=== PATIENT | male | born 1965 | race Caucasian/White ===

== ENCOUNTER 2017-03-17 14:16 | Inpatient (IN) | payer BC ==
[2017-03-17] MEDS ORDERED: diPHENhydraMINE IV* 50 MG/ML 1 ml VIAL (BENADRYL) IV ONE (15:49)
[2017-03-17] MEDS ORDERED: NS 0.9% 1000 ML* 1,000 ML IV ONE (15:49)
[2017-03-17] MEDS ORDERED: Metoclopramide IV* 5 MG/ML 2 ML VIAL IV ONE (15:49)
[2017-03-17] MEDS ORDERED: Morphine INJ* 4 MG/ML 1 ML SYRINGE IV ONE (15:49)
[2017-03-17] MEDS ORDERED: Famotidine IV* 10 MG/ML 2 ML (20 mg) IV ONE (16:00)
[2017-03-17] MEDS: NS 0.9% 1000 ML* 2,000 ML IV ONE ×4 (16:34→19:30)
[2017-03-17 16:50] LABS: Hematocrit 37 % (42-52); Hemoglobin 12.8 g/dl (14.0-18.0); Mean Corpuscular HGB Conc 34 g/dl (31-36); Mean Corpuscular Hemoglobin 31 pg (27-31); Mean Corpuscular Volume 92 fL (80-94); Mean Platelet Volume 9 um3 (7.4-10.4); Red Blood Count 4.08 10^6/ul (4.0-5.4); Red Cell Distribution Width 14 % (10.5-15); White Blood Count 12.7 10^3/ul (3.5-10.8)
[2017-03-17 16:51] LABS: Add Diff/Slide Review? Slide Review Added; Comments Flag Yes
[2017-03-17 17:05] LABS: ALT 11 U/L (7-52); AST 12 U/L (13-39); Albumin 3.7 g/dL (3.2-5.2); Alkaline Phosphatase 79 U/L (34-104); Amylase 20 U/L (29-103); BUN/Creatinine Ratio 6.4 (8-20); Blood Urea Nitrogen 71 mg/dL (6-24); C Reactive Protein 78.97 mg/L (< 5.00); Calcium 8.1 mg/dL (8.6-10.3); Chloride 83 mmol/L (101-111); EGFR African American 6.3 (>60); EGFR Non-African American 4.9 (>60); Globulin 2.9 g/dL (2-4); Glucose 188 mg/dL (70-100); Lipase < 10 U/L (11.0-82.0); Sodium 120 mmol/L (133-145); Total Protein 6.6 g/dL (6.4-8.9)
[2017-03-17 17:15] LABS: Anion Gap 28 mmol/L (2-11); CO2 Carbon Dioxide 9 mmol/L (22-32); Potassium 6.2 mmol/L (3.5-5.0)
--- NOTE | 2017-03-17 17:28 | RAD ---
HISTORY: Abdominal pain COMPARISONS: None VIEWS: Frontal supine and upright views of the abdomen. FINDINGS: BOWEL: There is a nonobstructive bowel gas pattern. There is a large amount of stool within the colon. CALCULI: There are several punctate calculi overlying the upper abdomen just to the right of midline BONES AND SOFT TISSUES: Mild degenerative changes are noted OTHER FINDINGS: The lung bases are clear. There is no subphrenic gas. IMPRESSION: 1. NONOBSTRUCTIVE BOWEL GAS PATTERN. 2. THERE ARE PUNCTATE CALCULI OVERLYING THE UPPER ABDOMEN TO THE RIGHT OF MIDLINE, POSSIBLY RELATED TO THE PANCREAS IN THE SETTING OF CHRONIC PANCREATITIS, THOUGH THE DIFFERENTIAL INCLUDES RIGHT NEPHROLITHIASIS
[2017-03-17] MEDS ORDERED: Dextrose 50% Syringe 50 ML* 25 GM/50 ML SYRINGE IV PUSH ONE (17:30)
[2017-03-17] MEDS ORDERED: Sodium Polystyrene ORAL.SOL* 15 GM/60 ML BTL PO ONE (17:30)
[2017-03-17] MEDS ORDERED: Insulin REGULAR(*) 1 UNITS UNIT IV PUSH ONE (17:30)
--- NOTE | 2017-03-17 18:49 | RAD ---
HISTORY: Acute renal failure, rule out pneumonia COMPARISONS: October 27, 2015 VIEWS:2: Frontal portable views of the chest at 6:32 PM FINDINGS: LINES AND TUBES: None. CARDIOMEDIASTINAL SILHOUETTE: The cardiomediastinal silhouette is normal for portable technique. PLEURA: The costophrenic angles are sharp. No pleural abnormalities are noted. LUNG PARENCHYMA: The lungs are clear. ABDOMEN: The upper abdomen is clear. There is no subphrenic gas. BONES AND SOFT TISSUES: No bone or soft tissue abnormalities are noted. IMPRESSION: NO ACTIVE CARDIOPULMONARY DISEASE.
[2017-03-17 18:52] LABS: PCO2 Arterial 20 mmHg (35-45)
[2017-03-17 18:53] LABS: Urine Bacteria Absent (Absent); Urine Bilirubin Negative (Negative); Urine Glucose 2+(150 mg/dL) (Negative); Urine Nitrite Negative (Negative); Urine Sperm Present (Absent)
--- NOTE | 2017-03-17 19:39 | RAD ---
HISTORY: Acute renal failure COMPARISONS: None TECHNIQUE: Multiple transverse and longitudinal ultrasound images were obtained of the kidneys using grayscale and color Doppler imaging. FINDINGS: RIGHT KIDNEY: The right kidney is mildly echogenic. There is no hydronephrosis or nephrolithiasis. The right kidney measures 11.6 x 6 x 5.9 cm. LEFT KIDNEY: The left kidney is mildly echogenic. There is no hydronephrosis or nephrolithiasis. The left kidney measures 12.9 x 5.9 x 5.8 cm. BLADDER: The bladder is smooth in contour. Bilateral ureteral jets are identified. AORTA AND IVC: No images are submitted of the vasculature. RETROPERITONEUM: Unremarkable. OTHER: None. IMPRESSION: MILDLY ECHOGENIC KIDNEYS SUGGESTIVE OF MEDICAL RENAL DISEASE. NO HYDRONEPHROSIS.
--- NOTE | 2017-03-17 20:17 | ED ---
Ann Marie Thorpe Edward, scribed for Christiano Núñez MD on 03/17/17 at 1551 . Complex/Multi-Sys Presentation - HPI Summary HPI Summary: 51 y/o male presents to ED c/o ABD pain since four days ago. The ABD pain is located in the middle of the epigastric region rated at a 5/10. Patient also c/ o N/V/D since Monday evening. Patient is vomiting a brown colored substance and can't keep anything down, including liquids. ABD pain aggravated by vomiting. Associated sx: severe RUEDA aggravated by vomiting and dizziness. Patient denies blood in diarrhea and states it is yellowish colored. Patient denies travel outside of the country and sick contact. PMHx DM Type II. SHx toe amputations (DM). Occasional EtOH use. Former smoker. - History Of Current Complaint Chief Complaint: EDGeneral Time Seen by Provider: 03/17/17 15:44 Hx Obtained From: Patient Onset/Duration: Sudden Onset, Lasting Days - Four days ago, Still Present Timing: Constant Location: Pain At: - Middle of epigastric region Associated Signs And Symptoms: Positive: Headache, Nausea, Vomiting, Diarrhea - Yellowish, Abdominal Pain, Other - No blood in stool - Allergies/Home Medications Allergies/Adverse Reactions: Allergies Allergy/AdvReac Type Severity Reaction Status Date / Time No Known Allergies Allergy Verified 10/24/15 13:24 Home Medications: Home Medications Aspirin EC Low Dose* [Ecotrin EC Low Dose 81 MG*] 81 mg PO DAILY 03/17/17 [ History Confirmed 03/17/17] Cholecalciferol [Vitamin D3 Super Strength] 2,000 unit PO DAILY 03/17/17 [ History Confirmed 03/17/17] Polyethylene Glycol 3350* [Miralax*] 17 gm PO DAILY 03/17/17 [History Confirmed 03/17/17] Simvastatin TAB(NF) [Zocor(NF)] 20 mg PO DAILY 03/17/17 [History Confirmed 03/17] SitaGLIPtin (NF) [Januvia (NF)] 100 mg PO DAILY 03/17/17 [History Confirmed ] oxyCODONE/Acetamin 5/325 MG* [Percocet 5/325 TAB*] 1 tab PO TID PRN MDD 3 tab [History Confirmed 03/17/17] PMH/Surg Hx/FS Hx/Imm Hx Previously Healthy: No Endocrine/Hematology History: Reports: Hx Diabetes Cardiovascular History: Denies: Hx Hypertension, Hx Pacemaker/ICD History: Denies: Hx Renal Disease Musculoskeletal History: Reports: Hx Arthritis, Other Musculoskeletal History - osteomyelitis Sensory History: Reports: Hx Contacts or Glasses Denies: Hx Hearing Aid Opthamlomology History: Reports: Hx Contacts or Glasses Psychiatric History: Denies: Hx Panic Disorder - Surgical History Surgery Procedure, Year, and Place: 06/04/14 RIGHT GREAT TOE ORIF. LAST 2 TOES ON LEFT FOOT AMPUTATION. TONSILS 9 Y.O Hx Anesthesia Reactions: No Infectious Disease History: Denies: Traveled Outside the [place] in Last 30 Days - Family History Known Family History: Positive: Cardiac Disease - [place] - grandfather, Diabetes - Grandfather, Other - Mother of [place] - Social History Alcohol Use: Weekly Substance Use Type: Reports: None Hx Tobacco Use: Yes - Has not had nicotine replacement since admission Smoking Status (MU): Light Every Day Tobacco Smoker Type: Cigarettes Amount Used/How Often: 1/2 pack per day for 20 years Review of Systems Constitutional: Negative Eyes: Negative ENT: Negative Cardiovascular: Negative Respiratory: Negative Positive: Abdominal Pain, Vomiting, Diarrhea, Nausea Genitourinary: Negative Musculoskeletal: Negative Skin: Negative Neurological: Other - dizziness Positive: Headache Psychological: Normal All Other Systems Reviewed And Are Negative: Yes Physical Exam - Summary Physical Exam Summary: VITAL SIGNS:~Reviewed. GENERAL:~ Patient is a well-developed and nourished male who is lying comfortable in the stretcher.~ Patient is not in any acute respiratory distress. HEAD AND FACE:~No signs of trauma.~ No ecchymosis, hematomas or skull depressions. No sinus tenderness. EYES:~PERRLA, EOMI x 2, No injected conjunctiva, no nystagmus. EARS:~Hearing grossly intact. Ear canals and tympanic membranes are within normal limits. MOUTH:~Dry oral mucosa. NECK:~Supple, trachea is midline, no adenopathy, no JVD, no carotid bruit, no c- spine tenderness, neck with full ROM. CHEST:~Symmetric, no tenderness at palpation LUNGS:~Clear to auscultation bilaterally. No wheezing or crackles. CVS:~Regular rate and rhythm, S1 and S2 present, no murmurs or gallops appreciated. ABDOMEN:~Soft, epigastric tenderness. No signs of distention. No rebound no guarding, and no masses palpated. Bowel sounds are normal. EXTREMITIES:~FROM in all major joints, no edema, no cyanosis or clubbing. NEURO:~Alert and oriented x 3. No acute neurological deficits. Speech is normal and follows commands. SKIN:~Dry and warm Triage Information Reviewed: Yes Vital Signs On Initial Exam: Initial Vitals Temp Pulse Resp BP Pulse Ox 97.3 F 65 22 164/64 99 03/17/17 14:22 03/17/17 14:22 03/17/17 14:22 03/17/17 14:22 03/17/17 14:22 Vital Signs Reviewed: Yes Diagnostics - Vital Signs Vital Signs Temp Pulse Resp BP Pulse Ox 03/17/17 14: 97.3 F 65 22 164/64 99 - Laboratory Lab Results: Lab Results 03/17/17 03/17/17 03/17/17 Range/Units 16:30 16:30 16:30 WBC 12.7 H (3.5-10.8) 10^3/ul RBC 4.08 (4.0-5.4) 10^6/ul Hgb 12.8 L (14.0-18.0) g/dl Hct 37 L (42-52) % MCV 92 (80-94) fL MCH 31 (27-31) pg MCHC 34 (31-36) g/dl RDW 14 (10.5-15) % Plt Count 166 (150-450) 10^3/ul MPV 9 (7.4-10.4) um3 Neut % (Auto) 86.9 H (38-83) % Lymph % (Auto) 5.8 L (25-47) % [place] % (Auto) 6.5 (1-9) % Eos % (Auto) 0.1 (0-6) % Baso % (Auto) 0.7 (0-2) % Absolute Neuts (auto) 11.0 H (1.5-7.7) 10^3/ul Absolute Lymphs (auto) 0.7 L (1.0-4.8) 10^3/ul Absolute Monos (auto) 0.8 (0-0.8) 10^3/ul Absolute Eos (auto) 0 (0-0.6) 10^3/ul Absolute Basos (auto) 0.1 (0-0.2) 10^3/ul Absolute Nucleated RBC 0.01 10^3/ul Nucleated RBC % 0 Sodium 120 L (133-145) mmol/L Potassium 6.2 H* (3.5-5.0) mmol/L Chloride 83 L (101-111) mmol/L Carbon Dioxide 9 L* (22-32) mmol/L Anion Gap 28 H (2-11) mmol/L BUN 71 H (6-24) mg/dL Creatinine 11.03 H (0.67-1.17) mg/dL Est GFR ( Amer) 6.3 (>60) Est GFR (Non-Af Amer) 4.9 (>60) BUN/Creatinine Ratio 6.4 L (8-20) Glucose 188 H (70-100) mg/dL Lactic Acid 3.9 H* (0.5-2.0) mmol/L Calcium 8.1 L (8.6-10.3) mg/dL Total Bilirubin 0.40 (0.2-1.0) mg/dL AST 12 L (13-39) U/L ALT 11 (7-52) U/L Alkaline Phosphatase 79 (34-104) U/L C-Reactive Protein 78.97 H (< 5.00) mg/L Total Protein 6.6 (6.4-8.9) g/dL Albumin 3.7 (3.2-5.2) g/dL Globulin 2.9 (2-4) g/dL Albumin/Globulin Ratio 1.3 (1-3) Amylase 20 L (29-103) U/L Lipase < 10 L (11.0-82.0) U/L Result Diagrams: 03/17/17 16:30 03/17/17 16:30 Lab Statement: Any lab studies that have been ordered have been reviewed, and results considered in the medical decision making process. - Radiology ABD XRAY Xray Interpretation: Positive (See Comments) - 1. NONOBSTRUCTIVE BOWEL GAS PATTERN. 2. THERE ARE PUNCTATE CALCULI OVERLYING THE UPPER ABDOMEN TO THE RIGHT OF MIDLINE, POSSIBLY RELATED TO THE PANCREAS IN THE SETTING OF CHRONIC PANCREATITIS, THOUGH THE DIFFERENTIAL INCLUDES RIGHT NEPHROLITHIASIS Radiology Interpretation Completed By: Radiologist Complex Multi-Symp Course/Dx Assessment/Plan: 51 y/o male presents to ED c/o ABD pain since four days ago. The ABD pain is located in the middle of the epigastric region rated at a 5/10. Patient also c/o N/V/D since Monday evening. Patient is vomiting a brown colored substance and can't keep anything down, including liquids. ABD pain aggravated by vomiting. Associated sx: severe RUEDA aggravated by vomiting and dizziness. Patient denies blood in diarrhea and states it is yellowish colored. Patient denies travel outside of the country and sick contact. PMHx DM Type II. SHx toe amputations (DM). Occasional EtOH use. Former smoker. Test results show WBC 12.7, hemoglobin 12.8, hematocrit 37. Sodium 120, potassium 6.2, chloride 83 , CO2 9, BUN 71, creatinine 11. Glucose 188, CRP 78.97. ABD XR shows 1. NONOBSTRUCTIVE BOWEL GAS PATTERN. 2. THERE ARE PUNCTATE CALCULI OVERLYING THE UPPER ABDOMEN TO THE RIGHT OF MIDLINE, POSSIBLY RELATED TO THE PANCREAS IN THE SETTING OF CHRONIC PANCREATITIS, THOUGH THE DIFFERENTIAL INCLUDES RIGHT NEPHROLITHIASIS. In the ED course we placed the patient on a monitor, obtained IV access and gave the patient IV fluids and 2 L of normal saline boluses. Because of the patients hypokalemia, the patient was given calcium, gluconate, dextrose, insulin, and kayexalate. EKG showed NSR with no ST elevations. Pt was also given morphine for ABD pain and Reglan for n/v. The Pt has continued with 2 L of normal saline at this point. I discussed the test findings and examination with Dr. Wang who will consult for the, and who recommends the patient receive a Renal U and bladder scan. Dr. Wang also recommends administering urinary sodium and urinary creatinine with fraction and excretion. Dr Wang will follow up the results of the [place]. I discussed the case with Dr. Knutson who accepted the patient for admission. I also discussed the case with Dr. Victor from ICU who accepted the patient for admission to the medical team. The patient is hemodynamically stable and A&Ox3. - Diagnoses Provider Diagnoses: Acute renal failure, Severe dehydration, Hyponatremia, Hypokalemia - Physician Notifications Discussed Care Of Patient With: Oralia Knutson Time Discussed With Above Provider: 17:45 Instructed by Provider To: Admit As Inpatient - Critical Care Time Critical Care Time: 30-74 min Discharge - Discharge Plan Condition: Stable Disposition: ADMITTED TO [facility] The documentation as recorded by the Ann Marie goodman Edward accurately reflects the service I personally performed and the decisions made by , Christiano Núñez MD.
[2017-03-17 20:18] LABS: Hematocrit 36 % (42-52); Hemoglobin 11.9 g/dl (14.0-18.0); Mean Corpuscular HGB Conc 33 g/dl (31-36); Mean Corpuscular Hemoglobin 31 pg (27-31); Mean Corpuscular Volume 94 fL (80-94); Mean Platelet Volume 9 um3 (7.4-10.4); Red Blood Count 3.83 10^6/ul (4.0-5.4); Red Cell Distribution Width 14 % (10.5-15); White Blood Count 15.8 10^3/ul (3.5-10.8)
[2017-03-17 20:19] LABS: Add Diff/Slide Review? Slide Review Added; Comments Flag Yes
[2017-03-17 20:54] LABS: Eosinophils % 2 % (0-6); Immature Granulocytes 8 % (0-9); Myelocytes % 1 % (0-1); Neutrophil % 78 % (38-83); RBC Morphology Normal (Normal)
[2017-03-17 21:08] LABS: Calcium 7.1 mg/dL (8.6-10.3); EGFR African American 7.1 (>60); EGFR Non-African American 5.5 (>60); Potassium 5.4 mmol/L (3.5-5.0)
[2017-03-17] MEDS: Sodium Bicarbonate 8.4% IV* 100 MEQ in NS 0.45% 1000 ML BAG* 1,000 ML IV SCH (21:35)
[2017-03-17] MEDS: Nortriptyline CAP* 10 MG PO SCH (22:30)
[2017-03-17] MEDS: cefTRIAXone VIAL(*) 1,000 MG in NS 0.9% 50 ML* 50 ML IVPB SCH (22:30)
[2017-03-17] MEDS: Heparin VIAL(*) 5000 UNITS/ML VIAL (FIVE THOUSAND) SUBCUT SCH (22:31)
[2017-03-17] MEDS ORDERED: Ondansetron INJ* 2 MG/ML VIAL ONE (23:16)
[2017-03-17] MEDS: Ondansetron INJ* 2 MG/ML VIAL IV PRN (23:19)
[2017-03-17] MEDS: Insulin LISPRO* 1 UNITS UNIT SUBCUT SCH (23:58)
[2017-03-18 00:35] LABS: Benzodiazepine Urine Screen None Detected (None Detect)
[2017-03-18 01:06] LABS: Magnesium 1.8 mg/dL (1.9-2.7)
[2017-03-18 02:21] LABS: BUN/Creatinine Ratio 6.8 (8-20); Calcium 6.7 mg/dL (8.6-10.3); EGFR African American 6.9 (>60); EGFR Non-African American 5.4 (>60)
[2017-03-18 02:40] LABS: Potassium 6.1 mmol/L (3.5-5.0)
[2017-03-18] MEDS ORDERED: Sodium Polystyrene ORAL.SOL* 15 GM/60 ML BTL ONE (03:14)
[2017-03-18] MEDS ORDERED: Dextrose 50% Syringe 50 ML* 25 GM/50 ML SYRINGE ONE (03:14)
[2017-03-18] MEDS ORDERED: Insulin REGULAR(*) 1 UNITS UNIT ONE (03:14)
[2017-03-18] MEDS: Insulin LISPRO* 1 UNITS UNIT SUBCUT SCH ×5 (03:20→20:30)
[2017-03-18] MEDS: Sodium Bicarbonate 8.4% IV* 100 MEQ in NS 0.45% 1000 ML BAG* 1,000 ML IV SCH ×2 (03:28→09:30)
[2017-03-18] MEDS ORDERED: Insulin REGULAR(*) 1 UNITS UNIT IV PUSH ONE (03:30)
[2017-03-18] MEDS ORDERED: Dextrose 50% Syringe 50 ML* 25 GM/50 ML SYRINGE IV PUSH ONE (03:30)
[2017-03-18] MEDS ORDERED: Calcium Gluconate INJ* 1 GM in NS 0.9% 50 ML* 50 ML IV ONE (03:30)
[2017-03-18] MEDS ORDERED: Sodium Polystyrene ORAL.SOL* 15 GM/60 ML BTL PO ONE (03:30)
--- NOTE | 2017-03-18 05:53 | HP ---
CC: Dr. Sexton; Dr. Berumen; Dr. Victor * HISTORY AND PHYSICAL: DATE OF ADMISSION: 03/17/17 PRIMARY CARE PROVIDER: Dr. Akin Sexton. CHIEF COMPLAINT: Nausea, vomiting, and diarrhea. HISTORY OF PRESENT ILLNESS: Mikel Olivia is a 51-year-old male with history of diabetes, chronic kidney disease stage 2 to 3, who presented to the hospital after 3 days of being "sick". Patient stated that he has been having constant nausea and vomiting and diarrhea. He stated that he would go with diarrhea 20 times a day and he would be vomiting constantly. He complaints of mild epigastric tenderness. He stated that it started 3 days ago and he does not remember any particular event that precipitated the nausea and diarrhea. Patient stated that his family has not been ill. 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 Patient was seen in the ED and was noted to have a creatinine of 11 with anion gap, metabolic acidosis, severe hyponatremia, and hyperkalemia. He is going to be admitted to the intensive care unit under the care of Dr. Victor. PAST MEDICAL HISTORY: 1. Diabetes type 2. 2. Hypertension. 3. History of toe amputations bilaterally for osteomyelitis. 4. History of chronic kidney disease stage 2 to 3 with creatinine of 1.4 and proteinuria under the care of Dr. Berumen in the past. MEDICATIONS: Include: 1. MiraLAX 17 g daily p.r.n. 2. Vitamin D3 2000 units daily. 3. Zocor 20 mg daily. 4. Januvia 100 mg daily. 5. Aspirin 81 mg daily. 6. Glucophage 1000 mg b.i.d. 7. Glipizide 10 mg b.i.d. 8. Ramipril 10 mg daily. 9. Oxycodone-acetaminophen on a p.r.n. basis. 10. Pamelor 10 mg daily. ALLERGIES: No known drug allergies. FAMILY HISTORY: Positive for grandfather with diabetes, mother with history of bone marrow cancer. SOCIAL HISTORY: The patient has history of smoking over 20 years and quit smoking 3 months ago. He drinks alcohol occasionally, usually a couple of glasses of wine a week. He denies any drug use. 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 REVIEW OF SYSTEMS: Please see history of present illness. All the remaining 14 systems were reviewed with the patient and were otherwise negative. Please note that the patient was able to produce a few milliliters of urine after 3 L of fluids were infused in the ED. The patient also had 0 postvoid residual. PHYSICAL EXAMINATION GENERAL: The patient is a very pleasant 51-year-old male who is in no acute distress. Alert, awake, and oriented x3. VITAL SIGNS: Blood pressure 164/64, heart rate of 55 and regular, respiratory rate 22, oxygen saturation 97% on room air, temperature 97.3. HEENT: Head atraumatic and normocephalic. Eyes: Pupils are equal and reactive to light and accommodation. Oropharynx clear. Mucosa moist. NECK: Supple. No JVD. No bruits bilaterally RESPIRATORY: Clear to auscultation bilaterally. CARDIOVASCULAR: Regular rate and rhythm, no murmur. ABDOMEN: Soft, minimal tender in the epigastrium with no rebound, no guarding. Bowel sounds present in all 4 quadrants. EXTREMITIES: There is no edema. Pulses +2 bilaterally. There is no clubbing or cyanosis. NEUROLOGIC: Speech is clear. Cranial nerves II through XII grossly intact. Motor strength is 5/5 bilaterally. SKIN: On evaluation of the skin, the patient has sunburn on his upper back with scattered pustular eruptions, probably as a reaction to sunburn. No petechiae or other rashes noted. DIAGNOSTIC STUDIES/LAB DATA: Laboratory data shows urinalysis with urine specific gravity of 1.01. Ketones are +1, protein +2, blood +3. Urine wbc +1, rbc +3. There are present hyaline casts, granular casts, and glucose. There were no bacteria present. Sodium of 120, potassium 6.2, chloride 83, carbon dioxide 9, BUN 71, creatinine 11. Liver function tests showed no abnormalities with bilirubin 0.4, AST of 12, ALT of 11. C-reactive protein of 78. Lactic acid of 3.9. Glucose of 188. Lipase below 10. CBC: White blood cell count of 12.7, hemoglobin of 12.8, hematocrit of 37, platelets of 166. ABG showed pH of below 7, pCO2 of 20, pO2 of 151, bicarb of 4.9. Portable chest x-ray reviewed by myself showed no acute abnormalities. Abdomen X-ray, impression: "Obstructive bowel gas pattern. There are punctate calculi overlying the upper abdomen of the right midline possibly related to pancreas in the setting of chronic pancreatitis. The differential includes right nephrolithiasis." Patient's EKG shows sinus tachycardia with heart rate of 105 beats per minute with one peaked T wave in lead V3 and no other changes. ASSESSMENT AND PLAN: 1. Acute renal failure in patient with hyponatremia, hypochloremia, and metabolic acidosis with anion gap acidosis and elevation of lactic acid. I discussed the case both with Dr. Victor, the punch molder on-call to whose service the patient is going to be admitted, as well as Dr. Berumen, the patient' s directory compiler. At this point, it does not appear that patient's metabolic acidosis is due to DKA. Patient is type 2 diabetic. He appears to be markedly dehydrated and his renal failure appears to be mostly due to the hydration. At this point, the patient is going to be placed on his bicarb drip after intravenous fluid resuscitation with a total of 5 L of fluids, which included 4 L of normal saline and 1 L of lactated Ringer's. We will follow up with his basic metabolic panel every 6 hours. Patient refused to have a Burton catheter placement, but so far he has not had any urine residual. Due to mild elevation of CRP at this point, I will treat the patient with one empiric dose of IV ceftriaxone. 2. In regards to the patient's diabetes, his sugar level is 188. All of his oral agents are going to be held and patient is going to be placed on insulin sliding scale with lispro coverage. 3. In regards to the patient's hyperkalemia, he already received IV regular insulin as well as Kayexalate as well as calcium gluconate. Recheck basic metabolic panel in a few hours to follow up on his potassium levels. 4. In regards to the patient's hypertension, his TRU inhibitor is going to be held due to acute renal failure. 5. For DVT prophylaxis, the patient is ambulatory. He is also going to be placed on heparin subcutaneously. 6. In regards to the code status, the patient's code status is full. TIME SPENT: Approximately 75 minutes was spent on admission of this patient, more than half that time was spent [id number] with the patient and the patient 's during the interview and physical exam. [id number]/[facility] #: [id number] JEANNA
[2017-03-18] MEDS: Heparin VIAL(*) 5000 UNITS/ML VIAL (FIVE THOUSAND) SUBCUT SCH ×2 (06:01→16:13)
[2017-03-18 06:17] LABS: Hematocrit 30 % (42-52); Hemoglobin 10.5 g/dl (14.0-18.0); Mean Corpuscular HGB Conc 35 g/dl (31-36); Mean Corpuscular Hemoglobin 32 pg (27-31); Mean Corpuscular Volume 92 fL (80-94); Mean Platelet Volume 8 um3 (7.4-10.4); Red Blood Count 3.26 10^6/ul (4.0-5.4); Red Cell Distribution Width 14 % (10.5-15); White Blood Count 8.6 10^3/ul (3.5-10.8)
[2017-03-18] MEDS: oxyCODONE/Acetamin 5/325 MG* TAB PO PRN ×3 (06:34→20:32)
[2017-03-18 08:37] LABS: BUN/Creatinine Ratio 7.1 (8-20); Calcium 6.8 mg/dL (8.6-10.3); EGFR African American 6.7 (>60); EGFR Non-African American 5.2 (>60); Potassium 4.3 mmol/L (3.5-5.0)
[2017-03-18] MEDS ORDERED: NS 0.9% 1000 ML* 1,000 ML IV SCH (10:30)
--- NOTE | 2017-03-18 10:38 | PN ---
Critical Care Services: Critical Care Progress note Date of Service: 03/18/17, Time: 10:31 am Pt was seen and examined at bedside. Reports feeling better this morning than he felt over days. Denies nausea, is drinking fluids, no diarrhea. History and physical reviewed, reviewed case with Dr Knutson last night. 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 He also c/o epigastric tenderness. No other family members were affected. He also had poor oral intake over the past 3 days , has been drinking Gatorade. Denied SOB, fevers, chills, chest pain, dizziness , headaches, hematuria, blood in stools, renal colic. Reported sore throat from vomiting, improved today. His blood sugars were in low 200s at home. He presented to ED for evaluation of persistant severe diarrhea symptoms. He was alert and oriented in ED. His EKG showed minimal peaked t waves. He was noted to have severe metabolic acidosis and hyperkalemia. He had received kayexalate , calcium gluconate and insulin in ED and again last night. He is hydrating orally and receiving IV fluids and is able to make urine. PMHx, PSHx, All, FHx were reviewed and as per HPI Medications were reviewed and reconciled in chart ROS: All systems reviewed, as above in HPI Vital Signs: Temp Pulse Resp BP SpO2 FiO2 98.7 F 95 16 154/68 99 99 03/18/17 08:00 03/18/17 06:00 03/18/17 06:34 03/18/17 06:00 03/18/17 06:00 03/18 04:00 Physical Exam: Gen: Pt in NAD, HEENT: PERRLA, mucus membranes dry, no icterus Lungs:Good ae b/l, no wheeze Cardiac: S1 S2+, mildly tacycardic Abdomen:Soft, BS+, no tenderness Extremities:Normal ROM, no cyanosis, clubbing Neuro:Alert, awake, oriented x3, NAD. Access: peripheral Fluid Balance (Past 24 Hours): I= O= Net Intake & Output 03/16/17 03/17/17 03/18/17 03/19/17 06:59 06:59 06:59 06:59 Intake Total 5160 Output Total 110 Balance 5160 -110 Weight 222 lb 7.143 oz Intake: IV Fluids 2000 IVPB 2800 LR 1000 Na Bicarb 1800 Medicated IV 60 Ca Gluconate 60 Oral 300 Output: Urine 110 Labs: Laboratory Results - last 24 hr 03/17/17 03/17/17 03/17/17 18:20 18:43 18:43 WBC RBC Hgb Hct MCV MCH MCHC RDW Plt Count MPV Immature Gran % (Auto) Neut % (Auto) Lymph % (Auto) [place] % (Auto) Eos % (Auto) Baso % (Auto) Absolute Neuts (auto) Absolute Lymphs (auto) Absolute Monos (auto) Absolute Eos (auto) Absolute Basos (auto) Absolute Nucleated RBC Neutrophils % Band Neutrophils % Lymphocytes % Monocytes % Eosinophils % Myelocytes % Nucleated RBC % Normal RBC Morphology INR (Anticoag Therapy) APTT ABG pH < 7.00 L* ABG pCO2 20 L ABG pO2 151 H ABG HCO3 4.9 L* ABG O2 Saturation 98.3 H ABG Base Excess -25.7 L Carbon Monoxide Screen <3.5 Sodium Potassium Chloride Carbon Dioxide Anion Gap BUN Creatinine Est GFR ( Amer) Est GFR (Non-Af Amer) BUN/Creatinine Ratio Glucose POC Glucose (mg/dL) Lactic Acid Calcium Magnesium Urine Color Yellow Urine Appearance Cloudy Urine pH 5.0 Ur Specific [place] 1.010 Urine Protein 2+(100 mg/dl) H Urine Ketones 1+ H Urine Blood 3+ H Urine Nitrate Negative Urine Bilirubin Negative Urine Urobilinogen Negative Ur Leukocyte Esterase Negative Urine WBC (Auto) 1+(6-10/hpf) H Urine RBC (Auto) 3+(>10/hpf) H Ur Squamous Epith Cells Present H Ur Transition Epith Cell Present H Amorphous Crystals Present H Urine Bacteria Absent Hyaline Casts Present H Granular Casts Present H Urine Sperm Present H Ur Random Creatinine Ur Random Sodium Urine Glucose 2+(150 mg/dl) H Urine Opiates Screen Ur Barbiturates Screen Ur Phencyclidine Scrn Ur Amphetamines Screen U Benzodiazepines Scrn Urine Cocaine Screen U Cannabinoids Screen 03/17/17 03/17/17 03/17/17 20:06 20:06 20:06 WBC 15.8 H RBC 3.83 L Hgb 11.9 L Hct 36 L MCV 94 MCH 31 MCHC 33 RDW 14 Plt Count 169 MPV 9 Immature Gran % (Auto) 8 Neut % (Auto) 85.2 H Lymph % (Auto) 6.7 L [place] % (Auto) 7.3 Eos % (Auto) 0.1 Baso % (Auto) 0.7 Absolute Neuts (auto) 13.4 H Absolute Lymphs (auto) 1.1 Absolute Monos (auto) 1.1 H Absolute Eos (auto) 0 Absolute Basos (auto) 0.1 Absolute Nucleated RBC 0.02 Neutrophils % 78 Band Neutrophils % 7 Lymphocytes % 5 L Monocytes % 7 Eosinophils % 2 Myelocytes % 1 Nucleated RBC % 0.1 Normal RBC Morphology Normal INR (Anticoag Therapy) 0.94 APTT 30.2 ABG pH ABG pCO2 ABG pO2 ABG HCO3 ABG O2 Saturation ABG Base Excess Carbon Monoxide Screen Sodium 121 L Potassium 5.4 H Chloride 91 L Carbon Dioxide 7 L* Anion Gap 23 H BUN 69 H Creatinine 9.91 H Est GFR ( Amer) 7.1 Est GFR (Non-Af Amer) 5.5 BUN/Creatinine Ratio 7.0 L Glucose 192 H POC Glucose (mg/dL) Lactic Acid Calcium 7.1 L Magnesium 1.8 L Urine Color Urine Appearance Urine pH Ur Specific [place] Urine Protein Urine Ketones Urine Blood Urine Nitrate Urine Bilirubin Urine Urobilinogen Ur Leukocyte Esterase Urine WBC (Auto) Urine RBC (Auto) Ur Squamous Epith Cells Ur Transition Epith Cell Amorphous Crystals Urine Bacteria Hyaline Casts Granular Casts Urine Sperm Ur Random Creatinine Ur Random Sodium Urine Glucose Urine Opiates Screen Ur Barbiturates Screen Ur Phencyclidine Scrn Ur Amphetamines Screen U Benzodiazepines Scrn Urine Cocaine Screen U Cannabinoids Screen 03/17/17 03/18/17 03/18/17 22:55 00:09 00:09 WBC RBC Hgb Hct MCV MCH MCHC RDW Plt Count MPV Immature Gran % (Auto) Neut % (Auto) Lymph % (Auto) [place] % (Auto) Eos % (Auto) Baso % (Auto) Absolute Neuts (auto) Absolute Lymphs (auto) Absolute Monos (auto) Absolute Eos (auto) Absolute Basos (auto) Absolute Nucleated RBC Neutrophils % Band Neutrophils % Lymphocytes % Monocytes % Eosinophils % Myelocytes % Nucleated RBC % Normal RBC Morphology INR (Anticoag Therapy) APTT ABG pH ABG pCO2 ABG pO2 ABG HCO3 ABG O2 Saturation ABG Base Excess Carbon Monoxide Screen Sodium Potassium Chloride Carbon Dioxide Anion Gap BUN Creatinine Est GFR ( Amer) Est GFR (Non-Af Amer) BUN/Creatinine Ratio Glucose POC Glucose (mg/dL) 191 H Lactic Acid Calcium Magnesium Urine Color Urine Appearance Urine pH Ur Specific [place] Urine Protein Urine Ketones Urine Blood Urine Nitrate Urine Bilirubin Urine Urobilinogen Ur Leukocyte Esterase Urine WBC (Auto) Urine RBC (Auto) Ur Squamous Epith Cells Ur Transition Epith Cell Amorphous Crystals Urine Bacteria Hyaline Casts Granular Casts Urine Sperm Ur Random Creatinine 36.47 Ur Random Sodium 81 Urine Glucose Urine Opiates Screen None detected Ur Barbiturates Screen None detected Ur Phencyclidine Scrn None detected Ur Amphetamines Screen None detected U Benzodiazepines Scrn None detected Urine Cocaine Screen None detected U Cannabinoids Screen None detected 03/18/17 03/18/17 03/18/17 02:00 03:00 06:00 WBC 8.6 RBC 3.26 L Hgb 10.5 L Hct 30 L MCV 92 MCH 32 H MCHC 35 RDW 14 Plt Count 126 L MPV 8 Immature Gran % (Auto) Neut % (Auto) Lymph % (Auto) [place] % (Auto) Eos % (Auto) Baso % (Auto) Absolute Neuts (auto) Absolute Lymphs (auto) Absolute Monos (auto) Absolute Eos (auto) Absolute Basos (auto) Absolute Nucleated RBC Neutrophils % Band Neutrophils % Lymphocytes % Monocytes % Eosinophils % Myelocytes % Nucleated RBC % Normal RBC Morphology INR (Anticoag Therapy) APTT ABG pH ABG pCO2 ABG pO2 ABG HCO3 ABG O2 Saturation ABG Base Excess Carbon Monoxide Screen Sodium 121 L Potassium 6.1 H* Chloride 91 L Carbon Dioxide 8 L* Anion Gap 22 H BUN 69 H Creatinine 10.17 H Est GFR ( Amer) 6.9 Est GFR (Non-Af Amer) 5.4 BUN/Creatinine Ratio 6.8 L Glucose 184 H POC Glucose (mg/dL) Lactic Acid 2.0 Calcium 6.7 L Magnesium Urine Color Urine Appearance Urine pH Ur Specific [place] Urine Protein Urine Ketones Urine Blood Urine Nitrate Urine Bilirubin Urine Urobilinogen Ur Leukocyte Esterase Urine WBC (Auto) Urine RBC (Auto) Ur Squamous Epith Cells Ur Transition Epith Cell Amorphous Crystals Urine Bacteria Hyaline Casts Granular Casts Urine Sperm Ur Random Creatinine Ur Random Sodium Urine Glucose Urine Opiates Screen Ur Barbiturates Screen Ur Phencyclidine Scrn Ur Amphetamines Screen U Benzodiazepines Scrn Urine Cocaine Screen U Cannabinoids Screen 03/18/17 03/18/17 03/18/17 06:00 06:32 08:10 WBC RBC Hgb Hct MCV MCH MCHC RDW Plt Count MPV Immature Gran % (Auto) Neut % (Auto) Lymph % (Auto) [place] % (Auto) Eos % (Auto) Baso % (Auto) Absolute Neuts (auto) Absolute Lymphs (auto) Absolute Monos (auto) Absolute Eos (auto) Absolute Basos (auto) Absolute Nucleated RBC Neutrophils % Band Neutrophils % Lymphocytes % Monocytes % Eosinophils % Myelocytes % Nucleated RBC % Normal RBC Morphology INR (Anticoag Therapy) APTT ABG pH ABG pCO2 ABG pO2 ABG HCO3 ABG O2 Saturation ABG Base Excess Carbon Monoxide Screen Sodium 124 L Potassium 4.3 D Chloride 90 L Carbon Dioxide 10 L* Anion Gap 24 H BUN 74 H Creatinine 10.43 H Est GFR ( Amer) 6.7 Est GFR (Non-Af Amer) 5.2 BUN/Creatinine Ratio 7.1 L Glucose 117 H POC Glucose (mg/dL) 147 H Lactic Acid Calcium 6.8 L Magnesium 1.7 L Urine Color Urine Appearance Urine pH Ur Specific [place] Urine Protein Urine Ketones Urine Blood Urine Nitrate Urine Bilirubin Urine Urobilinogen Ur Leukocyte Esterase Urine WBC (Auto) Urine RBC (Auto) Ur Squamous Epith Cells Ur Transition Epith Cell Amorphous Crystals Urine Bacteria Hyaline Casts Granular Casts Urine Sperm Ur Random Creatinine Ur Random Sodium Urine Glucose Urine Opiates Screen Ur Barbiturates Screen Ur Phencyclidine Scrn Ur Amphetamines Screen U Benzodiazepines Scrn Urine Cocaine Screen U Cannabinoids Screen Studies: U/S kidneys: No hydronephrosis, chronic renal disease noted ABG showed metabolic acidosis with pH less than 7, bicarbonate of 4.9 EKG; Sinus tachycardia with one peaked T wave in lead V3, no acute changes CXR: Reviewed personally, no acute air space opacities noted Nutrition: Started oral feeds today Impression: 51 y o male with h/o diabetic nephropathy with chronic 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 No signs of uremia like AMS or pericarditis. Hyperkalemia resolved after treatment with kayexalate, insulin and calcium and glucose last night. Will stop bicarbonate drip and start oral bicarbonate, will stop bicarbonate when serum levels are 15. Will c/w IV fluids, no signs of fluid overload at this point. Pt was anuric upon arrival however UO is picking up since he started receiving fluids. Patient declined lemus however monitoring output, voided 110 ml this am. Will monitor BMP closely including calcium levels while on bicarbonate drip. Dr Berumen has seen pt today. 2.CVS: Hemodynamically stable other than mild tachycardia. EKG showed no significant abnormalitity. Will c/w close cardiac monitoring. RTU-inh is being held given renal failure. Will treat with labetalol if hypertensive. 3.Haem: Anemia of chronic disease, no active bleeding. Platelets slightly decreased however no petechial or mucosal bleeding. Will monitor closely 4.GI: Diarrhea and nausea/vomiting resolved. Will start with liquid diet and progress towards full renal diet as tolerated. 5.Endocrine: History DM, donot suspect DKA. Pt was on Metformin and Glipizide which are being held given ARF. He is on sliding scale insulin coverage 6.Neuro: Alert and oriented, No AMS. 7.Resp: No resp issues, not requiring o2 supplementation 8.Musculoskeletal: No evidence of cellulitis 9.ID: WBC count was slightly elevated at presentation likely from hemoconcentration. Given GI sx and mild epigastrial tenderness received renal dose of Ceftriaxone. Donot see any indication to continue abx Supportive care Patient and family updated at bedside of plan Critical Care Time: 50 min
[2017-03-18] MEDS: Ondansetron INJ* 2 MG/ML VIAL IV PRN (11:26)
[2017-03-18 12:53] LABS: BUN/Creatinine Ratio 6.8 (8-20); Calcium 6.8 mg/dL (8.6-10.3); EGFR African American 6.7 (>60); EGFR Non-African American 5.2 (>60); Potassium 4.5 mmol/L (3.5-5.0)
[2017-03-18] MEDS: Sodium Bicarbonate (ANTACID)* 650 MG TAB PO SCH ×2 (16:13→20:12)
[2017-03-18 17:07] LABS: BUN/Creatinine Ratio 6.7 (8-20); Calcium 6.6 mg/dL (8.6-10.3); EGFR African American 6.5 (>60); EGFR Non-African American 5.1 (>60); Potassium 4.3 mmol/L (3.5-5.0)
[2017-03-18 18:41] LABS: Magnesium 1.5 mg/dL (1.9-2.7); Phosphorus 8.7 mg/dL (2.5-5.0)
[2017-03-18] MEDS: Calcium Citrate TAB* 200 MG PO SCH ×2 (20:12→23:45)
[2017-03-18] MEDS: Calcitriol CAP* 0.25 MCG PO SCH ×2 (20:12→23:45)
[2017-03-18] MEDS: cefTRIAXone VIAL(*) 1,000 MG in NS 0.9% 50 ML* 50 ML IVPB SCH (20:16)
[2017-03-18] MEDS: Insulin GLARGINE(*) 1 UNITS UNIT SUBCUT SCH (20:38)
[2017-03-18 20:44] LABS: BUN/Creatinine Ratio 6.6 (8-20); Calcium 6.7 mg/dL (8.6-10.3); EGFR African American 6.5 (>60); Potassium 4.4 mmol/L (3.5-5.0)
[2017-03-18] MEDS: Nortriptyline CAP* 10 MG PO SCH (21:20)
[2017-03-19] MEDS: Heparin VIAL(*) 5000 UNITS/ML VIAL (FIVE THOUSAND) SUBCUT SCH ×4 (00:12→21:16)
[2017-03-19] MEDS: Sodium Bicarbonate (ANTACID)* 650 MG TAB PO SCH ×2 (00:13→05:45)
[2017-03-19] MEDS: Insulin LISPRO* 1 UNITS UNIT SUBCUT SCH ×7 (00:35→23:29)
[2017-03-19] MEDS: Calcium Acetate CAP* 667 MG PO SCH ×4 (00:40→17:05)
--- NOTE | 2017-03-19 04:23 | PN ---
AMENDED REPORT NOW INCLUDES DATE OF SERVICE - ESIGNED BEFORE ADJUSTMENT PROGRESS NOTE: DATE OF SERVICE/DICTATION: 03/18/17 HISTORY: Mr. Olivia is a 51-year-old gentleman that I had consulted on in November of this year because of proteinuria secondary to diabetes mellitus type 2. He began to have some nausea and malaise and vomiting and diarrhea a few days prior to admission. He was able to hold down a little bit of food prior to Monday but then he was no longer able to eat or hold down food or fluids. Eventually, he presented because of intractable vomiting and diarrhea. In the emergency room, he was found to have acute renal failure with severe metabolic acidosis and probable contraction metabolic alkalosis in the face of hyperkalemia. He is feeling considerably better after rehydration and some buffering last night. His previous medical history is significant for diabetes mellitus type 2. He has a history of hypertension, he has had an amputation of the toes on his right foot because of osteomyelitis. Overnight, his urine output has been very , very scant. In the initial evaluation in the emergency room, the bladder scan showed no urine. He produced 110 cc of urine this morning after receiving 7 L of fluid. He is now able to eat and drink without having to vomit. His blood pressure is 154/68, he is afebrile, his pulse is 95, respiratory rate is 16. His tongue is a little coated, his ocular turgor is good. I could not see his neck veins. His chest is clear. The heart revealed a regular rhythm without murmurs. His abdomen is soft and nontender. He had some acrocyanosis to his fingers with some delayed capillary refill. Review of his laboratory studies reveals a white count of 8.6, hemoglobin of 10.5, this is down from 12.8 on presentation and his baseline is approximately 13. In the emergency room, his arterial blood gas pH was less than 7, O2 was 151, his bicarb was 4.9 with a pCO2 of 20. His electrolytes at this time revealed a sodium of 124, potassium 4.3 down from 6.2 on admission. His total CO2 is 10, and even though he has received a considerable amount of bicarb, there has not been a major move in his total CO2. BUN is 74, creatinine 10.43 down from 11.3 on admission. His baseline serum creatinine in November was 1.49, calcium 6.8, magnesium 1.7, urinalysis revealed 2+ protein, 1+ ketones, 3+ blood, there were 3+ rbc's. IMPRESSION: 1. Acute renal failure secondary to volume depletion. 2. Metabolic acidosis secondary to acute renal failure. 3. Hyperkalemia secondary to acute renal failure. 4. Contraction alkalosis. 5. Hypocalcemia. At the present time, his metabolic acidosis is protecting the ionized fraction of his calcium, but at some point we may need to replace his serum calcium and he will probably need some calcitriol orally when that occurs. I would continue to buffer his metabolic acidosis at the present time, but if he is able to take things orally, that can be done with oral sodium bicarbonate. We should see his serum phosphorus level and and that may require supplementation if it is low. I would monitor his electrolyte status multiple times during the day. I have discussed the case at length with Dr. Victor. [id number]/[facility] #: [id number] JEANNA
[2017-03-19 05:37] LABS: Hematocrit 30 % (42-52); Hemoglobin 10.3 g/dl (14.0-18.0); Mean Corpuscular HGB Conc 35 g/dl (31-36); Mean Corpuscular Hemoglobin 31 pg (27-31); Mean Corpuscular Volume 89 fL (80-94); Mean Platelet Volume 8 um3 (7.4-10.4); Red Cell Distribution Width 14 % (10.5-15); White Blood Count 6.7 10^3/ul (3.5-10.8)
[2017-03-19 05:54] LABS: Albumin 2.8 g/dL (3.2-5.2); BUN/Creatinine Ratio 6.5 (8-20); Calcium 7.2 mg/dL (8.6-10.3); EGFR African American 6.2 (>60); EGFR Non-African American 4.8 (>60); Globulin 2.2 g/dL (2-4); Magnesium 1.5 mg/dL (1.9-2.7); Phosphorus 9.3 mg/dL (2.5-5.0); Potassium 4.2 mmol/L (3.5-5.0); Total Bilirubin 0.3 mg/dL (0.2-1.0)
[2017-03-19] MEDS ORDERED: hydrALAZINE IV* 20 MG/ML VIAL IV PRN (06:41)
[2017-03-19] MEDS ORDERED: hydrALAZINE IV* 20 MG/ML VIAL ONE (06:46)
[2017-03-19] MEDS: Metoprolol Succinate XL TAB* 25 MG PO SCH (09:10)
[2017-03-19] MEDS: Calcitriol CAP* 0.25 MCG PO SCH ×2 (09:10→21:16)
[2017-03-19] MEDS: Acetaminophen TAB* 325 MG PO PRN ×2 (09:10→23:28)
[2017-03-19] MEDS: Calcium Citrate TAB* 200 MG PO SCH ×2 (09:11→21:16)
--- NOTE | 2017-03-19 09:11 | PN ---
Progress Note - Progress Note Date of Service: 03/19/17 - CCM progress note Note: Critical Care Progress note Date of Service: 03/19/17, Time: 09:00 am Pt was seen and examined at bedside. Reports feeling better other than mild headache which he attributes to not being able to sleep. Denies nausea, is eating, no diarrhea. Feels bloated PMHx, PSHx, All, FHx were reviewed , unchaned from HPI Medications were reviewed and reconciled in chart Active Medications Generic Name Dose Route Start Last Admin Trade Name Freq PRN Reason Stop Dose Admin Acetaminophen 650 mg 03/19/17 08:37 Tylenol Tab* PO Q6H PRN PAIN SCALE 1-5 Calcitriol 0.25 mcg 03/18/17 19:00 03/18/17 23:45 Rocaltrol Cap* PO 0.25 mcg BID RHONDA Administration Calcium Acetate 1,334 mg 03/19/17 08:00 03/19/17 00:40 Phoslo Cap* PO 1,334 mg TID WITH MEALS RHONDA Administration Calcium Citrate 500 mg 03/18/17 19:00 03/18/17 23:45 Citracal Tab* PO 500 mg BID RHONDA Administration Heparin Sodium (Porcine) 5,000 units 03/17/17 22:00 03/19/17 05:44 Heparin Vial(*) SUBCUT 5,000 units Q8HR RHONDA Administration Hydralazine HCl 5 mg 03/19/17 06:41 03/19/17 06:48 Apresoline Iv* IV 5 mg Q4H PRN Administration Systolic >170 Ceftriaxone Sodium 1,000 mg/ 50 mls @ 200 mls/hr 03/17/17 20:00 03/18/17 20: 16 Sodium Chloride IVPB 200 mls/hr Q24H RHONDA Administration Sodium Chloride 1,000 mls @ 60 mls/hr 03/18/17 10:30 03/18/17 12:39 Ns 0.9% 1000 Ml* IV 60 mls/hr .PER RATE RHONDA Administration Sodium Chloride 1,000 mls @ 100 mls/hr 03/19/17 08:00 Ns 0.9% 1000 Ml* IV PER RATE [facility] Insulin Glargine 16 units 03/18/17 21:00 03/18/17 20:38 Lantus(*) SUBCUT Not Given 2100 [facility] Insulin Human Lispro 0 units 03/17/17 23:00 03/19/17 07:01 Humalog* SUBCUT Not Given Q4H [facility] Protocol Metoprolol Succinate 25 mg 03/19/17 09:00 Toprol Xl Tab* PO DAILY RHONDA Nortriptyline HCl 10 mg 03/17/17 21:00 03/18/17 21:20 Pamelor Cap* PO 10 mg BEDTIME RHONDA Administration Ondansetron HCl 4 mg 03/17/17 23:13 03/18/17 11:26 Zofran Inj* IV 4 mg Q6H PRN Administration NAUSEA Oxycodone/Acetaminophen 1 tab 03/17/17 18:50 03/18/17 20:32 Percocet 5/325 Tab* PO 1 tab TID PRN Administration PAIN ROS: All systems reviewed, pertinent positives in HPI Physical Exam: Gen: Pt in NAD, alert, awake HEENT: PERRLA, mucus membranes dry, no icterus Lungs:Good ae b/l, no wheeze Cardiac: S1 S2+, mildly tacycardic Abdomen:Soft, BS+, no tenderness, mildly distended Extremities:Normal ROM, no cyanosis, clubbing Neuro:Alert, awake, oriented x3, no focal defecits. Access: peripheral Laboratory Results - last 24 hr 03/18/17 03/18/17 03/18/17 08:10 11:32 12:30 WBC RBC Hgb Hct MCV MCH MCHC RDW Plt Count MPV Neut % (Auto) Lymph % (Auto) [place] % (Auto) Eos % (Auto) Baso % (Auto) Absolute Neuts (auto) Absolute Lymphs (auto) Absolute Monos (auto) Absolute Eos (auto) Absolute Basos (auto) Absolute Nucleated RBC Nucleated RBC % Sodium 124 L Potassium 4.5 Chloride 89 L Carbon Dioxide 12 L* Anion Gap 23 H BUN 71 H Creatinine 10.40 H 1/Creatinine Est GFR ( Amer) 6.7 Est GFR (Non-Af Amer) 5.2 BUN/Creatinine Ratio 6.8 L Glucose 127 H POC Glucose (mg/dL) 121 H Calcium 6.8 L Phosphorus 8.0 H Magnesium Total Bilirubin AST ALT Alkaline Phosphatase Total Protein Albumin Globulin Albumin/Globulin Ratio 03/18/17 03/18/17 03/19/17 16:45 20:22 00:30 WBC RBC Hgb Hct MCV MCH MCHC RDW Plt Count MPV Neut % (Auto) Lymph % (Auto) [place] % (Auto) Eos % (Auto) Baso % (Auto) Absolute Neuts (auto) Absolute Lymphs (auto) Absolute Monos (auto) Absolute Eos (auto) Absolute Basos (auto) Absolute Nucleated RBC Nucleated RBC % Sodium 123 L 123 L Potassium 4.3 4.4 Chloride 89 L 89 L Carbon Dioxide 13 L* 12 L* Anion Gap 21 H 22 H BUN 72 H 71 H Creatinine 10.69 H 10.78 H 1/Creatinine Est GFR ( Amer) 6.5 6.5 Est GFR (Non-Af Amer) 5.1 5.0 BUN/Creatinine Ratio 6.7 L 6.6 L Glucose 138 H 149 H POC Glucose (mg/dL) 150 H Calcium 6.6 L 6.7 L Phosphorus 8.7 H Magnesium 1.5 L Total Bilirubin AST ALT Alkaline Phosphatase Total Protein Albumin Globulin Albumin/Globulin Ratio 03/19/17 03/19/17 03/19/17 04:04 05:21 05:21 WBC 6.7 RBC 3.30 L Hgb 10.3 L Hct 30 L MCV 89 MCH 31 MCHC 35 RDW 14 Plt Count 118 L MPV 8 Neut % (Auto) 77.6 Lymph % (Auto) 6.1 L [place] % (Auto) 14.7 H Eos % (Auto) 1.3 Baso % (Auto) 0.3 Absolute Neuts (auto) 5.2 Absolute Lymphs (auto) 0.4 L Absolute Monos (auto) 1.0 H Absolute Eos (auto) 0.1 Absolute Basos (auto) 0 Absolute Nucleated RBC 0 Nucleated RBC % 0.1 Sodium 122 L Potassium 4.2 Chloride 87 L Carbon Dioxide 15 L Anion Gap 20 H BUN 73 H Creatinine 11.22 H 1/Creatinine 0.00 L Est GFR ( Amer) 6.2 Est GFR (Non-Af Amer) 4.8 BUN/Creatinine Ratio 6.5 L Glucose 170 H POC Glucose (mg/dL) 147 H Calcium 7.2 L Phosphorus 9.3 H Magnesium 1.5 L Total Bilirubin 0.30 AST 7 L ALT 7 Alkaline Phosphatase 57 Total Protein 5.0 L Albumin 2.8 L Globulin 2.2 Albumin/Globulin Ratio 1.3 Studies: U/S kidneys: No hydronephrosis, chronic renal disease noted ABG showed metabolic acidosis with pH less than 7, bicarbonate of 4.9 EKG; Sinus tachycardia with one peaked T wave in lead V3, no acute changes CXR: Reviewed personally, no acute air space opacities noted Nutrition: Advance diet today Impression: 51 y o male with h/o diabetic nephropathy with chronic 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 No signs of uremia like AMS or pericarditis. Hyperkalemia resolved after treatment with kayexalate, insulin and calcium and glucose. Will stop oral bicarbonate, as serum level is 15 today. Will c/w IV fluids, no signs of fluid overload at this point. Pt was anuric upon arrival however UO is picking up since he started receiving fluids. Will monitor BMP closely including calcium levels. Will discuss with Dr Berumen regarding plan for HD in future. 2.CVS: Hemodynamically stable other than mild tachycardia and hypertension. EKG showed no significant abnormalitity. TRU-inh is being held given renal failure. Received hydrallizine this am. Started metoprolol today. 3.Haem: Anemia of chronic disease, no active bleeding. Platelets slightly decreased however no petechial or mucosal bleeding. Will monitor closely 4.GI: Diarrhea and nausea/vomiting resolved. Progress towards full renal diet/ carbohydrate diet as tolerated. C/o bloating today that improved with intervention 5.Endocrine: History DM, donot suspect DKA. Pt was on Metformin and Glipizide which are being held given ARF. He is on sliding scale insulin coverage. Might be d/manan on Insulin 6.Neuro: Alert and oriented, No AMS. Headache likely due to poor sleep, illness and ?medication- hydrallazine. Declined percocet, ordered Tylenol 7.Resp: No resp issues, not requiring o2 supplementation 8.Musculoskeletal: No evidence of cellulitis, received 1 dose of Rocephin on admission, no need to continue further 9.ID: WBC count was slightly elevated at presentation likely from hemoconcentration. No indication to continue abx Supportive care Patient and family updated at bedside of plan Pt is stable to be transferred to medical floor Will discuss with Dr Elliott
[2017-03-19] MEDS: glipiZIDE TAB* 5 MG PO SCH ×2 (13:10→17:03)
[2017-03-19] MEDS: NS 0.9% 1000 ML* 1,000 ML IV SCH (15:35)
[2017-03-19] MEDS: Ondansetron INJ* 2 MG/ML VIAL IV PRN (18:01)
[2017-03-19] MEDS: cefTRIAXone VIAL(*) 1,000 MG in NS 0.9% 50 ML* 50 ML IVPB SCH (19:51)
[2017-03-19] MEDS: Nortriptyline CAP* 10 MG PO SCH (21:16)
[2017-03-19] MEDS: Insulin GLARGINE(*) 1 UNITS UNIT SUBCUT SCH (21:24)
[2017-03-20] MEDS: Insulin LISPRO* 1 UNITS UNIT SUBCUT SCH ×4 (03:39→16:04)
[2017-03-20] MEDS: NS 0.9% 1000 ML* 1,000 ML IV SCH (03:42)
[2017-03-20 05:26] LABS: Hematocrit 29 % (42-52); Hemoglobin 10.3 g/dl (14.0-18.0); Mean Corpuscular HGB Conc 35 g/dl (31-36); Mean Corpuscular Hemoglobin 31 pg (27-31); Mean Corpuscular Volume 88 fL (80-94); Mean Platelet Volume 8 um3 (7.4-10.4); Red Blood Count 3.32 10^6/ul (4.0-5.4); Red Cell Distribution Width 14 % (10.5-15); White Blood Count 5.4 10^3/ul (3.5-10.8)
[2017-03-20 05:45] LABS: BUN/Creatinine Ratio 6.2 (8-20); EGFR African American 5.9 (>60); EGFR Non-African American 4.6 (>60); Magnesium 1.5 mg/dL (1.9-2.7); Potassium 3.9 mmol/L (3.5-5.0)
[2017-03-20] MEDS: Heparin VIAL(*) 5000 UNITS/ML VIAL (FIVE THOUSAND) SUBCUT SCH ×3 (06:36→21:45)
--- NOTE | 2017-03-20 07:27 | PN ---
AMENDED REPORT NOW INCLUDES DATE OF SERVICE - ESIGNED BEFORE ADJUSTMENT PROGRESS NOTE: DATE OF SERVICE/DICTATION: 03/19/17 HISTORY: Mr. Olivia is feeling reasonably well today. He did not sleep well last night. He tolerated a liquid diet yesterday. He is making more urine. He complains of no pain, no shortness of breath, no nausea or vomiting. He is passing gas. His blood pressure is a little high at 177/76, with a pulse of 101. His urine output is now up to 817 cc today. He is anicteric. His mucous membranes are moist. His chest is clear. The heart with regular rhythm without murmurs. The abdomen is soft and nontender. His white count is 6.7, hemoglobin is stable at 10.3. His electrolytes revealed a sodium of 122, potassium 4.2, total CO2 of 15, chloride 87, BUN 73, creatinine of 11.22. His phosphorus was elevated at 9.3 and I have started him on a phosphate binder. IMPRESSION: Acute renal failure. He may have developed acute tubular necrosis from prolonged prerenal state in which case it will take a few more days to begin to get better. Of course, there is a chance that he will not get better at all, but I think that is less likely than some recovery. At present, we have no indication to proceed with dialysis. I have discussed the case with Dr. Victor. [id number]/[facility] #: [id number] JEANNA
[2017-03-20] MEDS: Acetaminophen TAB* 325 MG PO PRN (07:33)
[2017-03-20] MEDS: Calcium Acetate CAP* 667 MG PO SCH ×3 (08:55→17:30)
[2017-03-20] MEDS: glipiZIDE TAB* 5 MG PO SCH ×2 (08:55→17:31)
[2017-03-20] MEDS: Metoprolol Succinate XL TAB* 25 MG PO SCH (08:55)
[2017-03-20] MEDS: Calcium Citrate TAB* 200 MG PO SCH ×2 (09:05→21:43)
[2017-03-20] MEDS: Calcitriol CAP* 0.25 MCG PO SCH ×2 (10:36→21:42)
[2017-03-20] MEDS ORDERED: CMCS:SitaGLIPtin (NF) 25 MG TAB PO ONE (15:00)
--- NOTE | 2017-03-20 15:06 | PN ---
Subjective Date of Service: 03/20/17 Interval History: C/O poor appetite +/- nausea, can't force himself to eat Objective Active Medications: Acetaminophen (Tylenol Tab*) 650 mg PO Q6H PRN PRN Reason: PAIN SCALE 1-5 Last Admin: 03/20/17 07:33 Dose: 650 mg Atorvastatin Calcium (Lipitor*) 20 mg PO 1700 [facility] Calcitriol (Rocaltrol Cap*) 0.25 mcg PO BID [facility] Last Admin: 03/20/17 10:36 Dose: 0.25 mcg Calcium Acetate (Phoslo Cap*) 1,334 mg PO TID WITH MEALS [facility] Last Admin: 03/20/17 14:11 Dose: 1,334 mg Calcium Citrate (Citracal Tab*) 500 mg PO BID [facility] Last Admin: 03/20/17 09:05 Dose: 500 mg Glipizide (Glucotrol Tab*) 10 mg PO 0800,1700 [facility] Last Admin: 03/20/17 08:55 Dose: 10 mg Heparin Sodium (Porcine) (Heparin Vial(*)) 5,000 units SUBCUT Q8HR [facility] Last Admin: 03/20/17 14:13 Dose: 5,000 units Insulin Glargine (Lantus(*)) 16 units SUBCUT 2100 [facility] Last Admin: 03/19/17 21:24 Dose: Not Given Insulin Human Lispro (Humalog*) 0 units SUBCUT Q4H [facility] PRN Reason: Protocol Last Admin: 03/20/17 11:52 Dose: Not Given Metoprolol Succinate (Toprol Xl Tab*) 25 mg PO DAILY [facility] Last Admin: 03/20/17 08:55 Dose: 25 mg Nortriptyline HCl (Pamelor Cap*) 10 mg PO BEDTIME [facility] Last Admin: 03/19/17 21:16 Dose: 10 mg Ondansetron HCl (Zofran Inj*) 4 mg IV Q6H PRN PRN Reason: NAUSEA Last Admin: 03/19/17 18:01 Dose: 4 mg Oxycodone/Acetaminophen (Percocet 5/325 Tab*) 1 tab PO TID PRN PRN Reason: PAIN Last Admin: 03/18/17 20:32 Dose: 1 tab Sitagliptin Phosphate (Januvia (Nf)) 25 mg PO DAILY [facility] Sitagliptin Phosphate (Januvia (Nf)) 25 mg PO ONCE ONE Stop: 03/21/17 15:01 Vital Signs 03/19/17 03/19/17 03/19/17 15:31 15:40 15:50 Temperature 98.5 F Pulse Rate 95 Respiratory 1 0 0 Rate Blood Pressure 186/88 (mmHg) O2 Sat by Pulse 96 Oximetry 03/19/17 03/19/17 03/19/17 16:00 16:10 16:20 Temperature Pulse Rate Respiratory 1 0 12 Rate Blood Pressure (mmHg) O2 Sat by Pulse Oximetry 03/19/17 03/19/17 03/19/17 16:30 16:40 16:50 Temperature Pulse Rate Respiratory 0 14 4 Rate Blood Pressure (mmHg) O2 Sat by Pulse Oximetry 03/19/17 03/19/17 03/19/17 17:00 17:10 17:20 Temperature Pulse Rate Respiratory 14 0 0 Rate Blood Pressure (mmHg) O2 Sat by Pulse Oximetry 03/19/17 03/19/17 03/19/17 17:30 17:40 17:50 Temperature Pulse Rate Respiratory 0 2 0 Rate Blood Pressure (mmHg) O2 Sat by Pulse Oximetry 03/19/17 03/19/17 03/19/17 18:00 18:20 18:30 Temperature Pulse Rate Respiratory 0 0 17 Rate Blood Pressure (mmHg) O2 Sat by Pulse Oximetry 03/19/17 03/19/17 03/19/17 18:40 18:50 19:00 Temperature Pulse Rate Respiratory 0 0 19 Rate Blood Pressure (mmHg) O2 Sat by Pulse Oximetry 03/19/17 03/19/17 03/19/17 19:10 19:20 19:30 Temperature Pulse Rate Respiratory 10 1 0 Rate Blood Pressure (mmHg) O2 Sat by Pulse Oximetry 03/19/17 03/19/17 03/19/17 19:36 19:40 19:50 Temperature 97.7 F Pulse Rate 92 Respiratory 20 1 0 Rate Blood Pressure 181/91 (mmHg) O2 Sat by Pulse 98 Oximetry 03/19/17 03/19/17 03/19/17 20:00 20:10 20:20 Temperature Pulse Rate Respiratory 0 1 0 Rate Blood Pressure (mmHg) O2 Sat by Pulse Oximetry 03/19/17 03/19/17 03/19/17 20:30 20:40 20:50 Temperature Pulse Rate Respiratory 1 0 19 Rate Blood Pressure (mmHg) O2 Sat by Pulse Oximetry 03/19/17 03/19/17 03/19/17 21:00 21:10 21:20 Temperature Pulse Rate Respiratory 0 0 2 Rate Blood Pressure (mmHg) O2 Sat by Pulse Oximetry 03/19/17 03/19/17 03/19/17 21:30 21:40 21:50 Temperature Pulse Rate Respiratory 9 9 9 Rate Blood Pressure (mmHg) O2 Sat by Pulse Oximetry 03/19/17 03/19/17 03/19/17 22:00 22:10 22:18 Temperature Pulse Rate Respiratory 0 0 0 Rate Blood Pressure (mmHg) O2 Sat by Pulse Oximetry 03/19/17 03/19/17 03/19/17 22:20 22:30 22:40 Temperature Pulse Rate Respiratory 4 3 7 Rate Blood Pressure (mmHg) O2 Sat by Pulse Oximetry 03/19/17 03/19/17 03/19/17 22:50 23:00 23:10 Temperature Pulse Rate Respiratory 4 13 0 Rate Blood Pressure (mmHg) O2 Sat by Pulse Oximetry 03/19/17 03/19/17 03/19/17 23:15 23:20 23:30 Temperature 98.5 F Pulse Rate 89 Respiratory 16 0 0 Rate Blood Pressure 168/84 (mmHg) O2 Sat by Pulse 97 Oximetry 03/19/17 03/19/17 03/20/17 23:40 23:50 00:00 Temperature Pulse Rate Respiratory 0 0 0 Rate Blood Pressure (mmHg) O2 Sat by Pulse Oximetry 03/20/17 03/20/17 03/20/17 00:10 00:20 00:30 Temperature Pulse Rate Respiratory 0 10 0 Rate Blood Pressure (mmHg) O2 Sat by Pulse Oximetry 03/20/17 03/20/17 03/20/17 00:40 00:50 01:00 Temperature Pulse Rate Respiratory 0 0 0 Rate Blood Pressure (mmHg) O2 Sat by Pulse Oximetry 03/20/17 03/20/17 03/20/17 01:10 01:20 01:30 Temperature Pulse Rate Respiratory 0 0 0 Rate Blood Pressure (mmHg) O2 Sat by Pulse Oximetry 03/20/17 03/20/17 03/20/17 01:50 02:00 02:10 Temperature Pulse Rate Respiratory 0 0 0 Rate Blood Pressure (mmHg) O2 Sat by Pulse Oximetry 03/20/17 03/20/1703/20/17 02:15 02:20 02:30 Temperature 97.6 F Pulse Rate 84 Respiratory 16 0 2 Rate Blood Pressure 165/83 (mmHg) O2 Sat by Pulse 98 Oximetry 03/20/17 03/20/17 03/20/17 02:40 02:50 03:00 Temperature Pulse Rate Respiratory 6 0 8 Rate Blood Pressure (mmHg) O2 Sat by Pulse Oximetry 03/20/17 03/20/17 03/20/17 03:10 03:20 03:30 Temperature Pulse Rate Respiratory 0 0 0 Rate Blood Pressure (mmHg) O2 Sat by Pulse Oximetry 03/20/17 03/20/17 03/20/17 03:40 03:50 04:00 Temperature Pulse Rate Respiratory 5 0 0 Rate Blood Pressure (mmHg) O2 Sat by Pulse Oximetry 03/20/17 03/20/17 03/20/17 04:10 04:20 04:30 Temperature Pulse Rate Respiratory 0 0 11 Rate Blood Pressure (mmHg) O2 Sat by Pulse Oximetry 03/20/17 03/20/17 03/20/17 04:50 05:00 05:10 Temperature Pulse Rate Respiratory 0 0 0 Rate Blood Pressure (mmHg) O2 Sat by Pulse Oximetry 03/20/17 03/20/17 03/20/17 05:20 05:30 05:40 Temperature Pulse Rate Respiratory 0 0 0 Rate Blood Pressure (mmHg) O2 Sat by Pulse Oximetry 03/20/17 03/20/17 03/20/17 05:50 06:00 06:10 Temperature Pulse Rate Respiratory 0 0 0 Rate Blood Pressure (mmHg) O2 Sat by Pulse Oximetry 03/20/17 03/20/17 03/20/17 06:20 06:30 06:40 Temperature Pulse Rate Respiratory 0 2 0 Rate Blood Pressure (mmHg) O2 Sat by Pulse Oximetry 03/20/17 03/20/17 03/20/17 06:50 07:00 07:10 Temperature Pulse Rate Respiratory 7 0 0 Rate Blood Pressure (mmHg) O2 Sat by Pulse Oximetry 03/20/17 03/20/17 03/20/17 07:18 07:20 07:30 Temperature 98.6 F Pulse Rate 79 Respiratory 14 0 0 Rate Blood Pressure 151/74 (mmHg) O2 Sat by Pulse 97 Oximetry 03/20/17 03/20/17 03/20/17 07:40 07:50 07:55 Temperature Pulse Rate Respiratory 6 0 14 Rate Blood Pressure (mmHg) O2 Sat by Pulse Oximetry 03/20/17 03/20/17 03/20/17 08:00 08:10 08:20 Temperature Pulse Rate Respiratory 0 0 0 Rate Blood Pressure (mmHg) O2 Sat by Pulse Oximetry 03/20/17 03/20/17 03/20/17 08:30 08:40 08:50 Temperature Pulse Rate Respiratory 11 14 10 Rate Blood Pressure (mmHg) O2 Sat by Pulse Oximetry 03/20/17 03/20/17 03/20/17 09:00 09:10 09:20 Temperature Pulse Rate Respiratory 16 0 0 Rate Blood Pressure (mmHg) O2 Sat by Pulse Oximetry 03/20/17 03/20/17 03/20/17 09:30 09:40 09:50 Temperature Pulse Rate Respiratory 0 4 0 Rate Blood Pressure (mmHg) O2 Sat by Pulse Oximetry 03/20/17 03/20/17 03/20/17 10:00 10:10 10:20 Temperature Pulse Rate Respiratory 2 0 0 Rate Blood Pressure (mmHg) O2 Sat by Pulse Oximetry 03/20/17 03/20/17 03/20/17 10:30 10:40 10:50 Temperature Pulse Rate Respiratory 17 14 0 Rate Blood Pressure (mmHg) O2 Sat by Pulse Oximetry 03/20/17 03/20/17 03/20/17 11:00 11:10 11:20 Temperature Pulse Rate Respiratory 0 0 6 Rate Blood Pressure (mmHg) O2 Sat by Pulse Oximetry 03/20/17 03/20/17 11:30 11:38 Temperature 98.5 F Pulse Rate 80 Respiratory 0 16 Rate Blood Pressure 164/76 (mmHg) O2 Sat by Pulse 97 Oximetry Oxygen Devices in Use Now: None Appearance: Alert, sitting on the edge of his bed. In fair spirits. Looks comfortable. Eyes: No Scleral Icterus Neck: NL Appearance and Movements; NL JVP, No Thyroid Enlargement, Masses Respiratory: Symmetrical Chest Expansion and Respiratory Effort, Clear to Auscultation, Clear to Percussion Cardiovascular: NL Sounds; No Murmurs; No JVD, RRR, No Edema, - Extremities: No Edema, No Clubbing, Cyanosis, - Skin: No Rash or Ulcers, No Nodules or Sclerosis, - Neurological: Alert and Oriented x 3, NL Sensation Result Diagrams: 03/20/17 05:02 03/20/17 05:02 Additional Lab and Data: Lab Results 03/17/17 03/17/17 03/17/17 Range/Units 16:30 16:30 16:30 WBC 12.7 H (3.5-10.8) 10^3/ul RBC 4.08 (4.0-5.4) 10^6/ul Hgb 12.8 L (14.0-18.0) g/dl Hct 37 L (42-52) % MCV 92 (80-94) fL MCH 31 (27-31) pg MCHC 34 (31-36) g/dl RDW 14 (10.5-15) % Plt Count 166 (150-450) 10^3/ul MPV 9 (7.4-10.4) um3 Neut % (Auto) 86.9 H (38-83) % Lymph % (Auto) 5.8 L (25-47) % [place] % (Auto) 6.5 (1-9) % Eos % (Auto) 0.1 (0-6) % Baso % (Auto) 0.7 (0-2) % Absolute Neuts (auto) 11.0 H (1.5-7.7) 10^3/ul Absolute Lymphs (auto) 0.7 L (1.0-4.8) 10^3/ul Absolute Monos (auto) 0.8 (0-0.8) 10^3/ul Absolute Eos (auto) 0 (0-0.6) 10^3/ul Absolute Basos (auto) 0.1 (0-0.2) 10^3/ul Absolute Nucleated RBC 0.01 10^3/ul Nucleated RBC % 0 Sodium 120 L (133-145) mmol/L Potassium 6.2 H* (3.5-5.0) mmol/L Chloride 83 L (101-111) mmol/L Carbon Dioxide 9 L* (22-32) mmol/L Anion Gap 28 H (2-11) mmol/L BUN 71 H (6-24) mg/dL Creatinine 11.03 H (0.67-1.17) mg/dL Est GFR ( Amer) 6.3 (>60) Est GFR (Non-Af Amer) 4.9 (>60) BUN/Creatinine Ratio 6.4 L (8-20) Glucose 188 H (70-100) mg/dL Lactic Acid 3.9 H* (0.5-2.0) mmol/L Calcium 8.1 L (8.6-10.3) mg/dL Total Bilirubin 0.40 (0.2-1.0) mg/dL AST 12 L (13-39) U/L ALT 11 (7-52) U/L Alkaline Phosphatase 79 (34-104) U/L C-Reactive Protein 78.97 H (< 5.00) mg/L Total Protein 6.6 (6.4-8.9) g/dL Albumin 3.7 (3.2-5.2) g/dL Globulin 2.9 (2-4) g/dL Albumin/Globulin Ratio 1.3 (1-3) Amylase 20 L (29-103) U/L Lipase < 10 L (11.0-82.0) U/L Microbiology and Other Data: Microbiology 03/18/17 09:30 Stool Culture - Final Stool Stool Gross Appearance - Final Shiga Toxin I & II - Final Negative Shiga Toxin 1 & 2 03/18/17 09:30 Stool Gross Appearance - Final Stool C. difficile DNA Amplification - Final 027 Presumptive NEGATIVE Toxigenic C.diff NEGATIVE Stool Lactoferrin - Final 03/17/17 20:06 Nasal Screen MRSA (PCR)(SELENE) - Final Nasal Mrsa Negative Assess/Plan/Problems-Billing Assessment: - Patient Problems (1) KIRSTEN (acute kidney injury) Current Visit: No Status: Acute Code(s): N17.9 - ACUTE KIDNEY FAILURE, UNSPECIFIED SNOMED Code(s): 06939938 Comment: Acute on chronic renal failure. Creat clearance 11.6, could be less if creatinine still rising. BMP 03/21. (2) T2DM (type 2 diabetes mellitus) Current Visit: No Status: Chronic Comment: Sitagliptin dose adjusted for ESRD. Continue glipizide, SSI. (3) HTN (hypertension) Current Visit: No Status: Acute Code(s): I10 - ESSENTIAL (PRIMARY) HYPERTENSION SNOMED Code(s): 14566718 Comment: Continue metoprolol.
[2017-03-20] MEDS ORDERED: Magnesium Sulfate 1 GM IV* 1 GM/100 ML BAG IV ONE (16:07)
[2017-03-20] MEDS: Atorvastatin* 10 MG TAB PO SCH (17:29)
[2017-03-20] MEDS: Nortriptyline CAP* 10 MG PO SCH (21:43)
[2017-03-21 05:45] LABS: BUN/Creatinine Ratio 5.9 (8-20); Calcium 9.1 mg/dL (8.6-10.3); EGFR African American 5.3 (>60); EGFR Non-African American 4.1 (>60); Potassium 3.8 mmol/L (3.5-5.0)
[2017-03-21] MEDS: Heparin VIAL(*) 5000 UNITS/ML VIAL (FIVE THOUSAND) SUBCUT SCH ×3 (06:19→23:11)
--- NOTE | 2017-03-21 08:01 | PN ---
PROGRESS NOTE: DATE OF SERVICE: 03/20/17 HISTORY: Mr. Olivia is about the same today. He has been having some nausea. He has had some anorexia. He has been having a difficult time having bowel movements, although he just went. He has been taking some fluids. PHYSICAL EXAMINATION: His blood pressure is 154/76 with a pulse that is typically in the 80s. His urine out was 885 cc yesterday. His chest is clear. The heart revealed a regular rhythm without murmurs. The abdomen is soft and nontender. There was minimal edema. LABORATORY DATA: White count of 5.4 with hemoglobin of 10.3. Sodium 121, potassium 3.9, total CO2 17, chloride 88, creatinine 11.74, BUN 73. IMPRESSION: Acute renal failure - this is probably now acute tubular necrosis from a prolonged prerenal state. He also has hyponatremia and I think that will improve as he begins to have a better oral intake. I am a little reluctant to suggest we can send him home as his creatinine is still rising. Once his creatinine begins to show any significant progressive improvement, we probably can send him home and I can monitor him as an outpatient. [id number]/[facility] #: [id number] MTDCas
--- NOTE | 2017-03-21 08:52 | PN ---
Subjective Date of Service: 03/21/17 Interval History: Feeling better than yesterday. Good BM yesterday after lactulose. Appetitie better. No new c/o. Objective Active Medications: Acetaminophen (Tylenol Tab*) 650 mg PO Q6H PRN PRN Reason: PAIN SCALE 1-5 Last Admin: 03/20/17 07:33 Dose: 650 mg Atorvastatin Calcium (Lipitor*) 20 mg PO 1700 [facility] Last Admin: 03/20/17 17:29 Dose: 20 mg Calcitriol (Rocaltrol Cap*) 0.25 mcg PO BID [facility] Last Admin: 03/20/17 21:42 Dose: 0.25 mcg Calcium Acetate (Phoslo Cap*) 1,334 mg PO TID WITH MEALS [facility] Last Admin: 03/20/17 17:30 Dose: 1,334 mg Calcium Citrate (Citracal Tab*) 500 mg PO BID [facility] Last Admin: 03/20/17 21:43 Dose: 500 mg Glipizide (Glucotrol Tab*) 10 mg PO 0800,1700 [facility] Last Admin: 03/20/17 17:31 Dose: 10 mg Heparin Sodium (Porcine) (Heparin Vial(*)) 5,000 units SUBCUT Q8HR [facility] Last Admin: 03/21/17 06:19 Dose: 5,000 units Magnesium Oxide (Magox 400 Tab*) 400 mg PO DAILY [facility] Metoprolol Succinate (Toprol Xl Tab*) 25 mg PO DAILY [facility] Last Admin: 03/20/17 08:55 Dose: 25 mg Nortriptyline HCl (Pamelor Cap*) 10 mg PO BEDTIME [facility] Last Admin: 03/20/17 21:43 Dose: 10 mg Ondansetron HCl (Zofran Inj*) 4 mg IV Q6H PRN PRN Reason: NAUSEA Last Admin: 03/19/17 18:01 Dose: 4 mg Oxycodone/Acetaminophen (Percocet 5/325 Tab*) 1 tab PO TID PRN PRN Reason: PAIN Last Admin: 03/18/17 20:32 Dose: 1 tab Sitagliptin Phosphate (Januvia (Nf)) 25 mg PO DAILY [facility] Vital Signs 03/20/17 03/20/17 03/20/17 08:50 09:00 09:10 Temperature Pulse Rate Respiratory 10 16 0 Rate Blood Pressure (mmHg) O2 Sat by Pulse Oximetry 03/20/17 03/20/17 03/20/17 09:20 09:30 09:40 Temperature Pulse Rate Respiratory 0 0 4 Rate Blood Pressure (mmHg) O2 Sat by Pulse Oximetry 03/20/17 03/20/17 03/20/17 09:50 10:00 10:10 Temperature Pulse Rate Respiratory 0 2 0 Rate Blood Pressure (mmHg) O2 Sat by Pulse Oximetry 03/20/17 03/20/17 03/20/17 10:20 10:30 10:40 Temperature Pulse Rate Respiratory 0 17 14 Rate Blood Pressure (mmHg) O2 Sat by Pulse Oximetry 03/20/17 03/20/17 03/20/17 10:50 11:00 11:10 Temperature Pulse Rate Respiratory 0 0 0 Rate Blood Pressure (mmHg) O2 Sat by Pulse Oximetry 03/20/17 03/20/17 03/20/17 11:20 11:30 11:38 Temperature 98.5 F Pulse Rate 80 Respiratory 6 0 16 Rate Blood Pressure 164/76 (mmHg) O2 Sat by Pulse 97 Oximetry 03/20/17 03/20/17 03/20/17 11:40 11:50 12:00 Temperature Pulse Rate Respiratory 0 0 0 Rate Blood Pressure (mmHg) O2 Sat by Pulse Oximetry 03/20/17 03/20/17 03/20/17 12:10 12:20 12:30 Temperature Pulse Rate Respiratory 0 41 8 Rate Blood Pressure (mmHg) O2 Sat by Pulse Oximetry 03/20/17 03/20/17 03/20/17 12:40 12:50 13:00 Temperature Pulse Rate Respiratory 4 0 0 Rate Blood Pressure (mmHg) O2 Sat by Pulse Oximetry 03/20/17 03/20/17 03/20/17 13:10 13:20 13:30 Temperature Pulse Rate Respiratory 0 0 13 Rate Blood Pressure (mmHg) O2 Sat by Pulse Oximetry 03/20/17 03/20/17 03/20/17 13:40 13:50 14:00 Temperature Pulse Rate Respiratory 4 2 1 Rate Blood Pressure (mmHg) O2 Sat by Pulse Oximetry 03/20/17 03/20/17 03/20/17 14:10 14:20 14:30 Temperature Pulse Rate Respiratory 0 0 4 Rate Blood Pressure (mmHg) O2 Sat by Pulse Oximetry 03/20/17 03/20/17 03/20/17 14:40 14:50 15:00 Temperature Pulse Rate Respiratory 0 1 16 Rate Blood Pressure (mmHg) O2 Sat by Pulse Oximetry 03/20/17 03/20/17 03/20/17 15:10 17:03 18:00 Temperature 98.4 F 98.2 F Pulse Rate 95 94 Respiratory 0 16 16 Rate Blood Pressure 173/78 176/97 (mmHg) O2 Sat by Pulse 100 98 Oximetry 03/20/17 03/20/17 03/20/17 18:26 19:45 20:00 Temperature 98.2 F 98.2 F Pulse Rate 94 96 Respiratory 16 20 19 Rate Blood Pressure 176/97 170/83 (mmHg) O2 Sat by Pulse 98 98 Oximetry 03/20/17 03/21/17 23:20 03:42 Temperature 98.4 F 98.1 F Pulse Rate 91 87 Respiratory 16 16 Rate Blood Pressure 184/94 177/97 (mmHg) O2 Sat by Pulse 98 99 Oximetry Oxygen Devices in Use Now: None Appearance: Alert, sitting up in bed. In good spirits. Looks comfortable. Extremities: No Edema, No Clubbing, Cyanosis, - Skin: No Rash or Ulcers, No Nodules or Sclerosis, - Neurological: Alert and Oriented x 3, NL Sensation Result Diagrams: 03/20/17 05:02 03/21/17 04:49 Additional Lab and Data: Lab Results 03/17/17 03/17/17 03/17/17 Range/Units 16:30 16:30 16:30 WBC 12.7 H (3.5-10.8) 10^3/ul RBC 4.08 (4.0-5.4) 10^6/ul Hgb 12.8 L (14.0-18.0) g/dl Hct 37 L (42-52) % MCV 92 (80-94) fL MCH 31 (27-31) pg MCHC 34 (31-36) g/dl RDW 14 (10.5-15) % Plt Count 166 (150-450) 10^3/ul MPV 9 (7.4-10.4) um3 Neut % (Auto) 86.9 H (38-83) % Lymph % (Auto) 5.8 L (25-47) % [place] % (Auto) 6.5 (1-9) % Eos % (Auto) 0.1 (0-6) % Baso % (Auto) 0.7 (0-2) % Absolute Neuts (auto) 11.0 H (1.5-7.7) 10^3/ul Absolute Lymphs (auto) 0.7 L (1.0-4.8) 10^3/ul Absolute Monos (auto) 0.8 (0-0.8) 10^3/ul Absolute Eos (auto) 0 (0-0.6) 10^3/ul Absolute Basos (auto) 0.1 (0-0.2) 10^3/ul Absolute Nucleated RBC 0.01 10^3/ul Nucleated RBC % 0 Sodium 120 L (133-145) mmol/L Potassium 6.2 H* (3.5-5.0) mmol/L Chloride 83 L (101-111) mmol/L Carbon Dioxide 9 L* (22-32) mmol/L Anion Gap 28 H (2-11) mmol/L BUN 71 H (6-24) mg/dL Creatinine 11.03 H (0.67-1.17) mg/dL Est GFR ( Amer) 6.3 (>60) Est GFR (Non-Af Amer) 4.9 (>60) BUN/Creatinine Ratio 6.4 L (8-20) Glucose 188 H (70-100) mg/dL Lactic Acid 3.9 H* (0.5-2.0) mmol/L Calcium 8.1 L (8.6-10.3) mg/dL Total Bilirubin 0.40 (0.2-1.0) mg/dL AST 12 L (13-39) U/L ALT 11 (7-52) U/L Alkaline Phosphatase 79 (34-104) U/L C-Reactive Protein 78.97 H (< 5.00) mg/L Total Protein 6.6 (6.4-8.9) g/dL Albumin 3.7 (3.2-5.2) g/dL Globulin 2.9 (2-4) g/dL Albumin/Globulin Ratio 1.3 (1-3) Amylase 20 L (29-103) U/L Lipase < 10 L (11.0-82.0) U/L Microbiology and Other Data: Microbiology 03/18/17 09:30 Stool Culture - Final Stool Stool Gross Appearance - Final Shiga Toxin I & II - Final Negative Shiga Toxin 1 & 2 03/18/17 09:30 Stool Gross Appearance - Final Stool C. difficile DNA Amplification - Final 027 Presumptive NEGATIVE Toxigenic C.diff NEGATIVE Stool Lactoferrin - Final 03/17/17 20:06 Nasal Screen MRSA (PCR)(SELENE) - Final Nasal Mrsa Negative Assess/Plan/Problems-Billing Assessment: - Patient Problems (1) KIRSTEN (acute kidney injury) Current Visit: No Status: Acute Code(s): N17.9 - ACUTE KIDNEY FAILURE, UNSPECIFIED SNOMED Code(s): 04548572 Comment: Acute on chronic renal failure. Calculated creat clearance 11.6 , should be less 03/21 as creatinine still rising rapidly. Add on magnesium ordered. BMP 03/22. (2) T2DM (type 2 diabetes mellitus) Current Visit: No Status: Chronic Comment: Sitagliptin dose adjusted for ESRD. Continue glipizide, SSI. (3) HTN (hypertension) Current Visit: No Status: Acute Code(s): I10 - ESSENTIAL (PRIMARY) HYPERTENSION SNOMED Code(s): 09829040 Comment: Continue metoprolol, add amlodipine 03/21.
[2017-03-21] MEDS ORDERED: amLODIPine TAB* 5 MG PO SCH (09:00)
[2017-03-21 09:08] LABS: Magnesium 1.7 mg/dL (1.9-2.7)
[2017-03-21] MEDS: Calcium Acetate CAP* 667 MG PO SCH ×3 (09:14→17:31)
[2017-03-21] MEDS: Metoprolol Succinate XL TAB* 25 MG PO SCH (09:14)
[2017-03-21] MEDS: glipiZIDE TAB* 5 MG PO SCH ×2 (09:14→17:31)
[2017-03-21] MEDS: Magnesium Oxide TAB* 400 MG PO SCH (09:14)
[2017-03-21] MEDS: Calcitriol CAP* 0.25 MCG PO SCH ×2 (09:15→23:08)
[2017-03-21] MEDS: Calcium Citrate TAB* 200 MG PO SCH ×2 (09:15→23:09)
[2017-03-21] MEDS: CMCS:SitaGLIPtin (NF) 25 MG TAB PO SCH (09:17)
[2017-03-21] MEDS ORDERED: amLODIPine TAB* 5 MG PO ONE (11:23)
[2017-03-21] MEDS: Atorvastatin* 10 MG TAB PO SCH (17:31)
[2017-03-21] MEDS: Nortriptyline CAP* 10 MG PO SCH (23:08)
[2017-03-21] MEDS: amLODIPine TAB* 5 MG PO SCH (23:32)
[2017-03-22 06:08] LABS: BUN/Creatinine Ratio 6.3 (8-20); Calcium 9.6 mg/dL (8.6-10.3); EGFR African American 5.3 (>60); EGFR Non-African American 4.1 (>60); Potassium 3.9 mmol/L (3.5-5.0)
[2017-03-22] MEDS: Heparin VIAL(*) 5000 UNITS/ML VIAL (FIVE THOUSAND) SUBCUT SCH ×3 (06:25→22:51)
[2017-03-22] MEDS: Metoprolol Succinate XL TAB* 25 MG PO SCH (08:45)
[2017-03-22] MEDS: glipiZIDE TAB* 5 MG PO SCH ×2 (08:45→17:53)
[2017-03-22] MEDS: Calcitriol CAP* 0.25 MCG PO SCH ×2 (08:45→22:53)
[2017-03-22] MEDS: CMCS:SitaGLIPtin (NF) 25 MG TAB PO SCH (08:45)
[2017-03-22] MEDS: Calcium Acetate CAP* 667 MG PO SCH ×3 (08:45→17:53)
[2017-03-22] MEDS: Calcium Citrate TAB* 200 MG PO SCH ×2 (08:46→22:51)
[2017-03-22] MEDS: amLODIPine TAB* 5 MG PO SCH (08:46)
[2017-03-22] MEDS: Magnesium Oxide TAB* 400 MG PO SCH (08:46)
[2017-03-22] MEDS ORDERED: amLODIPine TAB* 5 MG PO SCH (09:00)
--- NOTE | 2017-03-22 14:44 | PN ---
Subjective Date of Service: 03/22/17 Interval History: C/O mental fogginess. C/O constipation. Objective Active Medications: Acetaminophen (Tylenol Tab*) 650 mg PO Q6H PRN PRN Reason: PAIN SCALE 1-5 Last Admin: 03/20/17 07:33 Dose: 650 mg Amlodipine Besylate (Norvasc Tab*) 10 mg PO 0900 [facility] Last Admin: 03/22/17 08:46 Dose: 10 mg Atorvastatin Calcium (Lipitor*) 20 mg PO 1700 [facility] Last Admin: 03/21/17 17:31 Dose: 20 mg Calcitriol (Rocaltrol Cap*) 0.25 mcg PO BID [facility] Last Admin: 03/22/17 08:45 Dose: 0.25 mcg Calcium Acetate (Phoslo Cap*) 1,334 mg PO TID WITH MEALS [facility] Last Admin: 03/22/17 13:26 Dose: 1,334 mg Calcium Citrate (Citracal Tab*) 500 mg PO BID [facility] Last Admin: 03/22/17 08:46 Dose: 500 mg Glipizide (Glucotrol Tab*) 10 mg PO 0800,1700 [facility] Last Admin: 03/22/17 08:45 Dose: 10 mg Heparin Sodium (Porcine) (Heparin Vial(*)) 5,000 units SUBCUT Q8HR [facility] Last Admin: 03/22/17 13:26 Dose: 5,000 units Magnesium Oxide (Magox 400 Tab*) 400 mg PO DAILY [facility] Last Admin: 03/22/17 08:46 Dose: 400 mg Metoprolol Succinate (Toprol Xl Tab*) 25 mg PO DAILY [facility] Last Admin: 03/22/17 08:45 Dose: 25 mg Nortriptyline HCl (Pamelor Cap*) 10 mg PO BEDTIME [facility] Last Admin: 03/21/17 23:08 Dose: 10 mg Ondansetron HCl (Zofran Inj*) 4 mg IV Q6H PRN PRN Reason: NAUSEA Last Admin: 03/19/17 18:01 Dose: 4 mg Oxycodone/Acetaminophen (Percocet 5/325 Tab*) 1 tab PO TID PRN PRN Reason: PAIN Last Admin: 03/18/17 20:32 Dose: 1 tab Sitagliptin Phosphate (Januvia (Nf)) 25 mg PO DAILY [facility] Last Admin: 03/22/17 08:45 Dose: 25 mg Vital Signs 03/21/17 03/21/17 03/21/17 15:29 19:28 20:00 Temperature 97.6 F 97.9 F Pulse Rate 81 83 Respiratory 22 23 20 Rate Blood Pressure 170/86 155/86 (mmHg) O2 Sat by Pulse 100 98 Oximetry 03/21/17 03/22/17 03/22/17 23:12 03:36 07:26 Temperature 97.9 F 97.7 F 98.3 F Pulse Rate 84 87 83 Respiratory 16 20 16 Rate Blood Pressure 175/85 174/90 152/80 (mmHg) O2 Sat by Pulse 98 98 99 Oximetry 03/22/17 08:00 Temperature Pulse Rate Respiratory 20 Rate Blood Pressure (mmHg) O2 Sat by Pulse Oximetry Oxygen Devices in Use Now: None Appearance: Alert, supine in bed. In good spirits. Looks comfortable. Respiratory: Symmetrical Chest Expansion and Respiratory Effort Extremities: No Edema, No Clubbing, Cyanosis, - Skin: No Rash or Ulcers, No Nodules or Sclerosis, - Neurological: Alert and Oriented x 3, NL Sensation Result Diagrams: 03/20/17 05:02 03/22/17 05:04 Additional Lab and Data: Lab Results 03/17/17 03/17/17 03/17/17 Range/Units 16:30 16:30 16:30 WBC 12.7 H (3.5-10.8) 10^3/ul RBC 4.08 (4.0-5.4) 10^6/ul Hgb 12.8 L (14.0-18.0) g/dl Hct 37 L (42-52) % MCV 92 (80-94) fL MCH 31 (27-31) pg MCHC 34 (31-36) g/dl RDW 14 (10.5-15) % Plt Count 166 (150-450) 10^3/ul MPV 9 (7.4-10.4) um3 Neut % (Auto) 86.9 H (38-83) % Lymph % (Auto) 5.8 L (25-47) % [place] % (Auto) 6.5 (1-9) % Eos % (Auto) 0.1 (0-6) % Baso % (Auto) 0.7 (0-2) % Absolute Neuts (auto) 11.0 H (1.5-7.7) 10^3/ul Absolute Lymphs (auto) 0.7 L (1.0-4.8) 10^3/ul Absolute Monos (auto) 0.8 (0-0.8) 10^3/ul Absolute Eos (auto) 0 (0-0.6) 10^3/ul Absolute Basos (auto) 0.1 (0-0.2) 10^3/ul Absolute Nucleated RBC 0.01 10^3/ul Nucleated RBC % 0 Sodium 120 L (133-145) mmol/L Potassium 6.2 H* (3.5-5.0) mmol/L Chloride 83 L (101-111) mmol/L Carbon Dioxide 9 L* (22-32) mmol/L Anion Gap 28 H (2-11) mmol/L BUN 71 H (6-24) mg/dL Creatinine 11.03 H (0.67-1.17) mg/dL Est GFR ( Amer) 6.3 (>60) Est GFR (Non-Af Amer) 4.9 (>60) BUN/Creatinine Ratio 6.4 L (8-20) Glucose 188 H (70-100) mg/dL Lactic Acid 3.9 H* (0.5-2.0) mmol/L Calcium 8.1 L (8.6-10.3) mg/dL Total Bilirubin 0.40 (0.2-1.0) mg/dL AST 12 L (13-39) U/L ALT 11 (7-52) U/L Alkaline Phosphatase 79 (34-104) U/L C-Reactive Protein 78.97 H (< 5.00) mg/L Total Protein 6.6 (6.4-8.9) g/dL Albumin 3.7 (3.2-5.2) g/dL Globulin 2.9 (2-4) g/dL Albumin/Globulin Ratio 1.3 (1-3) Amylase 20 L (29-103) U/L Lipase < 10 L (11.0-82.0) U/L Microbiology and Other Data: Microbiology 03/18/17 09:30 Stool Culture - Final Stool Stool Gross Appearance - Final Shiga Toxin I & II - Final Negative Shiga Toxin 1 & 2 03/18/17 09:30 Stool Gross Appearance - Final Stool C. difficile DNA Amplification - Final 027 Presumptive NEGATIVE Toxigenic C.diff NEGATIVE Stool Lactoferrin - Final 03/17/17 20:06 Nasal Screen MRSA (PCR)(SELENE) - Final Nasal Mrsa Negative Assess/Plan/Problems-Billing Assessment: - Patient Problems (1) KIRSTEN (acute kidney injury) Current Visit: No Status: Acute Code(s): N17.9 - ACUTE KIDNEY FAILURE, UNSPECIFIED SNOMED Code(s): 23637381 Comment: Acute on chronic renal failure. Creatinine may have peaked 03/22. BMP and magnesium 03/23. (2) T2DM (type 2 diabetes mellitus) Current Visit: No Status: Chronic Comment: Sitagliptin dose adjusted for ESRD. Continue glipizide. Pt refuses insulin. (3) HTN (hypertension) Current Visit: No Status: Acute Code(s): I10 - ESSENTIAL (PRIMARY) HYPERTENSION SNOMED Code(s): 94985063 Comment: Continue metoprolol, amlodipine.
[2017-03-22] MEDS: Atorvastatin* 10 MG TAB PO SCH (17:53)
[2017-03-22] MEDS: Nortriptyline CAP* 10 MG PO SCH (22:53)
[2017-03-23 05:51] LABS: BUN/Creatinine Ratio 6.3 (8-20); Calcium 9.8 mg/dL (8.6-10.3); EGFR African American 5.6 (>60); EGFR Non-African American 4.4 (>60); Magnesium 2.2 mg/dL (1.9-2.7); Potassium 3.4 mmol/L (3.5-5.0)
[2017-03-23] MEDS: Heparin VIAL(*) 5000 UNITS/ML VIAL (FIVE THOUSAND) SUBCUT SCH (06:02)
[2017-03-23] MEDS: amLODIPine TAB* 5 MG PO SCH (08:13)
[2017-03-23] MEDS: Calcium Citrate TAB* 200 MG PO SCH (08:13)
[2017-03-23] MEDS: Calcitriol CAP* 0.25 MCG PO SCH (08:14)
[2017-03-23] MEDS: glipiZIDE TAB* 5 MG PO SCH (08:14)
[2017-03-23] MEDS: Calcium Acetate CAP* 667 MG PO SCH ×2 (08:14→12:40)
[2017-03-23] MEDS: Magnesium Oxide TAB* 400 MG PO SCH (08:14)
[2017-03-23] MEDS: Metoprolol Succinate XL TAB* 25 MG PO SCH (08:14)
[2017-03-23] MEDS: CMCS:SitaGLIPtin (NF) 25 MG TAB PO SCH (08:14)
--- NOTE | 2017-03-23 09:46 | PN ---
Progress Note - Progress Note Date of Service: 03/23/17 Note: Time spent on discharge 50 minutes.
[2017-03-23 10:10] VITALS: BP 147/82
--- NOTE | 2017-03-23 11:20 | DS ---
CC: Dr. Sexton; Dr. Berumen * DATE OF ADMISSION: 03/17/2017. DATE OF DISCHARGE: 03/23/2017. HISTORY OF PRESENT ILLNESS: This 51-year-old man presented with nausea, vomiting and diarrhea. History is detailed in the admission note. He has a history of diabetes, hypertension, and tobacco use. He was found to have a creatinine of 11 in the emergency room with hyperkalemia and hyponatremia. He was admitted to the Intensive Care Unit. He was given intravenous fluids and Kayexalate. His potassium rapidly fell to normal within 24 hours. His creatinine initially dropped with intravenous hydration, but ernesto steadily. It hit a peak on March 22 of 12.88. On the day of discharge it was 12.20. The patient felt a little mentally foggy, undoubtably from his uremia. His BUN on the day of discharge had fallen from 81 to 77. His potassium was 3.4 on the day of discharge. I gave him a dose of 20 mEq of potassium chloride p.o. on the day of discharge. His sodium was 127. It was 120 on admission. His anion gap on the day of discharge was 11. He was getting Bicitra here. His anion gap was 28 on admission. The patient was followed by Dr. Berumen, who will follow-up with him in the office early next week. He will have a BMP tomorrow morning. His medications for hypertension were adjusted. His diabetes medications were also adjusted. He will no longer take Metformin. His Sitagliptin dose was decreased to 25 mg due to his renal failure. Ramipril was stopped and Metoprolol and Amlodipine were started. FINAL DIAGNOSES: 1. Acute on chronic renal failure. 2. Diabetes mellitus. 3. Hypertension. DISCHARGE MEDICATIONS: 1. Acetaminophen 650 mg every 6 hours prn. 2. Calcitriol 0.25 mg b.i.d. 3. Calcium Acetate 1334 mg t.i.d. with meals. 4. Calcium Citrate 500 mg b.i.d. 5. Metoprolol Succinate 25 mg daily. 6. Sitagliptin 25 mg daily. 7. Amlodipine 10 mg daily. 8. Glipizide XL 10 mg b.i.d. 9. Nortriptyline 10 mg at bedtime. 10. Polyethylene Glycol 17 gm daily prn. 11. Simvastatin 20 mg daily. 12. Aspirin 81 mg daily. [id number]/[facility] #: [id number] [facility]
[2017-03-24] MEDS ORDERED: Potassium Chlor TAB* 10 MEQ TAB.ER PO SCH (09:00)
== END 2017-03-23 16:30 | disposition home or self-care (01) | DRG 468 ==
LOC: ED 14:16 → OBSVTOIN 18:14 → INTOOBSV 18:14 → ICU 18:14 → MEDTELE 03-19 15:32 → MED 03-20 17:12 → UNDODISIN 03-23 16:45
PROVIDERS: ADMIT Internal Medicine; ATTEND Internal Medicine
DX: E11.22 Type 2 diabetes mellitus with diabetic chronic kidney disease (principal); E87.1 Hypo-osmolality and hyponatremia; N17.0 Acute kidney failure with tubular necrosis; E87.2 Acidosis; E87.3 Alkalosis; E11.51 Type 2 diabetes mellitus with diabetic peripheral angiopathy without gangrene; M19.90 Unspecified osteoarthritis, unspecified site; F17.210 Nicotine dependence, cigarettes, uncomplicated; E86.0 Dehydration; I12.9 Hypertensive chronic kidney disease with stage 1 through stage 4 chronic kidney disease, or unspecified chronic kidney disease; D63.1 Anemia in chronic kidney disease; E87.8 Other disorders of electrolyte and fluid balance, not elsewhere classified; E87.5 Hyperkalemia; K59.00 Constipation, unspecified; E11.21 Type 2 diabetes mellitus with diabetic nephropathy; R00.0 Tachycardia, unspecified; R51 Headache; E83.51 Hypocalcemia; N18.2 Chronic kidney disease, stage 2 (mild); Z79.82 Long term (current) use of aspirin; Z89.432 Acquired absence of left foot; Z72.89 Other problems related to lifestyle; Z89.422 Acquired absence of other left toe(s); Z89.421 Acquired absence of other right toe(s); Z83.3 Family history of diabetes mellitus; Z80.8 Family history of malignant neoplasm of other organs or systems; Z79.84 Long term (current) use of oral hypoglycemic drugs
CPT/HCPCS: 36415; 36600; 71010; 74020; 76775; 80048; 80053; 80307; 81003; 81015; 82150; 82375; 82570; 82803; 83605; 83630; 83690; 83735; 84100; 84300; 85025; 85027; 85610; 85730; 86140; 87045; 87046; 87493; 87641; 87899; 93005; A9270-GY; J0360; J0610; J0696; J1644; J2270; J2405

== ENCOUNTER 2017-03-28 12:06 | Emergency (ER) | payer BC ==
[2017-03-28] MEDS ORDERED: NS 0.9% 1000 ML* 2,000 ML IV ONE (12:22)
[2017-03-28] MEDS ORDERED: Insulin REGULAR(*) 1 UNITS UNIT IV ONE (12:22)
[2017-03-28 13:28] LABS: Hematocrit 32 % (42-52); Hemoglobin 11.2 g/dl (14.0-18.0); Mean Corpuscular HGB Conc 35 g/dl (31-36); Mean Corpuscular Hemoglobin 31 pg (27-31); Mean Corpuscular Volume 88 fL (80-94); Mean Platelet Volume 8 um3 (7.4-10.4); Red Cell Distribution Width 13 % (10.5-15); White Blood Count 10.5 10^3/ul (3.5-10.8)
[2017-03-28 13:32] LABS: Albumin 4.2 g/dL (3.2-5.2); BUN/Creatinine Ratio 8.7 (8-20); C Reactive Protein 9.28 mg/L (< 5.00); EGFR African American 12.4 (>60); EGFR Non-African American 9.7 (>60); Globulin 3.2 g/dL (2-4); Potassium 3.7 mmol/L (3.5-5.0); Total Bilirubin 0.4 mg/dL (0.2-1.0); Total Protein 7.4 g/dL (6.4-8.9)
[2017-03-28 13:37] LABS: Venous Bicarbonate HCO3 29.6 mmol/L (24-28)
[2017-03-28] MEDS ORDERED: Insulin REGULAR(*) 1 UNITS UNIT IV PUSH ONE (14:06)
[2017-03-28 16:41] VITALS: BP 140/81
--- NOTE | 2017-03-28 16:43 | ED ---
Clive Thorpe Thomas, scribed for Inder Santillan MD on 03/28/17 at 1239 . HPI Diabetic - HPI Summary HPI Summary: The pt is a 51 y/o M accompanied by referred to the ED from Dr. Lagos office after his blood glucose was measured 748 today at 10:30. Last week, he was admitted [place] [facility] [place] 8 days due to [id number] renal failure caused by dehydration. He was discharged 5 days ago. The pt c/o polydipsia, polyuria, and polyphagia. The pt denies any pain, SOB, and CP. PMHx: DM, HLD, and HTN. PSHx: R toe amputation. SHx: former smoker, weekly drinking. FHx: DM, DC. 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 Berumen's office , Still Present Timing: Constant Aggravating: Nothing Alleviating: Nothing Associated Signs & Symptoms: Polydipsia, Polyphagia, Polyuria Related History: DM II - Allergies/Home Medications Allergies/Adverse Reactions: Allergies Allergy/AdvReac Type Severity Reaction Status Date / Time No Known Allergies Allergy Verified 03/28/17 12:12 PMH/Surg Hx/FS Hx/Imm Hx Previously Healthy: No Endocrine/Hematology History: Reports: Hx Diabetes - takes oral meds Cardiovascular History: Denies: Hx Hypertension, Hx Pacemaker/ICD History: Denies: Hx Renal Disease Musculoskeletal History: Reports: Hx Arthritis, Other Musculoskeletal History - osteomyelitis Sensory History: Reports: Hx Contacts or Glasses - reading Denies: Hx Hearing Aid Opthamlomology History: Reports: Hx Contacts or Glasses - reading Psychiatric History: Reports: Hx Depression Denies: Hx Panic Disorder - Surgical History Surgery Procedure, Year, and Place: 06/04/14 RIGHT TOES. LAST 2 TOES ON LEFT FOOT AMPUTATION. TONSILS 9 Y.O Hx Anesthesia Reactions: No Infectious Disease History: No Infectious Disease History: Denies: Traveled Outside the [place] in Last 30 Days - Family History Known Family History: Positive: Cardiac Disease - [place] - grandfather, Diabetes - Grandfather, Other - Mother of [place] - Social History Alcohol Use: Weekly Alcohol Amount: "2/3 drinks a night one week and none another week" Substance Use Type: Reports: None Hx Tobacco Use: Yes - Has not had nicotine replacement since admission Smoking Status (MU): Former Smoker Type: Cigarettes Amount Used/How Often: 1/2 pack per day for 20 years Review of Systems Constitutional: Negative Negative: Fever Eyes: Negative ENT: Negative Cardiovascular: Negative Negative: Chest Pain Negative: Shortness Of Breath Gastrointestinal: Other - POS: polyuria, polyphagia Genitourinary: Other - POS: polyuria Musculoskeletal: Negative Negative: Other - NEG: any pain Skin: Negative Neurological: Negative Psychological: Normal All Other Systems Reviewed And Are Negative: Yes Physical Exam - Summary Physical Exam Summary: The patient is well-nourished in no acute distress and in no acute pain. The skin is warm and dry and skin color reflects adequate perfusion. HEENT: The head is normocephalic and atraumatic. The pupils are equal and reactive. The conjunctivae are clear and without drainage. Nares are patent and without drainage. Mouth reveals dry mucous membranes and the throat is without erythema and exudate. The external ears are intact. The ear canals are patent and without drainage. The tympanic membranes are intact. Neck is supple with full range of motion and non-tender. There is no neck vein distension. Respiratory: Chest is non-tender. Lungs are clear to auscultation and breath sounds are symmetrical and equal. Cardiovascular: Hear is regular rate and rhythm. There is no murmur or rub auscultated. There is no peripheral edema and pulses are symmetrical and equal. Abdomen: The abdomen is soft and non-tender. Musculoskeletal: There is no back pain noted. Extremities are non-tender with full range of motion. There is good capillary refill. There is no peripheral edema or calf tenderness elicited. Neurological: Patient is alert and oriented to person, place and time. Psychiatric: The patient has an appropriate affect and does not exhibit any anxiety or depression. Triage Information Reviewed: Yes Vital Signs On Initial Exam: Initial Vitals Temp Pulse Resp BP Pulse Ox 97.9 F 78 16 117/73 98 03/28/17 12:12 03/28/17 12:12 03/28/17 12:12 03/28/17 12:12 03/28/17 12:12 Vital Signs Reviewed: Yes Diagnostics - Vital Signs Vital Signs Temp Pulse Resp BP Pulse Ox 03/28/17 12:24 98.8 F 85 16 133/79 100 03/28/17 12:12 97.9 F 78 16 117/73 98 - Laboratory Lab Results: Lab Results 03/28/17 03/28/17 03/28/17 Range/Units 12:55 12:55 12:55 WBC 10.5 (3.5-10.8) 10^3/ul RBC 3.60 L (4.0-5.4) 10^6/ul Hgb 11.2 L (14.0-18.0) g/dl Hct 32 L (42-52) % MCV 88 (80-94) fL MCH 31 (27-31) pg MCHC 35 (31-36) g/dl RDW 13 (10.5-15) % Plt Count 199 (150-450) 10^3/ul MPV 8 (7.4-10.4) um3 Neut % (Auto) 76.2 (38-83) % Lymph % (Auto) 13.3 L (25-47) % [place]an % (Auto) 7.7 (1-9) % Eos % (Auto) 2.5 (0-6) % Baso % (Auto) 0.3 (0-2) % Absolute Neuts (auto) 8.0 H (1.5-7.7) 10^3/ul Absolute Lymphs (auto) 1.4 (1.0-4.8) 10^3/ul Absolute Monos (auto) 0.8 (0-0.8) 10^3/ul Absolute Eos (auto) 0.3 (0-0.6) 10^3/ul Absolute Basos (auto) 0 (0-0.2) 10^3/ul Absolute Nucleated RBC 0.01 10^3/ul Nucleated RBC % 0 VBG pH (7.33-7.43) VBG pCO2 (41-51) mmHg VBG pO2 (35-45) mmHg VBG HCO3 (24-28) mmol/L VBG O2 Saturation (70-80) % VBG Base Excess (0-4) Sodium 126 L (133-145) mmol/L Potassium 3.7 (3.5-5.0) mmol/L Chloride 85 L (101-111) mmol/L Carbon Dioxide 29 (22-32) mmol/L Anion Gap 12 H (2-11) mmol/L BUN 53 H (6-24) mg/dL Creatinine 6.12 H (0.67-1.17) mg/dL Est GFR ( Amer) 12.4 (>60) Est GFR (Non-Af Amer) 9.7 (>60) BUN/Creatinine Ratio 8.7 (8-20) Glucose 675 H* (70-100) mg/dL POC Glucose (mg/dL) (70-100) mg/dL Lactic Acid 1.6 (0.5-2.0) mmol/L Calcium 10.0 (8.6-10.3) mg/dL Total Bilirubin 0.40 (0.2-1.0) mg/dL AST 88 H (13-39) U/L ALT 105 H (7-52) U/L Alkaline Phosphatase 156 H (34-104) U/L C-Reactive Protein 9.28 H (< 5.00) mg/L Total Protein 7.4 (6.4-8.9) g/dL Albumin 4.2 (3.2-5.2) g/dL Globulin 3.2 (2-4) g/dL Albumin/Globulin Ratio 1.3 (1-3) 03/28/17 03/28/17 Range/Units 13:30 15:59 WBC (3.5-10.8) 10^3/ul RBC (4.0-5.4) 10^6/ul Hgb (14.0-18.0) g/dl Hct (42-52) % MCV (80-94) fL MCH (27-31) pg MCHC (31-36) g/dl RDW (10.5-15) % Plt Count (150-450) 10^3/ul MPV (7.4-10.4) um3 Neut % (Auto) (38-83) % Lymph % (Auto) (25-47) % Rowan % (Auto) (1-9) % Eos % (Auto) (0-6) % Baso % (Auto) (0-2) % Absolute Neuts (auto) (1.5-7.7) 10^3/ul Absolute Lymphs (auto) (1.0-4.8) 10^3/ul Absolute Monos (auto) (0-0.8) 10^3/ul Absolute Eos (auto) (0-0.6) 10^3/ul Absolute Basos (auto) (0-0.2) 10^3/ul Absolute Nucleated RBC 10^3/ul Nucleated RBC % VBG pH 7.36 (7.33-7.43) VBG pCO2 60 H (41-51) mmHg VBG pO2 27 L (35-45) mmHg VBG HCO3 29.6 H (24-28) mmol/L VBG O2 Saturation 54.7 L (70-80) % VBG Base Excess 7.1 H (0-4) Sodium (133-145) mmol/L Potassium (3.5-5.0) mmol/L Chloride (101-111) mmol/L Carbon Dioxide (22-32) mmol/L Anion Gap (2-11) mmol/L BUN (6-24) mg/dL Creatinine (0.67-1.17) mg/dL Est GFR ( Amer) (>60) Est GFR (Non-Af Amer) (>60) BUN/Creatinine Ratio (8-20) Glucose (70-100) mg/dL POC Glucose (mg/dL) 320 H (70-100) mg/dL Lactic Acid (0.5-2.0) mmol/L Calcium (8.6-10.3) mg/dL Total Bilirubin (0.2-1.0) mg/dL AST (13-39) U/L ALT (7-52) U/L Alkaline Phosphatase (34-104) U/L C-Reactive Protein (< 5.00) mg/L Total Protein (6.4-8.9) g/dL Albumin (3.2-5.2) g/dL Globulin (2-4) g/dL Albumin/Globulin Ratio (1-3) Result Diagrams: 03/28/17 12:55 03/28/17 12:55 Lab Statement: Any lab studies that have been ordered have been reviewed, and results considered in the medical decision making process. Re-Evaluation - Re-Evaluation First Eval Re-Evaluation Time: 16:15 Change: Improved Comment: He is feeling better Diabetic Course/Dx - Course Assessment/Plan: The pt is a 51 y/o M accompanied by referred to the ED from Dr. Lagos office after his blood glucose was measured 748 today at 10: 30. Last week, he was admitted to [facility] [place] 8 days due to [id number] renal failure caused by dehydration. He was discharged 5 days ago. The pt c/o polydipsia, polyuria, and polyphagia. The pt denies any pain, SOB, and CP. PMHx : DM, HLD, and HTN. PSHx: R toe amputation. SHx: former smoker, weekly drinking. FHx: DM, DC. Bloodwork shows glucose 675, Sodium 126, Chloride 85, anion gap 12, BUN 53, Creatinine 6.12, AST 88, ALT 105, AlkPhos 156, CR 9.28, Hematology 3.6, Hgb 11.2, Hct 32, Lymph% 13.3, Absolute neuts 8.0, VBG pCO2 60, VBG pO2 27, VBG HCO3 29.6, VBG O2Sat 54.7, VBG base excess 7.1. In the ED course the patient was given IV fluids and insulin. He was feeling better at re -eval at 16:15. Patient is diagnosed with hyperglycemia and chronic renal failure. Patient will be discharged with follow up from his PCP. Pt is agreeable with this plan. - Diagnoses Differential Dx: Diabetic Ketoacidosis, Hyperglycemia, Other - renal failure Provider Diagnoses: Hyperglycemia, Renal failure - Critical Care Time Critical Care Time: 30-74 min - 30 minutes Discharge - Discharge Plan Condition: Stable Disposition: HOME Patient Education Materials: Diabetic Hyperglycemia (ED), Chronic Kidney Disease (ED) Referrals: Akin Sexton MD [Primary Care Provider] - 3 Days Additional Instructions: Drink plenty of fluids. The documentation as recorded by the Clive goodman Thomas accurately reflects the service I personally performed and the decisions made by , Inder Santillan MD.
[2017-03-28 18:22] LABS: Magnesium 2.1 mg/dL (1.9-2.7)
== END 2017-03-28 16:40 | disposition home or self-care (01) ==
LOC: ED 12:06
DX: E11.65 Type 2 diabetes mellitus with hyperglycemia (principal); F32.9 Major depressive disorder, single episode, unspecified; Z87.891 Personal history of nicotine dependence; Z79.4 Long term (current) use of insulin; E78.5 Hyperlipidemia, unspecified; I12.9 Hypertensive chronic kidney disease with stage 1 through stage 4 chronic kidney disease, or unspecified chronic kidney disease; E11.22 Type 2 diabetes mellitus with diabetic chronic kidney disease; N18.9 Chronic kidney disease, unspecified
CPT/HCPCS: 36415; 80053; 82803; 83605; 83735; 85025; 86140; 96360; 99282

== ENCOUNTER 2017-09-15 17:08 | Emergency (ER) | payer BC ==
[2017-09-15] MEDS ORDERED: NS 0.9% 1000 ML*IV.FLUID IV ONE (17:41)
[2017-09-15] MEDS ORDERED: Albuterol/Ipratropium NEB.SOL* Albuterol 2.5 MG/Ipratropium 0.5 MG 3 ML INH ONE (18:10)
--- NOTE | 2017-09-15 18:45 | RAD ---
INDICATION: Fever COMPARISON: Chest x-ray dated March 17, 2017 TECHNIQUE: PA and lateral views of the chest were obtained. FINDINGS: The heart and mediastinum are normal in size and contour. The lungs are grossly clear. There is no evidence of large pleural effusion. Visualized bones are normal for the patient's age. There is no radiographic evidence of free air beneath the diaphragm IMPRESSION: No radiographic evidence of acute cardiopulmonary disease.
[2017-09-15 19:24] LABS: Hematocrit 29 % (42-52); Hemoglobin 9.8 g/dl (14.0-18.0); Mean Corpuscular HGB Conc 34 g/dl (31-36); Mean Corpuscular Hemoglobin 28 pg (27-31); Mean Corpuscular Volume 83 fL (80-94); Mean Platelet Volume 8 um3 (7.4-10.4); Platelet Count 137 10^3/ul (150-450); Red Blood Count 3.52 10^6/ul (4.0-5.4); Red Cell Distribution Width 14 % (10.5-15); White Blood Count 12.8 10^3/ul (3.5-10.8)
--- NOTE | 2017-09-15 19:26 | ED ---
Influenza-Like Illness - HPI Summary HPI Summary: 52M presents with fever, dizziness, nausea since Monday. 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 He admits to a cough. He states that the dizziness and nausea comes in waves. He was neg for flu at primary. He admits to decrease in appetite. He has history of renal failure and DM. He denies any abdominal pain. He denies any vomiting but admits to a couple episodes of diarrhea. He denies any blood in his stool. He states he has been breaking out in hot and cold sweats. He has been taking ibuprofen and Tylenol for his fever. He denies any dysuria, flank pain, hematuria, urgency, or frequency. He denies any headache. He denies any chest pain or SOB. He states his renal failure resolved and was discharged by [facility]. He was seen by his primary who advised that he come here. - History of Current Complaint Chief Complaint: EDFluSymptoms Time Seen by Provider: 09/15/17 17:22 - Allergy/Home Medications Allergies/Adverse Reactions: Allergies Allergy/AdvReac Type Severity Reaction Status Date / Time No Known Allergies Allergy Verified 03/28/17 12:12 PMH/Surg Hx/FS Hx/Imm Hx Endocrine/Hematology History: Reports: Hx Diabetes - takes oral meds Cardiovascular History: Denies: Hx Hypertension, Hx Pacemaker/ICD History: Denies: Hx Renal Disease Musculoskeletal History: Reports: Hx Arthritis, Other Musculoskeletal History - osteomyelitis Sensory History: Reports: Hx Contacts or Glasses - reading Denies: Hx Hearing Aid Opthamlomology History: Reports: Hx Contacts or Glasses - reading Psychiatric History: Reports: Hx Depression Denies: Hx Panic Disorder - Surgical History Surgery Procedure, Year, and Place: 06/04/14 RIGHT TOES. LAST 2 TOES ON LEFT FOOT AMPUTATION. TONSILS 9 Y.O Hx Anesthesia Reactions: No Infectious Disease History: No Infectious Disease History: Denies: Traveled Outside the [place] in Last 30 Days - Family History Known Family History: Positive: None, Cardiac Disease - [place] - grandfather, Diabetes - Grandfather, Other - Mother of [place] - Social History Alcohol Use: Weekly Alcohol Amount: "2/3 drinks a night one week and none another week" Substance Use Type: Reports: None Hx Tobacco Use: Yes - Has not had nicotine replacement since admission Smoking Status (MU): Former Smoker Type: Cigarettes Amount Used/How Often: 1/2 pack per day for 20 years Review of Systems Positive: Fever Positive: Nasal Discharge Negative: Chest Pain Positive: Cough. Negative: Shortness Of Breath Positive: Vomiting, Diarrhea, Nausea. Negative: Abdominal Pain All Other Systems Reviewed And Are Negative: Yes Physical Exam Triage Information Reviewed: Yes Vital Signs On Initial Exam: Initial Vitals Temp Pulse Resp BP Pulse Ox 96.8 F 83 16 133/63 96 09/15/17 17:10 09/15/17 17:10 09/15/17 17:10 09/15/17 17:10 09/15/17 17:10 Vital Signs Reviewed: Yes Appearance: Positive: Well-Appearing Skin: Positive: Warm, Dry Head/Face: Positive: Normal Head/Face Inspection Eyes: Positive: Normal, EOMI, LELA, Conjunctiva Clear ENT: Positive: Normal ENT inspection, Pharynx normal, TMs normal Neck: Positive: Supple, Nontender, No Lymphadenopathy Respiratory/Lung Sounds: Positive: Breath Sounds Present, Wheezes Cardiovascular: Positive: Normal, RRR Abdomen Description: Positive: Nontender, Soft Bowel Sounds: Positive: Present Musculoskeletal: Positive: Normal Neurological: Positive: Normal Psychiatric: Positive: Normal - Thornton Coma Scale Coma Scale Total: 15 Diagnostics - Vital Signs Vital Signs Temp Pulse Resp BP Pulse Ox 09/15/17 19:12 93 09/15/17 19:00 94 95 09/15/17 18:30 108/52 09/15/17 18:27 84 16 95 09/15/17 18:22 85 90 09/15/17 18:21 105/60 09/15/17 17:10 96.8 F 83 16 133/63 96 - Laboratory Lab Results: Lab Results 09/15/17 Range/Units 18:50 WBC 12.8 H (3.5-10.8) 10^3/ul RBC 3.52 L (4.0-5.4) 10^6/ul Hgb 9.8 L (14.0-18.0) g/dl Hct 29 L (42-52) % MCV 83 (80-94) fL MCH 28 (27-31) pg MCHC 34 (31-36) g/dl RDW 14 (10.5-15) % Plt Count 137 L (150-450) 10^3/ul MPV 8 (7.4-10.4) um3 Neut % (Auto) Pending Lymph % (Auto) Pending [place] % (Auto) Pending Eos % (Auto) Pending Baso % (Auto) Pending Absolute Neuts (auto) Pending Absolute Lymphs (auto) Pending Absolute Monos (auto) Pending Absolute Eos (auto) Pending Absolute Basos (auto) Pending Absolute Nucleated RBC Pending Nucleated RBC % Pending Result Diagrams: 09/15/17 18:50 09/15/17 18:50 Lab Statement: Any lab studies that have been ordered have been reviewed, and results considered in the medical decision making process. - Radiology chest Xray Interpretation: No Acute Changes Radiology Interpretation Completed By: Radiologist - EKG No standard instances Cardiac Rate: NL EKG Rhythm: Sinus Rhythm EKG Interpretation: sinus rhythm with PVC Flu Symptom Course/Dx - Course Course Of Treatment: 52M presents with fever, dizziness, nausea since Monday. 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 He admits to a cough. He states that the dizziness and nausea comes in waves. He was neg for flu at primary. He admits to decrease in appetite. He has history of renal failure and DM. He denies any abdominal pain. He denies any vomiting but admits to a couple episodes of diarrhea. He denies any blood in his stool. He states he has been breaking out in hot and cold sweats. He has been taking ibuprofen and Tylenol for his fever. He denies any dysuria, flank pain, hematuria, urgency, or frequency. He denies any headache. He denies any chest pain or SOB. He states his renal failure resolved and was discharged by [facility]. He was seen by his primary who advised that he come here. on exam lungs wheezing gave neb and wheezing resolved. abdomen nontender. wbc 12.8, CO normal, Na and Cl low so gave fluids, bun 33, cr 2.4 which is elevated compared to previous but no as bad as last time was admitted. troponin came back pos .04. patient intially refused ekg but then later convinced him to allow one. ekg normal. did a second troponin and .01. discussed case with hospitalist. patient did not want to be admitted for renal injury. will have follow up with dr yoder. told to stop ibuprofen and only use tyenlol for fever and zofran for nausea. will have follow up with primary. do not have a cause for fever but likely viral. told if anything changes to return. patient understand and agrees with plan. - Diagnoses Differential Diagnosis/HQI/PQRI: Positive: Influenza, Pneumonia, Upper Respiratory Infection Provider Diagnoses: Fever, KIRSTEN (acute kidney injury), Dizziness Discharge - Discharge Plan Condition: Good Disposition: HOME Prescriptions: Ondansetron ODT TAB* [Zofran 4 MG Odt TAB*] 4 mg PO Q6H PRN #16 tab.odt PRN Reason: Nausea Patient Education Materials: Acute Kidney Injury (DC), Fever in Adults (ED) Referrals: Akin Sexton MD [Primary Care Provider] - Edward Nelson MD [Medical Doctor] - Additional Instructions: Take tyenlol every 4-6 hours for fever Take zofran every 6 hours for nausea Follow up with dr nelson next week Follow up with primary within 5 days Return to ED if develop any new or worsening symptoms
[2017-09-15 19:36] LABS: EGFR Non-African American 28.4 (>60)
[2017-09-15 19:41] LABS: INR 1.04 (0.77-1.02)
[2017-09-15 19:50] LABS: Monocytes % 7 % (0-13)
[2017-09-15 20:43] LABS: Urine Appearance Clear; Urine Blood 2+ (Negative); Urine Color Yellow; Urine Ketones Negative (Negative); Urine Protein 1+(30 mg/dL) (Negative); Urine Specific Gravity 1.006 (1.010-1.030); Urine Urobilinogen Negative (Negative)
[2017-09-15] MEDS ORDERED: Acetaminophen TAB* 325 MG PO ONE ×2 (20:53→22:01)
[2017-09-15] MEDS ORDERED: O ndansetron ODT 4MG 2TAB PRPK 4 MG PAK PO ONE (21:59)
[2017-09-15 22:15] VITALS: BP 145/67
== END 2017-09-15 22:32 | disposition home or self-care (01) ==
LOC: ED 17:08
DX: R50.9 Fever, unspecified (principal); N17.9 Acute kidney failure, unspecified; R42 Dizziness and giddiness; R11.2 Nausea with vomiting, unspecified; R19.7 Diarrhea, unspecified; Z87.891 Personal history of nicotine dependence; Z86.39 Personal history of other endocrine, nutritional and metabolic disease
CPT/HCPCS: 36415; 71046; 80053; 81003; 81015; 82375; 83605; 83880; 84484; 85025; 85060; 85610; 85730; 87040; 93005; 94640; 96360; 99283; A9270-GY

== ENCOUNTER 2017-09-18 10:09 | Inpatient (IN) | payer BC ==
[2017-09-18 12:49] LABS: Hematocrit 31 % (42-52); Hemoglobin 10.2 g/dl (14.0-18.0); Mean Corpuscular HGB Conc 33 g/dl (31-36); Mean Corpuscular Hemoglobin 28 pg (27-31); Mean Corpuscular Volume 84 fL (80-94); Mean Platelet Volume 8 um3 (7.4-10.4); Platelet Count 292 10^3/ul (150-450); Red Blood Count 3.66 10^6/ul (4.0-5.4); Red Cell Distribution Width 14 % (10.5-15); White Blood Count 15.8 10^3/ul (3.5-10.8)
[2017-09-18 13:16] LABS: ABS Basophils 0 10^3/ul (0-0.2); ABS Eosinophils 0 10^3/ul (0-0.6); ABS Lymphocytes 1.1 10^3/ul (1.0-4.8); ABS Monocytes 1.7 10^3/ul (0-0.8); ABS Nucleated RBC 0 10^3/ul; Eosinophil % 0.2 % (0-6); Lymphocyte % 6.7 % (25-47); Nucleated Red Blood Cells % 0
[2017-09-18 13:23] LABS: INR 1.08 (0.77-1.02)
[2017-09-18] MEDS ORDERED: Acetaminophen TAB* 325 MG PO ONE (13:29)
[2017-09-18] MEDS ORDERED: Acetaminophen TAB* 325 MG ONE (13:32)
--- NOTE | 2017-09-18 13:43 | RAD ---
HISTORY: Fever, wound COMPARISONS: September 15, 2017 VIEWS: 1: frontal portable view of the chest at 1:07 PM FINDINGS: LINES AND TUBES: None. CARDIOMEDIASTINAL SILHOUETTE: The cardiomediastinal silhouette is normal for portable technique. PLEURA: The costophrenic angles are sharp. No pleural abnormalities are noted. LUNG PARENCHYMA: The lungs are clear. ABDOMEN: The upper abdomen is clear. There is no subphrenic gas. BONES AND SOFT TISSUES: No bone or soft tissue abnormalities are noted. IMPRESSION: NO ACTIVE CARDIOPULMONARY DISEASE.
[2017-09-18] MEDS ORDERED: Dextrose 50% Syringe 50 ML* 25 GM/50 ML SYRINGE IV PUSH PRN (14:32)
[2017-09-18] MEDS ORDERED: NS 0.9% 1000 ML* 1,000 ML IV SCH (15:15)
[2017-09-18] MEDS ORDERED: Vancomycin(*) 1,750 MG in NS 0.9% 500 ML* 500 ML IVPB ONE (15:45)
--- NOTE | 2017-09-18 15:58 | RAD ---
INDICATION: Diabetic foot infection evaluate for osteomyelitis. COMPARISON: Comparison is made with a prior MRI of the right foot from February 19, 2009. TECHNIQUE: Axial, sagittal and coronal T1 and T2-weighted images of the right foot were obtained. FINDINGS: There is diffuse soft tissue swelling throughout the foot. No focal fluid collection or abscess is seen. The patient is status post amputation at the level of the proximal interphalangeal joints. There is increased signal intensity and T2-weighted images throughout the second metatarsal which is decreased on T1-weighted images in the distal half of the second metatarsal. The remaining metatarsals are grossly within normal limits. IMPRESSION: FINDINGS MOST CONSISTENT WITH DIFFUSE CELLULITIS AND OSTEOMYELITIS INVOLVING AT LEAST THE DISTAL HALF OF THE SECOND METATARSAL. NO EVIDENCE FOR ABSCESS.
[2017-09-18] MEDS ORDERED: Cefepime 2 GM in Dextrose(*) 2 GM/50 ML BAG IV SCH ×2 (16:00→18:15)
[2017-09-18] MEDS ORDERED: Insulin LISPRO* 1 UNITS UNIT SUBCUT SCH (16:30)
--- NOTE | 2017-09-18 18:13 | ED ---
Saskia Thorpe Nilda, scribed for Flor Donato MD on 09/18/17 at 1334 . Complex/Multi-Sys Presentation - HPI Summary HPI Summary: This patient is a 52 year old M presenting to [facility], sent by his [employer] supervisor, accompanied by with a chief complaint of pain and drainage from surgical site of right foot metatarsal amputation for the past couple of days. The patient rates the pain 8/10 in severity. Symptoms aggravated and alleviated by nothing including Tylenol taken [employer] at 0600. Patient reports fever (102 F), and severe pain in groin and behind knees, but denies SOB and CP. PSHx right foot diabetic metatarsal amputation a few years ago. PMHx includes Type 2 DM ( insulin daily 20 units), chronic kidney disease stage III. Pt was sent by his [employer] supervisor for further evaluation by Dr. Buck, and for admission. Pt was seen in the ED on 09/15/17 for fevers, declined admission at that time. Influenza neg at PCP's office. Dx of osteomyelitis was not established on . - History Of Current Complaint Chief Complaint: EDExtremityLower Hx Obtained From: Patient, Medical Records Onset/Duration: Sudden Onset, Lasting Days, Still Present Timing: Constant Severity Currently: Severe Location: Negative, Pain At: - right foot at site of metatarsal amputation Aggravating Factor(s): nothing Alleviating Factor(s): nothing Associated Signs And Symptoms: Positive: Fever, Other - drainage from right foot with redness and swelling and severe pain in groin and behind knees, but denies SOB and CP.. Negative: Chest Pain Related History: Other - in ED 09/15/17 with fevers, DC'd home - Allergies/Home Medications Allergies/Adverse Reactions: Allergies Allergy/AdvReac Type Severity Reaction Status Date / Time No Known Allergies Allergy Verified 03/28/17 12:12 Home Medications: Home Medications Empagliflozin [Jardiance] 10 mg PO QAM 09/18/17 [History Confirmed 09/18/17] Insulin Glargine [Basaglar Kwikpen] 20 unit SUBCUT QAM 09/18/17 [History Confirmed 09/19/17] Metoprolol Succinate XL TAB* [Toprol XL TAB*] 50 mg PO DAILY 09/18/17 [History Confirmed 09/18/17] [place]-3 Fatty Acids (Nf) [Fish Oil (NF)] 1,000 mg PO DAILY 09/18/17 [History Confirmed 09/18/17] SitaGLIPtin (NF) [Januvia (NF)] 25 mg PO QAM 09/18/17 [History Confirmed ] amLODIPine TAB* [Norvasc 5 mg TAB*] 10 mg PO QPM 09/18/17 [History Confirmed ] oxyCODONE/Acetamin 10/325(NF) [Percocet 10/325 (NF)] 1 tab PO TID PRN MDD 3 tab 09/18/17 [History Confirmed 09/18/17] PMH/Surg Hx/FS Hx/Imm Hx Endocrine/Hematology History: Reports: Hx Diabetes - type II on insulin Cardiovascular History: Denies: Hx Hypertension, Hx Pacemaker/ICD History: Reports: Hx Chronic Renal Failure - CKD stage III Musculoskeletal History: Reports: Hx Arthritis Sensory History: Reports: Hx Contacts or Glasses - reading Denies: Hx Hearing Aid Opthamlomology History: Reports: Hx Contacts or Glasses - reading Psychiatric History: Reports: Hx Depression Denies: Hx Panic Disorder - Surgical History Surgery Procedure, Year, and Place: 06/04/14 RIGHT TOES. LAST 2 TOES ON LEFT FOOT AMPUTATION. TONSILS 9 Y.O Hx Anesthesia Reactions: No - Immunization History Immunizations Up to Date: Yes Infectious Disease History: No Infectious Disease History: Denies: Traveled Outside the US in Last 30 Days - Family History Known Family History: Positive: Cardiac Disease - [place] - grandfather, Diabetes - Grandfather, Other - Mother of [place] - Social History Lives: With Family Alcohol Use: Weekly Alcohol Amount: "2/3 drinks a night one week and none another week" Substance Use Type: Reports: None Hx Tobacco Use: Yes - Has not had nicotine replacement since admission Smoking Status (MU): Former Smoker Type: Cigarettes Amount Used/How Often: 1/2 pack per day for 20 years Review of Systems Positive: Fever Negative: Chest Pain Negative: Shortness Of Breath Positive: other - severe pain in groin Positive: Other - severe pain behind knees; draining diabetic wound in right foot at site of metatarsal amputation. Positive: Other - draining wound right foot Neurological: Negative Psychological: Normal All Other Systems Reviewed And Are Negative: Yes Physical Exam - Summary Physical Exam Summary: Appearance: Ill-appearing, moderate pain distress, Well-nourished Skin: Color reflects adequate perfusion, redness, swelling right forefoot with 2 draining wounds at site metatarsal amputation Head: Normal Head/Face inspection Eyes: Conjunctiva clear ENT: Normal inspection Neck: Supple, no nodes, no JVD. Respiratory: Lungs clear, Normal breath sounds, no respiratory distress Cardio: RRR, No murmur, pulses normal, brisk capillary refill Abdomen: soft, nontender Bowel sounds: present Musculoskeletal: Strength Intact/ ROM intact. No calf tenderness. No edema. Right foot has toe amputations at metatarsals, draining wounds at dorsal and ventral edge of surgical scar. 2 cm. 3cm. No lymphangitic streaks Neuro: Alert, muscle tone normal, facial symmetry, speech normal, sensory/motor intact Psychological: Normal Triage Information Reviewed: Yes Vital Signs On Initial Exam: Initial Vitals Temp Pulse Resp BP Pulse Ox 100 F 97 20 124/61 95 09/18/17 10:30 09/18/17 10:30 09/18/17 10:30 09/18/17 10:30 09/18/17 10:30 Vital Signs Reviewed: Yes Diagnostics - Vital Signs Vital Signs Temp Pulse Resp BP Pulse Ox 09/18/17 10:30 100 F 97 20 124/61 95 - Laboratory Lab Results: Lab Results 09/18/17 09/18/17 09/18/17 Range/Units 12:13 12:13 12:13 WBC (3.5-10.8) 10^3/ul RBC (4.0-5.4) 10^6/ul Hgb (14.0-18.0) g/dl Hct (42-52) % MCV (80-94) fL MCH (27-31) pg MCHC (31-36) g/dl RDW (10.5-15) % Plt Count (150-450) 10^3/ul MPV (7.4-10.4) um3 Neut % (Auto) (38-83) % Lymph % (Auto) (25-47) % [place] % (Auto) (1-9) % Eos % (Auto) (0-6) % Baso % (Auto) (0-2) % Absolute Neuts (auto) (1.5-7.7) 10^3/ul Absolute Lymphs (auto) (1.0-4.8) 10^3/ul Absolute Monos (auto) (0-0.8) 10^3/ul Absolute Eos (auto) (0-0.6) 10^3/ul Absolute Basos (auto) (0-0.2) 10^3/ul Absolute Nucleated RBC 10^3/ul Nucleated RBC % ESR INR (Anticoag Therapy) 1.08 H (0.77-1.02) APTT 31.2 (26.0-36.3) seconds Sodium 130 L (133-145) mmol/L Potassium 3.5 (3.5-5.0) mmol/L Chloride 95 L (101-111) mmol/L Carbon Dioxide 25 (22-32) mmol/L Anion Gap 10 (2-11) mmol/L BUN 26 H (6-24) mg/dL Creatinine 1.95 H (0.67-1.17) mg/dL Est GFR ( Amer) 46.3 (>60) Est GFR (Non-Af Amer) 36.0 (>60) BUN/Creatinine Ratio 13.3 (8-20) Glucose 244 H (70-100) mg/dL Lactic Acid (0.5-2.0) mmol/L Calcium 9.0 (8.6-10.3) mg/dL Total Bilirubin 0.50 (0.2-1.0) mg/dL AST 18 (13-39) U/L ALT 12 (7-52) U/L Alkaline Phosphatase 93 (34-104) U/L Total Creatine Kinase 17 (10-223) U/L Troponin I 0.08 H* (<0.04) ng/mL C-Reactive Protein 335.95 H (< 5.00) mg/L B-Natriuretic Peptide 317 H ( - 100) pg/mL Total Protein 7.3 (6.4-8.9) g/dL Albumin 3.3 (3.2-5.2) g/dL Globulin 4.0 (2-4) g/dL Albumin/Globulin Ratio 0.8 L (1-3) 09/18/17 09/18/17 Range/Units 12:13 12:13 WBC 15.8 H (3.5-10.8) 10^3/ul RBC 3.66 L (4.0-5.4) 10^6/ul Hgb 10.2 L (14.0-18.0) g/dl Hct 31 L (42-52) % MCV 84 (80-94) fL MCH 28 (27-31) pg MCHC 33 (31-36) g/dl RDW 14 (10.5-15) % Plt Count 292 (150-450) 10^3/ul MPV 8 (7.4-10.4) um3 Neut % (Auto) 82.3 (38-83) % Lymph % (Auto) 6.7 L (25-47) % [place] % (Auto) 10.7 H (1-9) % Eos % (Auto) 0.2 (0-6) % Baso % (Auto) 0.1 (0-2) % Absolute Neuts (auto) 13.0 H (1.5-7.7) 10^3/ul Absolute Lymphs (auto) 1.1 (1.0-4.8) 10^3/ul Absolute Monos (auto) 1.7 H (0-0.8) 10^3/ul Absolute Eos (auto) 0 (0-0.6) 10^3/ul Absolute Basos (auto) 0 (0-0.2) 10^3/ul Absolute Nucleated RBC 0 10^3/ul Nucleated RBC % 0 ESR Pending INR (Anticoag Therapy) (0.77-1.02) APTT (26.0-36.3) seconds Sodium (133-145) mmol/L Potassium (3.5-5.0) mmol/L Chloride (101-111) mmol/L Carbon Dioxide (22-32) mmol/L Anion Gap (2-11) mmol/L BUN (6-24) mg/dL Creatinine (0.67-1.17) mg/dL Est GFR ( Amer) (>60) Est GFR (Non-Af Amer) (>60) BUN/Creatinine Ratio (8-20) Glucose (70-100) mg/dL Lactic Acid 0.9 (0.5-2.0) mmol/L Calcium (8.6-10.3) mg/dL Total Bilirubin (0.2-1.0) mg/dL AST (13-39) U/L ALT (7-52) U/L Alkaline Phosphatase (34-104) U/L Total Creatine Kinase (10-223) U/L Troponin I (<0.04) ng/mL C-Reactive Protein (< 5.00) mg/L B-Natriuretic Peptide ( - 100) pg/mL Total Protein (6.4-8.9) g/dL Albumin (3.2-5.2) g/dL Globulin (2-4) g/dL Albumin/Globulin Ratio (1-3) Result Diagrams: 09/20/17 04:58 09/20/17 04:58 Lab Statement: Any lab studies that have been ordered have been reviewed, and results considered in the medical decision making process. - EKG 1322 Cardiac Rate: Tachycardia EKG Rhythm: Sinus Tachycardia - [address] Segment: Non-Specific Ectopy: PVCs EKG Interpretation: Nl AVIVCT, nl QTc, Nl Newton. Complex Multi-Symp Course/Dx Assessment/Plan: This patient is a 52 year old M presenting to [facility] with a chief complaint of fever, drainage and severe pain from surgical site of right metatarsal amputation for the past couple days. An EKG reveals sinus tachycardia, 106 bpm, nonspecific ST, PVCs, Nl AVIVCT, nl QTc, nl Newton. [1345] Dr. Easley (hospitalist) agrees to admit pt. [1345] Pt discussed with Dr. Buck (ortho). Pt medications reviewed this visit. Allergies Noted. Right foot wounds cultured and re-bandaged by wound clinic provider. Pt is stable and will be admitted with Dx of diabetic foot ulcer and fever. MRI is ordered to eval for osteomyelitis. Pt understands and is agreeable with plan. - Diagnoses Provider Diagnoses: Diabetic foot ulcer, Fever, Osteomyelitis of ankle or foot, right, acute, Elevated troponin, Chronic kidney disease, stage 3 - Physician Notifications Discussed Care Of Patient With: Tee Easley - Hospitalist Time Discussed With Above Provider: 13:45 Instructed by Provider To: Admit As Inpatient Discharge - Discharge Plan Condition: Stable Disposition: ADMITTED TO [facility] documentation as recorded by the Saskia goodman Nilda accurately reflects the service I personally performed and the decisions made by Tanmay gonzalez Barbara J, MD.
[2017-09-18] MEDS: Atorvastatin* 10 MG TAB PO SCH (20:58)
[2017-09-18] MEDS: Nortriptyline CAP* 10 MG PO SCH (20:58)
[2017-09-18] MEDS: glipiZIDE TAB.XL* 5 MG PO SCH (20:59)
[2017-09-18] MEDS: amLODIPine TAB* 5 MG PO SCH (21:00)
[2017-09-18] MEDS: Acetaminophen TAB* 325 MG PO PRN (21:06)
[2017-09-18] MEDS: Heparin VIAL(*) 5000 UNITS/ML VIAL (FIVE THOUSAND) SUBCUT SCH (21:06)
--- NOTE | 2017-09-18 21:19 | CONS ---
ER CONSULTATION REPORT: DATE OF CONSULT: 09/18/17 HISTORY OF PRESENT ILLNESS: Mr. Olivia is a pleasant gentleman who has oral controlled type 2 diabetes with a recent sliding scale and acute on chronic renal insufficiency. He had a transmetatarsal amputation a couple of years ago , right forefoot, and has had intermittent malaise which may be related to underlying osteomyelitis of his right foot. For a couple of days, he has had open wound dorsal and plantar of the right forefoot and now was seen by his dental detail representative this morning and felt to have cellulitis and underlying abscess, was told to come to the emergency room. Mikel currently has feeling of chills, fevers, and weakness. He had a similar episode 3 days ago and was admitted to the emergency room for some observation and was felt to just be acutely dehydrated. Back in February of this last year, he was admitted with some metabolic acidosis and some azotemia, but did not have evidence at that time of any foot infection going on. MEDICATIONS: Mikel has a med list that includes: 1. Glipizide. 2. Nortriptyline. 3. Simvastatin. 4. Metoprolol. 5. Januvia sliding scale. 6. Amlodipine. 7. Zofran on an as needed basis. He is not currently being dialyzed. He says that he was feeling well up until the last few days, so in other words, there was at least a 4-month window of feeling well. He denies any trauma to the forefoot and has been wearing his usual accommodative shoe wear. PHYSICAL EXAM: On examination, Mikel does have a temp of 100. He is lying in bed and feeling feverish with chills and slight sense of nausea and vomiting. He has not had any active vomiting today. His right foot shows a well-healed transverse metatarsal incision, but there is an open ulcer that is dime sized under the distal forefoot 2 to 3 cm proximal to the incision line and then a small 1 cm dorsal wound. He is erythematous and puffy back to the level at the bases of the metatarsal bridge. He is slightly tender along the tarsal tunnel area behind the medial malleolus. He does have a warm foot. My digital exam, I believe shows a thready posterior tibial pulse, but it is difficult to feel with the edema. There is no significant streaking up the calf. DIAGNOSTIC STUDIES/LAB DATA: White blood count of 15.8, it was 12.8 three days ago. Temperature is 100 orally. The patient with infection of his right forefoot where he had a previous transmetatarsal amputation. There is erythema and swelling and some borderline signs possibly of some sepsis or at least bacteremia. The patient is going to be admitted to the medical service with aggressive rehydration and broad-spectrum antibiotic coverage. Also, an MRI needs to be ordered of his right forefoot. We will consider surgical debridement if needed. [id number]/CPS #: [id number] MTDD
[2017-09-18] MEDS: metroNIDAZOLE IV 500 MG/100ML* 500 MG/100 ML BAG IVPB SCH (22:31)
--- NOTE | 2017-09-18 23:32 | CONS ---
CONSULTATION REPORT: DATE OF CONSULT: 09/18/17 PROVIDER: Dr. Roger Buck. CHIEF COMPLAINT: Right foot diabetic foot wound. HISTORY OF PRESENT ILLNESS: Mikel Olivia is a 52-year-old male who presents to the [facility] Emergency Room on 09/18/17. 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 Ovalle after an appointment in his office. He has had a known diabetic ulcer on his foot for 3 weeks, for which he has been seen by his squad sergeant, this ulcer has been clean and healing well until the past 48-72 hours. The patient states that between 2 to 3 days ago, his foot became red, painful, and oozing with purulent material. His fever was as high as 103. The patient does have a history of diabetic foot infections with history of amputation by Dr. Buck. He does have a history of needing IV antibiotics via PICC. He has been followed by Dr. Lundberg in the past. His primary care provider is Dr. Giraldo. Patient was seen at [facility] emergency room 09/15 for a fever of undetermined origin. White blood cell count is currently 15.8, glucose is 244, CRP 335. Sed rate is pending. MRI without contrast is pending. Blood cultures and wound culture have been taken. PAST MEDICAL HISTORY: Includes type 2 diabetes, hypertension, history of cellulitis and diabetic foot infection with amputations, 20-year smoking history. PAST SURGICAL HISTORY: Includes amputation of right toes. MEDICATIONS: List being sent over from primary care physician, please review chart. SOCIAL HISTORY: 20-year smoking history, stopped smoking 1 year ago. Social drinker. No drug use. 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 He is . REVIEW OF SYSTEMS: General: The patient confirms chills, confirms fever. HEENT: No headache. No changes in vision. Cardiac: No chest pain. No irregular beats. Respiratory: No shortness of breath. No cough. GI: Confirms nausea, vomiting once 3 days ago. No diarrhea. No abdominal pain. Musculoskeletal: Right lower extremity pain with swelling and erythema. Known diabetic foot infection. Neuro: No paresthesias or tingling. Redness of right lower extremity. Skin: redness of right foot. PHYSICAL EXAM: Vital Signs: Temperature 100 degrees orally, pulse 97, respiratory rate 20, oxygen saturation 95, blood pressure 124/61. General: The patient has shaking chills laying in bed under several blankets. He appears uncomfortable nut in no acute distress. Musculoskeletal: Right lower extremity: The patient has an amputation of all 5 toes on the right foot. He has 2 diabetic ulcers, both draining purulent material with surrounding erythema on the distal aspect of his right foot, one on the dorsum and one on the plantar surface. The area on the dorsum measures roughly 1 cm and the plantar surface roughly 2 cm. Skin: The patient has erythema spanning up to the mid-calf on the right lower extremity, it is hot to touch. Neuro: Sensation intact to pressure. Vasc: RLE DP is 2+. ASSESSMENT: Cellulitis with diabetic foot wound of the right lower extremity, likely osteomyelitis. PLAN: MRI without contrast. Wound culture was taken in the exam room and handed off to ER physician Dr. Buck to evaluate Dr. Lundberg to evaluate The patient to be admitted by the hospitalist service. PICC line was placed while I was in the room. DHEERAJ AMARAL [id number]/[facility] #: [id number] JEANNA
--- NOTE | 2017-09-18 23:32 | HP ---
CC: Dr. Akin Sexton; Edward Berumen MD * HISTORY AND PHYSICAL: DATE OF ADMISSION: 09/18/17 PRIMARY CARE PROVIDER: Dr. Akin Sexton. FLAME HARDENER: Keyon Giraldo MD SECURITY INSTALLER: Edward Berumen MD ATTENDING PHYSICIAN: Esther Cee DO * (dictated by Shannen Sen NP) CHIEF COMPLAINT: Fevers, generally not feeling good with flu-like symptoms for 1 week and right foot infection. HISTORY OF PRESENT ILLNESS: Mr. Olivia is a 52-year-old male with past medical history significant for diabetes mellitus type 2, hypertension, chronic kidney disease stage 3 who initially presented to the emergency room on Monday, , with complaints of fever, dizziness and nausea since 09/11/17. 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 He had had a cough. He reported that the dizziness and nausea were intermittent. He was seen by his primary care provider and tested negative for influenza. He reported a decrease in appetite. He also had a few episodes of diarrhea. He reported breaking out in hot and cold sweats. He had been taking ibuprofen and Tylenol for his fever. The patient's reports he has had some confusion. He denied any urinary symptoms, dysuria, flank pain, hematuria, urgency or frequency. Denied any headaches, chest pain, shortness of breath. His primary care provider advised him to go to the emergency room for further evaluation. While in the emergency room on 09/15/17, the patient had an EKG showing a sinus rhythm of PVC. He had labs significant for white count of 12.8. He is noted to have elevated BUN and creatinine of 33 and 2.40 respectively. He had an initial troponin that was 0.04. He initially was refusing EKGs, but then did have an EKG. He had a repeat troponin of 0.01. The case was discussed with the hospitalist and the patient did not want to be admitted. He was informed to stop taking ibuprofen and to only use Tylenol. He was prescribed Zofran for his nausea and to follow up with his primary. It was felt that his fever was likely viral. The patient reports continuing to not feel well and developing fevers up to 102. He reported finally being able to get in the shower and take a shower yesterday when he realized he had not changed his right foot dressing since , 09/14/17. When he changed his dressing after his shower, he noticed that his foot appeared to be infected and he was seen by his local company flatbed truck driver , Dr. Angelo, who referred him to the emergency room. The patient states that he has been dealing with an infected foot for approximately 3 weeks, but the ulcer had been healing well. He reports this ulcer was located on his left first toe and that the wound to his right toe foot has been healing well. While in the emergency room today, the patient was noted to have temperature of 100. He was tachycardic with the heart rate of 97. He had labs that were significant for white blood cell count of 15.8, ESR of 119, CRP of 335.95. His renal function was slightly improved. Due to being admitted over the summer in February of last year with acute renal failure, his creatinine is improved. It is hard to tell what his baseline is, but at baseline he has a stage 3 chronic kidney disease. He was also found to have an elevated troponin of 0.08 in the setting of chronic kidney disease. He denies any chest pain or shortness of breath. He reports following with Podiatry for a left first toe blister that is healing. Due to the patient's right foot infection, the hospitalists were asked to evaluate the patient for admission. PAST MEDICAL HISTORY: 1. Diabetes mellitus type 2. 2. Hypertension. 3. Chronic kidney disease stage 3. PAST SURGICAL HISTORY: 1. Status post a left first toe amputation. 2. Status post left fourth and fifth partial toe amputations. 3. Status post transmetatarsal right foot amputation. HOME MEDICATIONS: Include: 1. Amlodipine 10 mg oral every evening. 2. Metoprolol succinate 50 mg oral daily. 3. Glipizide XL 10 mg oral twice daily. 4. Jardiance 10 mg oral every morning. 5. Januvia 25 mg oral every morning. 6. Nortriptyline 10 mg oral daily at bedtime. 7. Percocet 10/325 one tablet oral 3 times daily as needed for pain. 8. Simvastatin 20 mg oral every evening. 9. Fish oil 1000 mg oral daily. 10. Basaglar KwikPen 20 units subcutaneous every morning. ALLERGIES: No known drug allergies. FAMILY HISTORY: The patient reports a grandfather with a history of diabetes and his mother had a history of a bone marrow cancer. SOCIAL HISTORY: The patient is a former smoker. He has a 20-year smoking history and quit approximately 1 year ago. He reports occasional alcohol use. Denies recreational drug use. 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 His , Juan Olivia, will be his surrogate decision maker in the event he is unable to make decisions for himself. REVIEW OF SYSTEMS: I performed a 14-point review of systems, all the pertinent positives and negatives are mentioned in the history of present illness. Remaining review of systems is negative. PHYSICAL EXAMINATION GENERAL APPEARANCE: The patient is alert, pleasant, appears to be in no acute distress. VITAL SIGNS: Temperature 100, heart rate 97, respiratory rate 20, O2 sat 95% on room air, blood pressure 124/61. HEENT: Normocephalic, atraumatic. Pupils are equal and reactive to light. Extraocular movements are intact. RESPIRATORY: There is no accessory muscle use. Lungs are clear to auscultation bilaterally. CARDIOVASCULAR: Regular rate and rhythm. S1, S2 present. There are no murmurs , rubs, or gallops heard. ABDOMEN: Soft, nontender, nondistended. Bowel sounds present x4. EXTREMITIES: There is mild right lower extremity edema. DP and PT pulses are 2 + and symmetric. MUSCULOSKELETAL: There is no clubbing or cyanosis noted. The patient exhibits good strength in all extremities. NEUROLOGIC: The patient is alert and oriented x4. Cranial nerves II through XII are grossly intact. PSYCHOLOGICAL: The patient is calm and cooperative. SKIN: The patient has mild erythema up the still on the right leg. He has a dressing to the right foot that is clean, dry and intact. He also has a dressing to his left first toe that is clean, dry and intact. The right leg is also warm to touch. DIAGNOSTIC STUDIES/LABORATORY DATA: Sodium 138, potassium 3.5, chloride 95, CO2 is 25, BUN 26, creatinine 1.95. Glucose 244. White blood cell count 15.8, hemoglobin 10.2, hematocrit 31, and platelet count 292,000. Troponin 0.08, CRP 335.95, BNP 317, lactic acid 0.9. EKG shows a sinus tachycardia and a rate of 106. There are PVCs. This EKG is similar to previous from 09/05/17. There are no acute signs of ischemia. Chest x-ray from today, radiologist's impression: No active cardiopulmonary disease. IMPRESSION: Mr. Olivia is a 52-year-old male with past medical history significant for diabetes mellitus type 2, hypertension, chronic kidney disease and a recent right metatarsal amputation who presents to the emergency room with complaints of flu-like symptoms and right foot infection. He will be admitted as an inpatient for right foot infection, suspected osteomyelitis. ASSESSMENT/PLAN: 1. Right foot infection. The patient has a foot infection at the site of his right metatarsal amputation. He has been following with Podiatry. For over a week, the patient has been having fevers and flu-like symptoms, I suspect secondary to his foot infection. On admission, he is meeting systemic inflammatory response syndrome criteria with a tachycardia and leukocytosis. The patient is not meeting any of the qSOFA score criteria for sepsis on admission. Additionally, he is currently not showing any signs of end organ failure. We will give him IV fluids. We will place him on vancomycin, cefepime and Flagyl to treat his suspected osteomyelitis. At the time of this dictation , he is being taken for an MRI. He already had a PICC line placed in the emergency room. He has been seen in consultation by Orthopedics and will be seen in consultation by Dr. Lundberg with Infectious Disease. I suspect the patient is going to need amputation. 2. Hypertroponinemia. The patient's troponin is 0.08. I suspect this is secondary to demand ischemia in the setting of infection and chronic kidney disease. We will trend his troponin. Recheck an EKG in the morning. I do not feel that he needs any further cardiac workup at this time. 3. Chronic kidney disease. Question if the patient is near his baseline. He has chronic kidney disease, stage 3. We will give him gentle IV hydration overnight as he does look slightly dehydrated and follow his creatinine. 4. Hyponatremia. I suspect the patient has hypovolemic hyponatremia. We will give him mild IV hydration overnight and recheck his labs in the morning. 5. Diabetes mellitus type 2. Two fingersticks a.c. and h.s. We will place the patient on a consistent carbohydrate diet. The patient does not want to come off his home medications, so we will continue him on his oral home medications in addition to Lantus. I have discussed with him that if his glucoses become uncontrolled, we will stop his home medications and switch him to a lispro, but for now, we will continue his home diabetes regimen. 6. Hypertension. The patient will be continued on his home amlodipine and metoprolol. 7. Fluids, electrolytes and nutrition: He will have a consistent carbohydrate diet. We will make him n.p.o. after midnight in the event Surgery sees him tomorrow and feels that he needs to have surgery tomorrow morning. 8. Code status: Full code. 9. DVT prophylaxis: High risk. The patient will have subcu heparin. 10. Disposition: Inpatient. TIME SPENT: Time for this admission was 60 minutes, greater than half of that was spent with the patient and discussing medications, past medical history and the events leading to his arrival today and performing a physical examination. The case has been reviewed with the attending, Dr. Cee, who agrees with the plan of care. SHANNEN FOFANA, KALEB [id number]/[facility] #: [id number] JEANNA
[2017-09-19] MEDS: Acetaminophen TAB* 325 MG PO PRN ×5 (02:05→22:12)
[2017-09-19] MEDS: metroNIDAZOLE IV 500 MG/100ML* 500 MG/100 ML BAG IVPB SCH ×2 (05:14→17:19)
[2017-09-19] MEDS: Heparin VIAL(*) 5000 UNITS/ML VIAL (FIVE THOUSAND) SUBCUT SCH ×3 (05:57→20:18)
[2017-09-19 06:41] LABS: Hematocrit 26 % (42-52); Hemoglobin 8.7 g/dl (14.0-18.0); Mean Corpuscular HGB Conc 34 g/dl (31-36); Mean Corpuscular Hemoglobin 28 pg (27-31); Mean Corpuscular Volume 83 fL (80-94); Mean Platelet Volume 7 um3 (7.4-10.4); Platelet Count 270 10^3/ul (150-450); Red Blood Count 3.12 10^6/ul (4.0-5.4); Red Cell Distribution Width 14 % (10.5-15); White Blood Count 14.7 10^3/ul (3.5-10.8)
[2017-09-19 06:44] LABS: ABS Basophils 0 10^3/ul (0-0.2); ABS Eosinophils 0.1 10^3/ul (0-0.6); ABS Monocytes 1.9 10^3/ul (0-0.8); ABS Neutrophils 11.7 10^3/ul (1.5-7.7); ABS Nucleated RBC 0 10^3/ul; Eosinophil % 0.6 % (0-6); Lymphocyte % 6.7 % (25-47); Nucleated Red Blood Cells % 0
[2017-09-19 06:52] LABS: EGFR Non-African American 41.4 (>60)
[2017-09-19] MEDS: glipiZIDE TAB.XL* 5 MG PO SCH ×2 (08:20→20:18)
[2017-09-19] MEDS: Metoprolol Succinate XL TAB* 50 MG PO SCH (08:20)
[2017-09-19] MEDS: SITAGLIPTIN 25 MG PO SCH (08:20)
[2017-09-19] MEDS: Insulin GLARGINE(*) 1 UNITS UNIT SUBCUT SCH (08:21)
[2017-09-19] MEDS: EMPAGLIFLOZIN 10 MG PO SCH (08:21)
--- NOTE | 2017-09-19 10:12 | PN ---
Progress Note - Progress Note Date of Service: 09/19/17 SOAP: Subjective: []Patient seen at bedside. He reports resolution of chills, confusion, nausea and much improvement of R foot pain. Objective: []General: Well appearing, NAD. Conversing appropriately. RLE: Dressing intact, moderate drainage leaking through. Dressing changed. Erythema and warmth have significantly improved. No obvious line to demarcate erythema. Purulent discharge from both distal wounds remains. Dorsal wound roughly 1 cm in diameter, wound of plantar aspect roughly 2 cm. Sensation intact to pressure. Cap refill < 2 seconds. BL LE: calves supple and nontender without erythema, edema or palpable cords. Vital Signs Temp 99.0 F 09/19/17 07:28 Pulse 84 09/19/17 07:28 Resp 18 09/19/17 08:00 BP 149/57 09/19/17 07:28 Pulse Ox 95 09/19/17 07:44 Intake & Output 09/18/17 09/19/17 09/19/17 18:59 06:59 18:59 Intake Total 952 Output Total 450 Balance 502 Weight 220 lb 216 lb Intake: IV Fluids 802 NS (0.9%) 802 Oral 150 Output: Urine 450 Other: Estimated Void Medium # Bowel Movements 0 # Voids 1 Laboratory Last Values WBC 14.7 10^3/ul (3.5-10.8) H 09/19/17 06:29 RBC 3.12 10^6/ul (4.0-5.4) L 09/19/17 06:29 Hgb 8.7 g/dl (14.0-18.0) L 09/19/17 06:29 Hct 26 % (42-52) L 09/19/17 06:29 MCV 83 fL (80-94) 09/19/17 06:29 MCH 28 pg (27-31) 09/19/17 06:29 MCHC 34 g/dl (31-36) 09/19/17 06:29 RDW 14 % (10.5-15) 09/19/17 06:29 Plt Count 270 10^3/ul (150-450) 09/19/17 06:29 MPV 7 um3 (7.4-10.4) L 09/19/17 06:29 Neut % (Auto) 79.9 % (38-83) 09/19/17 06:29 Lymph % (Auto) 6.7 % (25-47) L 09/19/17 06:29 Roosevelt % (Auto) 12.6 % (1-9) H 09/19/17 06:29 Eos % (Auto) 0.6 % (0-6) 09/19/17 06:29 Baso % (Auto) 0.2 % (0-2) 09/19/17 06:29 Absolute Neuts (auto) 11.7 10^3/ul (1.5-7.7) H 09/19/17 06:29 Absolute Lymphs (auto) 1.0 10^3/ul (1.0-4.8) 09/19/17 06: Absolute Monos (auto) 1.9 10^3/ul (0-0.8) H 09/19/17 06:29 Absolute Eos (auto) 0.1 10^3/ul (0-0.6) 09/19/17 06: Absolute Basos (auto) 0 10^3/ul (0-0.2) 09/19/17 06:29 Absolute Nucleated RBC 0 10^3/ul 09/19/17 06:29 Nucleated RBC % 0 09/19/17 06:29 ESR 119 mm/Hr (0-20) H 09/18/17 12:13 INR (Anticoag Therapy) 1.08 (0.77-1.02) H 09/18/17 12:13 APTT 31.2 seconds (26.0-36.3) 09/18/17 12:13 Sodium 130 mmol/L (133-145) L 09/19/17 06:29 Potassium 3.2 mmol/L (3.5-5.0) L 09/19/17 06:29 Chloride 98 mmol/L (101-111) L 09/19/17 06:29 Carbon Dioxide 21 mmol/L (22-32) L 09/19/17 06:29 Anion Gap 11 mmol/L (2-11) 09/19/17 06:29 BUN 27 mg/dL (6-24) H 09/19/17 06:29 Creatinine 1.73 mg/dL (0.67-1.17) H 09/19/17 06:29 Est GFR ( Amer) 53.2 (>60) 09/19/17 06:29 Est GFR (Non-Af Amer) 41.4 (>60) 09/19/17 06:29 BUN/Creatinine Ratio 15.6 (8-20) 09/19/17 06:29 Glucose 91 mg/dL (70-100) 09/19/17 06:29 POC Glucose (mg/dL) 104 mg/dL (70-100) H 09/19/17 07:43 Lactic Acid 0.6 mmol/L (0.5-2.0) 09/18/17 15:56 Calcium 8.1 mg/dL (8.6-10.3) L 09/19/17 06:29 Total Bilirubin 0.50 mg/dL (0.2-1.0) 09/18/17 12:13 AST 18 U/L (13-39) 09/18/17 12:13 ALT 12 U/L (7-52) 09/18/17 12:13 Alkaline Phosphatase 93 U/L (34-104) 09/18/17 12:13 Total Creatine Kinase 17 U/L (10-223) 09/18/17 12:13 Troponin I 0.01 ng/mL (<0.04) 09/18/17 22:22 C-Reactive Protein 335.95 mg/L (< 5.00) H 09/18/17 12:13 B-Natriuretic Peptide 317 pg/mL (-100) H 09/18/17 12:13 Total Protein 7.3 g/dL (6.4-8.9) 09/18/17 12:13 Albumin 3.3 g/dL (3.2-5.2) 09/18/17 12:13 Globulin 4.0 g/dL (2-4) 09/18/17 12:13 Albumin/Globulin Ratio 0.8 (1-3) L 09/18/17 12:13 Assessment: []Right foot diabetic foot infection: cellulitis, osteomyelitis. Plan: []Patient may eat a diabetic diet today He will go to the OR with Dr Benavidez 09/21/17
[2017-09-19] MEDS: oxyCODONE/Acetamin 5/325 MG* TAB PO PRN ×2 (12:06→23:24)
[2017-09-19] MEDS ORDERED: Potassium Chlor TAB* 20 MEQ TAB.ER PO ONE (13:24)
--- NOTE | 2017-09-19 16:39 | PN ---
Progress Note - Progress Note Date of Service: 09/19/17 SOAP: Subjective: Right foot pain and swelling for a couple weeks, started with plantar ulcer, now a dorsal ulcer at prior wound site as well. [] Objective: Temp Pulse Resp BP Pulse Ox 100.0 F 84 18 138/56 96 09/19/17 11:21 09/19/17 11:21 09/19/17 15:10 09/19/17 11:21 09/19/17 11:21 Right foot edematous with some erythema distally plantar and dorsal forefoot ulcers with bloody and purulent drainage palpable DP pulse diminished sensation in foot [] MRI with 2nd and 3rd metatarsal osteomyelitis WBC 14.7 ESR 119 CRP 335 Assessment/Plan: Right diabetic foot infection and osteomyelitis. we discussed the diagnosis and prognosis at length today. We discussed treatment options as well. We talked about trying antibiotics to clear the infection. We also discussed a transmetatarsal amputation and Achilles lengthening to address the infection. We discussed the risks and benefits, as well as pros and cons of both. This was an extensive discussion. Afterwards, he expressed his desire to move forward with the transmetatarsal amputation and Achilles lengthening. I will plan on surgery , 09/21/17. Please have him n.p.o. at midnight the night before. All of his questions were answered. Michael Benavidez MD [] []
--- NOTE | 2017-09-19 18:18 | PN ---
Subjective Date of Service: 09/19/17 Interval History: c/o headache, right foot pain rated at 6. Denies N/V/D, Denies chest pain or shortness of breath. Denies ABD pain. Family History: Unchanged from Admission Social History: Unchanged from Admission Past Medical History: Unchanged from Admission Objective Active Medications: Acetaminophen (Tylenol Tab*) 650 mg PO Q4H PRN PRN Reason: FEVER/PAIN Last Admin: 09/19/17 09:22 Dose: 650 mg Amlodipine Besylate (Norvasc Tab*) 10 mg PO QPM [facility] Last Admin: 09/18/17 21:00 Dose: Not Given Atorvastatin Calcium (Lipitor*) 10 mg PO QPM [facility] Last Admin: 09/18/17 20:58 Dose: Not Given Dextrose (D50w Syringe 50 Ml*) 12.5 gm IV PUSH .FOR FS < 60 - SS PRN PRN Reason: FS < 60 Glipizide (Glucotrol Xl*) 10 mg PO BID [facility] Last Admin: 09/19/17 08:20 Dose: 10 mg Heparin Sodium (Porcine) (Heparin Vial(*)) 5,000 units SUBCUT Q8HR [facility] Last Admin: 09/19/17 13:48 Dose: 5,000 units Metronidazole/Sodium Chloride (Flagyl 500 Mg Ivpb*) 500 mg in 100 mls @ 100 mls /hr IVPB Q12H [facility] Last Admin: 09/19/17 17:19 Dose: 100 mls/hr Ceftriaxone Sodium 2 gm/ (Sodium Chloride) 100 mls @ 200 mls/hr IVPB Q24H [facility] Insulin Glargine (Lantus(*)) 20 units SUBCUT QAM [facility] Last Admin: 09/19/17 08:21 Dose: 20 unit Metoprolol Succinate (Toprol Xl Tab*) 50 mg PO DAILY [facility] Last Admin: 09/19/17 08:20 Dose: 50 mg Pto Nf Med* ( Empagliflozin [ Jardiance] 10 Mg) 10 mg PO QAM [facility] Last Admin: 09/19/17 08:21 Dose: 10 mg Nortriptyline HCl (Pamelor Cap*) 10 mg PO BEDTIME [facility] Last Admin: 09/18/17 20:58 Dose: Not Given Oxycodone/Acetaminophen (Percocet 5/325 Tab*) 1 tab PO Q4H PRN PRN Reason: PAIN - MILD TO MODERATE Last Admin: 09/19/17 12:06 Dose: 1 tab Oxycodone/Acetaminophen (Percocet 5/325 Tab*) 2 tab PO Q4H PRN PRN Reason: PAIN - MODERATE TO SEVERE Sitagliptin Phosphate (Januvia (Nf)) 25 mg PO QAM [facility] PRN Reason: Protocol Last Admin: 09/19/17 08:20 Dose: 25 mg Vital Signs - 8 hr 09/19/17 09/19/17 09/19/17 11:21 12:06 15:10 Temperature 100.0 F Pulse Rate 84 Respiratory 16 18 18 Rate Blood Pressure 138/56 (mmHg) O2 Sat by Pulse 96 Oximetry 09/19/17 16:59 Temperature 100.0 F Pulse Rate 92 Respiratory 18 Rate Blood Pressure 155/71 (mmHg) O2 Sat by Pulse 98 Oximetry Oxygen Devices in Use Now: None Appearance: awake, restingin bed, appears comfortable Eyes: No Scleral Icterus Ears/Nose/Mouth/Throat: Clear Oropharnyx, Mucous Membranes Moist Neck: NL Appearance and Movements; NL JVP, Trachea Midline Respiratory: Symmetrical Chest Expansion and Respiratory Effort, Clear to Auscultation Cardiovascular: NL Sounds; No Murmurs; No JVD, No Edema Abdominal: NL Sounds; No Tenderness; No Distention Extremities: No Edema, No Clubbing, Cyanosis Skin: No Rash or Ulcers Neurological: Alert and Oriented x 3 Nutrition: Taking PO's Result Diagrams: 09/19/17 06:29 09/19/17 06:29 Additional Lab and Data: Lab Results 09/18/17 09/18/17 09/18/17 Range/Units 12:13 12:13 12:13 WBC (3.5-10.8) 10^3/ul RBC (4.0-5.4) 10^6/ul Hgb (14.0-18.0) g/dl Hct (42-52) % MCV (80-94) fL MCH (27-31) pg MCHC (31-36) g/dl RDW (10.5-15) % Plt Count (150-450) 10^3/ul MPV (7.4-10.4) um3 Neut % (Auto) (38-83) % Lymph % (Auto) (25-47) % [place] % (Auto) (1-9) % Eos % (Auto) (0-6) % Baso % (Auto) (0-2) % Absolute Neuts (auto) (1.5-7.7) 10^3/ul Absolute Lymphs (auto) (1.0-4.8) 10^3/ul Absolute Monos (auto) (0-0.8) 10^3/ul Absolute Eos (auto) (0-0.6) 10^3/ul Absolute Basos (auto) (0-0.2) 10^3/ul Absolute Nucleated RBC 10^3/ul Nucleated RBC % ESR INR (Anticoag Therapy) 1.08 H (0.77-1.02) APTT 31.2 (26.0-36.3) seconds Sodium 130 L (133-145) mmol/L Potassium 3.5 (3.5-5.0) mmol/L Chloride 95 L (101-111) mmol/L Carbon Dioxide 25 (22-32) mmol/L Anion Gap 10 (2-11) mmol/L BUN 26 H (6-24) mg/dL Creatinine 1.95 H (0.67-1.17) mg/dL Est GFR ( Amer) 46.3 (>60) Est GFR (Non-Af Amer) 36.0 (>60) BUN/Creatinine Ratio 13.3 (8-20) Glucose 244 H (70-100) mg/dL Lactic Acid (0.5-2.0) mmol/L Calcium 9.0 (8.6-10.3) mg/dL Total Bilirubin 0.50 (0.2-1.0) mg/dL AST 18 (13-39) U/L ALT 12 (7-52) U/L Alkaline Phosphatase 93 (34-104) U/L Total Creatine Kinase 17 (10-223) U/L Troponin I 0.08 H* (<0.04) ng/mL C-Reactive Protein 335.95 H (< 5.00) mg/L B-Natriuretic Peptide 317 H ( - 100) pg/mL Total Protein 7.3 (6.4-8.9) g/dL Albumin 3.3 (3.2-5.2) g/dL Globulin 4.0 (2-4) g/dL Albumin/Globulin Ratio 0.8 L (1-3) 09/18/17 09/18/17 Range/Units 12:13 12:13 WBC 15.8 H (3.5-10.8) 10^3/ul RBC 3.66 L (4.0-5.4) 10^6/ul Hgb 10.2 L (14.0-18.0) g/dl Hct 31 L (42-52) % MCV 84 (80-94) fL MCH 28 (27-31) pg MCHC 33 (31-36) g/dl RDW 14 (10.5-15) % Plt Count 292 (150-450) 10^3/ul MPV 8 (7.4-10.4) um3 Neut % (Auto) 82.3 (38-83) % Lymph % (Auto) 6.7 L (25-47) % [place] % (Auto) 10.7 H (1-9) % Eos % (Auto) 0.2 (0-6) % Baso % (Auto) 0.1 (0-2) % Absolute Neuts (auto) 13.0 H (1.5-7.7) 10^3/ul Absolute Lymphs (auto) 1.1 (1.0-4.8) 10^3/ul Absolute Monos (auto) 1.7 H (0-0.8) 10^3/ul Absolute Eos (auto) 0 (0-0.6) 10^3/ul Absolute Basos (auto) 0 (0-0.2) 10^3/ul Absolute Nucleated RBC 0 10^3/ul Nucleated RBC % 0 ESR Pending INR (Anticoag Therapy) (0.77-1.02) APTT (26.0-36.3) seconds Sodium (133-145) mmol/L Potassium (3.5-5.0) mmol/L Chloride (101-111) mmol/L Carbon Dioxide (22-32) mmol/L Anion Gap (2-11) mmol/L BUN (6-24) mg/dL Creatinine (0.67-1.17) mg/dL Est GFR ( Amer) (>60) Est GFR (Non-Af Amer) (>60) BUN/Creatinine Ratio (8-20) Glucose (70-100) mg/dL Lactic Acid 0.9 (0.5-2.0) mmol/L Calcium (8.6-10.3) mg/dL Total Bilirubin (0.2-1.0) mg/dL AST (13-39) U/L ALT (7-52) U/L Alkaline Phosphatase (34-104) U/L Total Creatine Kinase (10-223) U/L Troponin I (<0.04) ng/mL C-Reactive Protein (< 5.00) mg/L B-Natriuretic Peptide ( - 100) pg/mL Total Protein (6.4-8.9) g/dL Albumin (3.2-5.2) g/dL Globulin (2-4) g/dL Albumin/Globulin Ratio (1-3) Assess/Plan/Problems-Billing Assessment: Mr. Olivia is a 52 m that was sent to the emergency room for further evaluation of right diabetic foot ulcer and fever. He was found to have osteomylitis and wound culture was positive for group C strep. - Patient Problems (1) Osteomyelitis of ankle or foot, right, acute Current Visit: Yes Status: Acute Code(s): M86.171 - OTHER ACUTE OSTEOMYELITIS, RIGHT ANKLE AND FOOT SNOMED Code(s): 716222202 Comment: WIll continue cetriaxone [address] Noel recommendation Will continue Flagyl scheduled for the OR on (2) HTN (hypertension) Current Visit: No Status: Acute Code(s): I10 - ESSENTIAL (PRIMARY) HYPERTENSION SNOMED Code(s): 99660264 Comment: Continue metoprolol, amlodipine. (3) T2DM (type 2 diabetes mellitus) Current Visit: No Status: Chronic Comment: Continue home medications as patient refusing SS insulin Continue Glucotrol xl, Lantus, januvia accu checks AC and HS (4) Hyperlipidemia Current Visit: Yes Status: Acute Code(s): E78.5 - HYPERLIPIDEMIA, UNSPECIFIED SNOMED Code(s): 49018420 Comment: continue lipitor (5) Hypokalemia Current Visit: Yes Status: Acute Code(s): E87.6 - HYPOKALEMIA SNOMED Code( s): 72361153 Comment: supplement with 40 meq kcl repeat BMP in the AM (6) Full code status Current Visit: No Status: Acute Code(s): Z78.9 - OTHER SPECIFIED HEALTH STATUS SNOMED Code(s): 857212926 (7) DVT prophylaxis Current Visit: No Status: Acute Code(s): POS4429 - SNOMED Code(s): 229985301 Comment: - Heparin subq Status and Disposition: inpatient: IV antibiotics , pending surgery on
[2017-09-19] MEDS: Atorvastatin* 10 MG TAB PO SCH (18:23)
[2017-09-19] MEDS: amLODIPine TAB* 5 MG PO SCH (18:24)
[2017-09-19] MEDS: cefTRIAXone(*) 2 GM in NS 0.9% 100 ML* 100 ML IVPB SCH (18:24)
[2017-09-19] MEDS: Nortriptyline CAP* 10 MG PO SCH (20:18)
[2017-09-19] MEDS: CMCS Melatonin (NF) 3 MG TAB PO PRN (22:11)
--- NOTE | 2017-09-19 22:13 | CONS ---
CONSULTATION REPORT: DATE OF CONSULT: 09/19/17 REQUESTING PHYSICIAN: Dr. Buck. CONSULTING SERVICE: Infectious Disease. REASON FOR CONSULTATION: Right foot infection. IMPRESSION: 1. Right foot history of transmetatarsal amputation, now with plantar and dorsal forefoot ulcers, which probably are connected, and underlying osteomyelitis seen on MRI, which is a chronic osteomyelitis. 2. Diabetes with neuropathy. 3. Chronic kidney disease stage 3. 4. Leukocytosis and cellulitis as well as myositis. 5. Wound culture grew group C strep, PCR is positive for staph aureus, there are likely also anaerobes. 6. Diabetes with neuropathy. RECOMMENDATIONS: Change the cefepime to ceftriaxone 2 g a day. We will continue the Flagyl 500 mg every 12 hours. He is planning to have incision and debridement later in the week and likely would require a longer course of IV antibiotics as well. HISTORY OF PRESENT ILLNESS: This is a 52-year-old diabetic male with chronic kidney disease, a history of right foot transmetatarsal amputation, admitted with right foot ulcerative cellulitis. He has been following with Dr. Angelo for a left great toe ulcer and then they noticed the wound on his right foot, he had been having some topical therapy but had progression of redness, pain, swelling into the midfoot and then ankle, so he came to the hospital on the with fever, chills, sweats as well. Chest x-ray showed no active cardiopulmonary disease. The MRI on the showed right fourth distal metatarsal osteomyelitis. He was started on vancomycin, cefepime and Flagyl, which he is tolerating well. The pain, swelling and redness is down a little bit. He has been followed by Orthopedics and Dr. Benavidez is going to take him to the OR in 2 days. He had ankle brachial index obtained on 07/11/17 that showed calcified vessels which precluded calculation of the JES. PAST MEDICAL HISTORY: 1. Right foot osteomyelitis, status post transmetatarsal amputation. 2. 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 3. Chronic kidney disease stage 3. 4. Hypertension. MEDICATIONS: 1. Tylenol. 2. Amlodipine. 3. Lipitor. 4. Glipizide. 5. Heparin subcutaneous injection. 6. Insulin glargine. 7. Flagyl 500 mg every 12 hours. 8. Nortriptyline at bedtime. 9. Cefepime 2 g every 12 hours. 10. Sitagliptin. ALLERGIES: No known drug allergies. FAMILY HISTORY: No recurrent infections. Grandfather had diabetes. 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 He has been off his feet somewhat at work. No travel or sick contacts. Past smoker. REVIEW OF SYSTEMS: A 14-point review of systems was negative except as noted above. PHYSICAL EXAMINATION: Vital Signs: Temperature 37.8, T. max 38.6 this morning , heart rate 84, respiratory rate 16, blood pressure 140/50, O2 sat 96% on room air. In general, he is awake, not in distress. Neurologic: He is oriented x3, follows all commands. He had decreased sensation to light touch in both feet. HEENT: There is no conjunctival hemorrhage. Oropharynx without lesions. Neck: Supple. Lymph Nodes: There is no inguinal, axillary or epitrochlear lymphadenopathy. Heart is regular rate and rhythm without murmurs, rubs or gallops. Lungs: Clear to auscultation bilaterally. Abdomen: Soft, nontender , nondistended. There are bowel sounds present. Skin: There is no rash or splinter hemorrhages. Musculoskeletal: There is a medial right great toe 2 mm ulceration with surrounding callus. On the right foot, there is previously healed transmetatarsal amputation site with an end of the foot and then plantar foot ulcer with some serous fluid expressible, surrounding edema and erythema extending up into the ankle without crepitus or fluctuance. DIAGNOSTIC STUDIES/LAB DATA: White blood cell count 14.7, hemoglobin 8.7, platelets 270,000. Creatinine is 1.7. CRP was 335 on admission. Please see impressions and recommendations outlined above. Thank you for asking me to see Mr. Olivia in consultation. [id number]/[facility] #: [id number] JEANNA
[2017-09-20] MEDS: metroNIDAZOLE IV 500 MG/100ML* 500 MG/100 ML BAG IVPB SCH ×2 (04:51→16:53)
[2017-09-20] MEDS: Acetaminophen TAB* 325 MG PO PRN ×2 (04:52→19:54)
[2017-09-20] MEDS: Heparin VIAL(*) 5000 UNITS/ML VIAL (FIVE THOUSAND) SUBCUT SCH ×3 (04:52→20:55)
[2017-09-20 05:07] LABS: Hematocrit 27 % (42-52); Hemoglobin 9.2 g/dl (14.0-18.0); Mean Corpuscular HGB Conc 34 g/dl (31-36); Mean Corpuscular Hemoglobin 28 pg (27-31); Mean Corpuscular Volume 82 fL (80-94); Mean Platelet Volume 7 um3 (7.4-10.4); Platelet Count 331 10^3/ul (150-450); Red Blood Count 3.27 10^6/ul (4.0-5.4); Red Cell Distribution Width 14 % (10.5-15); White Blood Count 15.5 10^3/ul (3.5-10.8)
[2017-09-20 05:14] LABS: ABS Basophils 0 10^3/ul (0-0.2); ABS Eosinophils 0.1 10^3/ul (0-0.6); ABS Monocytes 1.7 10^3/ul (0-0.8); ABS Neutrophils 12.6 10^3/ul (1.5-7.7); ABS Nucleated RBC 0 10^3/ul; Eosinophil % 0.8 % (0-6); Lymphocyte % 6.7 % (25-47); Nucleated Red Blood Cells % 0
[2017-09-20 05:22] LABS: EGFR Non-African American 39.8 (>60)
[2017-09-20] MEDS: Metoprolol Succinate XL TAB* 50 MG PO SCH (08:17)
[2017-09-20] MEDS: glipiZIDE TAB.XL* 5 MG PO SCH ×2 (08:17→19:54)
[2017-09-20] MEDS: Insulin GLARGINE(*) 1 UNITS UNIT SUBCUT SCH (08:17)
[2017-09-20] MEDS: EMPAGLIFLOZIN 10 MG PO SCH (08:18)
[2017-09-20] MEDS: SITAGLIPTIN 25 MG PO SCH (08:18)
--- NOTE | 2017-09-20 10:23 | PN ---
Progress Note - Progress Note Date of Service: 09/20/17 SOAP: Subjective: [] Patient seen at bedside. He is comfortable and RLE pain is described as burning, otherwise feeling stiff. No fever, chills, nausea, dizziness or confusion. Objective: [] Vital Signs Temp 98.9 F 09/20/17 07:20 Pulse 83 09/20/17 07:20 Resp 18 09/20/17 08:00 BP 132/61 09/20/17 07:20 Pulse Ox 96 09/20/17 07:58 Intake & Output 09/19/17 09/20/17 09/20/17 18:59 06:59 18:59 Intake Total 1862 730 Output Total 350 Balance 1512 730 Intake: IV Fluids 542 50 NS (0.9%) 542 50 IVPB 200 NS (0.9%) 200 Oral 1320 480 Output: Urine 350 Other: Estimated Void Medium # Voids 1 Laboratory Last Values WBC 15.5 10^3/ul (3.5-10.8) H 09/20/17 04:58 RBC 3.27 10^6/ul (4.0-5.4) L 09/20/17 04:58 Hgb 9.2 g/dl (14.0-18.0) L 09/20/17 04:58 Hct 27 % (42-52) L 09/20/17 04:58 MCV 82 fL (80-94) 09/20/17 04:58 MCH 28 pg (27-31) 09/20/17 04:58 MCHC 34 g/dl (31-36) 09/20/17 04:58 RDW 14 % (10.5-15) 09/20/17 04:58 Plt Count 331 10^3/ul (150-450) 09/20/17 04:58 MPV 7 um3 (7.4-10.4) L 09/20/17 04:58 Neut % (Auto) 81.1 % (38-83) 09/20/17 04:58 Lymph % (Auto) 6.7 % (25-47) L 09/20/17 04:58 [place] % (Auto) 11.2 % (1-9) H 09/20/17 04:58 Eos % (Auto) 0.8 % (0-6) 09/20/17 04:58 Baso % (Auto) 0.2 % (0-2) 09/20/17 04:58 Absolute Neuts (auto) 12.6 10^3/ul (1.5-7.7) H 09/20/17 04:58 Absolute Lymphs (auto) 1.0 10^3/ul (1.0-4.8) 09/20/17 04:58 Absolute Monos (auto) 1.7 10^3/ul (0-0.8) H 09/20/17 04:58 Absolute Eos (auto) 0.1 10^3/ul (0-0.6) 09/20/17 04:58 Absolute Basos (auto) 0 10^3/ul (0-0.2) 09/20/17 04:58 Absolute Nucleated RBC 0 10^3/ul 09/20/17 04:58 Nucleated RBC % 0 09/20/17 04:58 ESR 119 mm/Hr (0-20) H 09/18/17 12:13 INR (Anticoag Therapy) 1.08 (0.77-1.02) H 09/18/17 12:13 APTT 31.2 seconds (26.0-36.3) 09/18/17 12:13 Sodium 129 mmol/L (133-145) L 09/20/17 04:58 Potassium 3.5 mmol/L (3.5-5.0) 09/20/17 04:58 Chloride 98 mmol/L (101-111) L 09/20/17 04:58 Carbon Dioxide 21 mmol/L (22-32) L 09/20/17 04:58 Anion Gap 10 mmol/L (2-11) 09/20/17 04:58 BUN 26 mg/dL (6-24) H 09/20/17 04:58 Creatinine 1.79 mg/dL (0.67-1.17) H 09/20/17 04:58 Est GFR ( Amer) 51.1 (>60) 09/20/17 04:58 Est GFR (Non-Af Amer) 39.8 (>60) 09/20/17 04:58 BUN/Creatinine Ratio 14.5 (8-20) 09/20/17 04:58 Glucose 126 mg/dL (70-100) H 09/20/17 04:58 POC Glucose (mg/dL) 175 mg/dL (70-100) H 09/19/17 20:26 Lactic Acid 0.6 mmol/L (0.5-2.0) 09/18/17 15:56 Calcium 8.4 mg/dL (8.6-10.3) L 09/20/17 04:58 Total Bilirubin 0.50 mg/dL (0.2-1.0) 09/18/17 12:13 AST 18 U/L (13-39) 09/18/17 12:13 ALT 12 U/L (7-52) 09/18/17 12:13 Alkaline Phosphatase 93 U/L (34-104) 09/18/17 12:13 Total Creatine Kinase 17 U/L (10-223) 09/18/17 12:13 Troponin I 0.01 ng/mL (<0.04) 09/18/17 22:22 C-Reactive Protein 335.95 mg/L (< 5.00) H 09/18/17 12:13 B-Natriuretic Peptide 317 pg/mL (-100) H 09/18/17 12:13 Total Protein 7.3 g/dL (6.4-8.9) 09/18/17 12:13 Albumin 3.3 g/dL (3.2-5.2) 09/18/17 12:13 Globulin 4.0 g/dL (2-4) 09/18/17 12:13 Albumin/Globulin Ratio 0.8 (1-3) L 09/18/17 12:13 General: Well appearing, NAD RLE: Dressing CDI. DF/PF intact. BL LE: Calves supple and nontender without erythema, edema or palpable cords Assessment: []R foot diabetic foot infection: cellulitis/ osteomyelitis Plan: []OR for transmetatarsal amputation and achilles lengthening tomorrow 09/[address] Benavidez NPO 09/21. Hold heparin all day 09/21 for surgery
[2017-09-20] MEDS: oxyCODONE/Acetamin 5/325 MG* TAB PO PRN (12:04)
--- NOTE | 2017-09-20 16:28 | PN ---
Subjective Date of Service: 09/20/17 Interval History: Patient states that he is feeling better. Headache has improved, was able to sleep last PM. Denies N/V/D. denies chest pain or shortness of breath. c/o right foot pain rated at 6, burning. denies fever or chills Family History: Unchanged from Admission Social History: Unchanged from Admission Past Medical History: Unchanged from Admission Objective Active Medications: Acetaminophen (Tylenol Tab*) 650 mg PO Q4H PRN PRN Reason: FEVER/PAIN Last Admin: 09/20/17 04:52 Dose: 650 mg Amlodipine Besylate (Norvasc Tab*) 10 mg PO QPM [facility] Last Admin: 09/19/17 18:24 Dose: 10 mg Atorvastatin Calcium (Lipitor*) 10 mg PO QPM [facility] Last Admin: 09/19/17 18:23 Dose: 10 mg Dextrose (D50w Syringe 50 Ml*) 12.5 gm IV PUSH .FOR FS < 60 - SS PRN PRN Reason: FS < 60 Glipizide (Glucotrol Xl*) 10 mg PO BID [facility] Last Admin: 09/20/17 08:17 Dose: 10 mg Heparin Sodium (Porcine) (Heparin Vial(*)) 5,000 units SUBCUT Q8HR [facility] Last Admin: 09/20/17 13:46 Dose: 5,000 units Metronidazole/Sodium Chloride (Flagyl 500 Mg Ivpb*) 500 mg in 100 mls @ 100 mls /hr IVPB Q12H [facility] Last Admin: 09/20/17 04:51 Dose: 100 mls/hr Ceftriaxone Sodium 2 gm/ (Sodium Chloride) 100 mls @ 200 mls/hr IVPB Q24H [facility] Last Admin: 09/19/17 18:24 Dose: 200 mls/hr Insulin Glargine (Lantus(*)) 20 units SUBCUT QAM [facility] Last Admin: 09/20/17 08:17 Dose: 20 unit Melatonin (Melatonin (Nf)) 1 mg PO BEDTIME PRN PRN Reason: SLEEP Last Admin: 09/19/17 22:11 Dose: 1 mg Metoprolol Succinate (Toprol Xl Tab*) 50 mg PO DAILY [facility] Last Admin: 09/20/17 08:17 Dose: 50 mg Pto Nf Med* ( Empagliflozin [ Jardiance] 10 Mg) 10 mg PO QAM [facility] Last Admin: 09/20/17 08:18 Dose: 10 mg Nortriptyline HCl (Pamelor Cap*) 10 mg PO BEDTIME [facility] Last Admin: 09/19/17 20:18 Dose: 10 mg Oxycodone/Acetaminophen (Percocet 5/325 Tab*) 1 tab PO Q4H PRN PRN Reason: PAIN - MILD TO MODERATE Last Admin: 09/20/17 12:04 Dose: 1 tab Oxycodone/Acetaminophen (Percocet 5/325 Tab*) 2 tab PO Q4H PRN PRN Reason: PAIN - MODERATE TO SEVERE Sitagliptin Phosphate (Januvia (Nf)) 25 mg PO QAM [facility] PRN Reason: Protocol Last Admin: 09/20/17 08:18 Dose: 25 mg Vital Signs - 8 hr 09/20/17 09/20/17 09/20/17 11:08 12:04 14:03 Temperature 98.6 F Pulse Rate 85 Respiratory 16 18 18 Rate Blood Pressure 138/57 (mmHg) O2 Sat by Pulse 99 Oximetry 09/20/17 15:31 Temperature 98.3 F Pulse Rate 77 Respiratory 16 Rate Blood Pressure 130/60 (mmHg) O2 Sat by Pulse 95 Oximetry Oxygen Devices in Use Now: None Appearance: appears comfortable resting in bed. awake alert Eyes: No Scleral Icterus Ears/Nose/Mouth/Throat: Clear Oropharnyx, Mucous Membranes Moist Neck: NL Appearance and Movements; NL JVP, Trachea Midline Respiratory: Symmetrical Chest Expansion and Respiratory Effort, Clear to Auscultation Cardiovascular: NL Sounds; No Murmurs; No JVD, RRR, No Edema Abdominal: NL Sounds; No Tenderness; No Distention Extremities: No Edema, No Clubbing, Cyanosis Skin: - - dressing dry and intact to right foot. Neurological: Alert and Oriented x 3, NL Muscle Strength and Tone Nutrition: Taking PO's Result Diagrams: 09/20/17 04:58 09/20/17 04:58 Additional Lab and Data: Lab Results 09/18/17 09/18/17 09/18/17 Range/Units 12:13 12:13 12:13 WBC (3.5-10.8) 10^3/ul RBC (4.0-5.4) 10^6/ul Hgb (14.0-18.0) g/dl Hct (42-52) % MCV (80-94) fL MCH (27-31) pg MCHC (31-36) g/dl RDW (10.5-15) % Plt Count (150-450) 10^3/ul MPV (7.4-10.4) um3 Neut % (Auto) (38-83) % Lymph % (Auto) (25-47) % [place] % (Auto) (1-9) % Eos % (Auto) (0-6) % Baso % (Auto) (0-2) % Absolute Neuts (auto) (1.5-7.7) 10^3/ul Absolute Lymphs (auto) (1.0-4.8) 10^3/ul Absolute Monos (auto) (0-0.8) 10^3/ul Absolute Eos (auto) (0-0.6) 10^3/ul Absolute Basos (auto) (0-0.2) 10^3/ul Absolute Nucleated RBC 10^3/ul Nucleated RBC % ESR INR (Anticoag Therapy) 1.08 H (0.77-1.02) APTT 31.2 (26.0-36.3) seconds Sodium 130 L (133-145) mmol/L Potassium 3.5 (3.5-5.0) mmol/L Chloride 95 L (101-111) mmol/L Carbon Dioxide 25 (22-32) mmol/L Anion Gap 10 (2-11) mmol/L BUN 26 H (6-24) mg/dL Creatinine 1.95 H (0.67-1.17) mg/dL Est GFR ( Amer) 46.3 (>60) Est GFR (Non-Af Amer) 36.0 (>60) BUN/Creatinine Ratio 13.3 (8-20) Glucose 244 H (70-100) mg/dL Lactic Acid (0.5-2.0) mmol/L Calcium 9.0 (8.6-10.3) mg/dL Total Bilirubin 0.50 (0.2-1.0) mg/dL AST 18 (13-39) U/L ALT 12 (7-52) U/L Alkaline Phosphatase 93 (34-104) U/L Total Creatine Kinase 17 (10-223) U/L Troponin I 0.08 H* (<0.04) ng/mL C-Reactive Protein 335.95 H (< 5.00) mg/L B-Natriuretic Peptide 317 H ( - 100) pg/mL Total Protein 7.3 (6.4-8.9) g/dL Albumin 3.3 (3.2-5.2) g/dL Globulin 4.0 (2-4) g/dL Albumin/Globulin Ratio 0.8 L (1-3) 09/18/17 09/18/17 Range/Units 12:13 12:13 WBC 15.8 H (3.5-10.8) 10^3/ul RBC 3.66 L (4.0-5.4) 10^6/ul Hgb 10.2 L (14.0-18.0) g/dl Hct 31 L (42-52) % MCV 84 (80-94) fL MCH 28 (27-31) pg MCHC 33 (31-36) g/dl RDW 14 (10.5-15) % Plt Count 292 (150-450) 10^3/ul MPV 8 (7.4-10.4) um3 Neut % (Auto) 82.3 (38-83) % Lymph % (Auto) 6.7 L (25-47) % [place] % (Auto) 10.7 H (1-9) % Eos % (Auto) 0.2 (0-6) % Baso % (Auto) 0.1 (0-2) % Absolute Neuts (auto) 13.0 H (1.5-7.7) 10^3/ul Absolute Lymphs (auto) 1.1 (1.0-4.8) 10^3/ul Absolute Monos (auto) 1.7 H (0-0.8) 10^3/ul Absolute Eos (auto) 0 (0-0.6) 10^3/ul Absolute Basos (auto) 0 (0-0.2) 10^3/ul Absolute Nucleated RBC 0 10^3/ul Nucleated RBC % 0 ESR Pending INR (Anticoag Therapy) (0.77-1.02) APTT (26.0-36.3) seconds Sodium (133-145) mmol/L Potassium (3.5-5.0) mmol/L Chloride (101-111) mmol/L Carbon Dioxide (22-32) mmol/L Anion Gap (2-11) mmol/L BUN (6-24) mg/dL Creatinine (0.67-1.17) mg/dL Est GFR ( Amer) (>60) Est GFR (Non-Af Amer) (>60) BUN/Creatinine Ratio (8-20) Glucose (70-100) mg/dL Lactic Acid 0.9 (0.5-2.0) mmol/L Calcium (8.6-10.3) mg/dL Total Bilirubin (0.2-1.0) mg/dL AST (13-39) U/L ALT (7-52) U/L Alkaline Phosphatase (34-104) U/L Total Creatine Kinase (10-223) U/L Troponin I (<0.04) ng/mL C-Reactive Protein (< 5.00) mg/L B-Natriuretic Peptide ( - 100) pg/mL Total Protein (6.4-8.9) g/dL Albumin (3.2-5.2) g/dL Globulin (2-4) g/dL Albumin/Globulin Ratio (1-3) Assess/Plan/Problems-Billing Assessment: Mr. Olivai is a 52 m that was sent to the emergency room for further evaluation of right diabetic foot ulcer and fever. He was found to have osteomylitis and wound culture was positive for group C strep. - Patient Problems (1) Osteomyelitis of ankle or foot, right, acute Current Visit: Yes Status: Acute Code(s): M86.171 - OTHER ACUTE OSTEOMYELITIS, RIGHT ANKLE AND FOOT SNOMED Code(s): 423601635 Comment: WIll continue cetriaxone [address] Noel recommendation Will continue Flagyl scheduled for the OR on (2) HTN (hypertension) Current Visit: No Status: Acute Code(s): I10 - ESSENTIAL (PRIMARY) HYPERTENSION SNOMED Code(s): 59293055 Comment: Continue metoprolol, amlodipine. (3) T2DM (type 2 diabetes mellitus) Current Visit: No Status: Chronic Comment: Continue home medications as patient refusing SS insulin Continue Glucotrol xl, Lantus, januvia accu checks AC and HS (4) Hyperlipidemia Current Visit: Yes Status: Acute Code(s): E78.5 - HYPERLIPIDEMIA, UNSPECIFIED SNOMED Code(s): 89465600 Comment: continue lipitor (5) Hypokalemia Current Visit: Yes Status: Acute Code(s): E87.6 - HYPOKALEMIA SNOMED Code( s): 55168209 Comment: supplement with 40 meq kcl- given yesterday repeat BMP - K+ 3.5 (6) Full code status Current Visit: No Status: Acute Code(s): Z78.9 - OTHER SPECIFIED HEALTH STATUS SNOMED Code(s): 609034595 (7) DVT prophylaxis Current Visit: No Status: Acute Code(s): VHY1019 - SNOMED Code(s): 998554003 Comment: - Heparin subq Status and Disposition: inpatient: IV antibiotics , pending surgery on
[2017-09-20] MEDS: Atorvastatin* 10 MG TAB PO SCH (18:07)
[2017-09-20] MEDS: cefTRIAXone(*) 2 GM in NS 0.9% 100 ML* 100 ML IVPB SCH (18:07)
[2017-09-20] MEDS: amLODIPine TAB* 5 MG PO SCH (18:07)
[2017-09-20] MEDS: Nortriptyline CAP* 10 MG PO SCH (19:54)
[2017-09-20] MEDS: CMCS Melatonin (NF) 3 MG TAB PO PRN (20:55)
[2017-09-21] MEDS: Acetaminophen TAB* 325 MG PO PRN (04:13)
[2017-09-21] MEDS: metroNIDAZOLE IV 500 MG/100ML* 500 MG/100 ML BAG IVPB SCH ×2 (04:14→17:13)
[2017-09-21] MEDS: Heparin VIAL(*) 5000 UNITS/ML VIAL (FIVE THOUSAND) SUBCUT SCH ×3 (04:44→20:35)
[2017-09-21] MEDS ORDERED: Midazolam* 1 MG/ML 2 ML VIAL (2 MG) ONE (07:57)
[2017-09-21] MEDS ORDERED: fentaNYL* 50 MCG/ML 2 ML VIAL (100 MCG VIAL) ONE ×2 (07:57→09:37)
[2017-09-21] MEDS ORDERED: Propofol* 10 MG/ML 20 ML BTL IV PUSH ONE (07:58)
[2017-09-21] MEDS ORDERED: Lidocaine 2% PF * 5 ML VIAL ONE (07:58)
[2017-09-21] MEDS: Metoprolol Succinate XL TAB* 50 MG PO SCH (08:04)
[2017-09-21] MEDS ORDERED: ceFAZolin 1 GM in Dextrose (*) 1 GM/50 ML BAG IVPB ONE (08:37)
[2017-09-21] MEDS ORDERED: Bupivacaine 0.25% SDV* 30 ML ONE (08:46)
[2017-09-21] MEDS ORDERED: Bupivacaine 0.5% SDV PF* 10-30ML VIAL ONE (08:46)
[2017-09-21] MEDS ORDERED: HYDROmorphone INJ* 1 MG/ML CARPUJECT SYRINGE IV PRN (09:00)
[2017-09-21] MEDS ORDERED: Scopolamine 1.5 mg* PATCH TRANSDERM PRN (09:00)
[2017-09-21] MEDS ORDERED: fentaNYL* 50 MCG/ML 2 ML VIAL (100 MCG VIAL) IV PRN (09:00)
[2017-09-21] MEDS ORDERED: Ondansetron INJ* 2 MG/ML VIAL IV PRN (09:00)
[2017-09-21] MEDS ORDERED: Naloxone* 0.4 MG/ML 1 ML VIAL IV PRN (09:00)
[2017-09-21] MEDS ORDERED: oxyCODONE/Acetamin 5/325 MG* TAB PO PRN (09:00)
[2017-09-21] MEDS ORDERED: EPHEDrine (Pressors)* 50 MG/ML VIAL ONE (10:14)
[2017-09-21] MEDS ORDERED: Ondansetron INJ* 2 MG/ML VIAL ONE (10:14)
[2017-09-21] MEDS ORDERED: cefTRIAXone(*) 2 GM in D5W 50 ML BAG* 50 ML IVPB SCH (12:13)
[2017-09-21] MEDS: oxyCODONE/Acetamin 5/325 MG* TAB PO PRN ×2 (12:33→17:12)
[2017-09-21] MEDS: glipiZIDE TAB.XL* 5 MG PO SCH ×2 (12:38→20:01)
[2017-09-21] MEDS: EMPAGLIFLOZIN 10 MG PO SCH (12:38)
[2017-09-21] MEDS: SITAGLIPTIN 25 MG PO SCH (12:39)
[2017-09-21] MEDS: Insulin GLARGINE(*) 1 UNITS UNIT SUBCUT SCH (13:22)
--- NOTE | 2017-09-21 15:16 | PN ---
Subjective Date of Service: 09/21/17 Interval History: Mr. Olivia reports having significant pain after surgery, but is feeling better after dilaudid. He denies other complaint including chest pain, SOB, nausea, or abdominal pain. Family History: Unchanged from Admission Social History: Unchanged from Admission Past Medical History: Unchanged from Admission Objective Active Medications: Acetaminophen (Tylenol Tab*) 650 mg PO Q4H PRN Amlodipine Besylate (Norvasc Tab*) 10 mg PO QPM [facility] Atorvastatin Calcium (Lipitor*) 10 mg PO QPM [facility] Dextrose (D50w Syringe 50 Ml*) 12.5 gm IV PUSH .FOR FS < 60 - SS PRN Glipizide (Glucotrol Xl*) 10 mg PO BID [facility] Heparin Sodium (Porcine) (Heparin Vial(*)) 5,000 units SUBCUT Q8HR [facility] Metronidazole/Sodium Chloride (Flagyl 500 Mg Ivpb*) 500 mg in 100 mls @ 100 mls /hr IVPB Q12H [facility] Ceftriaxone Sodium 2 gm/ (Dextrose) 50 mls @ 100 mls/hr IVPB 1800 [facility] Insulin Glargine (Lantus(*)) 20 units SUBCUT QAM [facility] Melatonin (Melatonin (Nf)) 1 mg PO BEDTIME PRN Metoprolol Succinate (Toprol Xl Tab*) 50 mg PO DAILY [facility] Naloxone HCl (Narcan*) 0.08 mg IV Q2M PRN Pto Nf Med* ( Empagliflozin [ Jardiance] 10 Mg) 10 mg PO QAM [facility] Nortriptyline HCl (Pamelor Cap*) 10 mg PO BEDTIME [facility] Oxycodone/Acetaminophen (Percocet 5/325 Tab*) 1 tab PO Q4H PRN Oxycodone/Acetaminophen (Percocet 5/325 Tab*) 2 tab PO Q4H PRN Pharmacy Profile Note (Scopolamine Patch Remove*) 1 note PATCH OFF Q72H ONE Scopolamine (Transderm-Scop 1.5 Mg Patch*) 1 patch TRANSDERM Q72H PRN Sitagliptin Phosphate (Januvia (Nf)) [address] [facility] Vital Signs: Temp Pulse Resp BP Pulse Ox 98.3 F 81 20 133/56 100 09/21/17 12:21 09/21/17 12:21 09/21/17 16:15 09/21/17 12:21 09/21/17 12:21 Oxygen Devices in Use Now: None Appearance: Male lying in bed in NAD Eyes: No Scleral Icterus Ears/Nose/Mouth/Throat: Mucous Membranes Moist Neck: Trachea Midline Respiratory: Symmetrical Chest Expansion and Respiratory Effort, Clear to Auscultation Cardiovascular: NL Sounds; No Murmurs; No JVD, No Edema Abdominal: NL Sounds; No Tenderness; No Distention Lymphatic: No Cervical Adenopathy Extremities: No Edema Skin: - - Right lower extremity dressing CDI Neurological: Alert and Oriented x 3, NL Muscle Strength and Tone Nutrition: Taking PO's Result Diagrams: 09/20/17 04:58 09/20/17 04:58 Additional Lab and Data: . Microbiology and Other Data: . Assess/Plan/Problems-Billing Assessment: Mr. Olivia is a 52 yo male that was sent to the emergency room for further evaluation of right diabetic foot ulcer and fever. He was found to have osteomyelitis and wound culture was positive for group C strep and MSSA. - Patient Problems (1) Osteomyelitis of ankle or foot, right, acute Comment: - S/P R TMA 09/21/17. - Continue cetriaxone and flagyl per Dr. Lundberg's recommendation for polymicrobial infection including MSSA. (2) T2DM (type 2 diabetes mellitus) Comment: - BG well controlled. - Continue home medications as patient refusing SS insulin. - Continue glipizide, Jardiance, and Januvia. (3) HTN (hypertension) Comment: - BP well controlled. - Continue metoprolol, amlodipine. (4) Hyperlipidemia Comment: - Continue atorvastatin. (5) DVT prophylaxis Comment: - Heparin subq (6) Full code status Comment: Status and Disposition: Inpatient. Anticipate discharge to home when medically stable.
[2017-09-21] MEDS ORDERED: HYDROmorphone INJ* 1 MG/ML CARPUJECT SYRINGE ONE (16:10)
[2017-09-21] MEDS: amLODIPine TAB* 5 MG PO SCH (17:13)
[2017-09-21] MEDS: Atorvastatin* 10 MG TAB PO SCH (17:13)
[2017-09-21] MEDS: cefTRIAXone(*) 2 GM in D5W 50 ML BAG* 50 ML IVPB SCH (18:41)
[2017-09-21] MEDS: Nortriptyline CAP* 10 MG PO SCH (20:01)
[2017-09-21] MEDS: HYDROmorphone INJ* 2 MG/ML CARPUJECT SYRINGE IV SLOW PU PRN (20:36)
[2017-09-22] MEDS: oxyCODONE/Acetamin 5/325 MG* TAB PO PRN ×3 (00:32→16:35)
--- NOTE | 2017-09-22 01:05 | OP ---
DATE OF OPERATION: 09/21/17 - ROOM #447 DATE OF : 61 SURGEON: Michael Benavidez MD KNOWLEDGE ANALYST: DHEERAJ Valadez was assistance was necessary for positioning, assistance with instrumentation, retraction, and closure. ANESTHESIOLOGIST: Acacia Crook MD ANESTHESIA: General endotracheal anesthesia. PRE-OP DIAGNOSES: 1. Right foot infection and osteomyelitis. 2. Right gastrocnemius contracture. POST-OP DIAGNOSES: 1. Right foot infection and osteomyelitis. 2. Right gastrocnemius contracture. OPERATIVE PROCEDURE: 1. Right transmetatarsal amputation. 2. Right gastrocnemius recession (Kati procedure). 3. Placement of wound vac less than 50 sq cm. IMPLANTS: None. ESTIMATED BLOOD LOSS: Minimal. SPECIMEN: Right foot to pathology and culture swabs to microbiology. TOURNIQUET TIME: Less than 1 hour, 250 mmHg. STATUS: Stable from the operating room to the recovery room and back to the hospital floor. INDICATIONS: Mr. Olivia is a diabetic who had previous toe amputations in the past. He was admitted earlier this week with a right foot infection and osteomyelitis was seen in the second and third metatarsals on MRI. We did discuss both nonoperative and operative treatment options at length in the hospital room with him and his . Further the nature and risks of surgery were reviewed in careful detail on the floor as well as in the preoperative holding unit. Our discussions regarding the risks of surgery included, but were not limited to persistent infection, recurrent infection, wound problems, phantom limb pain, nerve injury, neuroma, RSD, persistent symptoms, and even a remote chance of catastrophic complications including further loss of limb or loss of life. DESCRIPTION OF PROCEDURE: The patient was seen in the preoperative holding unit and an informed written consent was obtained. The appropriate extremity was marked. The patient was then brought to the operating room and carefully positioned on the operating room table. Anesthesia was induced. All bony prominences were padded with great care. A chlorhexidine based pre-scrub was performed followed by a standard prep and drape with ChloraPrep. Surgical safety pause was then conducted in which we confirmed the appropriate patient, extremity, planned procedure, availability of equipment, indication, and administration of antibiotics and DVT prophylaxis in the form of a compression boot on the nonsurgical extremity. A well-padded thigh tourniquet was placed prior to prepping and draping. We began with gravity exsanguination of the limb and inflated the tourniquet. I made approximately 3 cm incision over the medial leg in the area of the gastrocnemius musculotendinous junction. Careful dissection was bluntly made down to the crural fascia. The crural fascia was incised longitudinally and the gastrocnemius tendon was isolated both anteriorly and posteriorly. Great care was taken to make sure the sural nerve was not attached to the gastrocnemius tendon and was retracted with the posterior skin flap. At this time, I incised the gastrocnemius tendon approximately 1 cm distal to the musculotendinous junction. Afterwards this provided great improvement in the dorsiflexion of the ankle. The wound was copiously irrigated, closed in layered fashion, utilizing 3-0 Monocryl and skin brad. I then turned my attention to the foot. Standard transmetatarsal amputation incisions were made both dorsally and plantarly. I was able to include both the dorsal and plantar ulcer in the distal part of the foot that would be sent to pathology. Upon incising into the skin dorsally, there was a large abscess encountered in the dorsal foot. Culture swabs were sent from this abscess. I dissected down to the metatarsals both dorsally and plantarly and then, using an oscillating saw, performed osteotomies of the 1 through 5 metatarsals. At this time, the distal part of the foot was removed and sent to pathology. There was a good amount of infected and necrotic tissue dorsally, which was sharply excised with a scalpel. At this time, we used cysto tubing and copious irrigation to irrigate out the foot. When this was done, further nonviable tissue was removed sharply with a scalpel. At this time, the remaining tissue appeared viable. I turned my attention back to the metatarsals and utilized a rasp to smooth out the corners of the metatarsals, so they would not be prominent under the skin. Fluoroscopy was used to confirm that the level of the metatarsal resection was appropriate. At this time, the tourniquet was let down and meticulous hemostasis was obtained. The wound was then again copiously irrigated. I utilized the 0 PDS sutures to tack the plantar flap up to the dorsal flap medially where the tissue was in better condition. Laterally where the abscess had been, I had had to do an extensive debridement. I did place a wound vac that was 6 cm wide by 4 cm in length in the lateral aspect of the wound. This had excellent suction. The wounds were then dressed sterilely and a splint was applied with the ankle in neutral position. The patient was awakened from anesthesia and transferred to the recovery room in stable condition. There were no complications. All needle and sponge counts were correct at the end of the case. ATTESTATION: I attest that I was present, scrubbed, and performed the entire procedure myself. POSTOPERATIVE PLAN: The plan will be to take him back to the operating room in a few days for repeat irrigation, debridement, and possible wound closure. [id number]/CPS #: [id number] JEANNA
[2017-09-22] MEDS: Heparin VIAL(*) 5000 UNITS/ML VIAL (FIVE THOUSAND) SUBCUT SCH ×3 (06:09→21:41)
[2017-09-22] MEDS: metroNIDAZOLE IV 500 MG/100ML* 500 MG/100 ML BAG IVPB SCH (06:09)
[2017-09-22] MEDS: HYDROmorphone INJ* 2 MG/ML CARPUJECT SYRINGE IV SLOW PU PRN (06:17)
[2017-09-22] MEDS: Metoprolol Succinate XL TAB* 50 MG PO SCH (09:11)
[2017-09-22] MEDS: EMPAGLIFLOZIN 10 MG PO SCH (09:12)
[2017-09-22] MEDS: glipiZIDE TAB.XL* 5 MG PO SCH ×2 (09:12→21:40)
[2017-09-22] MEDS: SITAGLIPTIN 25 MG PO SCH (09:12)
[2017-09-22] MEDS: Insulin GLARGINE(*) 1 UNITS UNIT SUBCUT SCH (09:13)
[2017-09-22] MEDS: Acetaminophen TAB* 325 MG PO PRN (09:29)
--- NOTE | 2017-09-22 10:26 | PN ---
Subjective Date of Service: 09/22/17 Interval History: Mr. Olivia reports some persistent pain in his foot but feels that his current pain medication regimen is adequate. He denies other complaint including chest pain, SOB, nausea, or abdominal pain. Family History: Unchanged from Admission Social History: Unchanged from Admission Past Medical History: Unchanged from Admission Objective Active Medications: Acetaminophen (Tylenol Tab*) 650 mg PO Q4H PRN Amlodipine Besylate (Norvasc Tab*) 10 mg PO QPM [facility] Atorvastatin Calcium (Lipitor*) 10 mg PO QPM [facility] Dextrose (D50w Syringe 50 Ml*) 12.5 gm IV PUSH .FOR FS < 60 - SS PRN Glipizide (Glucotrol Xl*) 10 mg PO BID [facility] Heparin Sodium (Porcine) (Heparin Vial(*)) 5,000 units SUBCUT Q8HR [facility] Heparin Sodium (Porcine) (Heparin Flush Picc/Ml/Cvc(*)) 1 ml FLUSH 0600,1800 [facility] Hydromorphone HCl (Dilaudid Inj*) 0.5 mg IV SLOW PU Q4H PRN Metronidazole/Sodium Chloride (Flagyl 500 Mg Ivpb*) 500 mg in 100 mls @ 100 mls /hr IVPB Q12H [facility] Ceftriaxone Sodium 2 gm/ (Dextrose) 50 mls @ 100 mls/hr IVPB 1800 [facility] Insulin Glargine (Lantus(*)) 20 units SUBCUT QAM [facility] Melatonin (Melatonin (Nf)) 1 mg PO BEDTIME PRN Metoprolol Succinate (Toprol Xl Tab*) 50 mg PO DAILY [facility] Pto Nf Med* ( Empagliflozin [ Jardiance] 10 Mg) 10 mg PO QAM [facility] Nortriptyline HCl (Pamelor Cap*) 10 mg PO BEDTIME [facility] Oxycodone/Acetaminophen (Percocet 5/325 Tab*) 1 tab PO Q4H PRN Oxycodone/Acetaminophen (Percocet 5/325 Tab*) 2 tab PO Q4H PRN Pharmacy Profile Note (Scopolamine Patch Remove*) 1 note PATCH OFF Q72H ONE Scopolamine (Transderm-Scop 1.5 Mg Patch*) 1 patch TRANSDERM Q72H PRN Sitagliptin Phosphate (Januvia (Nf)) 25 mg PO QAM [facility] Vital Signs: Temp Pulse Resp BP Pulse Ox 101.4 F 93 16 158/62 100 09/22/17 09:28 09/22/17 07:22 09/22/17 07:41 09/22/17 07:22 09/22/17 07:22 Oxygen Devices in Use Now: Nasal Cannula Appearance: Male lying in bed in NAD Eyes: No Scleral Icterus Ears/Nose/Mouth/Throat: Mucous Membranes Moist Neck: Trachea Midline Respiratory: Symmetrical Chest Expansion and Respiratory Effort, Clear to Auscultation Cardiovascular: NL Sounds; No Murmurs; No JVD, No Edema Abdominal: NL Sounds; No Tenderness; No Distention Extremities: No Edema Skin: - - Right LE dressing CDI Neurological: Alert and Oriented x 3, NL Muscle Strength and Tone Nutrition: Taking PO's Result Diagrams: 09/20/17 04:58 09/20/17 04:58 Additional Lab and Data: . Microbiology and Other Data: . Assess/Plan/Problems-Billing Assessment: Mr. Olivia is a 52 yo male that was sent to the emergency room for further evaluation of right diabetic foot ulcer and fever. He was found to have osteomyelitis and wound culture was positive for group C strep and MSSA. - Patient Problems (1) Osteomyelitis of ankle or foot, right, acute Comment: - S/P R TMA 09/21/17. Plan for OR again with Dr. Buck on Monday. - Continue cetriaxone and flagyl per Dr. Lundberg's recommendation for polymicrobial infection including MSSA. (2) Hypoxia Comment: - Now on room air. - Patient on O2 overnight, suspect secondary to narcotics. (3) T2DM (type 2 diabetes mellitus) Comment: - BG 120-220. - Continue home medications as patient refusing SS insulin. - Continue glipizide, Jardiance, and Januvia. (4) HTN (hypertension) Comment: - SBP 120-150. - Continue metoprolol, amlodipine. (5) Hyperlipidemia Comment: - Continue atorvastatin. (6) DVT prophylaxis Comment: - Heparin subq (7) Full code status Comment: Status and Disposition: Inpatient. Anticipate discharge to home when medically stable.
--- NOTE | 2017-09-22 13:32 | PN ---
Progress Note - Progress Note Date of Service: 09/22/17 SOAP: Subjective: 52 y/o male s/p R transmet. amp with washout, VAC placement 09/[address] Benavidez. Patient overall feeling well, continues with night sweats, pain under control. Objective: GEnearl - well appearing, NAD, AO resting in bed comfortably MSK- dressing intact, wound vac with serousang drainage, no drainage on dressing. Vital Signs Temp 98.7 F 09/22/17 11:25 Pulse 76 09/22/17 11:25 Resp 16 09/22/17 12:10 BP 136/59 09/22/17 11:25 Pulse Ox 97 09/22/17 11:25 Intake & Output 09/21/17 09/22/17 09/22/17 18:59 06:59 18:59 Intake Total 545 606 245 Output Total 800 845 Balance -255 -239 245 Intake: IV Fluids 300 20 ABX - CEFTRIAXONE 20 LR 300 IVPB 45 106 105 ABX - CEFTRIAXONE 106 Flagyl 45 105 Oral 200 480 140 Output: Urine 750 845 Estimated Blood Loss 50 Other: Estimated Void Medium # Bowel Movements 0 # Voids 1 Assessment: Stable 52 y/o male s/p R transmet. amp with washout, VAC placement 09/[address] Benavidez. Plan: - Plan for OR on Monday with Dr. Buck - Continue ABX per ID - APpreciate hospitalists management Acetaminophen (Tylenol Tab*) 650 mg PO Q4H PRN PRN Reason: FEVER/PAIN Last Admin: 09/22/17 09:29 Dose: 650 mg Amlodipine Besylate (Norvasc Tab*) 10 mg PO QPM [facility] Last Admin: 09/21/17 17:13 Dose: 10 mg Atorvastatin Calcium (Lipitor*) 10 mg PO QPM [facility] Last Admin: 09/21/17 17:13 Dose: 10 mg Dextrose (D50w Syringe 50 Ml*) 12.5 gm IV PUSH .FOR FS < 60 - SS PRN PRN Reason: FS < 60 Glipizide (Glucotrol Xl*) 10 mg PO BID [facility] Last Admin: 09/22/17 09:12 Dose: 10 mg Heparin Sodium (Porcine) (Heparin Vial(*)) 5,000 units SUBCUT Q8HR [facility] Last Admin: 09/22/17 06:09 Dose: 5,000 units Heparin Sodium (Porcine) (Heparin Flush Picc/Ml/Cvc(*)) 1 ml FLUSH 0600,1800 [facility] PRN Reason: Protocol Last Admin: 09/22/17 07:59 Dose: 1 ml Hydromorphone HCl (Dilaudid Inj*) 0.5 mg IV SLOW PU Q4H PRN PRN Reason: PAIN Last Admin: 09/22/17 06:17 Dose: 0.5 mg Ceftriaxone Sodium 2 gm/ (Dextrose) 50 mls @ 100 mls/hr IVPB 1800 [facility] Last Admin: 09/21/17 18:41 Dose: 100 mls/hr Insulin Glargine (Lantus(*)) 20 units SUBCUT QAM [facility] Last Admin: 09/22/17 09:13 Dose: 20 unit Melatonin (Melatonin (Nf)) 1 mg PO BEDTIME PRN PRN Reason: SLEEP Last Admin: 09/20/17 20:55 Dose: 1 mg Metoprolol Succinate (Toprol Xl Tab*) 50 mg PO DAILY [facility] Last Admin: 09/22/17 09:11 Dose: 50 mg Metronidazole (Flagyl Tab*) 500 mg PO BID [facility] Pto Nf Med* ( Empagliflozin [ Jardiance] 10 Mg) 10 mg PO QAM [facility] Last Admin: 09/22/17 09:12 Dose: 10 mg Nortriptyline HCl (Pamelor Cap*) 10 mg PO BEDTIME [facility] Last Admin: 09/21/17 20:01 Dose: 10 mg Oxycodone/Acetaminophen (Percocet 5/325 Tab*) 1 tab PO Q4H PRN PRN Reason: PAIN - MILD TO MODERATE Last Admin: 09/20/17 12:04 Dose: 1 tab Oxycodone/Acetaminophen (Percocet 5/325 Tab*) 2 tab PO Q4H PRN PRN Reason: PAIN - MODERATE TO SEVERE Last Admin: 09/22/17 12:10 Dose: 2 tab Pharmacy Profile Note (Scopolamine Patch Remove*) 1 note PATCH OFF Q72H ONE Stop: 09/24/17 09:01 Scopolamine (Transderm-Scop 1.5 Mg Patch*) 1 patch TRANSDERM Q72H PRN PRN Reason: Nausea/Vomiting Sitagliptin Phosphate (Januvia (Nf)) 25 mg PO QAM [facility] PRN Reason: Protocol Last Admin: 09/22/17 09:12 Dose: 25 mg
[2017-09-22] MEDS: amLODIPine TAB* 5 MG PO SCH (17:29)
[2017-09-22] MEDS: Atorvastatin* 10 MG TAB PO SCH (17:29)
[2017-09-22] MEDS: cefTRIAXone(*) 2 GM in D5W 50 ML BAG* 50 ML IVPB SCH (17:30)
[2017-09-22] MEDS: metroNIDAZOLE TAB* 250 MG PO SCH (21:40)
[2017-09-22] MEDS: Nortriptyline CAP* 10 MG PO SCH (21:41)
[2017-09-23] MEDS: Acetaminophen TAB* 325 MG PO PRN ×3 (03:37→16:38)
[2017-09-23] MEDS: oxyCODONE/Acetamin 5/325 MG* TAB PO PRN ×4 (05:47→18:50)
[2017-09-23] MEDS: Heparin VIAL(*) 5000 UNITS/ML VIAL (FIVE THOUSAND) SUBCUT SCH ×3 (05:48→21:24)
[2017-09-23 06:46] LABS: EGFR Non-African American 41.6 (>60)
[2017-09-23 07:01] LABS: ABS Basophils 0 10^3/ul (0-0.2); ABS Eosinophils 0.2 10^3/ul (0-0.6); ABS Lymphocytes 1.2 10^3/ul (1.0-4.8); ABS Monocytes 1.4 10^3/ul (0-0.8); ABS Neutrophils 7.9 10^3/ul (1.5-7.7); ABS Nucleated RBC 0 10^3/ul; Eosinophil % 2.1 % (0-6); Hematocrit 23 % (42-52); Hemoglobin 7.8 g/dl (14.0-18.0); Lymphocyte % 11.2 % (25-47); Mean Corpuscular HGB Conc 33 g/dl (31-36); Mean Corpuscular Hemoglobin 28 pg (27-31); Mean Corpuscular Volume 83 fL (80-94); Mean Platelet Volume 7 um3 (7.4-10.4); Nucleated Red Blood Cells % 0; Platelet Count 404 10^3/ul (150-450); Red Blood Count 2.82 10^6/ul (4.0-5.4); Red Cell Distribution Width 14 % (10.5-15); White Blood Count 10.8 10^3/ul (3.5-10.8)
--- NOTE | 2017-09-23 08:15 | PN ---
Progress Note - Progress Note Date of Service: 09/23/17 SOAP: Subjective: resting comfortably with no complaints Objective: Vital Signs Temp Pulse Resp BP Pulse Ox 97.4 F 72 20 134/65 98 09/23/17 07:32 09/23/17 07:32 09/23/17 07:56 09/23/17 07:32 09/23/17 07:32 Laboratory Last Values WBC 10.8 10^3/ul (3.5-10.8) 09/23/17 06:03 RBC 2.82 10^6/ul (4.0-5.4) L 09/23/17 06:03 Hgb 7.8 g/dl (14.0-18.0) L 09/23/17 06:03 Hct 23 % (42-52) L 09/23/17 06:03 MCV 83 fL (80-94) 09/23/17 06:03 MCH 28 pg (27-31) 09/23/17 06:03 MCHC 33 g/dl (31-36) 09/23/17 06:03 RDW 14 % (10.5-15) 09/23/17 06:03 Plt Count 404 10^3/ul (150-450) 09/23/17 06:03 MPV 7 um3 (7.4-10.4) L 09/23/17 06:03 Neut % (Auto) 73.1 % (38-83) 09/23/17 06:03 Lymph % (Auto) 11.2 % (25-47) L 09/23/17 06:03 [place] % (Auto) 13.3 % (1-9) H 09/23/17 06:03 Eos % (Auto) 2.1 % (0-6) 09/23/17 06:03 Baso % (Auto) 0.3 % (0-2) 09/23/17 06:03 Absolute Neuts (auto) 7.9 10^3/ul (1.5-7.7) H 09/23/17 06:03 Absolute Lymphs (auto) 1.2 10^3/ul (1.0-4.8) 09/23/17 06:03 Absolute Monos (auto) 1.4 10^3/ul (0-0.8) H 09/23/17 06:03 Absolute Eos (auto) 0.2 10^3/ul (0-0.6) 09/23/17 06:03 Absolute Basos (auto) 0 10^3/ul (0-0.2) 09/23/17 06:03 Absolute Nucleated RBC 0 10^3/ul 09/23/17 06:03 Nucleated RBC % 0 09/23/17 06:03 ESR 119 mm/Hr (0-20) H 09/18/17 12:13 INR (Anticoag Therapy) 1.08 (0.77-1.02) H 09/18/17 12:13 APTT 31.2 seconds (26.0-36.3) 09/18/17 12:13 Sodium 127 mmol/L (133-145) L 09/23/17 06:03 Potassium 3.9 mmol/L (3.5-5.0) 09/23/17 06:03 Chloride 98 mmol/L (101-111) L 09/23/17 06:03 Carbon Dioxide 22 mmol/L (22-32) 09/23/17 06:03 Anion Gap 7 mmol/L (2-11) 09/23/17 06:03 BUN 21 mg/dL (6-24) 09/23/17 06:03 Creatinine 1.72 mg/dL (0.67-1.17) H 09/23/17 06:03 Est GFR ( Amer) 53.6 (>60) 09/23/17 06:03 Est GFR (Non-Af Amer) 41.6 (>60) 09/23/17 06:03 BUN/Creatinine Ratio 12.2 (8-20) 09/23/17 06:03 Glucose 161 mg/dL (70-100) H 09/23/17 06:03 POC Glucose (mg/dL) 163 mg/dL (70-100) H 09/23/17 07:56 Lactic Acid 0.6 mmol/L (0.5-2.0) 09/18/17 15:56 Calcium 8.5 mg/dL (8.6-10.3) L 09/23/17 06:03 Total Bilirubin 0.50 mg/dL (0.2-1.0) 09/18/17 12:13 AST 18 U/L (13-39) 09/18/17 12:13 ALT 12 U/L (7-52) 09/18/17 12:13 Alkaline Phosphatase 93 U/L (34-104) 09/18/17 12:13 Total Creatine Kinase 17 U/L (10-223) 09/18/17 12:13 Troponin I 0.01 ng/mL (<0.04) 09/18/17 22:22 C-Reactive Protein 183.55 mg/L (< 5.00) H 09/23/17 06:03 B-Natriuretic Peptide 317 pg/mL (-100) H 09/18/17 12:13 Total Protein 7.3 g/dL (6.4-8.9) 09/18/17 12:13 Albumin 3.3 g/dL (3.2-5.2) 09/18/17 12:13 Globulin 4.0 g/dL (2-4) 09/18/17 12:13 Albumin/Globulin Ratio 0.8 (1-3) L 09/18/17 12:13 incision: c/d; wound vac intact Assessment: s/p I&D right foot with wound vac placement Plan: 1) Abx per ID 2) Continue DVT prophylaxis 3) plan to go to OR with [facility] Monday
[2017-09-23] MEDS: Metoprolol Succinate XL TAB* 50 MG PO SCH (09:01)
[2017-09-23] MEDS: metroNIDAZOLE TAB* 250 MG PO SCH ×2 (09:01→21:23)
[2017-09-23] MEDS: glipiZIDE TAB.XL* 5 MG PO SCH ×2 (09:02→21:22)
[2017-09-23] MEDS: EMPAGLIFLOZIN 10 MG PO SCH (09:03)
[2017-09-23] MEDS: SITAGLIPTIN 25 MG PO SCH (09:03)
[2017-09-23] MEDS: Insulin GLARGINE(*) 1 UNITS UNIT SUBCUT SCH (09:04)
[2017-09-23] MEDS ORDERED: diPHENhydraMINE PO* 25 MG PO PRN (16:39)
--- NOTE | 2017-09-23 16:45 | PN ---
Subjective Date of Service: 09/23/17 Interval History: Patient has no new complaints. Can walk w/ walker, no WB left foot. Has some pruritis after taking oxycodone. Family History: Unchanged from Admission Social History: Unchanged from Admission Past Medical History: Unchanged from Admission Objective Active Medications: Acetaminophen (Tylenol Tab*) 650 mg PO Q4H PRN PRN Reason: FEVER/PAIN Last Admin: 09/23/17 16:38 Dose: 650 mg Amlodipine Besylate (Norvasc Tab*) 10 mg PO QPM [facility] Last Admin: 09/22/17 17:29 Dose: 10 mg Atorvastatin Calcium (Lipitor*) 10 mg PO QPM [facility] Last Admin: 09/22/17 17:29 Dose: 10 mg Dextrose (D50w Syringe 50 Ml*) 12.5 gm IV PUSH .FOR FS < 60 - SS PRN PRN Reason: FS < 60 Glipizide (Glucotrol Xl*) 10 mg PO BID [facility] Last Admin: 09/23/17 09:02 Dose: 10 mg Heparin Sodium (Porcine) (Heparin Vial(*)) 5,000 units SUBCUT Q8HR [facility] Last Admin: 09/23/17 13:56 Dose: 5,000 units Heparin Sodium (Porcine) (Heparin Flush Picc/Ml/Cvc(*)) 1 ml FLUSH 0600,1800 [facility] PRN Reason: Protocol Last Admin: 09/23/17 06:00 Dose: 1 ml Hydromorphone HCl (Dilaudid Inj*) 0.5 mg IV SLOW PU Q4H PRN PRN Reason: PAIN Last Admin: 09/22/17 06:17 Dose: 0.5 mg Ceftriaxone Sodium 2 gm/ (Dextrose) 50 mls @ 100 mls/hr IVPB 1800 [facility] Last Admin: 09/22/17 17:30 Dose: 100 mls/hr Insulin Glargine (Lantus(*)) 20 units SUBCUT QAM [facility] Last Admin: 09/23/17 09:04 Dose: 20 unit Melatonin (Melatonin (Nf)) 1 mg PO BEDTIME PRN PRN Reason: SLEEP Last Admin: 09/20/17 20:55 Dose: 1 mg Metoprolol Succinate (Toprol Xl Tab*) 50 mg PO DAILY [facility] Last Admin: 09/23/17 09:01 Dose: 50 mg Metronidazole (Flagyl Tab*) 500 mg PO BID [facility] Last Admin: 09/23/17 09:01 Dose: 500 mg Pto Nf Med* ( Empagliflozin [ Jardiance] 10 Mg) 10 mg PO QAM [facility] Last Admin: 09/23/17 09:03 Dose: 10 mg Nortriptyline HCl (Pamelor Cap*) 10 mg PO BEDTIME [facility] Last Admin: 09/22/17 21:41 Dose: 10 mg Oxycodone/Acetaminophen (Percocet 5/325 Tab*) 1 tab PO Q4H PRN PRN Reason: PAIN - MILD TO MODERATE Last Admin: 09/20/17 12:04 Dose: 1 tab Oxycodone/Acetaminophen (Percocet 5/325 Tab*) 2 tab PO Q4H PRN PRN Reason: PAIN - MODERATE TO SEVERE Last Admin: 09/23/17 14:41 Dose: 2 tab Pharmacy Profile Note (Scopolamine Patch Remove*) 1 note PATCH OFF Q72H ONE Stop: 09/24/17 09:01 Scopolamine (Transderm-Scop 1.5 Mg Patch*) 1 patch TRANSDERM Q72H PRN PRN Reason: Nausea/Vomiting Sitagliptin Phosphate (Januvia (Nf)) 25 mg PO [facility] PRN Reason: Protocol Last Admin: 09/23/17 09:03 Dose: 25 mg Vital Signs - 8 hr 09/23/17 09/23/17 09/23/17 10:23 11:48 12:45 Temperature 36.2 C Pulse Rate 65 Respiratory 20 16 16 Rate Blood Pressure 116/54 (mmHg) O2 Sat by Pulse 98 Oximetry 09/23/17 09/23/17 09/23/17 14:41 15:22 16:39 Temperature 36.9 C Pulse Rate 72 Respiratory 16 18 18 Rate Blood Pressure 140/55 (mmHg) O2 Sat by Pulse 99 Oximetry Oxygen Devices in Use Now: None Appearance: no distress Ears/Nose/Mouth/Throat: NL Teeth, Lips, Gums Neck: NL Appearance and Movements; NL JVP Respiratory: Symmetrical Chest Expansion and Respiratory Effort, Clear to Auscultation Cardiovascular: NL Sounds; No Murmurs; No JVD Extremities: No Edema, - - RT ankle/foot in large bandage Skin: No Rash or Ulcers Neurological: Alert and Oriented x 3 Lines/Tubes/Other Access: Clean, Dry and Intact Peripheral IV Result Diagrams: 09/23/17 06:03 09/23/17 06:03 Additional Lab and Data: . Microbiology and Other Data: Microbiology 09/21/17 10:01 Foot Right Skin and Soft Tissue MRSA/MSSA (PCR - Final 09/21/17 10:01 Foot Right Gram Stain - Final Mrsa Negative S.aureus Positive 09/18/17 13:50 Foot Right Skin and Soft Tissue MRSA/MSSA (PCR - Final 09/18/17 13:50 Foot Right Wound Culture - Final Mrsa Negative S.aureus Positive Strep Dysgalactiae (Grp C) Peptostreptococcus Anaerobius Normal Anamaria 09/18/17 12:17 Blood Venous Aerobic Blood Culture - Final 09/18/17 12:17 Blood Venous Anaerobic Blood Culture - Final No Growth Day 5 No Growth Day 5 09/18/17 12:13 Blood Venous Aerobic Blood Culture - Final 09/18/17 12:13 Blood Venous Anaerobic Blood Culture - Final No Growth Day 5 No Growth Day 5 09/21/17 10:01 Wound - Right Anaerobic Culture - Preliminary Peptostreptococcus Anaerobius Prevotella Melaninogenica 09/21/17 10:01 Foot Right Wound Culture - Preliminary Staphylococcus Aureus Strep Dysgalactiae (Grp C) Assess/Plan/Problems-Billing Assessment: Mr. Olivia is a 52 yo male that was sent to the emergency room for further evaluation of right diabetic foot ulcer and fever. He was found to have osteomyelitis and polymicrobial wound infection. - Patient Problems (1) Osteomyelitis of ankle or foot, right, acute Current Visit: Yes Status: Acute Priority: High Code(s): M86.171 - OTHER ACUTE OSTEOMYELITIS, RIGHT ANKLE AND FOOT SNOMED Code(s): 948822586 Comment: - S/P R TMA 09/21/17. Plan for OR again with Dr. Buck on Monday. - Continue cetriaxone and flagyl per Dr. Lundbreg's recommendation for polymicrobial infection including MSSA. (2) T2DM (type 2 diabetes mellitus) Current Visit: No Status: Chronic Priority: Medium Comment: - BG 90-161. - Continue home medications as patient refusing SS insulin. - Continue glipizide, Jardiance, and Januvia. (3) DVT prophylaxis Current Visit: No Status: Acute Priority: Low Code(s): QSH4721 - SNOMED Code(s): 477724766 Comment: - Heparin subq Status and Disposition: Inpatient. Anticipate discharge to home when medically stable.
[2017-09-23] MEDS: amLODIPine TAB* 5 MG PO SCH (17:42)
[2017-09-23] MEDS: Atorvastatin* 10 MG TAB PO SCH (17:42)
[2017-09-23] MEDS: cefTRIAXone(*) 2 GM in D5W 50 ML BAG* 50 ML IVPB SCH (17:42)
[2017-09-23] MEDS: Nortriptyline CAP* 10 MG PO SCH (21:34)
[2017-09-23] MEDS: CMCS Melatonin (NF) 3 MG TAB PO PRN (21:37)
[2017-09-24] MEDS: Heparin VIAL(*) 5000 UNITS/ML VIAL (FIVE THOUSAND) SUBCUT SCH ×3 (05:47→21:05)
[2017-09-24] MEDS: oxyCODONE/Acetamin 5/325 MG* TAB PO PRN (05:55)
[2017-09-24 05:56] LABS: ABS Basophils 0 10^3/ul (0-0.2); ABS Eosinophils 0.2 10^3/ul (0-0.6); ABS Monocytes 0.9 10^3/ul (0-0.8); ABS Neutrophils 6.2 10^3/ul (1.5-7.7); ABS Nucleated RBC 0 10^3/ul; Corrected Retic Count 0.4 % (0.5-1.5); Eosinophil % 1.9 % (0-6); Hematocrit 23 % (42-52); Hematocrit for Retic CNT 23 % (42-52); Hemoglobin 7.8 g/dl (14.0-18.0); Immature Retic Fraction 0.31; Lymphocyte % 12.4 % (25-47); Mean Corpuscular HGB Conc 33 g/dl (31-36); Mean Corpuscular Hemoglobin 28 pg (27-31); Mean Corpuscular Volume 83 fL (80-94); Mean Platelet Volume 7 um3 (7.4-10.4); Nucleated Red Blood Cells % 0; Platelet Count 448 10^3/ul (150-450); RBC Retic Count 2.83 10^6/ul (4.6-6.2); Red Blood Count 2.83 10^6/ul (4.0-5.4); Red Cell Distribution Width 14 % (10.5-15); White Blood Count 8.3 10^3/ul (3.5-10.8)
[2017-09-24] MEDS ORDERED: Scopolamine PATCH Remove* 1 NOTE MISC PATCH OFF ONE (09:00)
[2017-09-24] MEDS: EMPAGLIFLOZIN 10 MG PO SCH (09:01)
[2017-09-24] MEDS: Metoprolol Succinate XL TAB* 50 MG PO SCH (09:01)
[2017-09-24] MEDS: metroNIDAZOLE TAB* 250 MG PO SCH ×2 (09:01→21:04)
[2017-09-24] MEDS: glipiZIDE TAB.XL* 5 MG PO SCH ×2 (09:01→21:04)
[2017-09-24] MEDS: Insulin GLARGINE(*) 1 UNITS UNIT SUBCUT SCH (09:01)
[2017-09-24] MEDS: SITAGLIPTIN 25 MG PO SCH (09:02)
--- NOTE | 2017-09-24 15:00 | PN ---
Subjective Date of Service: 09/24/17 Interval History: Patient has no new complaints. No pain in LT foot. Has been up to chair. Not refusing insulin anymore. Family History: Unchanged from Admission Social History: Unchanged from Admission Past Medical History: Unchanged from Admission Objective Active Medications: Acetaminophen (Tylenol Tab*) 650 mg PO Q4H PRN PRN Reason: FEVER/PAIN Last Admin: 09/23/17 16:38 Dose: 650 mg Amlodipine Besylate (Norvasc Tab*) 10 mg PO QPM [facility] Last Admin: 09/23/17 17:42 Dose: 10 mg Atorvastatin Calcium (Lipitor*) 10 mg PO QPM [facility] Last Admin: 09/23/17 17:42 Dose: 10 mg Dextrose (D50w Syringe 50 Ml*) 12.5 gm IV PUSH .FOR FS < 60 - SS PRN PRN Reason: FS < 60 Diphenhydramine HCl (Benadryl Po*) 25 mg PO Q6H PRN PRN Reason: PRURITIS Last Admin: 09/23/17 17:41 Dose: 25 mg Glipizide (Glucotrol Xl*) 10 mg PO BID [facility] Last Admin: 09/24/17 09:01 Dose: 10 mg Heparin Sodium (Porcine) (Heparin Vial(*)) 5,000 units SUBCUT Q8HR [facility] Last Admin: 09/24/17 13:43 Dose: 5,000 units Heparin Sodium (Porcine) (Heparin Flush Picc/Ml/Cvc(*)) 1 ml FLUSH 0600,1800 [facility] PRN Reason: Protocol Last Admin: 09/24/17 05:47 Dose: 1 ml Hydromorphone HCl (Dilaudid Inj*) 0.5 mg IV SLOW PU Q4H PRN PRN Reason: PAIN Last Admin: 09/22/17 06:17 Dose: 0.5 mg Ceftriaxone Sodium 2 gm/ (Dextrose) 50 mls @ 100 mls/hr IVPB 1800 [facility] Last Admin: 09/23/17 17:42 Dose: 100 mls/hr Insulin Glargine (Lantus(*)) 20 units SUBCUT QAM [facility] Last Admin: 09/24/17 09:01 Dose: 20 unit Melatonin (Melatonin (Nf)) 3 mg PO BEDTIME PRN PRN Reason: SLEEP Last Admin: 09/23/17 21:37 Dose: 3 mg Metoprolol Succinate (Toprol Xl Tab*) 50 mg PO DAILY [facility] Last Admin: 09/24/17 09:01 Dose: 50 mg Metronidazole (Flagyl Tab*) 500 mg PO BID [facility] Last Admin: 09/24/17 09:01 Dose: 500 mg Pto Nf Med* ( Empagliflozin [ Jardiance] 10 Mg) 10 mg PO QAM [facility] Last Admin: 09/24/17 09:01 Dose: 10 mg Nortriptyline HCl (Pamelor Cap*) 10 mg PO BEDTIME [facility] Last Admin: 09/23/17 21:34 Dose: 10 mg Oxycodone/Acetaminophen (Percocet 5/325 Tab*) 1 tab PO Q4H PRN PRN Reason: PAIN - MILD TO MODERATE Last Admin: 09/20/17 12:04 Dose: 1 tab Oxycodone/Acetaminophen (Percocet 5/325 Tab*) 2 tab PO Q4H PRN PRN Reason: PAIN - MODERATE TO SEVERE Last Admin: 09/24/17 05:55 Dose: 2 tab Scopolamine (Transderm-Scop 1.5 Mg Patch*) 1 patch TRANSDERM Q72H PRN PRN Reason: Nausea/Vomiting Sitagliptin Phosphate (Januvia (Nf)) 25 mg PO [facility] PRN Reason: Protocol Last Admin: 09/24/17 09:02 Dose: 25 mg Vital Signs - 8 hr 09/24/17 09/24/17 09/24/17 08:00 11:23 13:21 Temperature 36.7 C Pulse Rate 73 Respiratory 16 Rate Blood Pressure 146/64 (mmHg) O2 Sat by Pulse 97 97 97 Oximetry Oxygen Devices in Use Now: None Appearance: alert, no distress Eyes: No Scleral Icterus Neck: NL Appearance and Movements; NL JVP Respiratory: Clear to Auscultation Cardiovascular: NL Sounds; No Murmurs; No JVD, RRR Abdominal: NL Sounds; No Tenderness; No Distention, No Hepatosplenomegaly Extremities: - - RT foot in large bandage, wound vac present Neurological: Alert and Oriented x 3 Lines/Tubes/Other Access: Clean, Dry and Intact PICC Line Nutrition: Taking PO's Result Diagrams: 09/24/17 05:30 09/23/17 06:03 Additional Lab and Data: Laboratory Tests 09/23/17 09/23/17 09/24/17 16:41 21:20 05:30 ESR 120 H Retic Count, Calc 0.7 Corrected Retic Count 0.4 L POC Glucose (mg/dL) 122 H 167 H Lactate Dehydrogenase 09/24/17 09/24/17 09/24/17 05:30 07:49 11:50 ESR Retic Count, Calc Corrected Retic Count POC Glucose (mg/dL) 107 H 130 H Lactate Dehydrogenase 145 Assess/Plan/Problems-Billing Assessment: Mr. Olivia is a 52 yo male that was sent to the emergency room for further evaluation of right diabetic foot ulcer and fever. He was found to have osteomyelitis and polymicrobial wound infection. - Patient Problems (1) Osteomyelitis of ankle or foot, right, acute Current Visit: Yes Status: Acute Priority: High Code(s): M86.171 - OTHER ACUTE OSTEOMYELITIS, RIGHT ANKLE AND FOOT SNOMED Code(s): 020172416 Comment: - S/P R TMA 09/21/17. Plan for OR again with Dr. Buck on Monday. - Continue cetriaxone and flagyl per Dr. Lundberg's recommendation for polymicrobial infection including MSSA. (2) T2DM (type 2 diabetes mellitus) Current Visit: No Status: Chronic Priority: Medium Comment: - BG 107-167. - Continue glipizide, Jardiance, and Januvia. (3) DVT prophylaxis Current Visit: No Status: Acute Priority: Low Code(s): [id number] - SNOMED Code(s): 066715923 Comment: - Heparin subq (4) Normocytic anemia, not due to blood loss Current Visit: Yes Status: Acute Priority: Medium Code(s): D64.9 - ANEMIA , UNSPECIFIED SNOMED Code(s): 579037375 Comment: -may have bone marrow suppression due to ceftriaxone -no sign of hemolysis -will check iron and B12. Status and Disposition: Inpatient. Anticipate discharge to home when medically stable.
[2017-09-24] MEDS: Insulin LISPRO* 1 UNITS UNIT SUBCUT SCH ×2 (16:07→21:05)
--- NOTE | 2017-09-24 16:52 | PN ---
Progress Note - Progress Note Date of Service: 09/24/17 SOAP: Subjective: Pt sitting up in bed eating breakfast. No c/o pain. Denies F/C Vital Signs: Temp Pulse Resp BP Pulse Ox 98.8 F 74 14 131/60 96 09/24/17 15:13 09/24/17 15:13 09/24/17 15:13 09/24/17 15:13 09/24/17 15:13 Laboratory Last Values WBC 8.3 10^3/ul (3.5-10.8) 09/24/17 05:30 RBC 2.83 10^6/ul (4.0-5.4) L 09/24/17 05:30 RBC (Retic) 2.83 10^6/ul (4.6-6.2) L 09/24/17 05:30 Hgb 7.8 g/dl (14.0-18.0) L 09/24/17 05:30 Hct 23 % (42-52) L 09/24/17 05:30 HCT (Retic) 23 % (42-52) L 09/24/17 05:30 MCV 83 fL (80-94) 09/24/17 05:30 MCH 28 pg (27-31) 09/24/17 05:30 MCHC 33 g/dl (31-36) 09/24/17 05:30 RDW 14 % (10.5-15) 09/24/17 05:30 Plt Count 448 10^3/ul (150-450) 09/24/17 05:30 MPV 7 um3 (7.4-10.4) L 09/24/17 05:30 Neut % (Auto) 74.8 % (38-83) 09/24/17 05:30 Lymph % (Auto) 12.4 % (25-47) L 09/24/17 05:30 [place]iscoe % (Auto) 10.6 % (1-9) H 09/24/17 05:30 Eos % (Auto) 1.9 % (0-6) 09/24/17 05:30 Baso % (Auto) 0.3 % (0-2) 09/24/17 05:30 Absolute Neuts (auto) 6.2 10^3/ul (1.5-7.7) 09/24/17 05:30 Absolute Lymphs (auto) 1.0 10^3/ul (1.0-4.8) 09/24/17 05:30 Absolute Monos (auto) 0.9 10^3/ul (0-0.8) H 09/24/17 05:30 Absolute Eos (auto) 0.2 10^3/ul (0-0.6) 09/24/17 05:30 Absolute Basos (auto) 0 10^3/ul (0-0.2) 09/24/17 05:30 Absolute Nucleated RBC 0 10^3/ul 09/24/17 05:30 Nucleated RBC % 0 09/24/17 05:30 ESR 120 mm/Hr (0-20) H 09/24/17 05:30 Retic Count, Calc 0.7 % (0.5-1.5) 09/24/17 05:30 Corrected Retic Count 0.4 % (0.5-1.5) L 09/24/17 05:30 Retic Shift Factor 2.0 09/24/17 05:30 Retic Production Index 0.20 09/24/17 05:30 Immature Retic Fraction 0.31 09/24/17 05:30 Mean Retic Volume 90.3 09/24/17 05:30 INR (Anticoag Therapy) 1.08 (0.77-1.02) H 09/18/17 12:13 APTT 31.2 seconds (26.0-36.3) 09/18/17 12:13 Sodium 127 mmol/L (133-145) L 09/23/17 06:03 Potassium 3.9 mmol/L (3.5-5.0) 09/23/17 06:03 Chloride 98 mmol/L (101-111) L 09/23/17 06:03 Carbon Dioxide 22 mmol/L (22-32) 09/23/17 06:03 Anion Gap 7 mmol/L (2-11) 09/23/17 06:03 BUN 21 mg/dL (6-24) 09/23/17 06:03 Creatinine 1.72 mg/dL (0.67-1.17) H 09/23/17 06:03 Est GFR ( Amer) 53.6 (>60) 09/23/17 06:03 Est GFR (Non-Af Amer) 41.6 (>60) 09/23/17 06:03 BUN/Creatinine Ratio 12.2 (8-20) 09/23/17 06:03 Glucose 161 mg/dL (70-100) H 09/23/17 06:03 POC Glucose (mg/dL) 125 mg/dL (70-100) H 09/24/17 16:02 Lactic Acid 0.6 mmol/L (0.5-2.0) 09/18/17 15:56 Calcium 8.5 mg/dL (8.6-10.3) L 09/23/17 06:03 Total Bilirubin 0.50 mg/dL (0.2-1.0) 09/18/17 12:13 AST 18 U/L (13-39) 09/18/17 12:13 ALT 12 U/L (7-52) 09/18/17 12:13 Alkaline Phosphatase 93 U/L (34-104) 09/18/17 12:13 Lactate Dehydrogenase 145 U/L (140-271) 09/24/17 05:30 Total Creatine Kinase 17 U/L (10-223) 09/18/17 12:13 Troponin I 0.01 ng/mL (<0.04) 09/18/17 22:22 C-Reactive Protein 183.55 mg/L (< 5.00) H 09/23/17 06:03 B-Natriuretic Peptide 317 pg/mL (-100) H 09/18/17 12:13 Total Protein 7.3 g/dL (6.4-8.9) 09/18/17 12:13 Albumin 3.3 g/dL (3.2-5.2) 09/18/17 12:13 Globulin 4.0 g/dL (2-4) 09/18/17 12:13 Albumin/Globulin Ratio 0.8 (1-3) L 09/18/17 12:13 Objective: Dressing C/D. Wound vac intact Assessment: s/p I&D right foot with wound vac placement Plan: Abx per ID DVT prophylaxis Plan for OR tomorrow with Dr. Bcuk NPO after MN
[2017-09-24] MEDS: amLODIPine TAB* 5 MG PO SCH (17:38)
[2017-09-24] MEDS: cefTRIAXone(*) 2 GM in D5W 50 ML BAG* 50 ML IVPB SCH (17:38)
[2017-09-24] MEDS: Atorvastatin* 10 MG TAB PO SCH (17:38)
[2017-09-24] MEDS: Nortriptyline CAP* 10 MG PO SCH (21:04)
[2017-09-24] MEDS: CMCS Melatonin (NF) 3 MG TAB PO PRN (21:04)
[2017-09-25] MEDS: Heparin VIAL(*) 5000 UNITS/ML VIAL (FIVE THOUSAND) SUBCUT SCH ×3 (04:15→21:20)
[2017-09-25] MEDS ORDERED: fentaNYL* 50 MCG/ML 2 ML VIAL (100 MCG VIAL) ONE (07:11)
[2017-09-25] MEDS ORDERED: Midazolam* 1 MG/ML 2 ML VIAL (2 MG) ONE (07:11)
[2017-09-25] MEDS: Insulin LISPRO* 1 UNITS UNIT SUBCUT SCH ×4 (07:42→21:24)
[2017-09-25] MEDS: Insulin GLARGINE(*) 1 UNITS UNIT SUBCUT SCH (09:10)
[2017-09-25] MEDS: EMPAGLIFLOZIN 10 MG PO SCH (09:10)
[2017-09-25] MEDS: glipiZIDE TAB.XL* 5 MG PO SCH ×2 (09:10→21:18)
[2017-09-25] MEDS: SITAGLIPTIN 25 MG PO SCH (09:11)
[2017-09-25] MEDS: Metoprolol Succinate XL TAB* 50 MG PO SCH (09:29)
[2017-09-25] MEDS: metroNIDAZOLE TAB* 250 MG PO SCH ×2 (09:29→21:19)
[2017-09-25] MEDS ORDERED: cefTRIAXone(*) 2 GM in NS 0.9% 100 ML* 100 ML IVPB SCH (11:04)
[2017-09-25] MEDS ORDERED: Lidocaine 2% PF * 5 ML VIAL ONE (13:31)
[2017-09-25] MEDS ORDERED: Propofol* 10 MG/ML 20 ML BTL IV PUSH ONE (13:31)
[2017-09-25] MEDS ORDERED: Ondansetron INJ* 2 MG/ML VIAL ONE (14:05)
[2017-09-25] MEDS ORDERED: Bupivacaine 0.5% SDV PF* 10-30ML VIAL ONE (14:39)
[2017-09-25] MEDS ORDERED: Lidocaine 2% PF* 10 ML AMP ONE (14:40)
[2017-09-25] MEDS ORDERED: HYDROmorphone INJ* 1 MG/ML CARPUJECT SYRINGE IV PRN (15:27)
[2017-09-25] MEDS ORDERED: Ondansetron INJ* 2 MG/ML VIAL IV PRN (15:27)
[2017-09-25] MEDS ORDERED: fentaNYL* 50 MCG/ML 2 ML VIAL (100 MCG VIAL) IV PRN (15:27)
[2017-09-25] MEDS ORDERED: Naloxone* 0.4 MG/ML 1 ML VIAL IV PRN (15:27)
--- NOTE | 2017-09-25 15:41 | PN ---
Subjective Date of Service: 09/25/17 Interval History: Patient seen and examined at bedside. Denies fever, chills, shortness of breath , chest discomfort, N/V/D. Pt states pain is controlled. Tele: Sinus rhythm, rate 70-80's with PVCs. Family History: Unchanged from Admission Social History: Unchanged from Admission Past Medical History: Unchanged from Admission Objective Active Medications: Acetaminophen (Tylenol Tab*) 650 mg PO Q4H PRN Reason: FEVER/PAIN Amlodipine Besylate (Norvasc Tab*) 10 mg PO QPM [facility] Atorvastatin Calcium (Lipitor*) 10 mg PO QPM [facility] Dextrose (D50w Syringe 50 Ml*) 12.5 gm IV PUSH .FOR FS < 60 - SS PRN Reason: FS < 60 Diphenhydramine HCl (Benadryl Po*) 25 mg PO Q6H PRN Reason: PRURITIS Fentanyl Citrate (Fentanyl*) 50 mcg IV Q2M PRN Reason: PAIN - MODERATE Glipizide (Glucotrol Xl*) 10 mg PO BID [facility] Heparin Sodium (Porcine) (Heparin Vial(*)) 5,000 units SUBCUT Q8HR [facility] Heparin Sodium (Porcine) (Heparin Flush Picc/Ml/Cvc(*)) 1 ml FLUSH 0600,1800 [facility] Reason: Protocol Hydromorphone HCl (Dilaudid Inj*) 0.5 mg IV SLOW PU Q4H PRN Reason: PAIN Hydromorphone HCl (Dilaudid Injic*) 0.2 mg IV Q10M PRN Reason: PAIN - SEVERE Ceftriaxone Sodium 2 gm/ (Sodium Chloride) 100 mls @ 200 mls/hr IVPB 1800 [facility] Insulin Glargine (Lantus(*)) 20 units SUBCUT QAM [facility] Insulin Human Lispro (Humalog*) 0 units SUBCUT ACHS [facility] Melatonin (Melatonin (Nf)) 3 mg PO BEDTIME PRN Reason: SLEEP Metoprolol Succinate (Toprol Xl Tab*) 50 mg PO DAILY [facility] Metronidazole (Flagyl Tab*) 500 mg PO BID [facility] Naloxone HCl (Narcan*) 0.08 mg IV Q2M PRN Reason: severe induced resp depression Stop: 09/26/17 15:26 Pto Nf Med* ( Empagliflozin [ Jardiance] 10 Mg) 10 mg PO QAM [facility] Nortriptyline HCl (Pamelor Cap*) 10 mg PO BEDTIME [facility] Ondansetron HCl (Zofran Inj*) 4 mg IV ONCE PRN Reason: NAUSEA/VOMITING Oxycodone/Acetaminophen (Percocet 5/325 Tab*) 1 tab PO Q4H PRN Reason: PAIN - MILD TO MODERATE Oxycodone/Acetaminophen (Percocet 5/325 Tab*) 2 tab PO Q4H PRN Reason: PAIN - MODERATE TO SEVERE Scopolamine (Transderm-Scop 1.5 Mg Patch*) 1 patch TRANSDERM Q72H PRN Reason: Nausea/Vomiting Sitagliptin Phosphate (Januvia (Nf)) 25 mg PO QAM [facility] Vital Signs - 8 hr 09/25/17 09/25/17 09/25/17 07:37 08:11 11:20 Temperature 99.0 F 99.3 F Pulse Rate 79 84 Respiratory 16 16 16 Rate Blood Pressure 133/59 132/58 (mmHg) O2 Sat by Pulse 97 99 Oximetry Oxygen Devices in Use Now: None Appearance: NAD, laying in bed Ears/Nose/Mouth/Throat: Mucous Membranes Moist Respiratory: Symmetrical Chest Expansion and Respiratory Effort, Clear to Auscultation Cardiovascular: NL Sounds; No Murmurs; No JVD, RRR Abdominal: NL Sounds; No Tenderness; No Distention Extremities: No Edema Skin: - - Dressing to right foot clean, dry and intact Neurological: Alert and Oriented x 3, NL Muscle Strength and Tone Lines/Tubes/Other Access: Clean, Dry and Intact Peripheral IV - site benign Nutrition: Taking PO's Result Diagrams: 09/24/17 05:30 09/23/17 06:03 Additional Lab and Data: Laboratory Tests 09/23/17 09/23/17 09/24/17 16:41 21:20 05:30 ESR 120 H Retic Count, Calc 0.7 Corrected Retic Count 0.4 L POC Glucose (mg/dL) 122 H 167 H Lactate Dehydrogenase 09/24/17 09/24/17 09/24/17 05:30 07:49 11:50 ESR Retic Count, Calc Corrected Retic Count POC Glucose (mg/dL) 107 H 130 H Lactate Dehydrogenase 145 Microbiology and Other Data: Microbiology 09/21/17 10:01 Foot Right Skin and Soft Tissue MRSA/MSSA (PCR - Final 09/21/17 10:01 Foot Right Gram Stain - Final Mrsa Negative S.aureus Positive 09/18/17 13:50 Foot Right Skin and Soft Tissue MRSA/MSSA (PCR - Final 09/18/17 13:50 Foot Right Wound Culture - Final Mrsa Negative S.aureus Positive Strep Dysgalactiae (Grp C) Peptostreptococcus Anaerobius Normal Anamaria 09/18/17 12:17 Blood Venous Aerobic Blood Culture - Final 09/18/17 12:17 Blood Venous Anaerobic Blood Culture - Final No Growth Day 5 No Growth Day 5 09/18/17 12:13 Blood Venous Aerobic Blood Culture - Final 09/18/17 12:13 Blood Venous Anaerobic Blood Culture - Final No Growth Day 5 No Growth Day 5 09/21/17 10:01 Wound - Right Anaerobic Culture - Preliminary Peptostreptococcus Anaerobius Prevotella Melaninogenica 09/21/17 10:01 Foot Right Wound Culture - Preliminary Staphylococcus Aureus Strep Dysgalactiae (Grp C) Assess/Plan/Problems-Billing Assessment: Mr. Olivia is a 52 yo male that was sent to the emergency room for further evaluation of right diabetic foot ulcer and fever. He was found to have osteomyelitis and polymicrobial wound infection. - Patient Problems (1) Osteomyelitis of ankle or foot, right, acute Code(s): M86.171 - OTHER ACUTE OSTEOMYELITIS, RIGHT ANKLE AND FOOT SNOMED Code (s): 557686367 Comment: - S/P R TMA 09/21/17 and S/P wash out and closure today. - Continue cetriaxone and flagyl per Dr. Lundberg's recommendation for polymicrobial infection including MSSA. (2) Hypoxia Code(s): R09.02 - HYPOXEMIA SNOMED Code(s): 306250187 Comment: - Resolved, now on room air. (3) Hyponatremia Code(s): E87.1 - HYPO-OSMOLALITY AND HYPONATREMIA SNOMED Code(s): 45030392 Comment: - Mild, will recheck labs in the AM (4) T2DM (type 2 diabetes mellitus) Comment: - BG 80-120's. - Continue lantus, glipizide, Jardiance, and Januvia. (5) CKD (chronic kidney disease) Code(s): N18.9 - CHRONIC KIDNEY DISEASE, UNSPECIFIED SNOMED Code(s): 548340135 Comment: - Stage 3 at baseline, apepars to be at baseline (6) Hyperlipidemia Code(s): E78.5 - HYPERLIPIDEMIA, UNSPECIFIED SNOMED Code(s): 62681654 Comment: - Continue atorvastatin. (7) HTN (hypertension) Code(s): I10 - ESSENTIAL (PRIMARY) HYPERTENSION SNOMED Code(s): 63765423 Comment: - SBP 130-140's. - Continue metoprolol, and amlodipine. (8) DVT prophylaxis Code(s): GDF6315 - SNOMED Code(s): 472144938 Comment: - Heparin subq (9) Full code status Code(s): Z78.9 - OTHER SPECIFIED HEALTH STATUS SNOMED Code(s): 215040705 Status and Disposition: Inpatient. Anticipate discharge to home when medically stable.
[2017-09-25] MEDS: amLODIPine TAB* 5 MG PO SCH (19:53)
[2017-09-25] MEDS: Atorvastatin* 10 MG TAB PO SCH (19:53)
[2017-09-25] MEDS: Acetaminophen TAB* 325 MG PO PRN (21:18)
[2017-09-25] MEDS: Nortriptyline CAP* 10 MG PO SCH (21:19)
[2017-09-25] MEDS: CMCS Melatonin (NF) 3 MG TAB PO PRN (21:19)
[2017-09-26] MEDS: Acetaminophen TAB* 325 MG PO PRN (02:13)
[2017-09-26] MEDS: Heparin VIAL(*) 5000 UNITS/ML VIAL (FIVE THOUSAND) SUBCUT SCH ×2 (05:40→14:00)
[2017-09-26 06:22] LABS: ABS Basophils 0 10^3/ul (0-0.2); ABS Eosinophils 0.1 10^3/ul (0-0.6); ABS Lymphocytes 1.2 10^3/ul (1.0-4.8); ABS Monocytes 1.1 10^3/ul (0-0.8); ABS Neutrophils 7.6 10^3/ul (1.5-7.7); ABS Nucleated RBC 0 10^3/ul; Eosinophil % 0.7 % (0-6); Hematocrit 24 % (42-52); Hemoglobin 7.9 g/dl (14.0-18.0); Lymphocyte % 12.1 % (25-47); Mean Corpuscular HGB Conc 33 g/dl (31-36); Mean Corpuscular Hemoglobin 28 pg (27-31); Mean Corpuscular Volume 83 fL (80-94); Mean Platelet Volume 7 um3 (7.4-10.4); Nucleated Red Blood Cells % 0.1; Platelet Count 563 10^3/ul (150-450); Red Blood Count 2.84 10^6/ul (4.0-5.4); Red Cell Distribution Width 14 % (10.5-15); White Blood Count 10.1 10^3/ul (3.5-10.8)
[2017-09-26 06:40] LABS: EGFR Non-African American 53.7 (>60)
[2017-09-26] MEDS: Insulin LISPRO* 1 UNITS UNIT SUBCUT SCH ×2 (07:59→12:10)
[2017-09-26] MEDS: glipiZIDE TAB.XL* 5 MG PO SCH (08:32)
[2017-09-26] MEDS: EMPAGLIFLOZIN 10 MG PO SCH (08:33)
[2017-09-26] MEDS: Insulin GLARGINE(*) 1 UNITS UNIT SUBCUT SCH (08:33)
[2017-09-26] MEDS: Metoprolol Succinate XL TAB* 50 MG PO SCH (08:33)
[2017-09-26] MEDS: SITAGLIPTIN 25 MG PO SCH (08:33)
[2017-09-26] MEDS: metroNIDAZOLE TAB* 250 MG PO SCH (08:33)
--- NOTE | 2017-09-26 10:18 | OP ---
DATE OF OPERATION: 09/25/17 - ROOM #447 DATE OF : 61 SURGEON: Roger Buck MD B[employer]OM CONVEYOR OPERATOR: Jaqueline Parker PA-C ANESTHESIOLOGIST: Acacia Crook MD ANESTHESIA: General PRE-OP DIAGNOSIS: Right foot chronic infection, previous transmetatarsal amputation. POST-OP DIAGNOSES: Right foot chronic infection, previous transmetatarsal amputation with basically mid tarsal amputation. OPERATIVE PROCEDURE: DESCRIPTION OF PROCEDURE: The patient was taken to the operating room where we opened up the wound where there was a previous VAC dressing. With a 10 blade, we trimmed all the skin edges back about a centimeter back to good viable soft tissue. We resected the bases of the metatarsal as well as the second cuneiform , but then with lack of skin coverage, we removed more bone back to essentially to a level. We used pulsatile lavage to thoroughly cleanse all tissues , dropped the tourniquet. There was vigorous bleeding from all aspects of the wound, which were controlled with electrocautery. We then closed with 0 Vicryl deep sutures and 2-0 Prolene for the skin and a compression dressing, plaster splint applied. [id number]/[facility] #: [id number] [facility]
[2017-09-26 12:14] VITALS: BP 155/58
--- NOTE | 2017-09-26 12:26 | PN ---
Progress Note - Progress Note Date of Service: 09/26/17 SOAP: Subjective: []Patient seen at bedside. He feels well and would like to go home. Objective: [] Assessment: [] Plan: []
[2017-09-26] MEDS ORDERED: oxyCODONE/Acetamin 5/325 MG* TAB PO PRN (14:01)
--- NOTE | 2017-09-26 14:07 | PN ---
Subjective Date of Service: 09/26/17 Interval History: Patient seen and examined at bedside. Denies fever, chills, shortness of breath , chest discomfort,N/V/D. Tele: SInus rhythm, rate 80's. Pt noted to have trigeminy. Family History: Unchanged from Admission Social History: Unchanged from Admission Past Medical History: Unchanged from Admission Objective Active Medications: Acetaminophen (Tylenol Tab*) 650 mg PO Q4H PRN Reason: FEVER/PAIN Amlodipine Besylate (Norvasc Tab*) 10 mg PO QPM [facility] Atorvastatin Calcium (Lipitor*) 10 mg PO QPM [facility] Dextrose (D50w Syringe 50 Ml*) 12.5 gm IV PUSH .FOR FS < 60 - SS PRN Reason: FS < 60 Diphenhydramine HCl (Benadryl Po*) 25 mg PO Q6H PRN Reason: PRURITIS Glipizide (Glucotrol Xl*) 10 mg PO BID [facility] Heparin Sodium (Porcine) (Heparin Vial(*)) 5,000 units SUBCUT Q8HR [facility]ONDA Heparin Sodium (Porcine) (Heparin Flush Picc/Ml/Cvc(*)) 1 ml FLUSH 0600,1800 [facility] Hydromorphone HCl (Dilaudid Inj*) 0.5 mg IV SLOW PU Q4H PRN Reason: PAIN Ceftriaxone Sodium 2 gm/ (Sodium Chloride) 100 mls @ 200 mls/hr IVPB 1800 [facility] Insulin Glargine (Lantus(*)) 20 units SUBCUT QAM [facility] Insulin Human Lispro (Humalog*) 0 units SUBCUT ACHS [facility] Melatonin (Melatonin (Nf)) 3 mg PO BEDTIME PRN Reason: SLEEP Metoprolol Succinate (Toprol Xl Tab*) 50 mg PO DAILY [facility] Metronidazole (Flagyl Tab*) 500 mg PO BID [facility] Pto Nf Med* ( Empagliflozin [ Jardiance] 10 Mg) 10 mg PO QAM [facility] Nortriptyline HCl (Pamelor Cap*) 10 mg PO BEDTIME [facility] Oxycodone/Acetaminophen (Percocet 5/325 Tab*) 2 tab PO Q4H PRN Reason: PAIN Scopolamine (Transderm-Scop 1.5 Mg Patch*) 1 patch TRANSDERM Q72H PRN Reason: Nausea/Vomiting Sitagliptin Phosphate (Januvia (Nf)) 25 mg PO QAM [facility] Vital Signs - 8 hr 09/26/17 09/26/17 09/26/17 07:28 08:00 11:11 Temperature 98.2 F 98.7 F Pulse Rate 87 80 Respiratory 18 16 20 Rate Blood Pressure 133/59 155/58 (mmHg) O2 Sat by Pulse 99 96 Oximetry Oxygen Devices in Use Now: None Appearance: NAD, laying in bed Ears/Nose/Mouth/Throat: Mucous Membranes Moist Respiratory: Symmetrical Chest Expansion and Respiratory Effort, Clear to Auscultation Cardiovascular: NL Sounds; No Murmurs; No JVD, RRR Abdominal: NL Sounds; No Tenderness; No Distention Extremities: No Edema Skin: - - Dressing to right LE clean, dry and intact Neurological: Alert and Oriented x 3, NL Muscle Strength and Tone Lines/Tubes/Other Access: Clean, Dry and Intact PICC Line - site benign Nutrition: Taking PO's Result Diagrams: 09/26/17 05:45 09/26/17 05:45 Additional Lab and Data: Laboratory Tests 09/23/17 09/23/17 09/24/17 16:41 21:20 05:30 ESR 120 H Retic Count, Calc 0.7 Corrected Retic Count 0.4 L POC Glucose (mg/dL) 122 H 167 H Lactate Dehydrogenase 09/24/17 09/24/17 09/24/17 05:30 07:49 11:50 ESR Retic Count, Calc Corrected Retic Count POC Glucose (mg/dL) 107 H 130 H Lactate Dehydrogenase 145 Microbiology and Other Data: Microbiology 09/21/17 10:01 Foot Right Skin and Soft Tissue MRSA/MSSA (PCR - Final 09/21/17 10:01 Foot Right Gram Stain - Final Mrsa Negative S.aureus Positive 09/18/17 13:50 Foot Right Skin and Soft Tissue MRSA/MSSA (PCR - Final 09/18/17 13:50 Foot Right Wound Culture - Final Mrsa Negative S.aureus Positive Strep Dysgalactiae (Grp C) Peptostreptococcus Anaerobius Normal An[place]aria 09/18/17 12:17 Blood Venous Aerobic Blood Culture - Final 09/18/17 12:17 Blood Venous Anaerobic Blood Culture - Final No Growth Day 5 No Growth Day 5 09/18/17 12:13 Blood Venous Aerobic Blood Culture - Final 09/18/17 12:13 Blood Venous Anaerobic Blood Culture - Final No Growth Day 5 No Growth Day 5 09/21/17 10:01 Wound - Right Anaerobic Culture - Preliminary Peptostreptococcus Anaerobius Prevotella Melaninogenica 09/21/17 10:01 Foot Right Wound Culture - Preliminary Staphylococcus Aureus Strep Dysgalactiae (Grp C) Assess/Plan/Problems-Billing Assessment: Mr. Olivia is a 52 yo male that was sent to the emergency room for further evaluation of right diabetic foot ulcer and fever. He was found to have osteomyelitis and polymicrobial wound infection. - Patient Problems (1) Osteomyelitis of ankle or foot, right, acute Code(s): M86.171 - OTHER ACUTE OSTEOMYELITIS, RIGHT ANKLE AND FOOT SNOMED Code (s): 533853262 Comment: - S/P R TMA 09/21/17 and S/P wash out and closure 09/25. - Continue cetriaxone and flagyl per Dr. Lundberg's recommendation for polymicrobial infection including MSSA. (2) Hypoxia Code(s): R09.02 - HYPOXEMIA SNOMED Code(s): 219116197 Comment: - Resolved, now on room air. (3) Hyponatremia Code(s): E87.1 - HYPO-OSMOLALITY AND HYPONATREMIA SNOMED Code(s): 76353514 Comment: - Mild, stable (4) Anemia Code(s): D64.9 - ANEMIA, UNSPECIFIED SNOMED Code(s): 377519916 Comment: - Iron studies pending (5) T2DM (type 2 diabetes mellitus) Comment: - BG 100-180's. - Continue lantus, glipizide, Jardiance, and Januvia. (6) CKD (chronic kidney disease) Code(s): N18.9 - CHRONIC KIDNEY DISEASE, UNSPECIFIED SNOMED Code(s): 987852862 Comment: - Stage 3 at baseline, apepars to be at baseline (7) Hyperlipidemia Code(s): E78.5 - HYPERLIPIDEMIA, UNSPECIFIED SNOMED Code(s): 52247655 Comment: - Continue atorvastatin. (8) HTN (hypertension) Code(s): I10 - ESSENTIAL (PRIMARY) HYPERTENSION SNOMED Code(s): 58534672 Comment: - SBP 130-150's. - Continue metoprolol and amlodipine. (9) DVT prophylaxis Code(s): YSJ7948 - SNOMED Code(s): 556767710 Comment: - Heparin subq (10) Full code status Code(s): Z78.9 - OTHER SPECIFIED HEALTH STATUS SNOMED Code(s): 705982909 Status and Disposition: Inpatient. Stable for discharge to home today, with 4 weeks of IV ABX.
--- NOTE | 2017-09-26 14:23 | PN ---
Progress Note - Progress Note Date of Service: 09/26/17 SOAP: Subjective: CC: right foot infection HPI: 52 year old man with R foot osteomyelitis and wound; had TMA and is recovering without complaints. No fever, rash, or diarrhea. Objective: Vital Signs Temp 37.1 C 09/26/17 11:11 Pulse 80 09/26/17 11:11 Resp 20 09/26/17 11:11 BP 155/58 09/26/17 11:11 Pulse Ox 96 09/26/17 11:11 Intake & Output 09/25/17 09/26/17 09/26/17 18:59 06:59 18:59 Intake Total 7511 552 3225 Output Total 575 725 Balance 1300 -35 475 Intake: IV Fluids 800 100 ABX - CEFTRIAXONE 100 LR 800 Oral 675 439 5980 Output: Urine 575 725 Gen:awake, no distress HEENT:PERRL, MMM Heart:RRR no murmur Lungs:CTA BL Abd:+BS NTND soft Skin: no rash MSK: R foot wrapped Laboratory Results - last 24 hr 09/24/17 09/25/17 09/25/17 05:30 13:08 16:36 WBC RBC Hgb Hct MCV MCH MCHC RDW Plt Count MPV Neut % (Auto) Lymph % (Auto) [place] % (Auto) Eos % (Auto) Baso % (Auto) Absolute Neuts (auto) Absolute Lymphs (auto) Absolute Monos (auto) Absolute Eos (auto) Absolute Basos (auto) Absolute Nucleated RBC Nucleated RBC % Haptoglobin 326 H Sodium Potassium Chloride Carbon Dioxide Anion Gap BUN Creatinine Est GFR ( Amer) Est GFR (Non-Af Amer) BUN/Creatinine Ratio Glucose POC Glucose (mg/dL) 122 H 104 H Calcium Magnesium 09/25/17 09/26/17 09/26/17 20:35 05:45 05:45 WBC 10.1 RBC 2.84 L Hgb 7.9 L Hct 24 L MCV 83 MCH 28 MCHC 33 RDW 14 Plt Count 563 H D MPV 7 L Neut % (Auto) 75.8 Lymph % (Auto) 12.1 L [place] % (Auto) 10.9 H Eos % (Auto) 0.7 Baso % (Auto) 0.5 Absolute Neuts (auto) 7.6 Absolute Lymphs (auto) 1.2 Absolute Monos (auto) 1.1 H Absolute Eos (auto) 0.1 Absolute Basos (auto) 0 Absolute Nucleated RBC 0 Nucleated RBC % 0.1 Haptoglobin Sodium 131 L Potassium 4.4 Chloride 101 Carbon Dioxide 21 L Anion Gap 9 BUN 16 Creatinine 1.38 H Est GFR ( Amer) 69.1 Est GFR (Non-Af Amer) 53.7 BUN/Creatinine Ratio 11.6 Glucose 122 H POC Glucose (mg/dL) 149 H Calcium 8.8 Magnesium 2.0 09/26/17 09/26/17 07:38 11:35 WBC RBC Hgb Hct MCV MCH MCHC RDW Plt Count MPV Neut % (Auto) Lymph % (Auto) [place] % (Auto) Eos % (Auto) Baso % (Auto) Absolute Neuts (auto) Absolute Lymphs (auto) Absolute Monos (auto) Absolute Eos (auto) Absolute Basos (auto) Absolute Nucleated RBC Nucleated RBC % Haptoglobin Sodium Potassium Chloride Carbon Dioxide Anion Gap BUN Creatinine Est GFR ( Amer) Est GFR (Non-Af Amer) BUN/Creatinine Ratio Glucose POC Glucose (mg/dL) 138 H 185 H Calcium Magnesium Assessment: 1. right 2nd metatarsal osteomyelitis, chronic s/p TMA 2. diabetes with neuropathy Plan: 1. day of ceftriaxone 2 gm daily and flagyl 500 mg po bid w weekly cbc, cmp , crp and fu with me 2 weeks 35 minutes floor time >50% face to face in counseling regarding antibiotic plans and side effects.
[2017-09-26] MEDS ORDERED: cefTRIAXone(*) 2 GM in NS 0.9% 100 ML* 100 ML IVPB SCH (14:30)
--- NOTE | 2017-09-26 15:26 | PN ---
Progress Note - Progress Note Date of Service: 09/26/17 SOAP: Subjective: []Patient seen at bedside. He has mild pain of lateral right foot. He generally feels well and desires to go home. Denies fever, chills, CP, SOB. Objective: []General: Well appearing, NAD RLE: SPlint/ Dressing CDI. No erythema or tenderness proximally Vital Signs Temp 98.7 F 09/26/17 11:11 Pulse 80 09/26/17 11:11 Resp 16 09/26/17 15:24 BP 155/58 09/26/17 11:11 Pulse Ox 96 09/26/17 11:11 Intake & Output 09/25/17 09/26/17 09/26/17 18:59 06:59 18:59 Intake Total 7382 584 6952 Output Total 575 725 Balance 1300 -35 475 Intake: IV Fluids 800 100 ABX - CEFTRIAXONE 100 LR 800 Oral 607 973 0131 Output: Urine 575 725 Laboratory Last Values WBC 10.1 10^3/ul (3.5-10.8) 09/26/17 05:45 RBC 2.84 10^6/ul (4.0-5.4) L 09/26/17 05:45 RBC (Retic) 2.83 10^6/ul (4.6-6.2) L 09/24/17 05:30 Hgb 7.9 g/dl (14.0-18.0) L 09/26/17 05:45 Hct 24 % (42-52) L 09/26/17 05:45 HCT (Retic) 23 % (42-52) L 09/24/17 05:30 MCV 83 fL (80-94) 09/26/17 05:45 MCH 28 pg (27-31) 09/26/17 05:45 MCHC 33 g/dl (31-36) 09/26/17 05:45 RDW 14 % (10.5-15) 09/26/17 05:45 Plt Count 563 10^3/ul (150-450) H D 09/26/17 05:45 MPV 7 um3 (7.4-10.4) L 09/26/17 05:45 Neut % (Auto) 75.8 % (38-83) 09/26/17 05:45 Lymph % (Auto) 12.1 % (25-47) L 09/26/17 05:45 [place] % (Auto) 10.9 % (1-9) H 09/26/17 05:45 Eos % (Auto) 0.7 % (0-6) 09/26/17 05:45 Baso % (Auto) 0.5 % (0-2) 09/26/17 05:45 Absolute Neuts (auto) 7.6 10^3/ul (1.5-7.7) 09/26/17 05:45 Absolute Lymphs (auto) 1.2 10^3/ul (1.0-4.8) 09/26/17 05:45 Absolute Monos (auto) 1.1 10^3/ul (0-0.8) H 09/26/17 05:45 Absolute Eos (auto) 0.1 10^3/ul (0-0.6) 09/26/17 05:45 Absolute Basos (auto) 0 10^3/ul (0-0.2) 09/26/17 05:45 Absolute Nucleated RBC 0 10^3/ul 09/26/17 05:45 Nucleated RBC % 0.1 09/26/17 05:45 ESR 120 mm/Hr (0-20) H 09/24/17 05:30 Retic Count, Calc 0.7 % (0.5-1.5) 09/24/17 05:30 Corrected Retic Count 0.4 % (0.5-1.5) L 09/24/17 05:30 Retic Shift Factor 2.0 09/24/17 05:30 Retic Production Index 0.20 09/24/17 05:30 Immature Retic Fraction 0.31 09/24/17 05:30 Mean Retic Volume 90.3 09/24/17 05:30 Haptoglobin 326 mg/dL (30 - 200) H 09/24/17 05:30 INR (Anticoag Therapy) 1.08 (0.77-1.02) H 09/18/17 12:13 APTT 31.2 seconds (26.0-36.3) 09/18/17 12:13 Sodium 131 mmol/L (133-145) L 09/26/17 05:45 Potassium 4.4 mmol/L (3.5-5.0) 09/26/17 05:45 Chloride 101 mmol/L (101-111) 09/26/17 05:45 Carbon Dioxide 21 mmol/L (22-32) L 09/26/17 05:45 Anion Gap 9 mmol/L (2-11) 09/26/17 05:45 BUN 16 mg/dL (6-24) 09/26/17 05:45 Creatinine 1.38 mg/dL (0.67-1.17) H 09/26/17 05:45 Est GFR ( Amer) 69.1 (>60) 09/26/17 05:45 Est GFR (Non-Af Amer) 53.7 (>60) 09/26/17 05:45 BUN/Creatinine Ratio 11.6 (8-20) 09/26/17 05:45 Glucose 122 mg/dL (70-100) H 09/26/17 05:45 POC Glucose (mg/dL) 185 mg/dL (70-100) H 09/26/17 11:35 Lactic Acid 0.6 mmol/L (0.5-2.0) 09/18/17 15:56 Calcium 8.8 mg/dL (8.6-10.3) 09/26/17 05:45 Magnesium 2.0 mg/dL (1.9-2.7) 09/26/17 05:45 Iron 19 ug/dL (50-212) L 09/25/17 04:13 TIBC 190 mcg/dL (250-450) L 09/25/17 04:13 % Saturation 10 % (15-55) L 09/25/17 04:13 Unsat Iron Binding 171 ug/dL 09/25/17 04:13 Total Bilirubin 0.50 mg/dL (0.2-1.0) 09/18/17 12:13 AST 18 U/L (13-39) 09/18/17 12:13 ALT 12 U/L (7-52) 09/18/17 12:13 Alkaline Phosphatase 93 U/L (34-104) 09/18/17 12:13 Lactate Dehydrogenase 145 U/L (140-271) 09/24/17 05:30 Total Creatine Kinase 17 U/L (10-223) 09/18/17 12:13 Troponin I 0.01 ng/mL (<0.04) 09/18/17 22:22 C-Reactive Protein 183.55 mg/L (< 5.00) H 09/23/17 06:03 B-Natriuretic Peptide 317 pg/mL (-100) H 09/18/17 12:13 Total Protein 7.3 g/dL (6.4-8.9) 09/18/17 12:13 Albumin 3.3 g/dL (3.2-5.2) 09/18/17 12:13 Globulin 4.0 g/dL (2-4) 09/18/17 12:13 Albumin/Globulin Ratio 0.8 (1-3) L 09/18/17 12:13 Vitamin B12 > 1450 pg/mL (180-914) H 09/25/17 04:13 Assessment: right 2nd metatarsal osteomyelitis, chronic s/p TMA Plan: Per ID: day of ceftriaxone 2 gm daily and flagyl 500 mg po bid with weekly cbc, cmp, crp and fu with me 2 weeks May DC when medically ready and home care set up Follow up with Dr Buck next week
--- NOTE | 2017-09-27 14:13 | DS ---
CC: Dr. Young Lundberg; Dr. Roger Buck; Dr. Akin Sexton * DISCHARGE SUMMARY: DATE OF ADMISSION: 09/18/17 DATE OF DISCHARGE: 09/26/17 ATTENDING PHYSICIAN: Dr. Shelby Pearson * (dictated by Shannen Fofana NP) PRIMARY CARE PROVIDER: Dr. Akin Sexton. PRIMARY DIAGNOSES: 1. Osteomyelitis. 2. Sepsis on admission, resolved. 3. Cellulitis of the right foot. 4. Hypertroponinemia, suspect secondary to demand ischemia. 5. Iron-deficiency anemia. SECONDARY DIAGNOSES: 1. Hypertension. 2. Hyperlipidemia. 3. Diabetes mellitus type 2. CONSULTATIONS WHILE IN THE HOSPITAL: Dr. Young Lundberg with Infectious Disease. Dr. Roger Buck with Orthopedics. PROCEDURES WHILE IN THE HOSPITAL: 1. Status post right transmetatarsal amputation, right gastrocnemius recession , placement of a wound VAC on 09/21/[address] Benavidez and Dr. Buck. 2. Status post washout and wound closure on 09/25/[address] Benavidez and Dr. Buck. STUDIES WHILE IN THE HOSPITAL: 1. Chest x-ray from 09/18/17. Radiologist impression: No acute cardiopulmonary disease. 2. Right lower extremity MRI on 09/18/17. Radiologist impression: Findings most consistent with diffuse cellulitis and osteomyelitis involving at least the distal half of the second metatarsal. No evidence for abscess. DISCHARGE MEDICATIONS: New home medications, 1. Ceftriaxone 2 g intravenous daily for 28 days. 2. Flagyl 500 mg oral twice daily for 28 days. 3. Acetaminophen 650 mg oral every 4 hours as needed for pain, do not exceed 4000 mg daily. 4. Heparin flush 1 mL flush per protocol daily. Continued home medications, 1. Glipizide 10 mg oral twice daily. 2. Nortriptyline 10 mg oral daily at bedtime. 3. Simvastatin 20 mg oral daily. 4. Metoprolol succinate 50 mg oral daily. 5. Jardiance 10 mg oral daily. 6. [place]-3 fatty acids 1000 mg oral daily. 7. Lantus insulin 20 units subcutaneous every morning. 8. Januvia 25 mg oral every morning. 9. Amlodipine 10 mg oral every evening. 10. Percocet 10/325 one tablet oral 3 to 4 times daily as needed for pain, patient may increase to 4 times daily for a few days and then has been instructed to decrease back down to his routine 3 times daily. BRIEF HISTORY OF PRESENT ILLNESS/HOSPITAL COURSE: Mr. Olivia is a 52-year-old male with past medical history significant for diabetes mellitus type 2, hypertension, chronic kidney disease stage 3, who presented to the emergency room first on 09/15/17 with complaints of fever, dizziness, nausea that he had since Monday09/11/17. 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 He reported cough and dizziness and intermittent nausea. He was seen by his primary care provider and tested negative for influenza. He reported a decreased appetite and a few episodes of diarrhea. He has reported breaking out in hot and cold sweats. He has been taking ibuprofen and Tylenol for his fever. He would also had some mild confusion per his . He denies any urinary symptoms, shortness of breath. His primary care provider advised him to present to the emergency room. While in the emergency room on Monday09/05/17, the patient had an EKG showing PVC's. He had a white count of 12.8, elevated BUN and creatinine of 33 and 2.40 respectively. He had a troponin of 0.04 and repeat troponin of 0.01. The case was discussed with hospitalist and the patient did not want to be admitted. He was informed to stop taking ibuprofen and use only Tylenol due to his kidney function. He was prescribed Zofran for his nausea and to follow up with his primary. It was felt that the patient's fever and leukocytosis was likely secondary to a viral infection. The patient continued to not feel well over the course of the week, developing fevers up to 102. He reported finally being able to get up and take a shower on Monday09/17/17 at which time he changed his foot dressing that had not been changed since the prior 09/14/17. He noticed that his appeared to be infected. He made an appointment with his physician's assistant Dr. Angelo and was referred to the emergency room. While in the emergency room, the patient was found to have a fever of 100. He was mildly tachycardiac with the heart rate of 97. He had a white blood cell count of 15.8, ESR of 119, CRP of 335.95, his renal function had slightly improved since his previous visit. He was also found to have an elevated troponin 0.08 in the setting of his chronic kidney disease with no complaints of chest pain and was felt this is likely demand ischemia. Due to the patient' s presentation and symptoms, the hospitalists were asked to evaluate the patient. During the patient's hospital stay, he was treated for the right foot cellulitis and osteomyelitis. He was seen in consultation by Dr. Young Lundberg in addition to Dr. Buck. The patient was meeting sepsis criteria on admission, suspected to be secondary to his osteomyelitis and cellulitis. He had hypertroponinemia with a troponin of 0.08. Again suspected to be secondary to demand ischemia. He had his troponin's trended. He had no significant EKG changes. During the patient's hospitalization, his creatinine had improved returning to what appears to be his baseline. He had mild hyponatremia that improved during his stay. Leukocytosis resolved. His glucoses have remained under adequate control. He was noted to be anemic. The patient underwent right transmetatarsal amputation with Dr. Buck on 09/21/17 and on 09/25/17 he underwent a washout and closure. He has continued to improve and was felt he was ready for discharge to home. It was felt that the patient would need 4 weeks of continued IV antibiotics and arrangements have been made for home antibiotics. Mr. Olivia is stable for discharge to home today. Vital signs are as follows. Temperature 98.7, heart rate 80, respiratory rate 20, O2 sat 96% on room air, blood pressure 155/58. DISCHARGE PLAN: Mr. Olivia will be discharged to home today. ACTIVITY: As tolerated. He will ambulate with the walker or crutches, nonweightbearing to the right lower extremity. For the cellulitis and osteomyelitis, the patient will be continued on ceftriaxone 2 g IV daily for 28 more days in addition to Flagyl 500 mg twice daily for 28 more days. The patient will follow up with Dr. Lundberg in 2 weeks. He has an appointment on 10/10/17 at 10:10 a.m. In addition, he has followup appointment with Dr. Buck on 10/03/17 at 10:35. The patient has been asked to keep his dressing intact and clean until his followup appointment with Dr. Buck. The patient's diabetes is well controlled on his current regime. He will be continued on his current medical regime. The patient is to follow up with his primary care provider Dr. Sexton. He has an appointment on 09/29/17 at 11 a.m. If the patient has increased pain, he has been instructed that he can increase his Percocet every 4 to 6 hours as needed for a few days and take no more than 4 tabs daily and then to resume his usual. The patient will also have weekly labs per Dr. Lundberg. Point of discussion at discharge at followup. The patient's anemia workup completed after he was discharged. His iron is 19, TIBC at 190 and percent saturation was 10, I suspect he has iron deficiency anemia and he should be started on iron supplementation if this could please be initiated at his primary care provider followup. The patient has been instructed to return to the emergency room for any chest pain, shortness of breath. This is a summarized report of a complex medical history and hospital stay. For further details, please see the entire medical record. TIME SPENT: Time for this discharge was approximately 50 minutes, greater than half of that was spent with the patient discussing discharge plans and instructions. CONDITION ON DISCHARGE: Stable. SHANNEN FOFANA NP [id number]/[facility] #: [id number] JEANNA
== END 2017-09-26 16:03 | disposition home or self-care (01) | DRG 710 ==
LOC: ED 10:09 → MEDTELE 15:11
PROVIDERS: ADMIT Hospitalist; ATTEND Internal Medicine
PROC: 02HV33Z Insertion of Infusion Device into Superior Vena Cava, Percutaneous Approach (ICD-10-PCS; 2017-09-18)
PROC: 0Y6M0Z9 Detachment at Right Foot, Partial 1st Ray, Open Approach (ICD-10-PCS; 2017-09-21)
PROC: 0Y6M0ZB Detachment at Right Foot, Partial 2nd Ray, Open Approach (ICD-10-PCS; 2017-09-21)
PROC: 0Y6M0ZC Detachment at Right Foot, Partial 3rd Ray, Open Approach (ICD-10-PCS; 2017-09-21)
PROC: 0Y6M0ZD Detachment at Right Foot, Partial 4th Ray, Open Approach (ICD-10-PCS; 2017-09-21)
PROC: 0Y6M0ZF Detachment at Right Foot, Partial 5th Ray, Open Approach (ICD-10-PCS; 2017-09-21)
PROC: 2W1SX6Z Compression of Right Foot using Pressure Dressing (ICD-10-PCS; 2017-09-21)
PROC: 0L8N0ZZ Division of Right Lower Leg Tendon, Open Approach (ICD-10-PCS; principal; 2017-09-21 08:45)
PROC: 0QBN0ZZ Excision of Right Metatarsal, Open Approach (ICD-10-PCS; 2017-09-25)
DX: A41.9 Sepsis, unspecified organism (principal); E87.1 Hypo-osmolality and hyponatremia; E11.22 Type 2 diabetes mellitus with diabetic chronic kidney disease; M86.171 Other acute osteomyelitis, right ankle and foot; L03.115 Cellulitis of right lower limb; E11.40 Type 2 diabetes mellitus with diabetic neuropathy, unspecified; L97.419 Non-pressure chronic ulcer of right heel and midfoot with unspecified severity; M86.671 Other chronic osteomyelitis, right ankle and foot; I24.8 Other forms of acute ischemic heart disease; E11.69 Type 2 diabetes mellitus with other specified complication; I12.9 Hypertensive chronic kidney disease with stage 1 through stage 4 chronic kidney disease, or unspecified chronic kidney disease; N18.3 Chronic kidney disease, stage 3 (moderate); Z89.412 Acquired absence of left great toe; Z89.422 Acquired absence of other left toe(s); Z89.431 Acquired absence of right foot; Z83.3 Family history of diabetes mellitus; Z80.8 Family history of malignant neoplasm of other organs or systems; Z87.891 Personal history of nicotine dependence; Z72.89 Other problems related to lifestyle; R74.8 Abnormal levels of other serum enzymes; M19.90 Unspecified osteoarthritis, unspecified site; F32.9 Major depressive disorder, single episode, unspecified; Z82.49 Family history of ischemic heart disease and other diseases of the circulatory system; E78.5 Hyperlipidemia, unspecified; B95.4 Other streptococcus as the cause of diseases classified elsewhere; E87.6 Hypokalemia; E11.621 Type 2 diabetes mellitus with foot ulcer; R00.8 Other abnormalities of heart beat; B95.61 Methicillin susceptible Staphylococcus aureus infection as the cause of diseases classified elsewhere; R09.02 Hypoxemia; L29.9 Pruritus, unspecified; T40.2X5A Adverse effect of other opioids, initial encounter; Y92.9 Unspecified place or not applicable; M60.9 Myositis, unspecified; M62.461 Contracture of muscle, right lower leg; D50.9 Iron deficiency anemia, unspecified; Z79.4 Long term (current) use of insulin
CPT/HCPCS: 36415; 71045; 71046; 80048; 80053; 81003; 81015; 82375; 82550; 82607; 83010; 83540; 83550; 83605; 83615; 83735; 83880; 84484; 85025; 85045; 85060; 85610; 85652; 85730; 86140; 87040; 87070; 87073; 87076; 87077; 87185; 87186; 87205; 87640; 87641; 88307; 88311; 93005; 94640; 96360; 99283; A9270-GY; C1751; J0690; J0692; J0696; J1170; J1644; J2001; J2250; J2405; J2704; J3010; J3370; J3490

== ENCOUNTER 2017-11-07 15:52 | Inpatient (IN) | payer BC ==
[2017-11-07] MEDS ORDERED: Ondansetron INJ* 2 MG/ML VIAL IV PRN (16:40)
[2017-11-07] MEDS ORDERED: diPHENhydraMINE IV* 50 MG/ML 1 ml VIAL (BENADRYL) IV PRN (16:40)
[2017-11-07] MEDS ORDERED: Acetaminophen TAB* 325 MG PO PRN (16:40)
[2017-11-07] MEDS ORDERED: oxyCODONE TAB* 5 MG TAB PO PRN (16:47)
[2017-11-07] MEDS ORDERED: Piperacillin/Tazobac ADVAN(*) 3.375 GM in NS 0.9% 100 ML* 100 ML IVPB ONE (16:51)
[2017-11-07] MEDS ORDERED: Vancomycin(*) 1,000 MG in NS 0.9% 250 ML* 250 ML IVPB SCH (16:52)
[2017-11-07] MEDS ORDERED: Zosyn per Pharmacy* NOTE FOLLOW UP SCH (17:00)
[2017-11-07 17:36] LABS: ABS Basophils 0 10^3/ul (0-0.2); ABS Eosinophils 0.2 10^3/ul (0-0.6); ABS Lymphocytes 1.3 10^3/ul (1.0-4.8); ABS Monocytes 0.6 10^3/ul (0-0.8); ABS Neutrophils 3.4 10^3/ul (1.5-7.7); ABS Nucleated RBC 0 10^3/ul; Eosinophil % 4.3 % (0-6); Hematocrit 30 % (42-52); Hemoglobin 10.4 g/dl (14.0-18.0); Lymphocyte % 22.5 % (25-47); Mean Corpuscular HGB Conc 34 g/dl (31-36); Mean Corpuscular Hemoglobin 27 pg (27-31); Mean Corpuscular Volume 79 fL (80-94); Mean Platelet Volume 7 um3 (7.4-10.4); Nucleated Red Blood Cells % 0; Platelet Count 265 10^3/ul (150-450); Red Blood Count 3.85 10^6/ul (4.0-5.4); Red Cell Distribution Width 15 % (10.5-15); White Blood Count 5.6 10^3/ul (3.5-10.8)
[2017-11-07] MEDS: Enoxaparin(*) 40 MG/0.4 ML SYR SUBCUT SCH (17:49)
[2017-11-07 17:53] LABS: EGFR Non-African American 55.5 (>60)
--- NOTE | 2017-11-07 19:12 | RAD ---
INDICATION: Right foot wound status post amputation of the forefoot September 21, 2017. Evaluate for osteomyelitis. COMPARISON: Comparison is made with a prior MRI of the right foot from September 18, 2017 and prior x-ray study of the right ankle from November 07 2017. TECHNIQUE: Axial, sagittal and coronal T1 and T2-weighted images of the right ankle were obtained. FINDINGS: There is diffuse soft tissue swelling. The patient is status post amputation of the right forefoot at the tarsal metatarsal joint. There is edema in the cuneiform, cuboid and navicular bones at the surgical site most consistent with postsurgical change and limiting evaluation for osteomyelitis. The possibility of osteomyelitis cannot be excluded. No focal fluid collection or abscess is seen. IMPRESSION: 1. SOFT TISSUE SWELLING MOST CONSISTENT WITH CELLULITIS. 2. EDEMA IN ALL OF THE TARSAL BONES ADJACENT TO THE SURGICAL SITE CONSISTENT WITH POSTSURGICAL CHANGE. THE POSSIBILITY OF OSTEOMYELITIS CANNOT BE EXCLUDED.
[2017-11-07] MEDS: oxyCODONE TAB* 5 MG TAB PO PRN (21:25)
[2017-11-07] MEDS: Nortriptyline CAP* 10 MG PO SCH (21:26)
--- NOTE | 2017-11-07 23:45 | CONS ---
CONSULTATION REPORT: DATE OF CONSULT: 11/07/17 REQUESTING PHYSICIAN: Dr. Benavidez. CONSULTING SERVICE: Infectious Disease. REASON FOR CONSULT: Right foot infection. IMPRESSION: 1. Recent transmetatarsal amputation of the right foot for chronic osteomyelitis, at that time operative cultures grew methicillin-sensitive Staphylococcus aureus, group C streptococcus, prevotella, and peptostreptococcus. He had a 4-week course of IV antibiotics, followed by 2 weeks of Keflex. Subsequently, developed a callus on the right lateral plantar midfoot, then developed swelling and redness with some serous drainage from the wound. He has cellulitis and myositis, question abscess. I think osteomyelitis is less likely given recent treatment that he had and that this maybe a secondary infection of the wound that had developed from the open callus. Alternatively it is something deeper tracking down from within the foot. 2. Diabetes with recent suboptimal control. 3. Chronic kidney disease. RECOMMENDATIONS: Zosyn 3.375 g IV every 8 hours by extended infusion. I took a swab of the superficial ulceration though it did not look itself to be particularly infected, so it may not be revealing. He has an MRI ordered by Orthopedics to look for deeper collection, osteomyelitis. HISTORY OF PRESENT ILLNESS: This is a 52-year-old man with diabetes and right transmetatarsal amputation on 09/21/17, another washout on 09/25/17. He was treated with ceftriaxone through the end of September, then transitioned to Keflex. At that time he was doing well, the metatarsal amputation incision was healed. CRP was normalized. Last week, he had developed a callus on the lateral plantar foot that then came off in the shower while he was traveling to [place]. He had started to develop swelling in the foot a few days later and some redness at the base where the callus had been and then some chills without fever, anorexia. Because of progressive swelling in the foot, he saw Dr. Benavidez today. He had also had a C- reactive protein ordered from his the last followup with me, came back today at 65. He does not have any pain. No fever or sweats today, still feels chills, no shaking chills. PAST MEDICAL HISTORY: 1. Type 2 diabetes. 2. Hypertension. 3. Chronic kidney disease. 4. Status post left great toe amputation. 5. Status post left fourth and fifth partial toe amputation. 6. Status post transmetatarsal amputation, right foot. MEDICATIONS: 1. Tylenol. 2. Enoxaparin. 3. Oxycodone. At home, he was takin. Sitagliptin. 2. Amlodipine. 3. Insulin glargine. 4. Jardiance as well. ALLERGIES: No known drug allergies. FAMILY HISTORY: No recurrent infections or tuberculosis. 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 Lives with at [place]. Recent travel to [place]. No sick contacts. REVIEW OF SYSTEMS: All negative to 14-point review of systems except as noted above. PHYSICAL EXAM: Vital Signs: Temperature is 37, heart rate is 65, respiratory rate 10, oxygen saturation 96% on room air. General: He is awake, not in distress. Neurologic: He is oriented x3. Follows all commands. He has sensation, which is decreased to light touch in both feet. HEENT: There is no conjunctival hemorrhage. Oropharynx: Without lesions. Neck: Supple without mass. Lymph Nodes: There is no cervical, supraclavicular, inguinal, axillary, or epitrochlear lymphadenopathy. Heart has regular rate and rhythm without murmurs, rubs, or gallops. Lungs are clear to auscultation bilaterally. Abdomen: Soft, nontender, nondistended. There are bowel sounds present. Skin : There is no rash or splinter hemorrhages. Musculoskeletal: The right foot transmetatarsal amputation site is healed. There is a plantar 3-cm round ulceration in the lateral foot with the small area of eschar centrally. There is no crepitus or fluctuance. There is diffuse edema throughout the foot with mild warmth. There is no expressible fluid. LABORATORY DATA: From 10/23/17, his creatinine is 1.4. White blood cell count was 5, hemoglobin 11, platelets 178. C-reactive protein today was 60. Please see impressions and recommendation as outlined above. Thank you for asking me to see Mr. Olivia in consultation. [id number]/PAM #: [id number] JEANNA
[2017-11-07] MEDS: Piperacillin/Tazobactam 13.5 GM IV 24 hour continuous infusion IVPB SCH ×2 (23:47)
[2017-11-08] MEDS: oxyCODONE TAB* 5 MG TAB PO PRN ×4 (01:55→21:18)
--- NOTE | 2017-11-08 02:39 | CONS ---
CONSULTATION REPORT: DATE OF CONSULT: 11/07/17 CONSULTING PHYSICIAN: Mane Pedersen MD REFERRING PHYSICIAN: Dr. Benavidez, Orthopedics. PRIMARY CARE PROVIDER: Akin Sexton MD PRIMARY OUTPATIENT ECHOCARDIOGRAPH TECH: Keyon Giraldo MD MATE CHIEF: Edward Berumen MD CHIEF COMPLAINT: Right forefoot ulceration with pain, erythema. HISTORY OF PRESENT ILLNESS: Mikel Olivia II is a 52-year-old male, past medical history of poorly controlled insulin-dependent diabetes mellitus type 2, hypertension, chronic kidney disease stage 3, with recent admission for osteomyelitis of the right foot for which he is status post right transmetatarsal amputation and right gastrocnemius recession on 09/21/[address] Benavidez and Dr. Buck, followed by washout and wound closure, 09/25/17. He had been discharged on Flagyl, which he completed 10 days ago, and ceftriaxone. The wound had been doing relatively well and he started to walk on it with a cane approximately 10 days ago. He had developed a sensation that something was not quite right, as if something was inflamed underneath the right distal foot, and on 10/30/17, he developed a superficial skin ulceration while he was vacationing on the [facility] and [place]. The patient noticed 7-8 pain in the foot morning of admission with erythema, inflammation, and worsening ulceration and followed with Dr. Benavidez, who referred him directly to admit with concern for rule out osteomyelitis or worsening diabetic foot ulcer. The hospitalist service was consulted for help with diabetic management. Notably in this regard, the patient has been quite insistent that he not get short-acting insulin coverage during previous hospitalizations given history, not during the last admission but the two prior hospitalizations, of hypoglycemic events for which he says he dropped down slow into the 30-60s overnight. These were quite distressing to him and he insists that he take his home oral medications or substitutes per formulary as necessary and get his long -acting insulin (Basaglar) for which he takes 20 units in the morning. Notably , his A1c is very poorly controlled at 10.1%, last on 10/25/17. He reports that his fasting morning glucose usually runs 120 to 150 and his postprandial morning checks are usually 220 to 240. He follows up with Dr. Keyon Giraldo, last seen 30 days ago approximately, and Nurse Practitioner working with Dr. Giraldo has assessed him approximately 10 days ago and reports no changes in medication have been made recently. He takes 4 different agents, Januvia, glipizide, Jardiance, and the Basaglar. The patient had MRI on admission that was unable to rule out osteomyelitis of the right foot. He has been started on Zosyn by Infectious Disease services. Notably his blood glucose on admission BMP was 297. PAST MEDICAL HISTORY: 1. Hypertension. 2. Hyperlipidemia. 3. Uncontrolled insulin-dependent diabetes mellitus type 2 (A1c 10.1% on ). 4. Iron deficiency anemia. 5. Chronic kidney disease stage 3. 6. Osteomyelitis, status post right transmetatarsal amputation of the right foot, 09/21/17. PAST SURGICAL HISTORY: 1. Left fifth toe partial amputation. 2. Transmetatarsal right foot amputation. MEDICATIONS: Home medications include: 1. Amlodipine 10 mg q.p.m. 2. Metoprolol succinate 50 mg p.o. daily. 3. Glipizide 10 mg b.i.d. 4. Jardiance 10 mg q.a.m. 5. Januvia 25 mg q.a.m. 6. Nortriptyline 20 mg q.h.s. 7. Percocet as needed for pain q.8 hours. 8. Simvastatin 20 mg q.p.m. 9. Fish oil 1000 mg oral daily. 10. Basaglar KwikPen 20 units q.a.m. ALLERGIES: No known drug allergies. FAMILY HISTORY: Father with diabetes. Mother with hematologic malignancy. SOCIAL HISTORY: Former smoker, 20-pack years, quit 1 year ago. Occasional alcohol use. 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 His medical decision maker is Tremayne Olivia, his . He desires to be full code. REVIEW OF SYSTEMS: A complete 14-point review of systems was negative except as per HPI. PHYSICAL EXAM: General: No acute distress, sitting in hospital bed. Vital Signs: Not yet recorded, other than respiratory rate of 16. HEENT: Normocephalic and atraumatic. Pupils are equal, round, and reactive to light. Extraocular motions intact. Neck: Supple. No cervical lymphadenopathy. Moist mucous membranes. No scleral icterus. Pulmonary: Clear to auscultation bilaterally with no wheezing, rales or rhonchi. Cardiovascular: Regular rate and rhythm. No murmurs, rubs, or gallops. Abdomen: Soft, nontender, nondistended. No peritoneal signs. No rebound, no guarding. Extremities: Left second toe with 8 mm diameter ulceration distally. No erythema or drainage or foul smell. Right foot status post transmetatarsal amputation, distal plantar portion with approximately 4 to 5 cm diameter skin ulceration with central 2.5 cm diameter white appearing ulcer. Surrounding erythema, no compa drainage. Skin: Otherwise, no lesions or rashes other than as per extremities. Neuro: Moving all extremities. Cranial nerves II through XII intact. Following commands. Oriented x3. DIAGNOSTIC STUDIES/LAB DATA: Labs: White count 5.6, hemoglobin 10.4, hematocrit 30, platelets 265, MCV 79, ESR 86. Sodium 132, potassium 4.3, chloride 99, carbon dioxide 26, BUN 12, creatinine 1.34, glucose 297. Imaging: Lower extremity MRI demonstrates soft tissue swelling, most consistent with cellulitis, edema in all of the tarsal bones adjacent to the surgical site consistent with postsurgical changes, possibility of osteomyelitis could not be excluded. ASSESSMENT AND PLAN: Mikel Olivia is a 52-year-old male with poorly controlled insulin-dependent diabetes, presenting with a diabetic foot ulcer. We were consulted to help manage the diabetes, but he is notably resistant to many of the typical interventions. He would like to continue his Januvia, glipizide and Jardiance or get reasonable formulary adjustments versus take his own if he provides them, along with long-acting 20 units of Lantus each morning. He is willing to undergo fingersticks, and MAYBE in the future would be willing to get some small doses of short-term insulin coverage during the day only, but definitely not at night. This may be the best compromise we can provide for him , given his history of severe hypoglycemic events in the past. We will hope to add on this, start low and slowly titrate up lispro coverage tomorrow morning, and add on q.a.c. glucose checks tonight. For his hypertension, we will continue his metoprolol succinate 50 mg daily and amlodipine 10 mg. For his diabetic foot wound, Infectious Disease is onboard and has started Zosyn. The patient is tentatively scheduled for OR time on if needs debridement. He is a full code. His medical surrogate is his , Tremayne Olivia. Thank you for this interesting consult. We will follow along and try to help manage his diabetes mellitus as best we can, given his firm insistence on certain management strategies. [id number]/[facility] #: [id number] JEANNA
[2017-11-08] MEDS ORDERED: Insulin GLARGINE(*) 1 UNITS UNIT SUBCUT SCH (08:00)
[2017-11-08] MEDS: Metoprolol Succinate XL TAB* 50 MG PO SCH (08:33)
[2017-11-08] MEDS ORDERED: SITAGLIPTIN 25 MG PO SCH (09:00)
[2017-11-08] MEDS ORDERED: EMPAGLIFLOZIN 10 MG PO SCH (09:00)
[2017-11-08] MEDS ORDERED: Buffered Lidocaine 0.9% SYRIN* 5 ML/SYR SYRINGE INTRADERM ONE (13:09)
--- NOTE | 2017-11-08 14:35 | HP ---
H&P (Free Text) History and Physical: 11/07/17 Orthopedics H&P Chief Complaint: Right foot pain. History: Mikel is a 52 male who underwent right foot amputation and Kati by me on 09/21/17. He had a subsequent debridement with secondary closure by Dr. Buck on 09/25/17. Mikel comes in today for a new problem. He reports that over the last few days he noticed a large flap of skin to the plantar aspect of his foot that opened up and started bleeding. He has developed a new ulcer. He is also noticed increased swelling and redness throughout the lower leg. He is only on oral antibiotics at this point. He has not had any fevers or chills The pain is located at the plantar right foot and is daily, moderate, burning. Pain worse with weightbearing and lessened when at rest. There is moderate associated swelling and no ecchymosis. No smoking or h/o VTE Review of Systems: Negative for fever, recent visual changes, difficulty swallowing, chest pain, shortness of breath, abdominal pain, hematuria, easy bruising, diffuse weakness or lack of coordination, and diffuse rash. Past medical history: Diabetes, hypertension, hyperlipidemia, prior foot infections Past surgical history: As above Medications: Cephalexin, glipizide, amlodipine, jardiance, simvastatin, nortriptyline, metoprolol, Januvia, Lantus, aspirin No known drug allergies. No latex allergy. Social history: Does not smoke. Roughly 2 alcoholic drink per week at baseline. Currently working. Family history: Noncontributory Physical Examination: Constitutional: Ht: 74" Pulse: 98 BP: 126/76 Resp: 16 T: 98.1 Pain Level: 3 General appearance is healthy and non-septic in no acute distress. Cardiovascular: Pulse examination demonstrates positive pedal pulses with brisk capillary refill. There are no varicosities. Her with a regular rate and rhythm. Lungs sounds clear to auscultation bilaterally. Abdomen: Soft and nontender Skin: Bilateral upper and left lower extremity examination demonstrates no ulcerative lesions. Psychiatric / Neurological: Appropriate affect. Alert and oriented to person, place and time. There is no significant abnormality in coordination appreciated. Musculoskeletal: Gait analysis reveals antalgic gait favoring the right. Exam standing reveals neutral hindfoot alignment. Sitting, there is 5/5 motor strength and intact light touch sensation. There is mild global swelling throughout the foot and ankle, there is no edema, or varicosities. The patient has a large, round, shallow ulceration to the plantar aspect of the right foot. There is associated erythema throughout the foot and ankle as well The skin and nails are normal to inspection/palpation without evidence of RSD or lymphadenopathy. Ankle ROM is limited. Ankle lili on anterior drawer testing. There is tenderness at the plantar right foot. The peroneals have 5/5 motor and are reduced and stable. There is no bony tenderness with careful palpation of the knee, proximal fibula , ankle, Negative Tinel test over superficial peroneal nerve. Studies: X-rays were ordered, obtained, and independently interpreted and show the patient to be status post transtarsal amputation. Impression and Plan: Right foot ulcer with cellulitis. The nature of the diagnosis and prognosis were reviewed. At this point I have recommended that the patient be admitted to [facility] for IV antibiotics, vascular consult and MRI of the right foot. It was discussed with the patient and his that he would likely need a Minimum irrigation and debridement of the right foot ulcer with possible VAC placement. It was also discussed that if the infection is more extensive than his exam shows today he may eventually need a [id number] amputation. We will plan on surgery . All questions were answered. Michael Benavidez MD
--- NOTE | 2017-11-08 16:08 | PN ---
Progress Note - Progress Note Date of Service: 11/08/17 SOAP: Subjective: []Patient seen at bedside. He feels well, denying fever or chills. No right foot pain currently. Objective: [] Vital Signs Temp 98.5 F 11/09/17 07:51 Pulse 78 11/09/17 07:51 Resp 16 11/09/17 09:03 BP 131/73 11/09/17 07:51 Pulse Ox 96 11/09/17 07:51 Intake & Output 11/08/17 11/09/17 11/09/17 18:59 06:59 18:59 Intake Total 1691 1059 Output Total 1700 3175 500 Balance -9 -2115 -500 Weight 204 lb 14.362 oz Intake: IV Fluids 991 339 ABX - ZOSYN 151 339 LR 840 Oral 700 720 Output: Urine 1700 3175 500 Laboratory Last Values WBC 5.6 10^3/ul (3.5-10.8) 11/07/17 17:27 RBC 3.85 10^6/ul (4.0-5.4) L 11/07/17 17:27 Hgb 10.4 g/dl (14.0-18.0) L 11/07/17 17:27 Hct 30 % (42-52) L 11/07/17 17:27 MCV 79 fL (80-94) L 11/07/17 17:27 MCH 27 pg (27-31) 11/07/17 17:27 MCHC 34 g/dl (31-36) 11/07/17 17:27 RDW 15 % (10.5-15) 11/07/17 17:27 Plt Count 265 10^3/ul (150-450) 11/07/17 17:27 MPV 7 um3 (7.4-10.4) L 11/07/17 17:27 Neut % (Auto) 61.4 % (38-83) 11/07/17 17:27 Lymph % (Auto) 22.5 % (25-47) L 11/07/17 17:27 Levy % (Auto) 11.2 % (0-7) H 11/07/17 17:27 Eos % (Auto) 4.3 % (0-6) 11/07/17 17:27 Baso % (Auto) 0.6 % (0-2) 11/07/17: Absolute Neuts (auto) 3.4 10^3/ul (1.5-7.7) 11/07/17: Absolute Lymphs (auto) 1.3 10^3/ul (1.0-4.8) 11/07/17 17: Absolute Monos (auto) 0.6 10^3/ul (0-0.8) 11/07/17: Absolute Eos (auto) 0.2 10^3/ul (0-0.6) 11/07/17: Absolute Basos (auto) 0 10^3/ul (0-0.2) 11/07/17: Absolute Nucleated RBC 0 10^3/ul 11/07/17 Nucleated RBC % 0 11/07/17: ESR 86 mm/Hr (0-20) H 11/07/17: Sodium 132 mmol/L (133-145) L 11/07/17: Potassium 4.3 mmol/L (3.5-5.0) 11/07/17: Chloride 99 mmol/L (101-111) L 11/07/17: Carbon Dioxide 26 mmol/L (22-32) 11/07/17: Anion Gap 7 mmol/L (2-11) 11/07/17: BUN 12 mg/dL (6-24) 11/07/17: Creatinine 1.34 mg/dL (0.67-1.17) H 11/07/17: Est GFR ( Amer) 71.4 (>60) 11/07/17: Est GFR (Non-Af Amer) 55.5 (>60) 11/07/17: BUN/Creatinine Ratio 9.0 (8-20) 11/07/17: Glucose 297 mg/dL (70-100) H 11/07/17: POC Glucose (mg/dL) 71 mg/dL (70-100) 11/08/17 17: Calcium 9.5 mg/dL (8.6-10.3) 11/07/17 17: General: Well appearing, NAD, laying comfortably in bed. Right foot plantar surface with large shallow ulceration with purulence. Roughly 6x6x0.5 cm in size. Very minimal surrounding erythema and no edema of foot or lower leg. Lacks sensation distally. Assessment: []Right foot ulcer and cellulitis Plan: []NPO 11/09 for I&D/ vac placement Continue Zosyn per ID
--- NOTE | 2017-11-08 16:12 | PN ---
Subjective Date of Service: 11/08/17 Interval History: Some burning pain in right foot. denies other complaints. BG well controlled, 120s Objective Active Medications: Acetaminophen (Tylenol Tab*) 650 mg PO Q6H PRN PRN Reason: PAIN OR TEMPERATURE Amlodipine Besylate (Norvasc Tab*) 10 mg PO QPM [facility] Citric Acid/Sodium Citrate (Bicitra*) 15 ml PO ONCE ONE Stop: 11/09/17 06:01 Diphenhydramine HCl (Benadryl Iv*) 25 mg IV Q6H PRN PRN Reason: PRURITIS Enoxaparin Sodium (Lovenox(*)) 40 mg SUBCUT Q24H [facility] Last Admin: 11/07/17 17:49 Dose: 40 mg Glipizide (Glucotrol Xl*) 10 mg PO BID [facility] Heparin Sodium (Porcine) (Heparin Flush Picc/Ml/Cvc(*)) 1 ml FLUSH 0600,1800 [facility] PRN Reason: Protocol Piperacillin Sod/Tazobactam (Sod 13.5 gm/ Sodium Chloride) 500 mls @ 20.833 mls /hr IVPB Q24H [facility] Last Admin: 11/07/17 23:47 Dose: 20.833 mls/hr Lactated Ringer's (Lactated Ringers 1000 Ml Bag*) 1,000 mls @ 125 mls/hr IV PER RATE [facility] Insulin Glargine (Lantus(*)) 20 units SUBCUT Q24H [facility] Last Admin: 11/08/17 08:35 Dose: 20 unit Metoprolol Succinate (Toprol Xl Tab*) 50 mg PO DAILY [facility] Last Admin: 11/08/17 08:33 Dose: 50 mg Pto: (Empagliflozin ([Jardiance] 10 Mg)) 10 mg PO QAM [facility] Last Admin: 11/08/17 08:35 Dose: 10 mg Nortriptyline HCl (Pamelor Cap*) 10 mg PO BEDTIME [facility] Last Admin: 11/07/17 21:26 Dose: 10 mg Ondansetron HCl (Zofran Inj*) 4 mg IV Q6H PRN PRN Reason: NAUSEA Oxycodone HCl (Roxycodone Tab*) 5 mg PO Q4H PRN PRN Reason: PAIN - MODERATE Oxycodone HCl (Roxycodone Tab*) 10 mg PO Q4H PRN PRN Reason: PAIN - SEVERE Last Admin: 11/08/17 12:21 Dose: 10 mg Pharmacy Consult (Zosyn Per Pharmacy*) 1 note FOLLOW UP .ZOSYN PER PHARMACY RHONDA Sitagliptin Phosphate (Januvia (Nf)) 25 mg PO QAM [facility] PRN Reason: Protocol Last Admin: 11/08/17 08:34 Dose: 25 mg Vital Signs - 8 hr 11/08/17 11/08/17 11/08/17 08:34 08:51 11:17 Temperature Pulse Rate Respiratory 16 16 18 Rate Blood Pressure (mmHg) O2 Sat by Pulse Oximetry 11/08/17 11/08/17 11:46 12:21 Temperature 97.6 F Pulse Rate 72 Respiratory 16 16 Rate Blood Pressure 138/71 (mmHg) O2 Sat by Pulse 97 Oximetry Oxygen Devices in Use Now: None Appearance: NAD Eyes: No Scleral Icterus, PERRLA Ears/Nose/Mouth/Throat: NL Teeth, Lips, Gums, Mucous Membranes Moist Respiratory: Symmetrical Chest Expansion and Respiratory Effort, Clear to Auscultation Cardiovascular: NL Sounds; No Murmurs; No JVD, RRR Abdominal: NL Sounds; No Tenderness; No Distention, No Hepatosplenomegaly Extremities: - - trace edema b/l Skin: - - yellow strikethru on gauze wrap right foot. Neurological: Alert and Oriented x 3, NL Sensation, NL Muscle Strength and Tone Result Diagrams: 11/07/17 17:27 11/07/17 17:27 Additional Lab and Data: Laboratory Results - last 24 hr 11/07/17 11/07/17 11/08/17 17:27 17:27 08:00 WBC 5.6 RBC 3.85 L Hgb 10.4 L Hct 30 L MCV 79 L MCH 27 MCHC 34 RDW 15 Plt Count 265 MPV 7 L Neut % (Auto) 61.4 Lymph % (Auto) 22.5 L [place] % (Auto) 11.2 H Eos % (Auto) 4.3 Baso % (Auto) 0.6 Absolute Neuts (auto) 3.4 Absolute Lymphs (auto) 1.3 Absolute Monos (auto) 0.6 Absolute Eos (auto) 0.2 Absolute Basos (auto) 0 Absolute Nucleated RBC 0 Nucleated RBC % 0 ESR 86 H Sodium 132 L Potassium 4.3 Chloride 99 L Carbon Dioxide 26 Anion Gap 7 BUN 12 Creatinine 1.34 H Est GFR ( Amer) 71.4 Est GFR (Non-Af Amer) 55.5 BUN/Creatinine Ratio 9.0 Glucose 297 H POC Glucose (mg/dL) 121 H Calcium 9.5 11/08/17 11/08/17 11:49 15:01 WBC RBC Hgb Hct MCV MCH MCHC RDW Plt Count MPV Neut % (Auto) Lymph % (Auto) [place] % (Auto) Eos % (Auto) Baso % (Auto) Absolute Neuts (auto) Absolute Lymphs (auto) Absolute Monos (auto) Absolute Eos (auto) Absolute Basos (auto) Absolute Nucleated RBC Nucleated RBC % ESR Sodium Potassium Chloride Carbon Dioxide Anion Gap BUN Creatinine Est GFR ( Amer) Est GFR (Non-Af Amer) BUN/Creatinine Ratio Glucose POC Glucose (mg/dL) 128 H 95 Calcium Microbiology and Other Data: Microbiology 11/07/17 17:00 Skin and Soft Tissue MRSA/MSSA (PCR - Final Foot Right Mrsa Negative S.aureus Positive Gram Stain - Final Wound Culture - Preliminary Acinetobacter Baumannii Complx Assess/Plan/Problems-Billing Assessment: 52 yo male H poorly controlled IDDM, diabetic foot ulcers/OM s/p right TMA Aug 2017 presenting with ulceration, pain, erythema. Planned OR for debridement 11/09. Medicine consulted to help manage diabetes. - Patient Problems (1) T2DM (type 2 diabetes mellitus) Current Visit: No Status: Chronic Priority: Medium Comment: - Continue lantus 20U, glipizide, Jardiance, and Januvia. - POC qac - pt deeply resistent to any short acting coverage (2) Diabetic foot ulcer Current Visit: Yes Status: Acute Code(s): E11.621 - TYPE 2 DIABETES MELLITUS WITH FOOT ULCER; L97.509 - NON-PRESSURE CHRONIC ULCER OTH PRT UNSP FOOT W UNSP SEVERITY SNOMED Code(s): 834753345 Comment: Plan for OR 11/09 zosyn per ID MRI could not rule out OM. (3) CKD (chronic kidney disease) Current Visit: No Status: Acute Code(s): N18.9 - CHRONIC KIDNEY DISEASE, UNSPECIFIED SNOMED Code(s): 338797243 Comment: - Stage 3 and at baseline (4) Cellulitis Current Visit: No Status: Acute Code(s): L03.90 - CELLULITIS, UNSPECIFIED SNOMED Code(s): 456163572 Comment: aakash per ID. Had been getting ceftriaxone via PICC since discharge. (5) DVT prophylaxis Current Visit: No Status: Acute Priority: Low Code(s): MRM1529 - SNOMED Code(s): 682632673 Comment: per ortho - lovenox (6) Hyperlipidemia Current Visit: No Status: Chronic Code(s): E78.5 - HYPERLIPIDEMIA, UNSPECIFIED SNOMED Code(s): 71211702 Comment: - Continue simvastatin. Status and Disposition: ortho service. medicine consulting.
[2017-11-08] MEDS: amLODIPine TAB* 5 MG PO SCH (17:57)
[2017-11-08] MEDS: Atorvastatin* 10 MG TAB PO SCH (17:57)
[2017-11-08] MEDS: Enoxaparin(*) 40 MG/0.4 ML SYR SUBCUT SCH (17:58)
[2017-11-08] MEDS ORDERED: glipiZIDE TAB.XL* 5 MG PO SCH (21:00)
[2017-11-08] MEDS: Nortriptyline CAP* 10 MG PO SCH (21:18)
[2017-11-08] MEDS ORDERED: Polyethylene Glycol 3350* 17 GM PACKET PO PRN (22:09)
[2017-11-08] MEDS: Piperacillin/Tazobactam 13.5 GM IV 24 hour continuous infusion IVPB SCH ×2 (23:29)
[2017-11-08] MEDS: Docusate CAP* 100 MG PO SCH (23:29)
[2017-11-09] MEDS ORDERED: Sodium Citrate/Citric Acid* 15 ML UDC PO ONE (06:00)
[2017-11-09] MEDS: Docusate CAP* 100 MG PO SCH ×2 (08:50→21:11)
[2017-11-09] MEDS: Metoprolol Succinate XL TAB* 50 MG PO SCH (08:50)
[2017-11-09] MEDS: oxyCODONE TAB* 5 MG TAB PO PRN ×3 (08:50→21:11)
[2017-11-09] MEDS: Insulin GLARGINE(*) 1 UNITS UNIT SUBCUT SCH (08:54)
[2017-11-09] MEDS ORDERED: Sodium Citrate/Citric Acid* 15 ML UDC ONE (10:44)
[2017-11-09] MEDS ORDERED: ceFAZolin 2 GM (*##) 2 GM/100 ML BAG USE CEFA2SOL IVPB ONE (11:43)
[2017-11-09] MEDS ORDERED: Bupivacaine 0.25% SDV* 30 ML ONE (11:56)
[2017-11-09] MEDS ORDERED: Propofol* 10 MG/ML 20 ML BTL IV PUSH ONE (12:21)
[2017-11-09] MEDS ORDERED: Lidocaine 2% PF * 5 ML VIAL ONE (12:29)
[2017-11-09] MEDS ORDERED: Naloxone* 0.4 MG/ML 1 ML VIAL IV PRN (12:52)
[2017-11-09] MEDS ORDERED: fentaNYL* 50 MCG/ML 2 ML VIAL (100 MCG VIAL) IV PRN (12:52)
[2017-11-09] MEDS ORDERED: Phenylephrine INJ* 10 MG/ML 1 ML VIAL (10 MG) ONE (13:14)
[2017-11-09] MEDS ORDERED: fentaNYL* 50 MCG/ML 2 ML VIAL (100 MCG VIAL) ONE (13:33)
--- NOTE | 2017-11-09 14:35 | OP ---
Operative Report - Blank - Operative Report Date of Operation: 11/09/17 Note: PATIENT: Mikel Olivia II DATE OF : 61 DATE OF SURGERY: 11/09/17 SURGEON: Michael Benavidez MD BONE CHAR PULLER: DHEERAJ Simms, whos assistance was necessary for positioning, retraction, help with instrumentation, and closure. ANESTHESIOLOGIST: Dr. Soler PREOPERATIVE DIAGNOSIS: Right diabetic foot ulcer with infection POSTOPERATIVE DIAGNOSIS: Right diabetic foot ulcer with infection OPERATION: 1. Right foot deep irrigation and debridement 2. Right cuboid bone deep bone biopsy 3. Right foot placement of wound VAC ANESTHESIA: GETA IMPLANTS: none TOURNIQUET TIME: Less than1 hour with an ankle esmarch tourniquet SPECIMENS: Culture swabs to microbiology. Deep bone biopsy to microbiology. ESTIMATED BLOOD LOSS: minimal COMPLICATIONS: none STATUS: Stable from the operating room to the recovery room and then back to the hospital floor. 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 Both operative and non operative treatment alternatives were reviewed. Further, the nature and risks of surgery were reviewed in careful detail. Our discussions regarding the risks of surgery included, but were not limited to, infection, wound problems, nerve injury, neuroma, RSD, persistent symptoms, blood clot, persistent or worsening infection, phantom limb pain, failure of the surgery, need for further amputation, and even the remote chance of catastrophic complication, including loss of limb. DESCRIPTION OF PROCEDURE: The patient was seen in the preoperative holding unit and informed written consent was obtained. The appropriate extremity was marked. The patient was then brought to the operating room and carefully positioned on the operating room table. Anesthesia was induced. All bony prominences were padded with great care. A chlorhexidine based pre-scrub was performed followed by a chloraprep prep and drape in standard sterile fashion. A surgical safety pause was then conducted in which we confirmed the appropriate patient, extremity, planned procedure, availability of equipment, indication and administration of prophylactic antibiotics, and DVT prophylaxis in the form of a compression boot on the non-surgical extremity. We placed an ankle esmarch tourniquet. I excised the plantar ulcer. Underneath the ulcer, there was necrotic tissue. This was sharply debrided with a scalpel and then a rongeur back to viable tissue. This sharp debridement included the subcutaneous tissue, fascia, muscle, down to the level of bone. The size of the wound was 3 cm in length, 2 cm in width, 1.5 cm in depth. Deep culture swabs were taken and sent to microbiology. The was area that tunneled medially to the medial foot. I tracked this up and made a 3 cm incision over the medial foot. No purulence was encountered at the medial foot. The plantar foot wound was then copiously irrigated with normal saline and cystoscopy tubing. Afterwards, he was reevaluated, and the remaining tissue appeared to be healthy and viable. At this time, I dissected down to the cuboid bone. I used a bone marrow biopsy trocar to perform a deep bone biopsy of the cuboid. This was sent to microbiology as well. At this point, the tourniquet was deflated. Hemostasis was obtained. We irrigated copiously. All remain tissue appeared healthy and viable. We closed the medial incision meticulously in layers utilizing 3-0 Monocryl for the subdermal layer, and 3-0 nylon for the skin. There were no bony prominences appreciated beneath the skin after closure. I placed a vacuum-assisted wound dressing into the plantar wound that measured 3 cm in length, 2 cm in width, and 1.5 cm in depth. This had excellent suction. A sterile dressing was then applied. The patient was then awakened from anesthesia and transferred to the recovery room in stable condition. There were no complications. All needle and sponge counts were correct at the end of the case. ATTESTATION: I attest I was present and scrubbed and performed the critical portions of the procedure myself. POSTOPERATIVE PLAN: The patient will remain [id number] with VAC changes every 3 days. I will see him back in 1 week. Antibiotic treatment will be guided by the infectious disease service.
[2017-11-09] MEDS: Enoxaparin(*) 40 MG/0.4 ML SYR SUBCUT SCH (17:09)
[2017-11-09] MEDS: amLODIPine TAB* 5 MG PO SCH (17:10)
[2017-11-09] MEDS: Atorvastatin* 10 MG TAB PO SCH (17:10)
--- NOTE | 2017-11-09 18:21 | PN ---
Subjective Date of Service: 11/09/17 Interval History: s/p OR. wound vac in place. s/p cuboid bone biopsy. Tissue with Actineobacter Baumanii improved sensation in left foot. BG 158, 148. plan for home tomorrow. Objective Active Medications: Acetaminophen (Tylenol Tab*) 650 mg PO Q6H PRN PRN Reason: PAIN OR TEMPERATURE Amlodipine Besylate (Norvasc Tab*) 10 mg PO QPM [facility] Last Admin: 11/09/17 17:10 Dose: 10 mg Atorvastatin Calcium (Lipitor*) 10 mg PO QPM [facility] Last Admin: 11/09/17 17:10 Dose: 10 mg Diphenhydramine HCl (Benadryl Iv*) 25 mg IV Q6H PRN PRN Reason: PRURITIS Docusate Sodium (Colace Cap*) 200 mg PO BID [facility] Last Admin: 11/09/17 08:50 Dose: 200 mg Enoxaparin Sodium (Lovenox(*)) 40 mg SUBCUT Q24H [facility] Last Admin: 11/09/17 17:09 Dose: 40 mg Heparin Sodium (Porcine) (Heparin Flush Picc/Ml/Cvc(*)) 1 ml FLUSH 0600,1800 [facility] PRN Reason: Protocol Last Admin: 11/09/17 16:59 Dose: Not Given Piperacillin Sod/Tazobactam (Sod 13.5 gm/ Sodium Chloride) 500 mls @ 20.833 mls /hr IVPB Q24H [facility] Last Admin: 11/08/17 23:29 Dose: 20.833 mls/hr Insulin Glargine (Lantus(*)) 10 units SUBCUT Q24H [facility] Last Admin: 11/09/17 08:54 Dose: 10 units Metoprolol Succinate (Toprol Xl Tab*) 50 mg PO DAILY [facility] Last Admin: 11/09/17 08:50 Dose: 50 mg Naloxone HCl (Narcan*) 0.08 mg IV Q2M PRN PRN Reason: severe induced resp depression Stop: 11/10/17 12:51 Pto Nf Med* ( Empagliflozin [ Jardiance] 10 Mg) 10 mg PO QAM [facility] Nortriptyline HCl (Pamelor Cap*) 10 mg PO BEDTIME [facility] Last Admin: 11/08/17 21:18 Dose: 10 mg Ondansetron HCl (Zofran Inj*) 4 mg IV Q6H PRN PRN Reason: NAUSEA Oxycodone HCl (Roxycodone Tab*) 5 mg PO Q4H PRN PRN Reason: PAIN - MODERATE Oxycodone HCl (Roxycodone Tab*) 10 mg PO Q4H PRN PRN Reason: PAIN - SEVERE Last Admin: 11/09/17 15:19 Dose: 10 mg Pharmacy Consult (Zosyn Per Pharmacy*) 1 note FOLLOW UP .ZOSYN PER PHARMACY [facility] Polyethylene Glycol/Electrolytes (Miralax*) 17 gm PO DAILY PRN PRN Reason: CONSTIPATION Sitagliptin Phosphate (Januvia (Nf)) 25 mg PO QAM [facility] PRN Reason: Protocol Vital Signs - 8 hr 11/09/17 11/09/17 11/09/17 10:38 13:19 13:20 Temperature 98.8 F Pulse Rate 71 71 Respiratory 16 14 13 Rate Blood Pressure 127/74 129/72 (mmHg) O2 Sat by Pulse 99 99 Oximetry 11/09/17 11/09/17 11/09/17 13:25 13:30 13:34 Temperature Pulse Rate 70 69 Respiratory 11 12 15 Rate Blood Pressure 131/72 132/73 (mmHg) O2 Sat by Pulse 99 99 Oximetry 11/09/17 11/09/17 11/09/17 13:45 14:00 14:15 Temperature Pulse Rate 68 67 68 Respiratory 14 14 9 Rate Blood Pressure 133/72 138/72 137/75 (mmHg) O2 Sat by Pulse 98 98 97 Oximetry 11/09/17 11/09/17 11/09/17 15:01 15:06 15:12 Temperature 98.7 F Pulse Rate 70 70 Respiratory 16 17 17 Rate Blood Pressure 141/76 141/76 (mmHg) O2 Sat by Pulse 99 99 Oximetry 11/09/17 11/09/17 11/09/17 15:19 15:53 17:13 Temperature 97.0 F Pulse Rate 76 Respiratory 16 18 16 Rate Blood Pressure 138/82 (mmHg) O2 Sat by Pulse 100 Oximetry Oxygen Devices in Use Now: None Appearance: NAD Eyes: No Scleral Icterus, PERRLA Ears/Nose/Mouth/Throat: NL Teeth, Lips, Gums, Mucous Membranes Moist Respiratory: Symmetrical Chest Expansion and Respiratory Effort, Clear to Auscultation Cardiovascular: NL Sounds; No Murmurs; No JVD, RRR Abdominal: NL Sounds; No Tenderness; No Distention, No Hepatosplenomegaly Extremities: No Edema, No Clubbing, Cyanosis, - - s/p right TMA and now I&D with wound vac with serosanguinous drainage. otherwise bandaged. Neurological: Alert and Oriented x 3, NL Muscle Strength and Tone Nutrition: Taking PO's Result Diagrams: 11/07/17 17:27 11/07/17 17:27 Additional Lab and Data: Laboratory Results - last 24 hr 11/09/17 11/09/17 10:54 13:31 POC Glucose (mg/dL) 148 H 130 H Microbiology and Other Data: Microbiology 11/07/17 17:00 Foot Right Skin and Soft Tissue MRSA/MSSA (PCR - Final Mrsa Negative S.aureus Positive 11/07/17 17:00 Foot Right Gram Stain - Final 11/07/17 17:00 Foot Right Wound Culture - Preliminary Acinetobacter Baumannii Complx 11/09/17 12:45 Foot Right Gram Stain - Final 11/09/17 12:45 Tissue - Other Wound Gram Stain - Final Assess/Plan/Problems-Billing Assessment: 52 yo male H poorly controlled IDDM, diabetic foot ulcers/OM s/p right TMA Aug 2017 presenting with ulceration, pain, erythema. s/p OR 11/09 debridement and cubital bone biopsy. Medicine consulted to help manage diabetes. - Patient Problems (1) T2DM (type 2 diabetes mellitus) Current Visit: No Status: Chronic Priority: Medium Comment: - got lantus 10U this AM (half dose), hold glipizide, restart Jardiance, and restart Januvia. - POC qac - pt deeply resistent to any short acting coverage (2) Diabetic foot ulcer Current Visit: Yes Status: Acute Code(s): E11.621 - TYPE 2 DIABETES MELLITUS WITH FOOT ULCER; L97.509 - NON-PRESSURE CHRONIC ULCER OTH PRT UNSP FOOT W UNSP SEVERITY SNOMED Code(s): 135395574 Comment: s/p OR 11/09 zosyn per ID. f/u bone biopsy. Acinetobacter Baumanii. (3) CKD (chronic kidney disease) Current Visit: No Status: Acute Code(s): N18.9 - CHRONIC KIDNEY DISEASE, UNSPECIFIED SNOMED Code(s): 284428898 Comment: - Stage 3 and at baseline (4) Cellulitis Current Visit: No Status: Acute Code(s): L03.90 - CELLULITIS, UNSPECIFIED SNOMED Code(s): 663471288 Comment: [email or web address] per ID. Had been getting ceftriaxone via PICC since discharge. (5) DVT prophylaxis Current Visit: No Status: Acute Priority: Low Code(s): NWF8041 - SNOMED Code(s): 584101752 Comment: per ortho - lovenox (6) Hyperlipidemia Current Visit: No Status: Chronic Code(s): E78.5 - HYPERLIPIDEMIA, UNSPECIFIED SNOMED Code(s): 89003968 Comment: - Continue simvastatin. Status and Disposition: ortho service. medicine consulting.
[2017-11-09] MEDS: Nortriptyline CAP* 10 MG PO SCH (21:11)
[2017-11-09] MEDS: Piperacillin/Tazobactam 13.5 GM IV 24 hour continuous infusion IVPB SCH ×2 (23:32)
[2017-11-10] MEDS: oxyCODONE TAB* 5 MG TAB PO PRN ×4 (01:09→14:31)
[2017-11-10] MEDS: Docusate CAP* 100 MG PO SCH (08:32)
--- NOTE | 2017-11-10 08:57 | PN ---
Progress Note - Progress Note Date of Service: 11/10/17 SOAP: Subjective: 52 y/o male s/p R foot amp by Dr. Benavidez on 11/09/2017. VSS, afebrile overnight. Patient with no complaints, questions re: length of wound vac. Objective: General- Well appearing, NAD, AO sitting in bed comfortably MSK- L RE- dressing in tact, Vac working well, serusang drainage noted, minimal amount, non-tender to palpation, no induration , erythema at top of dressing. Vital Signs Temp 98.8 F 11/10/17 07:38 Pulse 77 11/10/17 07:38 Resp 16 11/10/17 10:30 BP 149/66 11/10/17 07:38 Pulse Ox 97 11/10/17 07:38 Intake & Output 11/09/17 11/10/17 11/10/17 18:59 06:59 18:59 Intake Total 1253 1039 Output Total 1625 900 Balance -372 139 Intake: IV Fluids 1013 499 ABX - ZOSYN 499 LR 963 cefazolin 2 grams 50 Oral 240 540 Output: Urine 1625 900 Other: Estimated Void Medium Date of Last Bowel 11/10/16 Movement # Bowel Movements 1 2 Estimated Stool Amount Small Medium # Voids 1 Assessment: Stable 52 y/o male s/p R foot amp by Dr. Benavidez on 11/09/2017. Plan: - DVT prophylaxis- lovenox, ASA 325 BID at home - Continue PT/ OT - Follow up with Dr. Benavidez within 10-14 days - IV ABX per ID--> - [facility] for follow up alternating with Dr. Benavidez for wound vac changes. - Possible D/C today - DM management- Patient to return on home regimen, Dr. Giraldo following, will do BG check BID Acetaminophen (Tylenol Tab*) 650 mg PO Q6H PRN PRN Reason: PAIN OR TEMPERATURE Amlodipine Besylate (Norvasc Tab*) 10 mg PO QPM [facility] Last Admin: 11/09/17 17:10 Dose: 10 mg Atorvastatin Calcium (Lipitor*) 10 mg PO QPM [facility] Last Admin: 11/09/17 17:10 Dose: 10 mg Diphenhydramine HCl (Benadryl Iv*) 25 mg IV Q6H PRN PRN Reason: PRURITIS Docusate Sodium (Colace Cap*) 200 mg PO BID [facility] Last Admin: 11/10/17 08:32 Dose: Not Given Enoxaparin Sodium (Lovenox(*)) 40 mg SUBCUT Q24H [facility] Last Admin: 11/09/17 17:09 Dose: 40 mg Heparin Sodium (Porcine) (Heparin Flush Picc/Ml/Cvc(*)) 1 ml FLUSH 0600,1800 [facility] PRN Reason: Protocol Last Admin: 11/10/17 05:57 Dose: Not Given Piperacillin Sod/Tazobactam (Sod 13.5 gm/ Sodium Chloride) 500 mls @ 20.833 mls /hr IVPB Q24H [facility] Last Admin: 11/09/17 23:32 Dose: 20.833 mls/hr Insulin Glargine (Lantus(*)) 10 units SUBCUT Q24H [facility] Last Admin: 11/10/17 09:06 Dose: 10 units Metoprolol Succinate (Toprol Xl Tab*) 50 mg PO DAILY [facility] Last Admin: 11/10/17 09:04 Dose: 50 mg Naloxone HCl (Narcan*) 0.08 mg IV Q2M PRN PRN Reason: severe induced resp depression Stop: 11/10/17 12:51 Pto Nf Med* ( Empagliflozin [ Jardiance] 10 Mg) 10 mg PO QAM [facility] Last Admin: 11/10/17 09:05 Dose: 10 mg Nortriptyline HCl (Pamelor Cap*) 10 mg PO BEDTIME [facility] Last Admin: 11/09/17 21:11 Dose: 10 mg Ondansetron HCl (Zofran Inj*) 4 mg IV Q6H PRN PRN Reason: NAUSEA Oxycodone HCl (Roxycodone Tab*) 5 mg PO Q4H PRN PRN Reason: PAIN - MODERATE Oxycodone HCl (Roxycodone Tab*) 10 mg PO Q4H PRN PRN Reason: PAIN - SEVERE Last Admin: 11/10/17 10:30 Dose: 10 mg Pharmacy Consult (Zosyn Per Pharmacy*) 1 note FOLLOW UP .ZOSYN PER PHARMACY [facility] Polyethylene Glycol/Electrolytes (Miralax*) 17 gm PO DAILY PRN PRN Reason: CONSTIPATION Sitagliptin Phosphate (Januvia (Nf)) 25 mg PO QAM [facility] PRN Reason: Protocol Last Admin: 11/10/17 09:06 Dose: 25 mg
[2017-11-10] MEDS ORDERED: SITAGLIPTIN 25 MG PO SCH (09:00)
[2017-11-10] MEDS ORDERED: EMPAGLIFLOZIN 10 MG PO SCH (09:00)
[2017-11-10] MEDS: Metoprolol Succinate XL TAB* 50 MG PO SCH (09:04)
[2017-11-10] MEDS: Insulin GLARGINE(*) 1 UNITS UNIT SUBCUT SCH (09:06)
--- NOTE | 2017-11-10 11:47 | PN ---
Progress Note - Progress Note Date of Service: 11/10/17 SOAP: Subjective: CC: foot infection HPI: 52 year old diabetic with recent R TMA then developed callous right lateral foot that came off a few days later developed right foot swelling and redness. On zosyn here, tolerating well. Had I&D, deep cultures, vac placed. Foot less swollen. No fever, rash, or diarrhea. Objective: Vital Signs Temp 37.1 C 11/10/17 07:38 Pulse 77 11/10/17 07:38 Resp 16 11/10/17 10:30 BP 149/66 11/10/17 07:38 Pulse Ox 97 11/10/17 07:38 Intake & Output 11/09/17 11/10/17 11/10/17 18:59 06:59 18:59 Intake Total 1253 1039 Output Total 1625 900 Balance -372 139 Intake: IV Fluids 1013 499 ABX - ZOSYN 499 LR 963 cefazolin 2 grams 50 Oral 240 540 Output: Urine 1625 900 Other: Estimated Void Medium Date of Last Bowel 11/10/16 Movement # Bowel Movements 1 2 Estimated Stool Amount Small Medium # Voids 1 Gen:awake, no distress HEENT: no thrush Heart:RRR no murmur Lungs:CTA BL Abd:+BS NTND soft Skin: no rash MSK: R foot wrapped Laboratory Results - last 24 hr 11/09/17 11/09/17 11/09/17 08:48 13:31 17:09 POC Glucose (mg/dL) 158 H 130 H 79 11/10/17 08:47 POC Glucose (mg/dL) 204 H Microbiology 11/07/17 17:00 Skin and Soft Tissue MRSA/MSSA (PCR - Final Foot Right Mrsa Negative S.aureus Positive Gram Stain - Final Wound Culture - Preliminary Acinetobacter Baumannii Complx 11/09/17 12:45 Gram Stain - Final Foot Right 11/09/17 12:45 Wound Gram Stain - Final Tissue - Other Assessment: 1. right foot cellulitis and myositis; MSSA and Acinetobacter; deep cultures pending 2. diabetes with hyperglycemia 3. peripheral neuropathy Plan: 1. cefepime 2 gm IV Q12hrs , orders written for 28 days as outpt with weekly cbc , cmp, crp and follow up with me 1-2 weeks 35 minutes floor time >50% face to face discussing antibiotic plans
[2017-11-10] MEDS ORDERED: Cefepime 2 GM in Dextrose(*) 2 GM/50 ML BAG IV SCH (12:00)
[2017-11-10 12:30] VITALS: BP 148/83
--- NOTE | 2017-11-11 14:23 | DS ---
DISCHARGE SUMMARY: DATE OF ADMISSION: 11/07/17 DATE OF DISCHARGE: 11/10/17 REFERRING PHYSICIAN: Dr. Benavidez. ATTENDING PROVIDER: Dr. Benavidez * (DICTATED BY DHEERAJ MAYS) CHIEF COMPLAINT: 1. Right foot pain. 2. Diabetes. 3. Hypertension. 4. Hyperlipidemia. 5. History of foot infection. DISCHARGE DIAGNOSES: 1. Status post right foot deep irrigation and debridement, right cubital bone deep biopsy, wound VAC placement, placed 11/09/17. 2. Diabetes. 3. Hypertension. 4. Hyperlipidemia. 5. Prior foot infection. PROCEDURE: On 11/09/[address] Benavidez, right foot deep irrigation and debridement, right cubital bone deep bone biopsy and wound VAC placement. CONSULTATIONS: 1. Physical Therapy. 2. Occupational Therapy. 3. Infectious Disease. BRIEF HISTORY: Mr. Olivia is a very pleasant 52-year-old gentleman who underwent a right transmetatarsal amputation on 09/21/17 with a washout on 09/25 and was treated with IV antibiotics, transitioned to Keflex. He was doing well for the past several months, however, noted a callus on his foot, which had associated swelling and erythema as well as some drainage. He was admitted to [facility] on 11/07/17. HOSPITAL COURSE: The patient was admitted to [facility] on 11/07/17 and was seen by Dr. Lundberg, who recommended starting IV antibiotics. He underwent irrigation and debridement, bone biopsy of the cubital bone, as well as VAC placement on 11/09/[address] Benavidez. The patient tolerated the procedure well. He was seen by Dr. Lundberg on 11/10/17. It was recommended that the patient go home on 2 g of cefepime twice a day to be followed by Dr. Lundberg with regards to the antibiotics. The VAC will be changed every 3 days and he will be seen by Dr. Benavidez on Monday for VAC change and further instructions. The patient was set up with home care for his wound VAC as well as IV antibiotics. He had no other questions or concerns. PHYSICAL EXAMINATION: General: Well appearing, in no acute distress. Alert and oriented. Vital signs: Temperature 98.8, pulse 77, respirations 16, blood pressure 149/66, pulse oxygenation 97% on room air. Right lower extremity dressing is intact. The VAC was working well with serosanguineous drainage noted with minimal output, nontender to palpation, no erythema noted about the dressing site. DISCHARGE MEDICATIONS: 1. Aspirin 325 mg p.o. b.i.d. 2. Amlodipine 10 mg p.o. q.p.m. 3. Colace 100 mg p.o. b.i.d. 4. Jardiance 10 mg p.o. q.a.m. 5. Insulin per home doses. 6. Metoprolol 50 mg p.o. daily. 7. Nortriptyline 10 mg p.o. q.h.s. 8. Oxycodone 5 mg to 10 mg p.o. q.4 to 6 hours as needed for pain. 9. Simvastatin 20 mg p.o. q.h.s. 10. Januvia 25 mg p.o. q.a.m. 11. Cefepime 2 g IV q.12 hours per ID instructions. 12. Glucotrol 10 mg p.o. b.i.d. 13. Heparin 1 mg twice daily for PICC per PICC line infection. 14. Clint-3 fatty acid 100 mg p.o. daily. CONDITION ON DISCHARGE: Stable. DISCHARGE INSTRUCTIONS: Mr. Olivia is a very pleasant 52-year-old male, status post irrigation and debridement, cubital bone biopsy, VAC placement for his right foot ulceration. The patient had no questions or concerns with regards to the procedure. He will follow up with Dr. Benavidez on Monday for VAC change. He will remain nonweightbearing on that lower leg. He will continue to follow up with Dr. Lundberg with regards to his IV antibiotics. He will take oxycodone as needed for pain control and Colace to prevent constipation. He will call us if he develops any fevers, chills, redness, or difficulty with the wound VAC or if he actually develops chest pain or shortness of breath. DHEERAJ MAYS [id number]/[facility] #: [id number] [facility]Cas
== END 2017-11-10 16:07 | disposition home or self-care (01) | DRG 364 ==
LOC: SSU 16:36
PROVIDERS: ADMIT Orthopaedic Surgery; ATTEND Orthopaedic Surgery
PROC: 02HV33Z Insertion of Infusion Device into Superior Vena Cava, Percutaneous Approach (ICD-10-PCS; 2017-11-08)
PROC: 2W1SX6Z Compression of Right Foot using Pressure Dressing (ICD-10-PCS; 2017-11-09)
PROC: 0QBL0ZZ Excision of Right Tarsal, Open Approach (ICD-10-PCS; principal; 2017-11-09 11:45)
DX: E11.621 Type 2 diabetes mellitus with foot ulcer (principal); L03.115 Cellulitis of right lower limb; L97.519 Non-pressure chronic ulcer of other part of right foot with unspecified severity; E11.22 Type 2 diabetes mellitus with diabetic chronic kidney disease; E11.42 Type 2 diabetes mellitus with diabetic polyneuropathy; I96 Gangrene, not elsewhere classified; E11.52 Type 2 diabetes mellitus with diabetic peripheral angiopathy with gangrene; E78.5 Hyperlipidemia, unspecified; M60.871 Other myositis, right ankle and foot; N18.3 Chronic kidney disease, stage 3 (moderate); E11.65 Type 2 diabetes mellitus with hyperglycemia; I12.9 Hypertensive chronic kidney disease with stage 1 through stage 4 chronic kidney disease, or unspecified chronic kidney disease; Z89.431 Acquired absence of right foot; Z72.89 Other problems related to lifestyle; Z89.412 Acquired absence of left great toe; Z89.422 Acquired absence of other left toe(s); Z80.7 Family history of other malignant neoplasms of lymphoid, hematopoietic and related tissues; Z83.3 Family history of diabetes mellitus; Z87.891 Personal history of nicotine dependence; Z79.82 Long term (current) use of aspirin; Z79.4 Long term (current) use of insulin; Z79.01 Long term (current) use of anticoagulants
CPT/HCPCS: 36415; 80048; 85025; 85652; 87070; 87073; 87077; 87186; 87205; 87640; 87641; A9270-GY; C1751; J0692; J1650; J2543; J2704; J3010

== ENCOUNTER → 2018-01-25 06:27 | Day surgery (SDC) | payer BC ==
[~2018-01-25 06:27] MED LIST: Acetaminophen TAB* 325 MG PO PRN; Buffered Lidocaine 0.9% SYRIN* 5 ML/SYR SYRINGE INTRADERM ONE; Bupivacaine 0.5% SDV PF* 30ML VIAL ONE; DiMENhydriNATE IV* 50 MG/ML VIAL ONE; Famotidine IV* 10 MG/ML 2 ML (20 mg) ONE; Labetalol IV* 5 MG/ML 20 ML VIAL ONE; Midazolam* 1 MG/ML 2 ML VIAL (2 MG) ONE; Naloxone* 0.4 MG/ML 1 ML VIAL IV PRN; Ondansetron INJ* 2 MG/ML VIAL IV PRN; PROCHLORPERAZINE INJ 5 MG/ML 2 ML VIAL IV PRN; Propofol* 10 MG/ML 20 ML BTL IV PUSH ONE; ceFAZolin 2 GM PREMIX (*) 2 GM/50 ML BAG IVPB ONE; fentaNYL* 50 MCG/ML 2 ML VIAL (100 MCG VIAL) ONE; oxyCODONE/Acetamin 5/325 MG* TAB ONE
--- NOTE | 2018-01-25 09:58 | OP ---
Operative Report - Blank - Operative Report Date of Operation: 01/25/18 Note: PATIENT: Mikel Olivia II DATE OF : 1965 DATE OF SURGERY: 01/25/2018 SURGEON: Michael Beanvidez MD GRINDING ROOM INSPECTOR: DHEERAJ Valadez, whos assistance was necessary for positioning, retraction, help with instrumentation, and closure. ANESTHESIOLOGIST: Dr. Dasilva PREOPERATIVE DIAGNOSIS: Right foot infection with osteomyelitis POSTOPERATIVE DIAGNOSIS: Right foot infection with osteomyelitis OPERATION: 1. Right foot transtarsal (Chopart) amputation 2. Right tibialis anterior tendon transfer 3. Excision of right foot ulcer 4. Right percutaneous Achilles tenotomy ANESTHESIA: LMA IMPLANTS: none TOURNIQUET TIME: Less than 2 hours with a well-padded thigh tourniquet at 250mmHg. SPECIMENS: Foot sent to pathology. Micro x3 ESTIMATED BLOOD LOSS: 50cc COMPLICATIONS: none STATUS: Stable from the operating room to the recovery room and then home INDICATIONS FOR PROCEDURE: Mikel has had recurrent diabetic foot ulcers and infections with multiple prior surgeries. he had developed a new foot ulcer which was irrigated and treated, but was found to have underlying osteomyelitis. Both operative and non operative treatment alternatives were reviewed. Further, the nature and risks of surgery were reviewed in careful detail. Our discussions regarding the risks of surgery included, but were not limited to, infection, wound problems, nerve injury, neuroma, RSD, persistent symptoms, blood clot, persistent or worsening infection, phantom limb pain, failure of the surgery, need for further amputation, and even the remote chance of catastrophic complication, including loss of limb. DESCRIPTION OF PROCEDURE: The patient was seen in the preoperative holding unit and informed written consent was obtained. The appropriate extremity was marked. The patient was then brought to the operating room and carefully positioned on the operating room table. Anesthesia was induced. All bony prominences were padded with great care. A well-padded thigh tourniquet was placed. A chlorhexidine based pre- scrub was performed followed by a chloraprep prep and drape in standard sterile fashion. A surgical safety pause was then conducted in which we confirmed the appropriate patient, extremity, planned procedure, availability of equipment, indication and administration of prophylactic antibiotics, and DVT prophylaxis in the form of a compression boot on the non-surgical extremity. We began with Esmarch exsanguination of the limb, avoiding the involved foot, and inflated the tourniquet. I excised the plantar foot ulcer in an ellipsoid manner. All unhealthy-appearing tissue was sharply debrided with a 15 blade. We then utilized the previous fish-mouth incision at the midfoot. I dissected down through the dorsal and lateral foot to define the tibialis anterior tendon. This was dissected out and tagged for later transfer. I then identified the neurovascular bundles. The vessels were carefully coagulated and the nerves were transected proximally in the soft tissue. Tendons (except the tibialis anterior) were transected. I then sharply dissected down to the transtarsal joints. The midfoot bones were then amputated at the level of the transtarsal (Chopart) joints. Two sets of deep culture swabs were sent to microbiology. I also sent some of the cuboid bone tomicrobiology. The foot was sent to pathology. The wound was then copiously irrigated. The tibialis anterior tendon was then transferred to the neck of the talus. The tendon was sized and an appropriately sized diameter drill hole was made into the neck of the talus. The ankle was held in a neutral position and the tendon was passed transosseously through the drill hole and secured with #1 vicryl sutures. I then turned my attention to the Achilles tendon to prevent a progressive equinus contracture. I performed a percutaneous tenotomy of the midsubstance of the Achilles tendon utilizing a 15-blade scalpel. The ankle was then dorsiflexed confirming that the Achilles had been fully transected. At this point, the tourniquet was deflated. Hemostasis was obtained. We irrigated copiously. All remain tissue appeared healthy and viable. A Ty drain was placed. We closed both incisions meticulously in layers utilizing #1 Vicryl for the deep layer, 3-0 Monocryl for the subdermal layer, and 3-0 nylon for the skin. A sterile dressing was then applied followed by a splint with the ankle in neutral alignment. The patient was then awakened from anesthesia and transferred to the recovery room in stable condition. There were no complications. All needle and sponge counts were correct at the end of the case. ATTESTATION: I attest I was present and scrubbed and performed the critical portions of the procedure myself. POSTOPERATIVE PLAN: The patient will remain [id number] in the splint and will follow up will be tomorrow to check on the drain output. Antibiotic treatment will be guided by the infectious disease service.
[2018-01-25] MEDS: fentaNYL* 50 MCG/ML 2 ML VIAL (100 MCG VIAL) IV PRN ×4 (10:08→11:08)
[2018-01-25] MEDS: oxyCODONE/Acetamin 5/325 MG* TAB PO PRN ×2 (10:17→10:50)
[2018-01-25 11:39] VITALS: BP 138/85
== END | disposition home or self-care (01) ==
LOC: OR 06:27
PROVIDERS: ATTEND Orthopaedic Surgery
DX: M86.671 Other chronic osteomyelitis, right ankle and foot (principal); L03.115 Cellulitis of right lower limb; L97.419 Non-pressure chronic ulcer of right heel and midfoot with unspecified severity; E11.621 Type 2 diabetes mellitus with foot ulcer; Z79.4 Long term (current) use of insulin; Z79.84 Long term (current) use of oral hypoglycemic drugs; Z87.891 Personal history of nicotine dependence; I10 Essential (primary) hypertension; E78.5 Hyperlipidemia, unspecified
CPT/HCPCS: 87070; 87073; 87076; 87077; 87186; 87205; A9270-GY; J0690; J1240; J2250; J2704; J3010

== ENCOUNTER 2018-02-08 11:09 | Day surgery (SDC) | payer BC ==
[~2018-02-08 11:09] MED LIST changes: -Acetaminophen TAB* 325 MG PO PRN; -Bupivacaine 0.5% SDV PF* 30ML VIAL ONE; -DiMENhydriNATE IV* 50 MG/ML VIAL ONE; +Famotidine IV* 10 MG/ML 2 ML (20 mg) IV ONE; -Famotidine IV* 10 MG/ML 2 ML (20 mg) ONE; -Labetalol IV* 5 MG/ML 20 ML VIAL ONE; -Midazolam* 1 MG/ML 2 ML VIAL (2 MG) ONE; +Morphine INJ* 2 MG/ML 1 ML CARPUJECT IV PRN; -Ondansetron INJ* 2 MG/ML VIAL IV PRN; +Ondansetron INJ* 2 MG/ML VIAL ONE; -PROCHLORPERAZINE INJ 5 MG/ML 2 ML VIAL IV PRN; -Propofol* 10 MG/ML 20 ML BTL IV PUSH ONE; -ceFAZolin 2 GM PREMIX (*) 2 GM/50 ML BAG IVPB ONE; +fentaNYL* 50 MCG/ML 2 ML VIAL (100 MCG VIAL) IV PRN; -fentaNYL* 50 MCG/ML 2 ML VIAL (100 MCG VIAL) ONE; +oxyCODONE TAB* 5 MG TAB PO PRN; -oxyCODONE/Acetamin 5/325 MG* TAB ONE
[2018-02-08] MEDS ORDERED: Famotidine IV* 10 MG/ML 2 ML (20 mg) ONE (11:23)
[2018-02-08] MEDS ORDERED: Ondansetron ODT TAB* 4 MG ONE (11:23)
[2018-02-08] MEDS ORDERED: Buffered Lidocaine 0.9% SYRIN* 5 ML/SYR SYRINGE ONE (11:24)
[2018-02-08] MEDS ORDERED: KETAMINE HCL* 50 MG/ML 10 ML VIAL ONE (12:19)
[2018-02-08] MEDS ORDERED: fentaNYL* 50 MCG/ML 2 ML VIAL (100 MCG VIAL) ONE (12:19)
[2018-02-08] MEDS ORDERED: Midazolam* 1 MG/ML 5 ML VIAL (5 MG) ONE (12:19)
[2018-02-08] MEDS ORDERED: hydrALAZINE IV* 20 MG/ML VIAL ONE (14:45)
[2018-02-08] MEDS ORDERED: Labetalol IV* 5 MG/ML 20 ML VIAL ONE (14:45)
[2018-02-08] MEDS ORDERED: Propofol* 10 MG/ML 20 ML BTL IV PUSH ONE (14:45)
[2018-02-08] MEDS ORDERED: oxyCODONE/Acetamin 5/325 MG* TAB ONE (15:49)
[2018-02-08] MEDS: oxyCODONE/Acetamin 5/325 MG* TAB PO PRN ×2 (15:50→15:51)
--- NOTE | 2018-02-08 16:02 | OP ---
Operative Report - Blank - Operative Report Date of Operation: 02/08/18 Note: PATIENT: Mikel Olivia II DATE OF : 1965 DATE OF SURGERY: 02/08/2018 SURGEON: Michael Benavidez MD ASSOCIATE PROFESSOR OF BIOSTATISTICS: DHEERAJ Rizvi, whos assistance was necessary for positioning, retraction, help with instrumentation, and closure. ANESTHESIOLOGIST: Dr. Garcia PREOPERATIVE DIAGNOSIS: Right diabetic foot ulcer and infection POSTOPERATIVE DIAGNOSIS: Right diabetic foot ulcer and infection OPERATION: Right foot irrigation and debridement and placement of a wound VAC ANESTHESIA: GETA IMPLANTS: none TOURNIQUET TIME: none SPECIMENS: none ESTIMATED BLOOD LOSS: minimal COMPLICATIONS: none STATUS: Stable from the operating room to the recovery room and then home INDICATIONS FOR PROCEDURE: Mikel has had a persistent right foot infection. Both operative and non- operative treatment alternatives were reviewed. Further, the nature and risks of surgery were reviewed in careful detail, in the office as well as the pre- operative holding area. Our discussions regarding the risks of surgery included , but were not limited to, persistent infection, wound problems, persistent symptoms, blood clot, failure of the surgery, need for further surgery or amputation. DESCRIPTION OF PROCEDURE: The patient was seen in the preoperative holding unit and informed written consent was obtained. The appropriate extremity was marked. The patient was then brought to the operating room and carefully positioned on the operating room table. Anesthesia was induced. All bony prominences were padded with great care. A chlorhexidine based pre-scrub was performed followed by a chloraprep prep and drape in standard sterile fashion. A surgical safety pause was then conducted in which we confirmed the appropriate patient, extremity, planned procedure, availability of equipment, and DVT prophylaxis in the form of a compression boot on the non-surgical extremity. He is already on IV antibiotics. I began by opening up the Chopart amputation incision. There was no active bleeding, but there was some consolidated hematoma. There was no compa purulence but there was some unhealthy appearing tissue. I sharply debrided all nonviable-appearing tissue, through the skin, subcutaneous layer, fascial layer, down to bone and periosteum. I used a 15 blade scalpel for this. I then turned my attention to the plantar ulcer. This measured 4 cm in width and 2 cm in length. It measured 1 cm in depth. Used a 15 blade scalpel to excise the skin edges to healthy skin. I then sharply debrided all infected and nonviable tissue with a 15 blade scalpel. I then copiously irrigated the wound with sterile saline and cystoscopy tubing. Hemostasis was obtained. All remaining tissue appeared healthy and well perfused. The amputation incision was closed in layers utilizing 0 PDS, 3-0 Monocryl, and 3-0 Prolene. I placed a subatmospheric pressure wound VAC into the plantar foot ulcer. I then placed an incisional VAC over the incision with a connector and these had excellent suction once attached to the machine. The patient was then awakened from anesthesia and transferred to the recovery room in stable condition. There were no complications. All needle and sponge counts were correct at the end of the case. ATTESTATION: I attest I was present and scrubbed and performed the critical portions of the procedure myself. POSTOPERATIVE PLAN: He will follow up on Monday for a VAC change. He will continue on IV antibiotics per infectious diseases.
[2018-02-08 17:01] VITALS: BP 152/83
== END 2018-02-08 17:10 | disposition home or self-care (01) ==
LOC: OR 11:09
PROVIDERS: ATTEND Orthopaedic Surgery
DX: E11.621 Type 2 diabetes mellitus with foot ulcer (principal); L97.419 Non-pressure chronic ulcer of right heel and midfoot with unspecified severity; L03.115 Cellulitis of right lower limb; M86.671 Other chronic osteomyelitis, right ankle and foot; I10 Essential (primary) hypertension; Z79.84 Long term (current) use of oral hypoglycemic drugs; Z79.4 Long term (current) use of insulin; Z87.891 Personal history of nicotine dependence; E78.5 Hyperlipidemia, unspecified
CPT/HCPCS: A9270-GY; J0360; J2250; J2704; J3010

== ENCOUNTER 2018-04-04 10:20 | Inpatient (IN) | payer BC ==
[2018-04-04] MEDS ORDERED: Docusate CAP* 100 MG PO PRN (10:43)
[2018-04-04] MEDS ORDERED: diPHENhydraMINE IV* 50 MG/ML 1 ml VIAL (BENADRYL) IV PRN (10:43)
[2018-04-04] MEDS ORDERED: diPHENhydraMINE PO* 25 MG PO PRN (10:43)
[2018-04-04] MEDS ORDERED: Morphine INJ* 2 MG/ML 1 ML CARPUJECT IV PRN (10:43)
[2018-04-04] MEDS ORDERED: Ondansetron ODT TAB* 4 MG PO PRN (10:43)
--- OUTSIDE RECORDS SUMMARY | 2018-04-04 10:46 | XMS REPORT ---
:1965 External Reference #:[id number] Author Organization [employer] Address [address] [place] [address] [place] [address] Phone [phone] Care Team Providers Name Role Phone Akin Sexton MD Primary Care Physician Unavailable Payers Type Date Identification Numbers Payment Provider Subscriber Commercial Effective: Policy Number: [id number] [employer] Uma Olivia 2013 PayID: [id number] [address] [address] [place] [address] Problems Description No Information Family History Date Family Member(s) Problem(s) Comments General Diabetes Social History Type Date Description Comments ETOH Use Drinks 2 Alcoholic Beverages Per Week Smoking Patient is a former smoker smoked 10 cigarettes per day x 10 years Exercise Type/Frequency Exercises regularly Allergies, Adverse Reactions, Alerts Date Description Reaction Status Severity Comments 08/14/2014 Zyvox ithching active IV zyvox 07/28/2014 NKDA inactive Medications Medication Date Status Form Strength Qnty SIG Indications Ordering Provider Fiordaliza 01/26 Active Tablets 4mg 30tab take 1 by Cristine s mouth every 8 Ty, hours as M.D. needed for nausea Glipizide Active Tablets 10mg 1 by mouth Unknown /0000 twice a day Amlodipine Active Tablets 10mg 90tab 1 by mouth Unknown Besylate /0000 s every day Jardiance Active Tablets 10mg 30tab 1 by mouth Unknown /0000 s every night Simvastatin 00 Active Tablets 20mg 1 by mouth Unknown /0000 every day Nortriptyline Active Capsules 10mg 1 po qhs Unknown HCL /0000 Metoprolol Active Tablets ER 50mg 1 by mouth Unknown Succinate ER /0000 24HR every day Januvia Active Tablets 25mg 1 by mouth Unknown /0000 every day Lantus Active Solution 100Unit/M 24 units 0000 L subcutaneous every morning Percocet Active Tablets 10-325mg 1 tab by Unknown /0000 mouth 3-4 x daily as needed for pain Fish Oil Active Capsules 1000mg 1 by mouth Unknown /0000 twice a day Vitamin B-12 Active Tablets 1 by mouth Unknown /0000 every day Aspir-[address] 81mg 1 by mouth Unknown /0000 every day Probiotic Active Capsules 1 by mouth Unknown /0000 every day Ciprofloxacin 03/09 Hx Tablets 500mg 28tab 1 tab by Yo s mouth twice a D. - day Samara 03/25.D. Daptomycin 01/30 Hx Solution 600mg iv every 24 Rec hours x 42 [facility] (end date 03/27/18) Zosyn 01/15 Hx Solution 3-0.375GM IV q 8 hrs x /50ML 42 days D. - through [facility] [place], 03/04 [facility] .D. infusion (end date 03/04/18) Augmentin 01/03 Hx Tablets 500-125mg 30tab 1 by mouth L03.115 s twice daily - D. - On Hold While Samara 03/08 On IV .D Antibiotics Cephalexin 12/22 Hx Capsules 500mg 28cap take one M86.671 Michael s capsule by Pramod, - mouth four MD 01/12 times a day Roxicodone 11/10 Hx Tablets 5mg 60tab 1-2 tablets s every 4-6 Ty, - hours as M.D. 01/02 needed for pain post-operativ gemini Aspirin 11/10 Hx Tablets 325mg 60tab 1 tablet s twice daily Ty, - after surgery M.D. 01/02 by mouth post-operativ gemini Cefepime HCL 11/10 Hx Solution 2gm 2 grams twice Rec daily per Id Oscar Crawford.[place] 01/02 Cephalexin 10/10 Hx Capsules 500mg 30cap take one M86.671 s capsule by D. - pierre two Samara, 11/22 times a day . Cubicin 08/06 Hx Solution 500mg iv every 24 Rec hours [place] Pascual, 11/15.D. Cipro 08/05 Hx Tablets 500mg 60tab 1 by mouth s twice a day Marietta Pascual, 11/15.D. Zyvox 08/05 Hx Suspension 100mg/5ML 600 mg IV q Rec 24 hrs [place] Pascual, 08/06.D Oxycodone HCL 07/18 Hx Tablets 5mg 40tab 1-2 tabs po q s 6 hrs prn Oscar Buck M.D. 08/13 Tramadol HCL 07/18 Hx Tablets 50mg 40tab 1-2 tabs by s mouth q 6 hrs Oscar Buck M.D. 11/15 Vancomycin HCL Hx Solution 1000mg QS iv q12hrs x 6 Unknown /0000 Rec wks - 08/05 Cefepime HCL 0000 Hx Solution 2gm iv every 12 Unknown /0000 Rec hours x 6 - weeks 08/05 Flagyl 00/00 Hx Tablets Unsure Of 1 by mouth Unknown /0000 Dose twice a day - 08/13 Metformin HCL 0000 Hx Tablets Unsure Of 1 by mouth Unknown /0000 Dose twice a day - 10/09 Ceftriaxone 00/00 Hx Solution 2gm iv every 24 Unknown Sodium /0000 Rec hours x 28 - days through 10/24 [place] /2018 Infusion Flagyl 0000 Hx Tablets 500mg 1 po bid x 28 Unknown /0000 days - 10/24 Vital Signs Date Vital Result Comment 03/28/2018 Height 74 inches 6'2" Weight 214.00 lb Heart Rate 68 /min Respiratory Rate 16 /min Pain Level 0 BMI (Body Mass Index) 27.5 kg/m2 03/26/2018 Height 74 inches 6'2" Weight 220.38 lb Heart Rate 78 /min BP Systolic Sitting 158 mmHg BP Diastolic Sitting 80 mmHg Respiratory Rate 14 /min Body Temperature 98.4 F BMI (Body Mass Index) 28.3 kg/m2 03/20/2018 Height 74 inches 6'2" Weight 214.00 lb BP Systolic 142 mmHg BP Diastolic 92 mmHg Respiratory Rate 18 /min Body Temperature 96.5 F Pain Level 0 BMI (Body Mass Index) 27.5 kg/m2 03/14/2018 Height 74 inches 6'2" Weight 214.00 lb Heart Rate 84 /min Respiratory Rate 16 /min Body Temperature 96.2 F Pain Level 0 BMI (Body Mass Index) 27.5 kg/m2 03/08/2018 Height 74 inches 6'2" Weight 214.50 lb Heart Rate 80 /min BP Systolic Sitting 136 mmHg BP Diastolic Sitting 82 mmHg Respiratory Rate 14 /min Body Temperature 98.1 F BMI (Body Mass Index) 27.5 kg/m2 03/07/2018 Height 74 inches 6'2" Weight 215.00 lb Heart Rate 88 /min BP Systolic Sitting 130 mmHg BP Diastolic Sitting 82 mmHg Body Temperature 97.6 F Pain Level 0 BMI (Body Mass Index) 27.6 kg/m2 02/27/2018 Height 74 inches 6'2" Weight 215.00 lb Heart Rate 84 /min Respiratory Rate 16 /min Body Temperature 98.0 F Pain Level 0 BMI (Body Mass Index) 27.6 kg/m2 02/21/2018 Height 74 inches 6'2" Weight 215.00 lb Heart Rate 78 /min BP Systolic 122 mmHg BP Diastolic 72 mmHg Respiratory Rate 12 /min Body Temperature 97.5 F Pain Level 2 BMI (Body Mass Index) 27.6 kg/m2 02/15/2018 Height 74 inches 6'2" Weight 215.00 lb Heart Rate 80 /min BP Systolic 110 mmHg BP Diastolic 72 mmHg Respiratory Rate 12 /min Body Temperature 98.1 F Pain Level 0 BMI (Body Mass Index) 27.6 kg/m2 02/06/2018 Height 74 inches 6'2" Weight 215.00 lb Heart Rate 76 /min Respiratory Rate 18 /min BMI (Body Mass Index) 27.6 kg/m2 01/26/2018 Height 74 inches 6'2" Weight 215.00 lb BP Systolic 124 mmHg BP Diastolic 74 mmHg Respiratory Rate 18 /min Body Temperature 99.1 F Pain Level 7 BMI (Body Mass Index) 27.6 kg/m2 01/19/2018 Height 74 inches 6'2" Weight 215.00 lb BP Systolic 139 mmHg BP Diastolic 79 mmHg Respiratory Rate 16 /min Pain Level 0 BMI (Body Mass Index) 27.6 kg/m2 01/12/2018 Height 74 inches 6'2" Weight 213.38 lb Heart Rate 72 /min BP Systolic Sitting 138 mmHg BP Diastolic Sitting 76 mmHg Respiratory Rate 14 /min Body Temperature 96.8 F BMI (Body Mass Index) 27.4 kg/m2 01/03/2018 Height 74 inches 6'2" Weight 214.00 lb Heart Rate 74 /min BP Systolic Sitting 126 mmHg BP Diastolic Sitting 80 mmHg Respiratory Rate 14 /min Body Temperature 96.9 F BMI (Body Mass Index) 27.5 kg/m2 01/02/2018 Height 74 inches 6'2" Weight 200.00 lb BP Systolic 120 mmHg BP Diastolic 68 mmHg Respiratory Rate 17 /min Body Temperature 96.6 F Pain Level 0 BMI (Body Mass Index) 25.7 kg/m2 12/25/2017 Height 74 inches 6'2" Weight 200.00 lb BP Systolic 102 mmHg BP Diastolic 66 mmHg Respiratory Rate 17 /min Body Temperature 97.0 F Pain Level 0 BMI (Body Mass Index) 25.7 kg/m2 12/15/2017 Height 74 inches 6'2" Weight 200.00 lb BP Systolic 148 mmHg BP Diastolic 88 mmHg Respiratory Rate 18 /min Body Temperature 97.3 F Pain Level 0 BMI (Body Mass Index) 25.7 kg/m2 12/08/2017 Height 74 inches 6'2" Weight 200.00 lb BP Systolic 150 mmHg BP Diastolic 90 mmHg Body Temperature 97.8 F BMI (Body Mass Index) 25.7 kg/m2 11/29/2017 Height 74 inches 6'2" Weight 200.00 lb Heart Rate 72 /min Respiratory Rate 17 /min Body Temperature 97.0 F Pain Level 1 BMI (Body Mass Index) 25.7 kg/m2 11/22/2017 Height 74 inches 6'2" Weight 200.00 lb Heart Rate 90 /min BP Systolic Sitting 136 mmHg LA reg cuff BP Diastolic Sitting 82 mmHg LA reg cuff Pain Level 2 BMI (Body Mass Index) 25.7 kg/m2 11/13/2017 Height 74 inches 6'2" Weight 200.00 lb BP Systolic 144 mmHg BP Diastolic 80 mmHg Respiratory Rate 17 /min Body Temperature 96.8 F Pain Level 4 BMI (Body Mass Index) 25.7 kg/m2 11/07/2017 Height 74 inches 6'2" Heart Rate 98 /min BP Systolic 126 mmHg BP Diastolic 76 mmHg Respiratory Rate 16 /min Body Temperature 98.1 F Pain Level 3 10/26/2017 Height 74 inches 6'2" Weight 203.38 lb Heart Rate 72 /min BP Systolic Sitting 126 mmHg BP Diastolic Sitting 82 mmHg Respiratory Rate 14 /min Body Temperature 97.1 F BMI (Body Mass Index) 26.1 kg/m2 10/20/2017 Height 74 inches 6'2" Weight 207.00 lb per pt Heart Rate 100 /min Respiratory Rate 16 /min Pain Level 0 BMI (Body Mass Index) 26.6 kg/m2 10/10/2017 Height 74 inches 6'2" Weight 207.00 lb Heart Rate 88 /min BP Systolic Sitting 110 mmHg BP Diastolic Sitting 70 mmHg Respiratory Rate 14 /min Body Temperature 97.4 F BMI (Body Mass Index) 26.6 kg/m2 10/03/2017 Height 74 inches 6'2" Weight 220.00 lb BP Systolic 116 mmHg BP Diastolic 70 mmHg Respiratory Rate 16 /min Body Temperature 96.4 F Pain Level 6 BMI (Body Mass Index) 28.2 kg/m2 11/18/2015 Height 74 inches 6'2" Weight 190.00 lb Pain Level 0 BMI (Body Mass Index) 24.4 kg/m2 11/17/2015 Height 74 inches 6'2" Weight 190.00 lb Heart Rate 84 /min BP Systolic Sitting 142 mmHg BP Diastolic Sitting 82 mmHg Respiratory Rate 14 /min Body Temperature 97.5 F BMI (Body Mass Index) 24.4 kg/m2 08/14/2014 Height 74 inches 6'2" Weight 195.00 lb Heart Rate 80 /min BP Systolic Sitting 142 mmHg BP Diastolic Sitting 80 mmHg Respiratory Rate 14 /min Body Temperature 97.6 F BMI (Body Mass Index) 25.0 kg/m2 07/29/2014 Height 74 inches 6'2" Weight 195.00 lb Body Temperature 98.0 F BMI (Body Mass Index) 25.0 kg/m2 07/28/2014 Height 74 inches 6'2" Weight 198.00 lb Heart Rate 84 /min BP Systolic Sitting 148 mmHg BP Diastolic Sitting 82 mmHg Respiratory Rate 14 /min Body Temperature 97.2 F BMI (Body Mass Index) 25.4 kg/m2 07/18/2014 Height 74 inches 6'2" Weight 195.00 lb Heart Rate 77 /min BP Systolic 147 mmHg BP Diastolic 85 mmHg BMI (Body Mass Index) 25.0 kg/m2 Results Test Date Test Result H/L Range Note CBC Auto Diff 03/27/2018 White Blood Count 5.2 10^3/uL 3.5-10.8 Red Blood Count 4.50 10^6/uL 4.00-5.40 Hemoglobin 11.4 g/dL Low 14.0-18.0 Hematocrit 34 % Low 42-52 Mean Corpuscular Volume 75 fL Low 80-94 Mean Corpuscular Hemoglobin 25 pg Low 27-31 Mean Corpuscular HGB Conc 34 g/dL 31-36 Red Cell Distribution Width 17 % High 10.5-15 Platelet Count 181 10^3/uL 150-450 Mean Platelet Volume 8.0 um3 7.4-10.4 Abs Neutrophils 3.1 10^3/uL 1.5-7.7 Abs Lymphocytes 1.5 10^3/uL 1.0-4.8 Abs Monocytes 0.5 10^3/uL 0-0.8 Abs Eosinophils 0.1 10^3/uL 0-0.6 Abs Basophils 0 10^3/uL 0-0.2 Abs Nucleated RBC 0 10^3/uL Granulocyte % 58.8 % 38-83 Lymphocyte % 27.9 % 25-47 Monocyte % 10.0 % High 0-7 Eosinophil % 2.8 % 0-6 Basophil % 0.5 % 0-2 Nucleated Red Blood Cells % 0 Comp Metabolic Panel 03/27/2018 Sodium 141 mmol/L 135-145 Potassium 4.1 mmol/L 3.5-5.0 Chloride 107 mmol/L 101-111 Co2 Carbon Dioxide 24 mmol/L 22-32 Anion Gap 10 mmol/L 2-11 Glucose 280 mg/dL High 70-100 Blood Urea Nitrogen 23 mg/dL 6-24 Creatinine 1.56 mg/dL High 0.67-1.17 BUN/Creatinine Ratio 14.7 8-20 Calcium 8.9 mg/dL 8.6-10.3 Total Protein 6.4 g/dL 6.4-8.9 Albumin 4.0 g/dL 3.2-5.2 Globulin 2.4 g/dL 2-4 Albumin/Globulin Ratio 1.7 1-3 Total Bilirubin 0.30 mg/dL 0.2-1.0 Alkaline Phosphatase 82 U/L 34-104 Alt 26 U/L 7-52 Ast 29 U/L 13-39 Egfr Non- 46.6 >60 Egfr 56.4 >60 1 Laboratory test finding 03/27/2018 Creatine Kinase(CK) 51 U/L 10-223 C Reactive Protein 3.71 mg/L <8.01 Comp Metabolic Panel 03/20/2018 Sodium 136 mmol/L 135-145 2 Potassium 4.0 mmol/L 3.5-5.0 2 Chloride 104 mmol/L 101-111 2 Co2 Carbon Dioxide 26 mmol/L 22-32 2 Anion Gap 6 mmol/L 2-11 2 Glucose 121 mg/dL High 70-100 2 Blood Urea Nitrogen 18 mg/dL 6-24 2 Creatinine 1.40 mg/dL High 0.67-1.17 2 BUN/Creatinine Ratio 12.9 8-20 2 Calcium 9.0 mg/dL 8.6-10.3 2 Total Protein 6.5 g/dL 6.4-8.9 2 Albumin 4.0 g/dL 3.2-5.2 2 Globulin 2.5 g/dL 2-4 2 Albumin/Globulin Ratio 1.6 1-3 2 Total Bilirubin 0.40 mg/dL 0.2-1.0 2 Alkaline Phosphatase 88 U/L 34-104 2 Alt 34 U/L 7-52 2 Ast 36 U/L 13-39 2 Egfr Non- 52.8 >60 2 Egfr 63.9 >60 2, 3 Laboratory test finding 03/20/2018 Creatine Kinase 59 U/L 10-223 2, 4 C Reactive Protein 3.16 mg/L <8.01 2, 5 CBC Auto Diff 03/20/2018 White Blood Count 5.3 10^3/uL 3.5-10.8 2 Red Blood Count 4.44 10^6/uL 4.00-5.40 2 Hemoglobin 11.4 g/dL Low 14.0-18.0 2 Hematocrit 34 % Low 42-52 2 Mean Corpuscular Volume 76 fL Low 80-94 2 Mean Corpuscular Hemoglobin 26 pg Low 27-31 2 Mean Corpuscular HGB Conc 34 g/dL 31-36 2 Red Cell Distribution Width 16 % High 10.5-15 2 Platelet Count 201 10^3/uL 150-450 2 Mean Platelet Volume 8.2 um3 7.4-10.4 2 Abs Neutrophils 3.1 10^3/uL 1.5-7.7 2 Abs Lymphocytes 1.5 10^3/uL 1.0-4.8 2 Abs Monocytes 0.6 10^3/uL 0-0.8 2 Abs Eosinophils 0.2 10^3/uL 0-0.6 2 Abs Basophils 0 10^3/uL 0-0.2 2 Abs Nucleated RBC 0 10^3/uL 2 Granulocyte % 57.7 % 38-83 2 Lymphocyte % 27.6 % 25-47 2 Monocyte % 11.1 % High 0-7 2 Eosinophil % 3.2 % 0-6 2 Basophil % 0.4 % 0-2 2 Nucleated Red Blood Cells % 0.2 2 CBC Auto Diff 03/11/2018 White Blood Count 5.9 10^3/uL 3.5-10.8 Red Blood Count 4.51 10^6/uL 4.00-5.40 Hemoglobin 11.2 g/dL Low 14.0-18.0 Hematocrit 34 % Low 42-52 Mean Corpuscular Volume 76 fL Low 80-94 Mean Corpuscular Hemoglobin 25 pg Low 27-31 Mean Corpuscular HGB Conc 33 g/dL 31-36 Red Cell Distribution Width 17 % High 10.5-15 Platelet Count 173 10^3/uL 150-450 Mean Platelet Volume 8.4 um3 7.4-10.4 Abs Neutrophils 3.4 10^3/uL 1.5-7.7 Abs Lymphocytes 1.6 10^3/uL 1.0-4.8 Abs Monocytes 0.6 10^3/uL 0-0.8 Abs Eosinophils 0.2 10^3/uL 0-0.6 Abs Basophils 0 10^3/uL 0-0.2 Abs Nucleated RBC 0 10^3/uL Granulocyte % 58.4 % 38-83 Lymphocyte % 27.3 % 25-47 Monocyte % 10.6 % High 0-7 Eosinophil % 3.1 % 0-6 Basophil % 0.6 % 0-2 Nucleated Red Blood Cells % 0 Comp Metabolic Panel 03/11/2018 Sodium 138 mmol/L 135-145 Potassium 4.0 mmol/L 3.5-5.0 Chloride 105 mmol/L 101-111 Co2 Carbon Dioxide 24 mmol/L 22-32 Anion Gap 9 mmol/L 2-11 Glucose 86 mg/dL 70-100 Blood Urea Nitrogen 26 mg/dL High 6-24 Creatinine 1.33 mg/dL High 0.67-1.17 BUN/Creatinine Ratio 19.5 8-20 Calcium 9.5 mg/dL 8.6-10.3 Total Protein 7.0 g/dL 6.4-8.9 Albumin 4.0 g/dL 3.2-5.2 Globulin 3.0 g/dL 2-4 Albumin/Globulin Ratio 1.3 1-3 Total Bilirubin 0.40 mg/dL 0.2-1.0 Alkaline Phosphatase 88 U/L 34-104 Alt 27 U/L 7-52 Ast 27 U/L 13-39 Egfr Non- 56.0 >60 Egfr 67.8 >60 6 Laboratory test finding 03/11/2018 Creatine Kinase 40 U/L 10-223 C Reactive Protein 2.46 mg/L <8.01 CBC Auto Diff 03/06/2018 White Blood Count 5.4 10^3/uL 3.5-10.8 Red Blood Count 4.70 10^6/uL 4.00-5.40 Hemoglobin 11.9 g/dL Low 14.0-18.0 Hematocrit 36 % Low 42-52 Mean Corpuscular Volume 77 fL Low 80-94 Mean Corpuscular Hemoglobin 25 pg Low 27-31 Mean Corpuscular HGB Conc 33 g/dL 31-36 Red Cell Distribution Width 17 % High 10.5-15 Platelet Count 169 10^3/uL 150-450 Mean Platelet Volume 8.1 um3 7.4-10.4 Abs Neutrophils 3.0 10^3/uL 1.5-7.7 Abs Lymphocytes 1.5 10^3/uL 1.0-4.8 Abs Monocytes 0.5 10^3/uL 0-0.8 Abs Eosinophils 0.3 10^3/uL 0-0.6 Abs Basophils 0 10^3/uL 0-0.2 Abs Nucleated RBC 0 10^3/uL Granulocyte % 56.4 % 38-83 Lymphocyte % 28.6 % 25-47 Monocyte % 9.5 % High 0-7 Eosinophil % 4.9 % 0-6 Basophil % 0.6 % 0-2 Nucleated Red Blood Cells % 0.1 Laboratory test finding 03/06/2018 Creatine Kinase(CK) 36 U/L 10-223 C Reactive Protein 2.74 mg/L <8.01 Comp Metabolic Panel 03/06/2018 Sodium 139 mmol/L 135-145 Potassium 4.9 mmol/L 3.5-5.0 Chloride 105 mmol/L 101-111 Co2 Carbon Dioxide 27 mmol/L 22-32 Anion Gap 7 mmol/L 2-11 Glucose 127 mg/dL High 70-100 Blood Urea Nitrogen 23 mg/dL 6-24 Creatinine 1.31 mg/dL High 0.67-1.17 BUN/Creatinine Ratio 17.6 8-20 Calcium 9.7 mg/dL 8.6-10.3 Total Protein 7.2 g/dL 6.4-8.9 Albumin 4.3 g/dL 3.2-5.2 Globulin 2.9 g/dL 2-4 Albumin/Globulin Ratio 1.5 1-3 Total Bilirubin 0.40 mg/dL 0.2-1.0 Alkaline Phosphatase 75 U/L 34-104 Alt 19 U/L 7-52 Ast 23 U/L 13-39 Egfr Non- 57.0 >60 Egfr 69.0 >60 7 Comp Metabolic Panel 02/27/2018 Sodium 139 mmol/L 135-145 Potassium 4.7 mmol/L 3.5-5.0 Chloride 104 mmol/L 101-111 Co2 Carbon Dioxide 27 mmol/L 22-32 Anion Gap 8 mmol/L 2-11 Glucose 142 mg/dL High 70-100 Blood Urea Nitrogen 18 mg/dL 6-24 Creatinine 1.33 mg/dL High 0.67-1.17 BUN/Creatinine Ratio 13.5 8-20 Calcium 9.3 mg/dL 8.6-10.3 Total Protein 7.1 g/dL 6.4-8.9 Albumin 4.1 g/dL 3.2-5.2 Globulin 3.0 g/dL 2-4 Albumin/Globulin Ratio 1.4 1-3 Total Bilirubin 0.40 mg/dL 0.2-1.0 Alkaline Phosphatase 68 U/L 34-104 Alt 20 U/L 7-52 Ast 30 U/L 13-39 Egfr Non- 56.0 >60 Egfr 67.8 >60 8 Laboratory test finding 02/27/2018 C Reactive Protein 3.41 mg/L <8.01 CBC Auto Diff 02/27/2018 White Blood Count 4.9 10^3/uL 3.5-10.8 Red Blood Count 4.47 10^6/uL 4.00-5.40 Hemoglobin 11.4 g/dL Low 14.0-18.0 Hematocrit 35 % Low 42-52 Mean Corpuscular Volume 78 fL Low 80-94 Mean Corpuscular Hemoglobin 26 pg Low 27-31 Mean Corpuscular HGB Conc 33 g/dL 31-36 Red Cell Distribution Width 17 % High 10.5-15 Platelet Count 191 10^3/uL 150-450 Mean Platelet Volume 8.2 um3 7.4-10.4 Abs Neutrophils 2.9 10^3/uL 1.5-7.7 Abs Lymphocytes 1.3 10^3/uL 1.0-4.8 Abs Monocytes 0.5 10^3/uL 0-0.8 Abs Eosinophils 0.3 10^3/uL 0-0.6 Abs Basophils 0 10^3/uL 0-0.2 Abs Nucleated RBC 0 10^3/uL Granulocyte % 58.9 % 38-83 Lymphocyte % 26.1 % 25-47 Monocyte % 9.4 % High 0-7 Eosinophil % 5.3 % 0-6 Basophil % 0.3 % 0-2 Nucleated Red Blood Cells % 0.2 Comp Metabolic Panel 02/20/2018 Sodium 138 mmol/L 135-145 9 Potassium 4.4 mmol/L 3.5-5.0 9 Chloride 104 mmol/L 101-111 9 Co2 Carbon Dioxide 25 mmol/L 22-32 9 Anion Gap 9 mmol/L 2-11 9 Glucose 105 mg/dL High 70-100 9 Blood Urea Nitrogen 18 mg/dL 6-24 9 Creatinine 1.30 mg/dL High 0.67-1.17 9 BUN/Creatinine Ratio 13.8 8-20 9 Calcium 9.3 mg/dL 8.6-10.3 9 Total Protein 7.0 g/dL 6.4-8.9 9 Albumin 3.9 g/dL 3.2-5.2 9 Globulin 3.1 g/dL 2-4 9 Albumin/Globulin Ratio 1.3 1-3 9 Total Bilirubin 0.40 mg/dL 0.2-1.0 9 Alkaline Phosphatase 76 U/L 34-104 9 Alt 18 U/L 7-52 9 Ast 23 U/L 13-39 9 Egfr Non- 57.5 >60 9 Egfr 69.6 >60 9, 10 Laboratory test finding 02/20/2018 Creatine Kinase(CK) 29 U/L 10-223 9, 11 C Reactive Protein 5.62 mg/L <8.01 9, 12 CBC Auto Diff 02/20/2018 White Blood Count 5.7 10^3/uL 3.5-10.8 9 Red Blood Count 4.30 10^6/uL 4.00-5.40 9 Hemoglobin 11.2 g/dL Low 14.0-18.0 9 Hematocrit 33 % Low 42-52 9 Mean Corpuscular Volume 78 fL Low 80-94 9 Mean Corpuscular Hemoglobin 26 pg Low 27-31 9 Mean Corpuscular HGB Conc 34 g/dL 31-36 9 Red Cell Distribution Width 17 % High 10.5-15 9 Platelet Count 248 10^3/uL 150-450 9 Mean Platelet Volume 7.9 um3 7.4-10.4 9 Abs Neutrophils 3.6 10^3/uL 1.5-7.7 9 Abs Lymphocytes 1.5 10^3/uL 1.0-4.8 9 Abs Monocytes 0.4 10^3/uL 0-0.8 9 Abs Eosinophils 0.2 10^3/uL 0-0.6 9 Abs Basophils 0 10^3/uL 0-0.2 9 Abs Nucleated RBC 0 10^3/uL 9 Granulocyte % 62.5 % 38-83 9 Lymphocyte % 26.1 % 25-47 9 Monocyte % 7.5 % High 0-7 9 Eosinophil % 3.5 % 0-6 9 Basophil % 0.4 % 0-2 9 Nucleated Red Blood Cells % 0.1 9 Laboratory test finding 02/20/2018 Erythrocyte Sed Rate 51 mm/Hr High 0- 20 9, 13 Laboratory test finding 02/14/2018 Creatine Kinase(CK) 37 U/L 10-223 14 , 15 C Reactive Protein 12.26 mg/L High <8.01 14, 16 Comp Metabolic Panel 02/14/2018 Sodium 136 mmol/L 135-145 14 Potassium 4.4 mmol/L 3.5-5.0 14 Chloride 101 mmol/L 101-111 14 Co2 Carbon Dioxide 26 mmol/L 22-32 14 Anion Gap 9 mmol/L 2-11 14 Glucose 248 mg/dL High 70-100 14 Blood Urea Nitrogen 21 mg/dL 6-24 14 Creatinine 1.33 mg/dL High 0.67-1.17 14 BUN/Creatinine Ratio 15.8 8-20 14 Calcium 9.3 mg/dL 8.6-10.3 14 Total Protein 6.7 g/dL 6.4-8.9 14 Albumin 3.7 g/dL 3.2-5.2 14 Globulin 3.0 g/dL 2-4 14 Albumin/Globulin Ratio 1.2 1-3 14 Total Bilirubin 0.40 mg/dL 0.2-1.0 14 Alkaline Phosphatase 82 U/L 34-104 14 Alt 11 U/L 7-52 14 Ast 13 U/L 13-39 14 Egfr Non- 56.0 >60 14 Egfr 72.1 >60 14, 17 CBC Auto Diff 02/14/2018 White Blood Count 7.7 10^3/uL 3.5-10.8 14 Red Blood Count 3.89 10^6/uL Low 4.00-5.40 14 Hemoglobin 10.1 g/dL Low 14.0-18.0 14 Hematocrit 30 % Low 42-52 14 Mean Corpuscular Volume 77 fL Low 80-94 14 Mean Corpuscular Hemoglobin 26 pg Low 27-31 14 Mean Corpuscular HGB Conc 34 g/dL 31-36 14 Red Cell Distribution Width 17 % High 10.5-15 14 Platelet Count 386 10^3/uL 150-450 14 Mean Platelet Volume 7.2 um3 Low 7.4-10.4 14 Abs Neutrophils 5.3 10^3/uL 1.5-7.7 14 Abs Lymphocytes 1.5 10^3/uL 1.0-4.8 14 Abs Monocytes 0.5 10^3/uL 0-0.8 14 Abs Eosinophils 0.3 10^3/uL 0-0.6 14 Abs Basophils 0.1 10^3/uL 0-0.2 14 Abs Nucleated RBC 0 10^3/uL 14 Granulocyte % 68.7 % 38-83 14 Lymphocyte % 19.8 % Low 25-47 14 Monocyte % 7.1 % High 0-7 14 Eosinophil % 3.5 % 0-6 14 Basophil % 0.9 % 0-2 14 Nucleated Red Blood Cells % 0.1 14 Laboratory test finding 02/08/2018 Point of Care Glucose 100 mg/dL 70- 100 18 Laboratory test finding 02/08/2018 Point of Care Glucose 104 mg/dL High 70 -100 19 CBC Auto Diff 02/06/2018 White Blood Count 7.2 10^3/uL 3.5-10.8 Red Blood Count 3.73 10^6/uL Low 4.00-5.40 Hemoglobin 9.7 g/dL Low 14.0-18.0 Hematocrit 29 % Low 42-52 Mean Corpuscular Volume 77 fL Low 80-94 Mean Corpuscular Hemoglobin 26 pg Low 27-31 Mean Corpuscular HGB Conc 34 g/dL 31-36 Red Cell Distribution Width 16 % High 10.5-15 Platelet Count 414 10^3/uL 150-450 Mean Platelet Volume 7.1 um3 Low 7.4-10.4 Abs Neutrophils 4.9 10^3/uL 1.5-7.7 Abs Lymphocytes 1.4 10^3/uL 1.0-4.8 Abs Monocytes 0.6 10^3/uL 0-0.8 Abs Eosinophils 0.3 10^3/uL 0-0.6 Abs Basophils 0 10^3/uL 0-0.2 Abs Nucleated RBC 0 10^3/uL Granulocyte % 68.0 % 38-83 Lymphocyte % 18.8 % Low 25-47 Monocyte % 9.0 % High 0-7 Eosinophil % 3.8 % 0-6 Basophil % 0.4 % 0-2 Nucleated Red Blood Cells % 0 Comp Metabolic Panel 02/06/2018 Sodium 138 mmol/L Low 139-145 Potassium 4.4 mmol/L 3.5-5.0 Chloride 102 mmol/L 101-111 Co2 Carbon Dioxide 26 mmol/L 22-32 Anion Gap 10 mmol/L 2-11 Glucose 131 mg/dL High 70-100 Blood Urea Nitrogen 16 mg/dL 6-24 Creatinine 1.37 mg/dL High 0.67-1.17 BUN/Creatinine Ratio 11.7 8-20 Calcium 9.2 mg/dL 8.6-10.3 Total Protein 6.5 g/dL 6.4-8.9 Albumin 3.4 g/dL 3.2-5.2 Globulin 3.1 g/dL 2-4 Albumin/Globulin Ratio 1.1 1-3 Total Bilirubin 0.30 mg/dL 0.2-1.0 Alkaline Phosphatase 105 U/L High 34-104 Alt 11 U/L 7-52 Ast 13 U/L 13-39 Egfr Non- 54.1 >60 Egfr 69.6 >60 20 Laboratory test finding 02/06/2018 Creatine Kinase(CK) 19 U/L 10-223 C Reactive Protein 85.52 mg/L High < 5.00 21 Laboratory test finding 01/30/2018 C Reactive Protein 187.45 mg/L High < 5.00 22, 23 Comp Metabolic Panel 01/30/2018 Sodium 133 mmol/L Low 139-145 22 Potassium 4.2 mmol/L 3.5-5.0 22 Chloride 98 mmol/L Low 101-111 22 Co2 Carbon Dioxide 26 mmol/L 22-32 22 Anion Gap 9 mmol/L 2-11 22 Glucose 270 mg/dL High 70-100 22 Blood Urea Nitrogen 19 mg/dL 6-24 22 Creatinine 1.43 mg/dL High 0.67-1.17 22 BUN/Creatinine Ratio 13.3 8-20 22 Calcium 8.2 mg/dL Low 8.6-10.3 22 Total Protein 6.0 g/dL Low 6.4-8.9 22 Albumin 3.2 g/dL 3.2-5.2 22 Globulin 2.8 g/dL 2-4 22 Albumin/Globulin Ratio 1.1 1-3 22 Total Bilirubin 0.30 mg/dL 0.2-1.0 22 Alkaline Phosphatase 325 U/L High 34-104 22 Alt 29 U/L 7-52 22 Ast 40 U/L High 13-39 22 Egfr Non- 51.5 >60 22 Egfr 66.3 >60 22, 24 CBC Auto Diff 01/30/2018 White Blood Count 4.6 10^3/uL 3.5-10.8 22 Red Blood Count 3.52 10^6/uL Low 4.0-5.4 22 Hemoglobin 9.6 g/dL Low 14.0-18.0 22 Hematocrit 28 % Low 42-52 22 Mean Corpuscular Volume 79 fL Low 80-94 22 Mean Corpuscular Hemoglobin 27 pg 27-31 22 Mean Corpuscular HGB Conc 34 g/dL 31-36 22 Red Cell Distribution Width 16 % High 10.5-15 22 Platelet Count 235 10^3/uL 150-450 22 Mean Platelet Volume 7.7 um3 7.4-10.4 22 Abs Neutrophils 2.7 10^3/uL 1.5-7.7 22 Abs Lymphocytes 0.9 10^3/uL Low 1.0-4.8 22 Abs Monocytes 0.8 10^3/uL 0-0.8 22 Abs Eosinophils 0.2 10^3/uL 0-0.6 22 Abs Basophils 0 10^3/uL 0-0.2 22 Abs Nucleated RBC 0 10^3/uL 22 Granulocyte % 59.7 % 38-83 22 Lymphocyte % 19.4 % Low 25-47 22 Monocyte % 17.2 % High 0-7 22 Eosinophil % 3.3 % 0-6 22 Basophil % 0.4 % 0-2 22 Nucleated Red Blood Cells % 0.1 22 Laboratory test 01/25/2018 Surgical Pathology SEE RESULT BELOW 25 finding Laboratory test 01/25/2018 Point of Care 178 mg/dL High 70-100 26 finding Glucose Wound Culture/Sensi 01/25/2018 Wound/Misc SEE RESULT BELOW 27, 28 Culture-Gram Stain Laboratory test 01/25/2018 Tissue Culture & SEE RESULT BELOW 27, 29 finding Sensitiv Anaerobic Culture SEE RESULT BELOW 27, 30 Laboratory test finding 01/25/2018 Point of Care Glucose 200 mg/dL High 70 -100 31 CBC Auto Diff 01/23/2018 White Blood Count 5.5 10^3/uL 3.5-10.8 Red Blood Count 4.34 10^6/uL 4.0-5.4 Hemoglobin 11.6 g/dL Low 14.0-18.0 Hematocrit 35 % Low 42-52 Mean Corpuscular Volume 80 fL 80-94 Mean Corpuscular Hemoglobin 27 pg 27-31 Mean Corpuscular HGB Conc 33 g/dL 31-36 Red Cell Distribution Width 17 % High 10.5-15 Platelet Count 186 10^3/uL 150-450 Mean Platelet Volume 8.0 um3 7.4-10.4 Abs Neutrophils 3.4 10^3/uL 1.5-7.7 Abs Lymphocytes 1.4 10^3/uL 1.0-4.8 Abs Monocytes 0.5 10^3/uL 0-0.8 Abs Eosinophils 0.2 10^3/uL 0-0.6 Abs Basophils 0 10^3/uL 0-0.2 Abs Nucleated RBC 0 10^3/uL Granulocyte % 61.8 % 38-83 Lymphocyte % 25.3 % 25-47 Monocyte % 8.9 % High 0-7 Eosinophil % 3.6 % 0-6 Basophil % 0.4 % 0-2 Nucleated Red Blood Cells % 0 Comp Metabolic Panel 01/23/2018 Sodium 133 mmol/L Low 139-145 Potassium 4.1 mmol/L 3.5-5.0 Chloride 100 mmol/L Low 101-111 Co2 Carbon Dioxide 26 mmol/L 22-32 Anion Gap 7 mmol/L 2-11 Glucose 319 mg/dL High 70-100 Blood Urea Nitrogen 16 mg/dL 6-24 Creatinine 1.29 mg/dL High 0.67-1.17 BUN/Creatinine Ratio 12.4 8-20 Calcium 8.8 mg/dL 8.6-10.3 Total Protein 6.4 g/dL 6.4-8.9 Albumin 3.8 g/dL 3.2-5.2 Globulin 2.6 g/dL 2-4 Albumin/Globulin Ratio 1.5 1-3 Total Bilirubin 0.30 mg/dL 0.2-1.0 Alkaline Phosphatase 90 U/L 34-104 Alt 15 U/L 7-52 Ast 15 U/L 13-39 Egfr Non- 58.0 >60 Egfr 74.6 >60 32 Laboratory test 01/23/2018 C Reactive Protein 17.45 mg/L High < 5.00 33 finding Laboratory test 01/11/2018 C Reactive Protein 50.00 mg/L High < 5.00 34 finding Wound Culture/Sensi 01/03/2018 Wound/Misc SEE RESULT 35, 36 Culture-Gram Stain BELOW Laboratory test 01/02/2018 C Reactive Protein 24.89 mg/L High < 5.00 37 finding CBC Auto Diff 12/22/2017 White Blood Count 6.6 10^3/uL 3.5-10.8 Red Blood Count 4.89 10^6/uL 4.0-5.4 Hemoglobin 13.2 g/dL Low 14.0-18.0 Hematocrit 39 % Low 42-52 Mean Corpuscular Volume 80 fL 80-94 Mean Corpuscular Hemoglobin 27 pg 27-31 Mean Corpuscular HGB Conc 34 g/dL 31-36 Red Cell Distribution Width 18 % High 10.5-15 Platelet Count 249 10^3/uL 150-450 Mean Platelet Volume 7.6 um3 7.4-10.4 Abs Neutrophils 4.2 10^3/uL 1.5-7.7 Abs Lymphocytes 1.7 10^3/uL 1.0-4.8 Abs Monocytes 0.6 10^3/uL 0-0.8 Abs Eosinophils 0.1 10^3/uL 0-0.6 Abs Basophils 0 10^3/uL 0-0.2 Abs Nucleated RBC 0 10^3/uL Granulocyte % 63.2 % 38-83 Lymphocyte % 25.9 % 25-47 Monocyte % 9.6 % High 0-7 Eosinophil % 0.8 % 0-6 Basophil % 0.5 % 0-2 Nucleated Red Blood Cells % 0 Laboratory test finding 12/22/2017 C Reactive Protein 31.47 mg/L High < 5.00 38 CBC Auto Diff 12/08/2017 White Blood Count 5.5 10^3/uL 3.5-10.8 Red Blood Count 4.44 10^6/uL 4.0-5.4 Hemoglobin 11.8 g/dL Low 14.0-18.0 Hematocrit 35 % Low 42-52 Mean Corpuscular Volume 79 fL Low 80-94 Mean Corpuscular Hemoglobin 27 pg 27-31 Mean Corpuscular HGB Conc 34 g/dL 31-36 Red Cell Distribution Width 16 % High 10.5-15 Platelet Count 130 10^3/uL Low 150-450 Mean Platelet Volume 8.9 um3 7.4-10.4 Abs Neutrophils 3.5 10^3/uL 1.5-7.7 Abs Lymphocytes 1.3 10^3/uL 1.0-4.8 Abs Monocytes 0.6 10^3/uL 0-0.8 Abs Eosinophils 0 10^3/uL 0-0.6 Abs Basophils 0 10^3/uL 0-0.2 Abs Nucleated RBC 0 10^3/uL Granulocyte % 64.2 % 38-83 Lymphocyte % 24.4 % Low 25-47 Monocyte % 10.3 % High 0-7 Eosinophil % 0.4 % 0-6 Basophil % 0.7 % 0-2 Nucleated Red Blood Cells % 0 Comp Metabolic Panel 12/08/2017 Sodium 133 mmol/L Low 139-145 Potassium 4.4 mmol/L 3.5-5.0 Chloride 100 mmol/L Low 101-111 Co2 Carbon Dioxide 25 mmol/L 22-32 Anion Gap 8 mmol/L 2-11 Glucose 240 mg/dL High 70-100 Blood Urea Nitrogen 25 mg/dL High 6-24 Creatinine 1.39 mg/dL High 0.67-1.17 BUN/Creatinine Ratio 18.0 8-20 Calcium 9.0 mg/dL 8.6-10.3 Total Protein 6.9 g/dL 6.4-8.9 Albumin 4.3 g/dL 3.2-5.2 Globulin 2.6 g/dL 2-4 Albumin/Globulin Ratio 1.7 1-3 Total Bilirubin 0.50 mg/dL 0.2-1.0 Alkaline Phosphatase 100 U/L 34-104 Alt 54 U/L High 7-52 Ast 37 U/L 13-39 Egfr Non- 53.3 >60 Egfr 68.5 >60 39 Laboratory test finding 12/08/2017 C Reactive Protein 2.19 mg/L < 5.00 40 Comp Metabolic Panel 11/29/2017 Sodium 135 mmol/L Low 139-145 Potassium 4.6 mmol/L 3.5-5.0 Chloride 102 mmol/L 101-111 Co2 Carbon Dioxide 26 mmol/L 22-32 Anion Gap 7 mmol/L 2-11 Glucose 231 mg/dL High 70-100 Blood Urea Nitrogen 22 mg/dL 6-24 Creatinine 1.40 mg/dL High 0.67-1.17 BUN/Creatinine Ratio 15.7 8-20 Calcium 9.3 mg/dL 8.6-10.3 Total Protein 6.6 g/dL 6.4-8.9 Albumin 4.2 g/dL 3.2-5.2 Globulin 2.4 g/dL 2-4 Albumin/Globulin Ratio 1.8 1-3 Total Bilirubin 0.50 mg/dL 0.2-1.0 Alkaline Phosphatase 120 U/L High 34-104 Alt 59 U/L High 7-52 Ast 50 U/L High 13-39 Egfr Non- 52.8 >60 Egfr 67.9 >60 41 Laboratory test finding 11/29/2017 C Reactive Protein 1.29 mg/L < 5.00 42 CBC Auto Diff 11/22/2017 White Blood Count 6.4 10^3/uL 3.5-10.8 Red Blood Count 4.44 10^6/uL 4.0-5.4 Hemoglobin 11.6 g/dL Low 14.0-18.0 Hematocrit 35 % Low 42-52 Mean Corpuscular Volume 79 fL Low 80-94 Mean Corpuscular Hemoglobin 26 pg Low 27-31 Mean Corpuscular HGB Conc 33 g/dL 31-36 Red Cell Distribution Width 15 % 10.5-15 Platelet Count 187 10^3/uL 150-450 Mean Platelet Volume 8.7 um3 7.4-10.4 Abs Neutrophils 4.1 10^3/uL 1.5-7.7 Abs Lymphocytes 1.7 10^3/uL 1.0-4.8 Abs Monocytes 0.5 10^3/uL 0-0.8 Abs Eosinophils 0 10^3/uL 0-0.6 Abs Basophils 0 10^3/uL 0-0.2 Abs Nucleated RBC 0 10^3/uL Granulocyte % 64.4 % 38-83 Lymphocyte % 26.1 % 25-47 Monocyte % 8.3 % High 0-7 Eosinophil % 0.7 % 0-6 Basophil % 0.5 % 0-2 Nucleated Red Blood Cells % 0 Comp Metabolic Panel 11/22/2017 Sodium 135 mmol/L Low 139-145 Potassium 4.7 mmol/L 3.5-5.0 Chloride 102 mmol/L 101-111 Co2 Carbon Dioxide 21 mmol/L Low 22-32 Anion Gap 12 mmol/L High 2-11 Glucose 353 mg/dL High 70-100 Blood Urea Nitrogen 22 mg/dL 6-24 Creatinine 1.37 mg/dL High 0.67-1.17 BUN/Creatinine Ratio 16.1 8-20 Calcium 10.1 mg/dL 8.6-10.3 Total Protein 7.2 g/dL 6.4-8.9 Albumin 4.3 g/dL 3.2-5.2 Globulin 2.9 g/dL 2-4 Albumin/Globulin Ratio 1.5 1-3 Total Bilirubin 0.40 mg/dL 0.2-1.0 Alkaline Phosphatase 117 U/L High 34-104 Alt 41 U/L 7-52 Ast 34 U/L 13-39 Egfr Non- 54.1 >60 Egfr 69.6 >60 43 Laboratory test finding 11/22/2017 C Reactive Protein 2.26 mg/L < 5.00 44 CBC Auto Diff 11/15/2017 White Blood Count 6.8 10^3/uL 3.5-10.8 Red Blood Count 4.20 10^6/uL 4.0-5.4 Hemoglobin 11.0 g/dL Low 14.0-18.0 Hematocrit 33 % Low 42-52 Mean Corpuscular Volume 78 fL Low 80-94 Mean Corpuscular Hemoglobin 26 pg Low 27-31 Mean Corpuscular HGB Conc 34 g/dL 31-36 Red Cell Distribution Width 14 % 10.5-15 Platelet Count 220 10^3/uL 150-450 Mean Platelet Volume 8.0 um3 7.4-10.4 Abs Neutrophils 4.2 10^3/uL 1.5-7.7 Abs Lymphocytes 1.7 10^3/uL 1.0-4.8 Abs Monocytes 0.6 10^3/uL 0-0.8 Abs Eosinophils 0.3 10^3/uL 0-0.6 Abs Basophils 0 10^3/uL 0-0.2 Abs Nucleated RBC 0 10^3/uL Granulocyte % 61.5 % 38-83 Lymphocyte % 25.2 % 25-47 Monocyte % 9.0 % High 0-7 Eosinophil % 3.9 % 0-6 Basophil % 0.4 % 0-2 Nucleated Red Blood Cells % 0.3 Comp Metabolic Panel 11/15/2017 Sodium 133 mmol/L 133-145 Potassium 4.1 mmol/L 3.5-5.0 Chloride 102 mmol/L 101-111 Co2 Carbon Dioxide 25 mmol/L 22-32 Anion Gap 6 mmol/L 2-11 Glucose 150 mg/dL High 70-100 Blood Urea Nitrogen 13 mg/dL 6-24 Creatinine 1.26 mg/dL High 0.67-1.17 BUN/Creatinine Ratio 10.3 8-20 Calcium 9.4 mg/dL 8.6-10.3 Total Protein 6.8 g/dL 6.4-8.9 Albumin 4.0 g/dL 3.2-5.2 Globulin 2.8 g/dL 2-4 Albumin/Globulin Ratio 1.4 1-3 Total Bilirubin 0.40 mg/dL 0.2-1.0 Alkaline Phosphatase 130 U/L High 34-104 Alt 32 U/L 7-52 Ast 26 U/L 13-39 Egfr Non- 59.6 >60 Egfr 76.7 >60 45 Laboratory test finding 11/15/2017 C Reactive Protein 5.12 mg/L High < 5.00 46 Laboratory test finding 11/06/2017 C Reactive Protein 65.13 mg/L High < 5.00 47 CBC Auto Diff 10/23/2017 White Blood Count 5.7 10^3/uL 3.5-10.8 Red Blood Count 4.14 10^6/uL 4.0-5.4 Hemoglobin 11.2 g/dL Low 14.0-18.0 Hematocrit 33 % Low 42-52 Mean Corpuscular Volume 81 fL 80-94 Mean Corpuscular Hemoglobin 27 pg 27-31 Mean Corpuscular HGB Conc 34 g/dL 31-36 Red Cell Distribution Width 14 % 10.5-15 Platelet Count 178 10^3/uL 150-450 Mean Platelet Volume 9 um3 7.4-10.4 Abs Neutrophils 3.1 10^3/uL 1.5-7.7 Abs Lymphocytes 1.6 10^3/uL 1.0-4.8 Abs Monocytes 0.7 10^3/uL 0-0.8 Abs Eosinophils 0.4 10^3/uL 0-0.6 Abs Basophils 0 10^3/uL 0-0.2 Abs Nucleated RBC 0 10^3/uL Granulocyte % 53.2 % 38-83 Lymphocyte % 27.8 % 25-47 Monocyte % 11.6 % High 0-7 Eosinophil % 6.5 % High 0-6 Basophil % 0.9 % 0-2 Nucleated Red Blood Cells % 0.1 Comp Metabolic Panel 10/23/2017 Sodium 127 mmol/L Low 133-145 Potassium 4.5 mmol/L 3.5-5.0 Chloride 93 mmol/L Low 101-111 Co2 Carbon Dioxide 27 mmol/L 22-32 Anion Gap 7 mmol/L 2-11 Glucose 430 mg/dL High 70-100 Blood Urea Nitrogen 20 mg/dL 6-24 Creatinine 1.46 mg/dL High 0.67-1.17 BUN/Creatinine Ratio 13.7 8-20 Calcium 9.7 mg/dL 8.6-10.3 Total Protein 7.5 g/dL 6.4-8.9 Albumin 4.3 g/dL 3.2-5.2 Globulin 3.2 g/dL 2-4 Albumin/Globulin Ratio 1.3 1-3 Total Bilirubin 0.30 mg/dL 0.2-1.0 Alkaline Phosphatase 141 U/L High 34-104 Alt 39 U/L 7-52 Ast 28 U/L 13-39 Egfr Non- 50.3 >60 Egfr 64.7 >60 48 Laboratory test finding 10/23/2017 C Reactive Protein 1.73 mg/L < 5.00 49 CBC Auto Diff 10/16/2017 White Blood Count 6.3 10^3/uL 3.5-10.8 Red Blood Count 4.06 10^6/uL 4.0-5.4 Hemoglobin 11.1 g/dL Low 14.0-18.0 Hematocrit 33 % Low 42-52 Mean Corpuscular Volume 82 fL 80-94 Mean Corpuscular Hemoglobin 27 pg 27-31 Mean Corpuscular HGB Conc 33 g/dL 31-36 Red Cell Distribution Width 15 % 10.5-15 Platelet Count 213 10^3/uL 150-450 Mean Platelet Volume 9 um3 7.4-10.4 Abs Neutrophils 3.8 10^3/uL 1.5-7.7 Abs Lymphocytes 1.6 10^3/uL 1.0-4.8 Abs Monocytes 0.6 10^3/uL 0-0.8 Abs Eosinophils 0.3 10^3/uL 0-0.6 Abs Basophils 0 10^3/uL 0-0.2 Abs Nucleated RBC 0 10^3/uL Granulocyte % 59.7 % 38-83 Lymphocyte % 25.8 % 25-47 Monocyte % 9.5 % High 1-9 Eosinophil % 4.5 % 0-6 Basophil % 0.5 % 0-2 Nucleated Red Blood Cells % 0.1 Comp Metabolic Panel 10/16/2017 Sodium 131 mmol/L Low 133-145 Potassium 4.6 mmol/L 3.5-5.0 Chloride 98 mmol/L Low 101-111 Co2 Carbon Dioxide 26 mmol/L 22-32 Anion Gap 7 mmol/L 2-11 Glucose 322 mg/dL High 70-100 Blood Urea Nitrogen 19 mg/dL 6-24 Creatinine 1.34 mg/dL High 0.67-1.17 BUN/Creatinine Ratio 14.2 8-20 Calcium 9.2 mg/dL 8.6-10.3 Total Protein 7.3 g/dL 6.4-8.9 Albumin 4.1 g/dL 3.2-5.2 Globulin 3.2 g/dL 2-4 Albumin/Globulin Ratio 1.3 1-3 Total Bilirubin 0.40 mg/dL 0.2-1.0 Alkaline Phosphatase 108 U/L High 34-104 Alt 55 U/L High 7-52 Ast 55 U/L High 13-39 Egfr Non- 55.5 >60 Egfr 71.4 >60 50 Laboratory test finding 10/16/2017 C Reactive Protein < 1.00 mg/L < 5.00 51 Comp Metabolic Panel 10/12/2017 Sodium 128 mmol/L Low 133-145 Potassium 4.8 mmol/L 3.5-5.0 Chloride 97 mmol/L Low 101-111 Co2 Carbon Dioxide 26 mmol/L 22-32 Anion Gap 5 mmol/L 2-11 Glucose 488 mg/dL High 70-100 Blood Urea Nitrogen 21 mg/dL 6-24 Creatinine 1.36 mg/dL High 0.67-1.17 BUN/Creatinine Ratio 15.4 8-20 Calcium 9.4 mg/dL 8.6-10.3 Total Protein 7.4 g/dL 6.4-8.9 Albumin 3.9 g/dL 3.2-5.2 Globulin 3.5 g/dL 2-4 Albumin/Globulin Ratio 1.1 1-3 Total Bilirubin 0.30 mg/dL 0.2-1.0 Alkaline Phosphatase 146 U/L High 34-104 Alt 52 U/L 7-52 Ast 64 U/L High 13-39 Egfr Non- 54.6 >60 Egfr 70.2 >60 52 Laboratory test finding 10/12/2017 C Reactive Protein 1.16 mg/L < 5.00 53 CBC Auto Diff 10/12/2017 White Blood Count 5.8 10^3/uL 3.5-10.8 Red Blood Count 3.89 10^6/uL Low 4.0-5.4 Hemoglobin 10.7 g/dL Low 14.0-18.0 Hematocrit 32 % Low 42-52 Mean Corpuscular Volume 82 fL 80-94 Mean Corpuscular Hemoglobin 28 pg 27-31 Mean Corpuscular HGB Conc 34 g/dL 31-36 Red Cell Distribution Width 14 % 10.5-15 Platelet Count 222 10^3/uL 150-450 Mean Platelet Volume 9 um3 7.4-10.4 Abs Neutrophils 3.8 10^3/uL 1.5-7.7 Abs Lymphocytes 1.2 10^3/uL 1.0-4.8 Abs Monocytes 0.5 10^3/uL 0-0.8 Abs Eosinophils 0.2 10^3/uL 0-0.6 Abs Basophils 0 10^3/uL 0-0.2 Abs Nucleated RBC 0 10^3/uL Granulocyte % 65.8 % 38-83 Lymphocyte % 21.2 % Low 25-47 Monocyte % 8.6 % 1-9 Eosinophil % 3.9 % 0-6 Basophil % 0.5 % 0-2 Nucleated Red Blood Cells % 0 Laboratory test finding 10/05/2017 C Reactive Protein 4.54 mg/L < 5.00 54 Comp Metabolic Panel 10/05/2017 Sodium 131 mmol/L Low 133-145 Potassium 4.7 mmol/L 3.5-5.0 Chloride 98 mmol/L Low 101-111 Co2 Carbon Dioxide 27 mmol/L 22-32 Anion Gap 6 mmol/L 2-11 Glucose 277 mg/dL High 70-100 Blood Urea Nitrogen 23 mg/dL 6-24 Creatinine 1.46 mg/dL High 0.67-1.17 BUN/Creatinine Ratio 15.8 8-20 Calcium 9.8 mg/dL 8.6-10.3 Total Protein 7.6 g/dL 6.4-8.9 Albumin 3.7 g/dL 3.2-5.2 Globulin 3.9 g/dL 2-4 Albumin/Globulin Ratio 0.9 Low 1-3 Total Bilirubin 0.30 mg/dL 0.2-1.0 Alkaline Phosphatase 222 U/L High 34-104 Alt 27 U/L 7-52 Ast 48 U/L High 13-39 Egfr Non- 50.3 >60 Egfr 64.7 >60 55 CBC Auto Diff 10/05/2017 White Blood Count 7.8 10^3/uL 3.5-10.8 Red Blood Count 3.59 10^6/uL Low 4.0-5.4 Hemoglobin 9.8 g/dL Low 14.0-18.0 Hematocrit 29 % Low 42-52 Mean Corpuscular Volume 82 fL 80-94 Mean Corpuscular Hemoglobin 27 pg 27-31 Mean Corpuscular HGB Conc 33 g/dL 31-36 Red Cell Distribution Width 14 % 10.5-15 Platelet Count 339 10^3/uL 150-450 Mean Platelet Volume 8 um3 7.4-10.4 Abs Neutrophils 5.6 10^3/uL 1.5-7.7 Abs Lymphocytes 1.5 10^3/uL 1.0-4.8 Abs Monocytes 0.6 10^3/uL 0-0.8 Abs Eosinophils 0.1 10^3/uL 0-0.6 Abs Basophils 0 10^3/uL 0-0.2 Abs Nucleated RBC 0 10^3/uL Granulocyte % 72.0 % 38-83 Lymphocyte % 18.7 % Low 25-47 Monocyte % 7.3 % 1-9 Eosinophil % 1.6 % 0-6 Basophil % 0.4 % 0-2 Nucleated Red Blood Cells % 0 Laboratory test finding 09/18/2017 Lactic Acid 0.6 mmol/L 0.5-2.0 56 CBC Auto Diff 11/19/2015 White Blood Count 5.4 10^3/uL 3.5-10.8 Red Blood Count 4.37 10^6/uL 4.0-5.4 Hemoglobin 13.3 g/dL Low 14.0-18.0 Hematocrit 39 % Low 42-52 Mean Corpuscular Volume 89 fL 80-94 Mean Corpuscular Hemoglobin 30 pg 27-31 Mean Corpuscular HGB Conc 34 g/dL 31-36 Red Cell Distribution Width 13 % 10.5-15 Platelet Count 148 10^3/uL Low 150-450 Mean Platelet Volume 10 um3 7.4-10.4 Abs Neutrophils 3.4 10^3/uL 1.5-7.7 Abs Lymphocytes 1.3 10^3/uL 1.0-4.8 Abs Monocytes 0.5 10^3/uL 0-0.8 Abs Eosinophils 0.2 10^3/uL 0-0.6 Abs Basophils 0 10^3/uL 0-0.2 Abs Nucleated RBC 0 10^3/uL Granulocyte % 62.2 % 38-83 Lymphocyte % 23.5 % Low 25-47 Monocyte % 9.5 % High 1-9 Eosinophil % 4.2 % 0-6 Basophil % 0.6 % 0-2 Nucleated Red Blood Cells % 0 Comp Metabolic Panel 11/19/2015 Sodium 129 mmol/L Low 133-145 Potassium 4.8 mmol/L 3.5-5.0 Chloride 96 mmol/L Low 101-111 Co2 Carbon Dioxide 26 mmol/L 22-32 Anion Gap 7 mmol/L 2-11 Glucose 356 mg/dL High 70-100 Blood Urea Nitrogen 23 mg/dL 6-24 Creatinine 1.28 mg/dL High 0.67-1.17 BUN/Creatinine Ratio 18.0 8-20 Calcium 9.5 mg/dL 8.6-10.3 Total Protein 6.3 g/dL Low 6.4-8.9 Albumin 4.3 g/dL 3.2-5.2 Globulin 2.0 g/dL 2-4 Albumin/Globulin Ratio 2.2 1-3 Total Bilirubin 0.50 mg/dL 0.2-1.0 Alkaline Phosphatase 71 U/L 34-104 Alt 20 U/L 7-52 Ast 15 U/L 13-39 Egfr Non- 59.0 >60 Egfr 75.9 >60 57 Laboratory test finding 11/19/2015 C Reactive Protein 1.02 mg/L < 5.00 58 CBC Auto Diff 11/11/2015 White Blood Count 5.6 10^3/uL 3.5-10.8 Red Blood Count 4.28 10^6/uL 4.0-5.4 Hemoglobin 13.2 g/dL Low 14.0-18.0 Hematocrit 38 % Low 42-52 Mean Corpuscular Volume 89 fL 80-94 Mean Corpuscular Hemoglobin 31 pg 27-31 Mean Corpuscular HGB Conc 35 g/dL 31-36 Red Cell Distribution Width 13 % 10.5-15 Platelet Count 161 10^3/uL 150-450 Mean Platelet Volume 10 um3 7.4-10.4 Abs Neutrophils 3.5 10^3/uL 1.5-7.7 Abs Lymphocytes 1.4 10^3/uL 1.0-4.8 Abs Monocytes 0.4 10^3/uL 0-0.8 Abs Eosinophils 0.3 10^3/uL 0-0.6 Abs Basophils 0 10^3/uL 0-0.2 Abs Nucleated RBC 0.01 10^3/uL Granulocyte % 62.5 % 38-83 Lymphocyte % 24.9 % Low 25-47 Monocyte % 7.3 % 1-9 Eosinophil % 4.7 % 0-6 Basophil % 0.6 % 0-2 Nucleated Red Blood Cells % 0.1 Comp Metabolic Panel 11/11/2015 Sodium 130 mmol/L Low 133-145 Potassium 5.0 mmol/L 3.5-5.0 Chloride 97 mmol/L Low 101-111 Co2 Carbon Dioxide 26 mmol/L 22-32 Anion Gap 7 mmol/L 2-11 Glucose 453 mg/dL High 70-100 Blood Urea Nitrogen 21 mg/dL 6-24 Creatinine 1.15 mg/dL 0.67-1.17 BUN/Creatinine Ratio 18.3 8-20 Calcium 9.4 mg/dL 8.6-10.3 Total Protein 6.4 g/dL 6.4-8.9 Albumin 4.3 g/dL 3.2-5.2 Globulin 2.1 g/dL 2-4 Albumin/Globulin Ratio 2.0 1-3 Total Bilirubin 0.30 mg/dL 0.2-1.0 Alkaline Phosphatase 78 U/L 34-104 Alt 31 U/L 7-52 Ast 21 U/L 13-39 Egfr Non- 66.8 >60 Egfr 85.9 >60 59 Laboratory test finding 11/11/2015 C Reactive Protein 1.19 mg/L < 5.00 60 CBC Auto Diff 11/04/2015 White Blood Count 7.1 10^3/uL 3.5-10.8 Red Blood Count 4.61 10^6/uL 4.0-5.4 Hemoglobin 14.0 g/dL 14.0-18.0 Hematocrit 42 % 42-52 Mean Corpuscular Volume 90 fL 80-94 Mean Corpuscular Hemoglobin 30 pg 27-31 Mean Corpuscular HGB Conc 34 g/dL 31-36 Red Cell Distribution Width 13 % 10.5-15 Platelet Count 207 10^3/uL 150-450 Mean Platelet Volume 9 um3 7.4-10.4 Abs Neutrophils 4.4 10^3/uL 1.5-7.7 Abs Lymphocytes 1.8 10^3/uL 1.0-4.8 Abs Monocytes 0.5 10^3/uL 0-0.8 Abs Eosinophils 0.3 10^3/uL 0-0.6 Abs Basophils 0 10^3/uL 0-0.2 Abs Nucleated RBC 0 10^3/uL Granulocyte % 62.8 % 38-83 Lymphocyte % 25.2 % 25-47 Monocyte % 7.6 % 1-9 Eosinophil % 3.9 % 0-6 Basophil % 0.5 % 0-2 Nucleated Red Blood Cells % 0 Laboratory test finding 11/04/2015 C Reactive Protein 1.34 mg/L < 5.00 61 Comp Metabolic Panel 11/04/2015 Sodium 132 mmol/L Low 133-145 Potassium 4.6 mmol/L 3.5-5.0 Chloride 98 mmol/L Low 101-111 Co2 Carbon Dioxide 27 mmol/L 22-32 Anion Gap 7 mmol/L 2-11 Glucose 224 mg/dL High 70-100 Blood Urea Nitrogen 19 mg/dL 6-24 Creatinine 0.96 mg/dL 0.67-1.17 BUN/Creatinine Ratio 19.8 8-20 Calcium 9.6 mg/dL 8.6-10.3 Total Protein 6.6 g/dL 6.4-8.9 Albumin 4.4 g/dL 3.2-5.2 Globulin 2.2 g/dL 2-4 Albumin/Globulin Ratio 2.0 1-3 Total Bilirubin 0.50 mg/dL 0.2-1.0 Alkaline Phosphatase 80 U/L 34-104 Alt 25 U/L 7-52 Ast 15 U/L 13-39 Egfr Non- 82.3 >60 Egfr 105.8 >60 62 1 Because ethnic data is not always readily available, this report includes an eGFR for both -Americans and non- Americans. The National Kidney Disease Education Program (NKDEP) does not endorse the use of the MDRD equation for patients that are not between the ages of 18 and 70, are , have extremes of body size, muscle mass, or nutritional status, or are non- or non-. According to the National Kid[employer], irrespective of diagnosis, the stage of the disease is based on the level of kidney function: Stage Description GFR(mL/min/1.73 m(2)) 1 Kidney damage with normal or decreased GFR 90 2 Kidney damage with mild decrease in GFR 60-89 3 Moderate decrease in GFR 30-59 4 Severe decrease in GFR 15-29 5 Kidney failure <15 (or dialysis) [address] RESULTS [address] YO PASCUAL [phone] FAX TO [facility] [phone] 3 Because ethnic data is not always readily available, this report includes an eGFR for both -Americans and non- Americans. The National Kidney Disease Education Program (NKDEP) does not endorse the use of the MDRD equation for patients that are not between the ages of 18 and 70, are , have extremes of body size, muscle mass, or nutritional status, or are non- or non-. According to the National Kid[employer] Foundation, irrespective of diagnosis, the stage of the disease is based on the level of kidney function: Stage Description GFR(mL/min/1.73 m(2)) 1 Kidney damage with normal or decreased GFR 90 2 Kidney damage with mild decrease in GFR 60-89 3 Moderate decrease in GFR 30-59 4 Severe decrease in GFR 15-29 5 Kidney failure <15 (or dialysis) [address] FA[address] RESULTS TO [address] YO PASCUAL [phone] FAX TO [facility] 5 P[address] FAX RESULTS TO DR YO PASCUAL [phone] FAX TO [facility] 6 Because ethnic data is not always readily available, this report includes an eGFR for both -Americans and non- Americans. The National Kidney Disease Education Program (NKDEP) does not endorse the use of the MDRD equation for patients that are not between the ages of 18 and 70, are , have extremes of body size, muscle mass, or nutritional status, or are non- or non-. According to the National Kid[employer] Foundation, irrespective of diagnosis, the stage of the disease is based on the level of kidney function: Stage Description GFR(mL/min/1.73 m(2)) 1 Kidney damage with normal or decreased GFR 90 2 Kidney damage with mild decrease in GFR 60-89 3 Moderate decrease in GFR 30-59 4 Severe decrease in GFR 15-29 5 Kidney failure <15 (or dialysis) 7 Because ethnic data is not always readily available, this report includes an eGFR for both -Americans and non- Americans. The National Kidney Disease Education Program (NKDEP) does not endorse the use of the MDRD equation for patients that are not between the ages of 18 and 70, are , have extremes of body size, muscle mass, or nutritional status, or are non- or non-. According to the National Kid[employer], irrespective of diagnosis, the stage of the disease is based on the level of kidney function: Stage Description GFR(mL/min/1.73 m(2)) 1 Kidney damage with normal or decreased GFR 90 2 Kidney damage with mild decrease in GFR 60-89 3 Moderate decrease in GFR 30-59 4 Severe decrease in GFR 15-29 5 Kidney failure <15 (or dialysis) 8 Because ethnic data is not always readily available, this report includes an eGFR for both -Americans and non- Americans. The National Kidney Disease Education Program (NKDEP) does not endorse the use of the MDRD equation for patients that are not between the ages of 18 and 70, are , have extremes of body size, muscle mass, or nutritional status, or are non- or non-. According to the National Kid[employer] Foundation, irrespective of diagnosis, the stage of the disease is based on the level of kidney function: Stage Description GFR(mL/min/1.73 m(2)) 1 Kidney damage with normal or decreased GFR 90 2 Kidney damage with mild decrease in GFR 60-89 3 Moderate decrease in GFR 30-59 4 Severe decrease in GFR 15-29 5 Kidney failure <15 (or dialysis) 9 PLEASE FAX RESULTS TO: [id number]; [id number] 10 Because ethnic data is not always readily available, this report includes an eGFR for both -Americans and non- Americans. The National Kidney Disease Education Program (NKDEP) does not endorse the use of the MDRD equation for patients that are not between the ages of 18 and 70, are , have extremes of body size, muscle mass, or nutritional status, or are non- or non-. According to the National Kidney Foundation, irrespective of diagnosis, the stage of the disease is based on the level of kidney function: Stage Description GFR(mL/min/1.73 m(2)) 1 Kidney damage with normal or decreased GFR 90 2 Kidney damage with mild decrease in GFR 60-89 3 Moderate decrease in GFR 30-59 4 Severe decrease in GFR 15-29 5 Kidney failure <15 (or dialysis) 11 PLEASE FAX RESULTS TO: [id number]; [id number] 12 PLEASE FAX RESULTS TO: [id number]; [id number] 13 PLEASE FAX RESULTS TO: [id number]; [id number] 14 PLEASE FAX RESULTS TO DR MIRIAM PASCUAL [phone] AND MAYANK BONNER [phone] 15 PLEASE FAX RESULTS TO DR MIRIAM PASCUAL [phone] AND [facility] [phone] 16 [address] FAX RESULTS TO DR MIRIAM PASCUAL [phone] AND [facility] [phone] 17 Because ethnic data is not always readily available, this report includes an eGFR for both -Americans and non- Americans. The National Kidney Disease Education Program (NKDEP) does not endorse the use of the MDRD equation for patients that are not between the ages of 18 and 70, are , have extremes of body size, muscle mass, or nutritional status, or are non- or non-. According to the National Kidney Foundation, irrespective of diagnosis, the stage of the disease is based on the level of kidney function: Stage Description GFR(mL/min/1.73 m(2)) 1 Kidney damage with normal or decreased GFR 90 2 Kidney damage with mild decrease in GFR 60-89 3 Moderate decrease in GFR 30-59 4 Severe decrease in GFR 15-29 5 Kidney failure <15 (or dialysis) 18 [employer]: [id number] [employer] Sales Broker: [id number] 20 Because ethnic data is not always readily available, this report includes an eGFR for both -Americans and non- Americans. The National Kidney Disease Education Program (NKDEP) does not endorse the use of the MDRD equation for patients that are not between the ages of 18 and 70, are , have extremes of body size, muscle mass, or nutritional status, or are non- or non-. According to the National Kidney Foundation, irrespective of diagnosis, the stage of the disease is based on the level of kidney function: Stage Description GFR(mL/min/1.73 m(2)) 1 Kidney damage with normal or decreased GFR 90 2 Kidney damage with mild decrease in GFR 60-89 3 Moderate decrease in GFR 30-59 4 Severe decrease in GFR 15-29 5 Kidney failure <15 (or dialysis) 21 Acute inflammation: >10.00 22 FAX RESULTS TO [facility] [phone] AND RX 23 Acute inflammation: >10.00 24 Because ethnic data is not always readily available, this report includes an eGFR for both -Americans and non- Americans. The National Kidney Disease Education Program (NKDEP) does not endorse the use of the MDRD equation for patients that are not between the ages of 18 and 70, are , have extremes of body size, muscle mass, or nutritional status, or are non- or non-. According to the National Kidney Foundation, irrespective of diagnosis, the stage of the disease is based on the level of kidney function: Stage Description GFR(mL/min/1.73 m(2)) 1 Kidney damage with normal or decreased GFR 90 2 Kidney damage with mild decrease in GFR 60-89 3 Moderate decrease in GFR 30-59 4 Severe decrease in GFR 15-29 5 Kidney failure <15 (or dialysis) 25 SEE RESULT BELOW Name: MIKEL OLIVIA II : [address]: Michael Benavidez MD Acct: [id number] Unit: [id number] AGE: 52 Location: [place] Re01/25/18 SEX: M Status: REG [facility] [place] SPEC: [id number] KYA: 01/25/18- SUBM DR: Michael Benavidez MD REQ: [id number] RECD: 01/25/181013 STATUS: SOUT _ ORDERED: [facility], LEVEL 4 FINAL DIAGNOSIS Mid right foot, resection: -- Acute and chronic ulceration and skin with associated chronic ischemic changes. 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 -- Chronic osteomyelitis. PRE-OPERATIVE DIAGNOSIS Other chronic osteomyelitis right ankle and foot GROSS DESCRIPTION The specimen is received in formalin labeled, Mid Foot Right Foot, and consists of an 8.0 x 4.7 x 4.3 cm disarticulated and focally disrupted bone fragment with abundant adherent saunders-pink soft tissue. Received separately in the same container is a 5.0 x 3.1 cm saunders-white crusted unoriented skin ellipse excised to a depth of 1.0 cm with a central 3.4 x 2.3 cm saunders-pink lobulated ulcer admixed with saunders-pink irregular rubbery fibrous tissue fragments. Charge Poster sections are submitted in cassettes A through C as follows: A- bone following decalcification, B-ulcer and C-separately received soft tissue. Signed by and Reported on: Harjit Clinton MD 01/12 1432 END OF REPORT DEPARTMENT OF PATHOLOGY, [address] [place] [address] Harjit Clinton M.D. Director [facility] # [id number] 26 Energy Sales Broker: [id number] SOURCE-CUBOID RIGHT FOOT 28 SEE RESULT BELOW Name: MIKEL OLIVIA II : [address]: Michael Benavidez MD Acct: [id number] Unit: [id number] AGE: 52 Location: OR Re01/25/18 SEX: M Status: REG SDC SPEC: [id number] KYA: 01/25/[address]: Michael Benavidez MD REQ: [id number] RECD: 01/25/18 STATUS: YESSENIA CARMEN DR: Akin Sexton MD _ SOURCE: FOOT,RIGHT SPDESC: ORDERED: Culture Stain COMMENTS: SOURCE-DEEP TISSUE RIGHT FOOT QUERIES: Specimen Description DEEP TISSUE SWAB Procedure Result Reported Site Wound/Misc Gram Stain Final 01/25/18- 1220 ML 1+ Epithelial Cells 3+ Neutrophils 1+ Gram Positive Cocci Wound/Misc Culture Final 01/29/18- 03 ML Organism 1 MRSA Quantity 1+ Organism 2 ESCHERICHIA COLI Quantity 1+ 1. MRSA M.I.C. RX --------- ------ Penicillin >=0.5 R Clindamycin <=0.25 S Erythromycin >=8 R Gentamicin <=0.5 S Linezolid 2 S Oxacillin >=4 R * Quinupristin/Dalfopristin <=0.25 S Rifampin <=0.5 S Tetracycline <=1 S Doxycycline - Deduced S * Minocycline - Deduced S Trimethoprim/Sulfamethoxazole <=10 S CONTINUED ON NEXT PAGE DEPARTMENT OF PATHOLOGY, [address] [place] [address] Harjit Clinton M.D. Director [facility] # [id number] Patient: MIKEL OLIVIA II [id number] (Continued) Specimen: [id number] Collected: 01/25/18 Received: 01/25/18-1055 (Continued) Procedure Result Reported Site Wound/Misc Culture Final (continued) 01/29/18- 902 1. MRSA (continued) M.I.C. RX --------- ------ Vancomycin 1 S Imipenem-Deduced R * Ampicillin/Sulbactam-Deduced R Cefazolin-Deduced R 2. ESCHERICHIA COLI M.I.C. RX --------- ------ Ampicillin 8 S Cefazolin <=4 S Cefepime <=1 S Ceftriaxone <=1 S Ciprofloxacin <=0.25 S Gentamicin <=1 S Levofloxacin <=0.12 S Meropenem <=0.25 S Tetracycline <=1 S Pipercillin/Tazobactam <=4 S Trimethoprim/Sulfamethoxazole <=20 S Amoxicillin/Clavulanic Acid 4 S Aztreonam <=1 S * These antibiotics are not available in the [facility] Formulary Contact the Microbiology Department for any additional antibiotic reporting. Contact the Microbiology Department for any additional antibiotic reporting. * ML - Main Lab . END OF REPORT DEPARTMENT OF PATHOLOGY, [address] [place] [address] Harjit Clinton M.D. Director [facility] # [id number] 29 SEE RESULT BELOW Name: MIKEL OLIVIA II : [address]: Michael Benavidez MD Acct: [id number] Unit: [id number] AGE: 52 Location: OR Re01/25/18 SEX: M Status: REG SDC SPEC: [id number] KYA: 01/25/18-[address]: Michael Benavidez MD REQ: [id number] RECD: 01/25/18 STATUS: YESSENIA CARMEN DR: Akin Sexton MD _ SOURCE: TISSUE SPDESC:OTHER ORDERED: Tissue Cult/GS COMMENTS: CUBOID TISSUE R FOOT Procedure Result Reported Site Tissue Gram Stain Final 01/25/18- 1223 ML 3+ Neutrophils No Organisms Seen Preparation By Cytospin Smear Tissue Culture Final 01/29/18- 0908 ML No Growth Day 4 * ML - Main Lab . END OF REPORT DEPARTMENT OF PATHOLOGY, [address] [place] [address] Harjit Clinton M.D. Director [facility] # [id number] 30 SEE RESULT BELOW Name: MIKEL OLIVIA II : [address]: Michael Benavidez MD Acct: [id number] Unit: [id number] AGE: 52 Location: OR Re01/25/18 SEX: M Status: REG MARRYC SPEC: [id number] KYA: 01/25/18-[address] [facility] [address]: Michael Benavidez MD REQ: [id number] RECD: 01/25/18 STATUS: YESSENIA CARMEN DR: Akin Sexton MD _ SOURCE: TISSUE SPDESC: ORDERED: Anaerobic Cult COMMENTS: SOURCE-DEEP TISSUE RIGHT FOOT Procedure Result Reported Site Anaerobic Culture Final 01/29/18- 1015 ML Organism 1 FINEGOLDIA MAGNA Quantity 1+ Anaerobic sensitivities are not routinely performed. Positive isolates will be saved for one week. Please call the Microbiology Laboratory if susceptibility testing is needed. * ML - Main Lab . END OF REPORT DEPARTMENT OF PATHOLOGY, [address] [place] [address] Harjit Clinton M.D. Director [facility] # [id number] 31 Energy Sales Broker: [id number] Because ethnic data is not always readily available, this report includes an eGFR for both -Americans and non- Americans. The National Kidney Disease Education Program (NKDEP) does not endorse the use of the MDRD equation for patients that are not between the ages of 18 and 70, are , have extremes of body size, muscle mass, or nutritional status, or are non- or non-. According to the National Kidney Foundation, irrespective of diagnosis, the stage of the disease is based on the level of kidney function: Stage Description GFR(mL/min/1.73 m(2)) 1 Kidney damage with normal or decreased GFR 90 2 Kidney damage with mild decrease in GFR 60-89 3 Moderate decrease in GFR 30-59 4 Severe decrease in GFR 15-29 5 Kidney failure <15 (or dialysis) 33 Acute inflammation: >10.00 34 Acute inflammation: >10.00 35 [id number] SEE RESULT BELOW Name: MIKEL OLIVIA II : [address]: Yo Pascual MD Acct: [id number] Unit: [id number] AGE: 52 Location: [facility] Re01/03/18 SEX: M Status: REG REF SPEC: [id number] KYA: 01/03/18-[address] [facility] [address]: Yo Pascual MD REQ: [id number] RECD: 01/03/18-9783 STATUS: COMP _ SOURCE: FOOT,RIGHT SPDESC: ORDERED: Culture Stain COMMENTS: [id number] QUERIES: Specimen Description RIGHT FOOT Procedure Result Reported Site Wound/Misc Gram Stain Final 01/03/18- 1523 ML 1+ Neutrophils 1+ Gram Positive Cocci Wound/Misc Culture Final 01/05/18- 0916 ML No Growth Day 2 * ML - Main Lab . END OF REPORT DEPARTMENT OF PATHOLOGY, [address] [place] [address] Harjit Clinton M.D. Director [facility] # [id number] 37 Acute inflammation: >10.00 38 Acute inflammation: >10.00 39 Because ethnic data is not always readily available, this report includes an eGFR for both -Americans and non- Americans. The National Kidney Disease Education Program (NKDEP) does not endorse the use of the MDRD equation for patients that are not between the ages of 18 and 70, are , have extremes of body size, muscle mass, or nutritional status, or are non- or non-. According to the National Kidney Foundation, irrespective of diagnosis, the stage of the disease is based on the level of kidney function: Stage Description GFR(mL/min/1.73 m(2)) 1 Kidney damage with normal or decreased GFR 90 2 Kidney damage with mild decrease in GFR 60-89 3 Moderate decrease in GFR 30-59 4 Severe decrease in GFR 15-29 5 Kidney failure <15 (or dialysis) 40 Acute inflammation: >10.00 41 Because ethnic data is not always readily available, this report includes an eGFR for both -Americans and non- Americans. The National Kidney Disease Education Program (NKDEP) does not endorse the use of the MDRD equation for patients that are not between the ages of 18 and 70, are , have extremes of body size, muscle mass, or nutritional status, or are non- or non-. According to the National Kidney Foundation, irrespective of diagnosis, the stage of the disease is based on the level of kidney function: Stage Description GFR(mL/min/1.73 m(2)) 1 Kidney damage with normal or decreased GFR 90 2 Kidney damage with mild decrease in GFR 60-89 3 Moderate decrease in GFR 30-59 4 Severe decrease in GFR 15-29 5 Kidney failure <15 (or dialysis) 42 Acute inflammation: >10.00 43 Because ethnic data is not always readily available, this report includes an eGFR for both -Americans and non- Americans. The National Kidney Disease Education Program (NKDEP) does not endorse the use of the MDRD equation for patients that are not between the ages of 18 and 70, are , have extremes of body size, muscle mass, or nutritional status, or are non- or non-. According to the National Kidney Foundation, irrespective of diagnosis, the stage of the disease is based on the level of kidney function: Stage Description GFR(mL/min/1.73 m(2)) 1 Kidney damage with normal or decreased GFR 90 2 Kidney damage with mild decrease in GFR 60-89 3 Moderate decrease in GFR 30-59 4 Severe decrease in GFR 15-29 5 Kidney failure <15 (or dialysis) 44 Acute inflammation: >10.00 45 Because ethnic data is not always readily available, this report includes an eGFR for both -Americans and non- Americans. The National Kidney Disease Education Program (NKDEP) does not endorse the use of the MDRD equation for patients that are not between the ages of 18 and 70, are , have extremes of body size, muscle mass, or nutritional status, or are non- or non-. According to the National Kidney Foundation, irrespective of diagnosis, the stage of the disease is based on the level of kidney function: Stage Description GFR(mL/min/1.73 m(2)) 1 Kidney damage with normal or decreased GFR 90 2 Kidney damage with mild decrease in GFR 60-89 3 Moderate decrease in GFR 30-59 4 Severe decrease in GFR 15-29 5 Kidney failure <15 (or dialysis) 46 Acute inflammation: >10.00 47 Acute inflammation: >10.00 48 Because ethnic data is not always readily available, this report includes an eGFR for both -Americans and non- Americans. The National Kidney Disease Education Program (NKDEP) does not endorse the use of the MDRD equation for patients that are not between the ages of 18 and 70, are , have extremes of body size, muscle mass, or nutritional status, or are non- or non-. According to the National Kidney Foundation, irrespective of diagnosis, the stage of the disease is based on the level of kidney function: Stage Description GFR(mL/min/1.73 m(2)) 1 Kidney damage with normal or decreased GFR 90 2 Kidney damage with mild decrease in GFR 60-89 3 Moderate decrease in GFR 30-59 4 Severe decrease in GFR 15-29 5 Kidney failure <15 (or dialysis) 49 Acute inflammation: >10.00 50 Because ethnic data is not always readily available, this report includes an eGFR for both -Americans and non- Americans. The National Kidney Disease Education Program (NKDEP) does not endorse the use of the MDRD equation for patients that are not between the ages of 18 and 70, are , have extremes of body size, muscle mass, or nutritional status, or are non- or non-. According to the National Kidney Foundation, irrespective of diagnosis, the stage of the disease is based on the level of kidney function: Stage Description GFR(mL/min/1.73 m(2)) 1 Kidney damage with normal or decreased GFR 90 2 Kidney damage with mild decrease in GFR 60-89 3 Moderate decrease in GFR 30-59 4 Severe decrease in GFR 15-29 5 Kidney failure <15 (or dialysis) 51 Acute inflammation: >10.00 52 Because ethnic data is not always readily available, this report includes an eGFR for both -Americans and non- Americans. The National Kidney Disease Education Program (NKDEP) does not endorse the use of the MDRD equation for patients that are not between the ages of 18 and 70, are , have extremes of body size, muscle mass, or nutritional status, or are non- or non-. According to the National Kidney Foundation, irrespective of diagnosis, the stage of the disease is based on the level of kidney function: Stage Description GFR(mL/min/1.73 m(2)) 1 Kidney damage with normal or decreased GFR 90 2 Kidney damage with mild decrease in GFR 60-89 3 Moderate decrease in GFR 30-59 4 Severe decrease in GFR 15-29 5 Kidney failure <15 (or dialysis) 53 Acute inflammation: >10.00 54 Acute inflammation: >10.00 55 Because ethnic data is not always readily available, this report includes an eGFR for both -Americans and non- Americans. The National Kidney Disease Education Program (NKDEP) does not endorse the use of the MDRD equation for patients that are not between the ages of 18 and 70, are , have extremes of body size, muscle mass, or nutritional status, or are non- or non-. According to the National Kidney Foundation, irrespective of diagnosis, the stage of the disease is based on the level of kidney function: Stage Description GFR(mL/min/1.73 m(2)) 1 Kidney damage with normal or decreased GFR 90 2 Kidney damage with mild decrease in GFR 60-89 3 Moderate decrease in GFR 30-59 4 Severe decrease in GFR 15-29 5 Kidney failure <15 (or dialysis) 56 [facility] Severe Sepsis and Septic Shock Management Bundle Measure requires all lactic acids initially measuring >2.0 mmol/L be repeated. 57 Because ethnic data is not always readily available, this report includes an eGFR for both -Americans and non- Americans. The National Kidney Disease Education Program (NKDEP) does not endorse the use of the MDRD equation for patients that are not between the ages of 18 and 70, are , have extremes of body size, muscle mass, or nutritional status, or are non- or non-. According to the National Kidney Foundation, irrespective of diagnosis, the stage of the disease is based on the level of kidney function: Stage Description GFR(mL/min/1.73 m(2)) 1 Kidney damage with normal or decreased GFR 90 2 Kidney damage with mild decrease in GFR 60-89 3 Moderate decrease in GFR 30-59 4 Severe decrease in GFR 15-29 5 Kidney failure <15 (or dialysis) 58 Acute inflammation: >10.00 59 Because ethnic data is not always readily available, this report includes an eGFR for both -Americans and non- Americans. The National Kidney Disease Education Program (NKDEP) does not endorse the use of the MDRD equation for patients that are not between the ages of 18 and 70, are , have extremes of body size, muscle mass, or nutritional status, or are non- or non-. According to the National Kidney Foundation, irrespective of diagnosis, the stage of the disease is based on the level of kidney function: Stage Description GFR(mL/min/1.73 m(2)) 1 Kidney damage with normal or decreased GFR 90 2 Kidney damage with mild decrease in GFR 60-89 3 Moderate decrease in GFR 30-59 4 Severe decrease in GFR 15-29 5 Kidney failure <15 (or dialysis) 60 Acute inflammation: >10.00 61 Acute inflammation: >10.00 62 Because ethnic data is not always readily available, this report includes an eGFR for both -Americans and non- Americans. The National Kidney Disease Education Program (NKDEP) does not endorse the use of the MDRD equation for patients that are not between the ages of 18 and 70, are , have extremes of body size, muscle mass, or nutritional status, or are non- or non-. According to the National Kidney Foundation, irrespective of diagnosis, the stage of the disease is based on the level of kidney function: Stage Description GFR(mL/min/1.73 m(2)) 1 Kidney damage with normal or decreased GFR 90 2 Kidney damage with mild decrease in GFR 60-89 3 Moderate decrease in GFR 30-59 4 Severe decrease in GFR 15-29 5 Kidney failure <15 (or dialysis) Procedures Date CPT Code Description Status Comment 02/08/2018 96410 Negative Pressure Wound Therapy Less Than 50 Completed Square CM 02/08/2018 66897 Negative Pressure Wound Therapy Less Than 50 Completed Square CM 02/08/2018 43176 I & D Foot Below Fascia, Single Bursal Space Completed 02/08/2018 28563 I & D Foot Below Fascia, Single Bursal Space Completed 01/25/2018 45219 Tenotomy Achilles Tendon General Anesthesia Completed 01/25/2018 59900 Transfer Tendon Leg Or Ankle Superficial Completed R 01/25/2018 38715 Transfer Tendon Leg Or Ankle Superficial Completed 01/25/2018 53325 Amputation Foot Midtarsal Completed 01/25/2018 90061 Amputation Foot Midtarsal Completed 11/13/2017 78186 Negative Pressure Wound Therapy Less Than 50 Completed Square CM 11/09/2017 23823 Negative Pressure Wound Therapy Less Than 50 Completed Square CM 11/09/2017 06363 Debridement Tissue/Muscle/Bone Completed 11/09/2017 34982 Debridement Tissue/Muscle/Bone Completed 09/25/2017 02373 Amputation Foot Midtarsal Completed 09/25/2017 52658 Amputation Foot Midtarsal Completed 09/21/2017 52521 Gastrocnemius Recession Completed 09/21/2017 15277 Gastrocnemius Recession Completed 09/21/2017 54237 Amputation Foot Transmetatarsal Completed 09/21/2017 70962 Amputation Foot Transmetatarsal Completed 09/21/2017 22646 Negative Pressure Wound Therapy Less Than 50 Completed Square CM 09/19/2017 73771 EKG, Interpretation Only Completed 03/20/2017 11031 EKG, Interpretation Only Completed 10/26/2015 42287 Amputation Toe MP JT Completed 10/26/2015 96042 Amputation Toe MP JT Completed 10/26/2015 37620 Amputation Toe MP JT Completed 10/26/2015 86849 Amputation Toe MP JT Completed 10/26/2015 65626 Amputation Toe MP JT Completed 10/25/2015 77272 EKG, Interpretation Only Completed 07/11/2014 44853 Amputation Toe MP JT Completed 07/11/2014 15667 Amputation Toe MP JT Completed Encounters Type Date Location Provider CPT E/M Dx [facility] [address] M86.671 4:20p Infectious Diseases Francesco Pascual E11.621 Z79.2 L97.419 E11.69 Office Visit 01/19/2018 2:30p [facility] [place] [address] M86.671 C.M.A. L03.115 L97.419 E11.621 Office Visit 01/12/2018 8:30a [facility] Sera Mcmanus 30756 L97.419 Infectious Diseases Francesco Pascual L03.115 M86.671 E11.65 E11.69 E11.621 Office Visit 01/03/2018 9:30a [facility] Sera Mcmanus 20670 L97.419 Infectious Diseases Francesco Pascual L03.115 E11.621 Office Visit 01/02/2018 11:00a [facility] [place] [address] L97.419 C.M.A. L03.115 M86.671 Office Visit 12/25/2017 1:45p [facility] [place] [address] L97.419 C.M.A. 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 L03.116 L97.419 E11.621 Office Visit 11/07/2017 9:34a [facility] Sera Pascual, 79771 E11.69 Infectious Diseases Francesco M86.671 L03.115 M60.073 S91.301A E11.22 N18.9 Office Visit 11/07/2017 2:01p [facility], [place] [address] E11.621 Hospitalists L97.419 I10 N18.3 Office Visit 10/26/2017 2:20p [facility] Yo CardozoVijaya Samara, 89247 E11.69 Infectious Diseases Francesco Z86.19 Z89.421 Office Visit 10/10/2017 10:10a [facility] Yo [place] 72661 M86.671 Infectious Diseases Francesco Pascual N18.3 E11.69 Office Visit 09/26/2017 12:31p [facility] Yo [place] Joeraheemjoanne, 21004 E11.69 Infectious Diseases Francesco M86.671 Z89.421 Office Visit 09/26/2017 9:57a [facility] 73119 M86.9 Assoc, PATTERN GENERATOR OPERATOR Hospitalists N18.3 E11.8 Z79.4 Office Visit 09/25/2017 9:55a [facility], 11983 M86.9 Assoc,pc PATTERN GENERATOR OPERATOR Hospitalists N18.3 E11.8 Z79.4 Office Visit 09/24/2017 9:54a [facility], Mandeep Rosas, 15613 M86.9 Hospitalists Francesco,FACP N18.3 E11.8 Office Visit 09/23/2017 9:51a [facility], Mandeep Rosas, 45060 M86.9 Hospitalists Francesco,FACP Z79.4 E11.8 Office Visit 09/22/2017 9:50a [facility],pc Rita Dumas, N.P. 31605 M86.9 Hospitalists Z79.4 E11.8 N18.3 Office Visit 09/21/2017 9:47a [facility], Rita Dumas, N.P. 18959 M86.9 Hospitalists Z79.4 E11.8 N18.3 Office Visit 09/20/2017 9:45a [facility],pc Shellie Moore, 18405 M86.9 Hospitalists PATTERN GENERATOR OPERATOR Z79.4 E11.8 N18.3 Office Visit 09/20/2017 10:43a [facility] DHEERAJ Lewis 57555 E11.621 C.M.A. Office Visit 09/19/2017 10:42a [facility] [place] [address] M86.171 C.M.A. E11.621 Office Visit 09/19/2017 9:43a [facility],pc Shellie Nguyenney, 73378 M86.9 Hospitalists PATTERN GENERATOR OPERATOR Z79.4 E11.8 N18.3 Office Visit 09/19/2017 10:17a [facility] Yo Pascual, 69604 E11.69 Infectious Diseases M.DVijaya M86.671 E11.621 L97.519 E11.22 N18.3 Z89.421 Office Visit 09/18/2017 9:39a [facility] Deedee Dominguez, 29353 M86.9 Assoc, PATTERN GENERATOR OPERATOR Hospitalists Z79.4 E11.8 N18.3 Office Visit 09/18/2017 10:40a [facility] Roger Buck, 39424 E11.621 C.M.AVijaya Maya L03.115 L97.519 Office Visit 03/23/2017 2:52p [facility],pc Tee Easley, 89920 N17.0 Hospitalists M.D. E87.5 E86.0 E87.2 Office Visit 03/22/2017 2:51p [facility], Tee Easley, 56149 N17.0 Hospitalists M.D. E86.0 E87.5 E87.2 Office Visit 03/21/2017 2:51p [facility],pc Tee Easley, 78953 N17.0 Hospitalists M.D. E87.5 E86.0 E87.2 Office Visit 03/20/2017 2:51p [facility], Tee aEsley, 99433 N17.0 Hospitalists M.D. E87.5 E86.0 E87.2 Office Visit 03/19/2017 1:21p [facility], [place] [address] R51 Hospitalists E87.2 N17.8 E11.22 N18.2 I10 Office Visit 03/18/2017 1:19p [facility], [place] [address] E11.40 Hospitalists N17.8 N18.2 E11.22 E87.2 Office Visit 03/17/2017 [facility] Oralia Oliverhn, 56303 N17.0 Hospitalists Francesco E86.0 E87.5 E87.2 Office Visit 11/17/2015 11:30a [facility] Sera Mcmanus 80632 M86.671 Infectious Diseases Francesco Pascual Office Visit [facility]/27[facility] 52089 L03.031 Assoc,pc Hospitalists PATTERN GENERATOR OPERATOR E11.51 E11.621 I10 Office Visit 10/26/2015 10:18a [facility] Sera Pascual, 46835 E11.69 Jenny Szymanski M.D. M86.671 L03.031 L03.115 E11.40 Office Visit 10/26/2015 10:29a [facility] [facility], 46833 L03.031 Assoc,pc Hospitalists PATTERN GENERATOR OPERATOR E11.51 E11.621 I10 Office Visit 10/25/2015 10:29a [facility], 03543 L03.031 Assoc,pc Hospitalists PATTERN GENERATOR OPERATOR E11.51 E11.621 I10 Office Visit 10/24/2015 10:28a [facility], 85515 L03.031 Assoc,pc Hospitalists PATTERN GENERATOR OPERATOR E11.51 E11.621 I10 Office Visit 10/23/2015 7:00a [facility], 02965 M86.671 CBelinda Maya Office Visit 10/23/2015 10:15a [facility] Sera Mcmanus 28919 E11.621 Infectious Diseases Francesco Pascual L97.519 E11.69 M86.671 E11.628 L03.031 E11.40 M60.076 Office Visit 10/23[facility]2015 [facility] 43100 L03.031 [facility]pc Hospitalists PATTERN GENERATOR OPERATOR E11.51 E11.621 I10 Office Visit 10/22/2015 10:27a [facility], 72349 L03.031 Assoc, Hospitalists PATTERN GENERATOR OPERATOR E11.51 E11.621 I10 Office Visit 08/14/2014 3:00p [facility] Sera Mcmanus 87579 730.07 Infectious Diseases Francesco Pascual Office Visit 07/28/2014 3:00p [facility] Sera Mcmanus 83044 730.07 Infectious Diseases Francesco Pascual Office Visit 07/14/2014 8:33a [facility] Rita Dumas, N.P. 80501 730.20 Assoc,pc Hospitalists 711.00 [facility] Visit [facility]. 87393 730.20 Hospitalists 711.00 Office Visit 07/12/2014 8:32a [facility] Genevieve Farias, 72785 730.20 Assoc,pc N.P. Hospitalists 711.00 [facility] 89678 730.20 Assoc,pc N.P. Hospitalists 711.00 Office Visit 07/10/2014 12:03p [facility] Sera Pascual, 85701 730.07 Infectious Diseases Francesco 711.07 250.60 357.2 Office Visit 07/10/2014 7:00a [facility], 41786 730.20 C.M.AVijaya Maya 730.17 250.70 Office Visit 07/10/2014 8:24a [facility] Genevieve Farias, 02460 730.20 Assoc,pc N.P. Hospitalists 711.00 Office Visit 07/09/2014 8:23a [facility], Ashley Blackburn, 20760 730.20 Hospitalists N.P. 711.00 250.00 Office Visit 07/08/2014 8[facility] Arnold Preciado M.D. 53011 730.20 Hospitalists 711.00 250.00 Office Visit 02/20[facility]2009 [facility] Tee Easley, 96008 682.7 Hospitalists MNeida Office Visit 02/19/2009 12:45a [facility], Carlos Eduardo Oshea, 17899 682.7 Hospitalists MNeida Office Visit 02/18/2009 1:15a [facility], Carlos Eduardo Oshea, 04954 682.7 Hospitalists MNeida Office Visit 02/17/2009 3:15a [facility], Eulalio Miles, 08302 300.9 Hospitalists MNeida 292.0 311 Plan of Care Future Appointment(s):04/06/2018 2:00 pm - [facility]
--- OUTSIDE RECORDS SUMMARY | 2018-04-04 10:48 | XMS REPORT ---
:1965 External Reference #:[id number] Author Organization [place] [employer] Address [address] [place] [address] [place] [address] Phone [phone] Care Team Providers Name Role Phone Akin Sexton MD Primary Care Physician Unavailable Payers Type Date Identification Numbers Payment Provider Subscriber Commercial Effective: Policy Number: [id number] [employer] Uma Olivia 2013 PayID: [id number] [address] [address] [place] [address] Problems Description No Information Family History Date [...] Form Strength Qnty SIG Indications Ordering Provider Daptomycin 01/30 Hx Solution 600mg iv every 24 Rec hours x 42 D. - days [facility] (end date 03/27/18) Zofran 01/26 Active Tablets 4mg 30tab take 1 by Cristine s mouth every 8 Ty, hours as M.D. needed for nausea Glipizide 00 Active Tablets 10mg 1 by mouth Unknown /0000 twice a day Amlodipine Active Tablets 10mg 90tab 1 by mouth Unknown Besylate /0000 s every day Jardiance Active Tablets 10mg 30tab 1 by mouth Unknown /0000 s every night Simvastatin 00/00 Active Tablets 20mg 1 by mouth Unknown /0000 every day Nortriptyline Active Capsules 10mg 1 po qhs Unknown HCL /0000 Metoprolol Active Tablets ER 50mg 1 by mouth Unknown Succinate ER /0000 24HR every day Januvia Active Tablets 25mg 1 by mouth Unknown /0000 every day Lantus Active Solution 100Unit/M 24 units Unknown /0000 L subcutaneous every morning Percocet Active Tablets 10-325mg 1 tab by Unknown /0000 mouth 3-4 x daily as needed for pain Fish Oil Active Capsules 1000mg 1 by mouth Unknown /0000 twice a day Vitamin B-12 Active Tablets 1 by mouth Unknown /0000 every day Aspir-[address] 81mg 1 by mouth Unknown / every day Probiotic Active Capsules 1 by mouth Unknown /0000 every day Ciprofloxacin 03/09 Hx Tablets 500mg 28tab 1 tab by Yo s mouth twice a D. - day Mp03/25 M.D. Zosyn 01/15 Hx Solution 3-0.375GM IV q 8 hrs x Yo /50ML 42 days D. - through [facility]/04 briova perham .D. infusion (end date 03/04/18) Augmentin 01/03 Hx Tablets 500-125mg 30tab 1 by mouth L03.115 s twice daily - D. - On Hold While [facility], 03/08 On IV .D. Antibiotics Cephalexin 12/22 Hx Capsules 500mg 28cap [...] 10/24 Vital Signs Date Vital Result Comment 03/26/2018 Height 74 inches 6'2" Weight 220.38 [...] Test Date Test Result H/L Range Note Comp Metabolic Panel 03/20/2018 Sodium 136 mmol/L 135-145 1 Potassium 4.0 mmol/L 3.5-5.0 1 Chloride 104 mmol/L 101-111 1 Co2 Carbon Dioxide 26 mmol/L 22-32 1 Anion Gap 6 mmol/L 2-11 1 Glucose 121 mg/dL High 70-100 1 Blood Urea Nitrogen 18 mg/dL 6-24 1 Creatinine 1.40 mg/dL High 0.67-1.17 1 BUN/Creatinine Ratio 12.9 8-20 1 Calcium 9.0 mg/dL 8.6-10.3 1 Total Protein 6.5 g/dL 6.4-8.9 1 Albumin 4.0 g/dL 3.2-5.2 1 Globulin 2.5 g/dL 2-4 1 Albumin/Globulin Ratio 1.6 1-3 1 Total Bilirubin 0.40 mg/dL 0.2-1.0 1 Alkaline Phosphatase 88 U/L 34-104 1 Alt 34 U/L 7-52 1 Ast 36 U/L 13-39 1 Egfr Non- 52.8 >60 1 Egfr 63.9 >60 1, 2 Laboratory test finding 03/20/2018 Creatine Kinase 59 U/L 10-223 1, 3 C Reactive Protein 3.16 mg/L <8.01 1, 4 CBC Auto Diff 03/20/2018 White Blood Count 5.3 10^3/uL 3.5-10.8 1 Red Blood Count 4.44 10^6/uL 4.00-5.40 1 Hemoglobin 11.4 g/dL Low 14.0-18.0 1 Hematocrit 34 % Low 42-52 1 Mean Corpuscular Volume 76 fL Low 80-94 1 Mean Corpuscular Hemoglobin 26 pg Low 27-31 1 Mean Corpuscular HGB Conc 34 g/dL 31-36 1 Red Cell Distribution Width 16 % High 10.5-15 1 Platelet Count 201 10^3/uL 150-450 1 Mean Platelet Volume 8.2 um3 7.4-10.4 1 Abs Neutrophils 3.1 10^3/uL 1.5-7.7 1 Abs Lymphocytes 1.5 10^3/uL 1.0-4.8 1 Abs Monocytes 0.6 10^3/uL 0-0.8 1 Abs Eosinophils 0.2 10^3/uL 0-0.6 1 Abs Basophils 0 10^3/uL 0-0.2 1 Abs Nucleated RBC 0 10^3/uL 1 Granulocyte % 57.7 % 38-83 1 Lymphocyte % 27.6 % 25-47 1 Monocyte % 11.1 % High 0-7 1 Eosinophil % 3.2 % 0-6 1 Basophil % 0.4 % 0-2 1 Nucleated Red Blood Cells % 0.2 1 CBC Auto Diff 03/11/2018 White Blood Count [...] Egfr Non- 56.0 >60 Egfr 67.8 >60 5 Laboratory test finding 03/11/2018 Creatine Kinase 40 [...] Egfr Non- 57.0 >60 Egfr 69.0 >60 6 Comp Metabolic Panel 02/27/2018 Sodium 139 mmol/L [...] Egfr Non- 56.0 >60 Egfr 67.8 >60 7 Laboratory test finding 02/27/2018 C Reactive Protein [...] Metabolic Panel 02/20/2018 Sodium 138 mmol/L 135-145 8 Potassium 4.4 mmol/L 3.5-5.0 8 Chloride 104 mmol/L 101-111 8 Co2 Carbon Dioxide 25 mmol/L 22-32 8 Anion Gap 9 mmol/L 2-11 8 Glucose 105 mg/dL High 70-100 8 Blood Urea Nitrogen 18 mg/dL 6-24 8 Creatinine 1.30 mg/dL High 0.67-1.17 8 BUN/Creatinine Ratio 13.8 8-20 8 Calcium 9.3 mg/dL 8.6-10.3 8 Total Protein 7.0 g/dL 6.4-8.9 8 Albumin 3.9 g/dL 3.2-5.2 8 Globulin 3.1 g/dL 2-4 8 Albumin/Globulin Ratio 1.3 1-3 8 Total Bilirubin 0.40 mg/dL 0.2-1.0 8 Alkaline Phosphatase 76 U/L 34-104 8 Alt 18 U/L 7-52 8 Ast 23 U/L 13-39 8 Egfr Non- 57.5 >60 8 Egfr 69.6 >60 8, 9 Laboratory test finding 02/20/2018 Creatine Kinase(CK) 29 U/L 10-223 8, 10 C Reactive Protein 5.62 mg/L <8.01 8, 11 CBC Auto Diff 02/20/2018 White Blood Count 5.7 10^3/uL 3.5-10.8 8 Red Blood Count 4.30 10^6/uL 4.00-5.40 8 Hemoglobin 11.2 g/dL Low 14.0-18.0 8 Hematocrit 33 % Low 42-52 8 Mean Corpuscular Volume 78 fL Low 80-94 8 Mean Corpuscular Hemoglobin 26 pg Low 27-31 8 Mean Corpuscular HGB Conc 34 g/dL 31-36 8 Red Cell Distribution Width 17 % High 10.5-15 8 Platelet Count 248 10^3/uL 150-450 8 Mean Platelet Volume 7.9 um3 7.4-10.4 8 Abs Neutrophils 3.6 10^3/uL 1.5-7.7 8 Abs Lymphocytes 1.5 10^3/uL 1.0-4.8 8 Abs Monocytes 0.4 10^3/uL 0-0.8 8 Abs Eosinophils 0.2 10^3/uL 0-0.6 8 Abs Basophils 0 10^3/uL 0-0.2 8 Abs Nucleated RBC 0 10^3/uL 8 Granulocyte % 62.5 % 38-83 8 Lymphocyte % 26.1 % 25-47 8 Monocyte % 7.5 % High 0-7 8 Eosinophil % 3.5 % 0-6 8 Basophil % 0.4 % 0-2 8 Nucleated Red Blood Cells % 0.1 8 Laboratory test finding 02/20/2018 Erythrocyte Sed Rate 51 mm/Hr High 0- 20 8, 12 Laboratory test finding 02/14/2018 Creatine Kinase(CK) 37 U/L 10-223 13 , 14 C Reactive Protein 12.26 mg/L High <8.01 13, 15 Comp Metabolic Panel 02/14/2018 Sodium 136 mmol/L 135-145 13 Potassium 4.4 mmol/L 3.5-5.0 13 Chloride 101 mmol/L 101-111 13 Co2 Carbon Dioxide 26 mmol/L 22-32 13 Anion Gap 9 mmol/L 2-11 13 Glucose 248 mg/dL High 70-100 13 Blood Urea Nitrogen 21 mg/dL 6-24 13 Creatinine 1.33 mg/dL High 0.67-1.17 13 BUN/Creatinine Ratio 15.8 8-20 13 Calcium 9.3 mg/dL 8.6-10.3 13 Total Protein 6.7 g/dL 6.4-8.9 13 Albumin 3.7 g/dL 3.2-5.2 13 Globulin 3.0 g/dL 2-4 13 Albumin/Globulin Ratio 1.2 1-3 13 Total Bilirubin 0.40 mg/dL 0.2-1.0 13 Alkaline Phosphatase 82 U/L 34-104 13 Alt 11 U/L 7-52 13 Ast 13 U/L 13-39 13 Egfr Non- 56.0 >60 13 Egfr 72.1 >60 13, 16 CBC Auto Diff 02/14/2018 White Blood Count 7.7 10^3/uL 3.5-10.8 13 Red Blood Count 3.89 10^6/uL Low 4.00-5.40 13 Hemoglobin 10.1 g/dL Low 14.0-18.0 13 Hematocrit 30 % Low 42-52 13 Mean Corpuscular Volume 77 fL Low 80-94 13 Mean Corpuscular Hemoglobin 26 pg Low 27-31 13 Mean Corpuscular HGB Conc 34 g/dL 31-36 13 Red Cell Distribution Width 17 % High 10.5-15 13 Platelet Count 386 10^3/uL 150-450 13 Mean Platelet Volume 7.2 um3 Low 7.4-10.4 13 Abs Neutrophils 5.3 10^3/uL 1.5-7.7 13 Abs Lymphocytes 1.5 10^3/uL 1.0-4.8 13 Abs Monocytes 0.5 10^3/uL 0-0.8 13 Abs Eosinophils 0.3 10^3/uL 0-0.6 13 Abs Basophils 0.1 10^3/uL 0-0.2 13 Abs Nucleated RBC 0 10^3/uL 13 Granulocyte % 68.7 % 38-83 13 Lymphocyte % 19.8 % Low 25-47 13 Monocyte % 7.1 % High 0-7 13 Eosinophil % 3.5 % 0-6 13 Basophil % 0.9 % 0-2 13 Nucleated Red Blood Cells % 0.1 13 Laboratory test finding 02/08/2018 Point of Care Glucose 100 mg/dL 70- 100 17 Laboratory test finding 02/08/2018 Point of Care Glucose 104 mg/dL High 70 -100 18 CBC Auto Diff 02/06/2018 White Blood Count [...] Egfr Non- 54.1 >60 Egfr 69.6 >60 19 Laboratory test finding 02/06/2018 Creatine Kinase(CK) 19 U/L 10-223 C Reactive Protein 85.52 mg/L High < 5.00 20 Laboratory test finding 01/30/2018 C Reactive Protein 187.45 mg/L High < 5.00 21, 22 Comp Metabolic Panel 01/30/2018 Sodium 133 mmol/L Low 139-145 21 Potassium 4.2 mmol/L 3.5-5.0 21 Chloride 98 mmol/L Low 101-111 21 Co2 Carbon Dioxide 26 mmol/L 22-32 21 Anion Gap 9 mmol/L 2-11 21 Glucose 270 mg/dL High 70-100 21 Blood Urea Nitrogen 19 mg/dL 6-24 21 Creatinine 1.43 mg/dL High 0.67-1.17 21 BUN/Creatinine Ratio 13.3 8-20 21 Calcium 8.2 mg/dL Low 8.6-10.3 21 Total Protein 6.0 g/dL Low 6.4-8.9 21 Albumin 3.2 g/dL 3.2-5.2 21 Globulin 2.8 g/dL 2-4 21 Albumin/Globulin Ratio 1.1 1-3 21 Total Bilirubin 0.30 mg/dL 0.2-1.0 21 Alkaline Phosphatase 325 U/L High 34-104 21 Alt 29 U/L 7-52 21 Ast 40 U/L High 13-39 21 Egfr Non- 51.5 >60 21 Egfr 66.3 >60 21, 23 CBC Auto Diff 01/30/2018 White Blood Count 4.6 10^3/uL 3.5-10.8 21 Red Blood Count 3.52 10^6/uL Low 4.0-5.4 21 Hemoglobin 9.6 g/dL Low 14.0-18.0 21 Hematocrit 28 % Low 42-52 21 Mean Corpuscular Volume 79 fL Low 80-94 21 Mean Corpuscular Hemoglobin 27 pg 27-31 21 Mean Corpuscular HGB Conc 34 g/dL 31-36 21 Red Cell Distribution Width 16 % High 10.5-15 21 Platelet Count 235 10^3/uL 150-450 21 Mean Platelet Volume 7.7 um3 7.4-10.4 21 Abs Neutrophils 2.7 10^3/uL 1.5-7.7 21 Abs Lymphocytes 0.9 10^3/uL Low 1.0-4.8 21 Abs Monocytes 0.8 10^3/uL 0-0.8 21 Abs Eosinophils 0.2 10^3/uL 0-0.6 21 Abs Basophils 0 10^3/uL 0-0.2 21 Abs Nucleated RBC 0 10^3/uL 21 Granulocyte % 59.7 % 38-83 21 Lymphocyte % 19.4 % Low 25-47 21 Monocyte % 17.2 % High 0-7 21 Eosinophil % 3.3 % 0-6 21 Basophil % 0.4 % 0-2 21 Nucleated Red Blood Cells % 0.1 21 Laboratory test 01/25/2018 Surgical Pathology SEE RESULT BELOW 24 finding Laboratory test 01/25/2018 Point of Care 178 mg/dL High 70-100 25 finding Glucose Wound Culture/Sensi 01/25/2018 Wound/Misc SEE RESULT BELOW 26, 27 Culture-Gram Stain Laboratory test 01/25/2018 Tissue Culture & SEE RESULT BELOW 26, 28 finding Sensitiv Anaerobic Culture SEE RESULT BELOW , 29 Laboratory test finding 01/25/2018 Point of Care Glucose 200 mg/dL High 70 -100 30 CBC Auto Diff 01/23/2018 White Blood Count [...] Egfr Non- 58.0 >60 Egfr 74.6 >60 31 Laboratory test 01/23/2018 C Reactive Protein 17.45 mg/L High < 5.00 32 finding Laboratory test 01/11/2018 C Reactive Protein 50.00 mg/L High < 5.00 33 finding Wound Culture/Sensi 01/03/2018 Wound/Misc SEE RESULT 34, 35 Culture-Gram Stain BELOW Laboratory test 01/02/2018 C Reactive Protein 24.89 mg/L High < 5.00 36 finding CBC Auto Diff 12/22/2017 White Blood [...] Reactive Protein 31.47 mg/L High < 5.00 37 CBC Auto Diff 12/08/2017 White Blood Count [...] Egfr Non- 53.3 >60 Egfr 68.5 >60 38 Laboratory test finding 12/08/2017 C Reactive Protein 2.19 mg/L < 5.00 39 Comp Metabolic Panel 11/29/2017 Sodium 135 mmol/L [...] Egfr Non- 52.8 >60 Egfr 67.9 >60 40 Laboratory test finding 11/29/2017 C Reactive Protein 1.29 mg/L < 5.00 41 CBC Auto Diff 11/22/2017 White Blood Count [...] Egfr Non- 54.1 >60 Egfr 69.6 >60 42 Laboratory test finding 11/22/2017 C Reactive Protein 2.26 mg/L < 5.00 43 CBC Auto Diff 11/15/2017 White Blood Count [...] Egfr Non- 59.6 >60 Egfr 76.7 >60 44 Laboratory test finding 11/15/2017 C Reactive Protein 5.12 mg/L High < 5.00 45 Laboratory test finding 11/06/2017 C Reactive Protein 65.13 mg/L High < 5.00 46 CBC Auto Diff 10/23/2017 White Blood Count [...] Egfr Non- 50.3 >60 Egfr 64.7 >60 47 Laboratory test finding 10/23/2017 C Reactive Protein 1.73 mg/L < 5.00 48 CBC Auto Diff 10/16/2017 White Blood Count [...] Egfr Non- 55.5 >60 Egfr 71.4 >60 49 Laboratory test finding 10/16/2017 C Reactive Protein < 1.00 mg/L < 5.00 50 Comp Metabolic Panel 10/12/2017 Sodium 128 mmol/L [...] Egfr Non- 54.6 >60 Egfr 70.2 >60 51 Laboratory test finding 10/12/2017 C Reactive Protein 1.16 mg/L < 5.00 52 CBC Auto Diff 10/12/2017 White Blood Count [...] C Reactive Protein 4.54 mg/L < 5.00 53 Comp Metabolic Panel 10/05/2017 Sodium 131 mmol/L [...] Egfr Non- 50.3 >60 Egfr 64.7 >60 54 CBC Auto Diff 10/05/2017 White Blood Count [...] finding 09/18/2017 Lactic Acid 0.6 mmol/L 0.5-2.0 55 CBC Auto Diff 11/19/2015 White Blood Count [...] Egfr Non- 59.0 >60 Egfr 75.9 >60 56 Laboratory test finding 11/19/2015 C Reactive Protein 1.02 mg/L < 5.00 57 CBC Auto Diff 11/11/2015 White Blood Count [...] Egfr Non- 66.8 >60 Egfr 85.9 >60 58 Laboratory test finding 11/11/2015 C Reactive Protein 1.19 mg/L < 5.00 59 CBC Auto Diff 11/04/2015 White Blood Count [...] C Reactive Protein 1.34 mg/L < 5.00 60 Comp Metabolic Panel 11/04/2015 Sodium 132 mmol/L [...] Egfr Non- 82.3 >60 Egfr 105.8 >60 61 [address] RESULTS TO DR YO PASCUAL [phone] FAX TO [employer] [phone] 2 Because ethnic data is not always readily [...] 15-29 5 Kidney failure <15 (or dialysis) [address] RESULTS TO [address] YO PASCUAL [phone] FAX TO [employer] 4 P[address] FAX RESULTS TO DR YO PASCUAL [phone] FAX TO [employer] 5 Because ethnic data is not always readily [...] 15-29 5 Kidney failure <15 (or dialysis) 6 Because ethnic data is not always [...] 5 Kidney failure <15 (or dialysis) 8 PLEASE FAX RESULTS TO: [phone]; [phone] 9 Because ethnic data is not always readily [...] 15-29 5 Kidney failure <15 (or dialysis) 10 PLEASE FAX RESULTS TO: [phone]; [phone] 11 PLEASE FAX RESULTS TO: [id number]; [phone] 12 PLEASE FAX RESULTS TO: [id number]; [phone] 13 PLEASE FAX RESULTS TO DR MIRIAM PASCUAL [phone] AND [facility] [phone] 14 PLEASE FAX RESULTS TO DR MIRIAM PASCUAL [phone] AND [facility] [phone] 15 P[address] FAX RESULTS TO DR MIRIAM PASCUAL [phone] AND [facility] [phone] 16 Because ethnic data is not always readily [...] 15-29 5 Kidney failure <15 (or dialysis) 17 Project Construction Assistant Manager: [id number] 18 Project Construction Assistant Manager: [id number] 19 Because ethnic data is not always readily [...] 15-29 5 Kidney failure <15 (or dialysis) 20 Acute inflammation: >10.00 21 FAX RESULTS TO [facility] [phone] AND RX 22 Acute inflammation: >10.00 23 Because ethnic data is not always readily [...] 15-29 5 Kidney failure <15 (or dialysis) 24 SEE RESULT BELOW Name: MIKEL OLIVIA II : [address]: Michael Benavidez MD Acct: [id number] Unit: [id number] AGE: 52 Location: [place] Re01/25/18 SEX: M Status: REG [facility] SPEC: [id number] KYA: 01/25/18- SUBM DR: Michael Benavidez MD REQ: [id number] RECD: 01/25/18-1013 STATUS: SOUT _ ORDERED: Decal, LEVEL 4 FINAL DIAGNOSIS Mid right foot, [...] with saunders-pink irregular rubbery fibrous tissue fragments. Papier Mache Molder sections are submitted in cassettes A through C as follows: A- bone following decalcification, B-ulcer and C-separately received soft tissue. Signed by and Reported on: Harjit Clinton MD 01/12 1432 END OF REPORT DEPARTMENT OF PATHOLOGY, [address] [place] [address] Harjit Clinton M.D. Director [facility] # [id number] 25 Project Construction Assistant Manager: [id number] SOURCE-CUBOID RIGHT FOOT 27 SEE RESULT BELOW Name: MIKEL OLIVIA II : [address]: Michael Benavidez MD Acct: [id number] Unit: [id number] AGE: 52 Location: [place] Re01/25/18 SEX: M Status: REG [facility] SPEC: [id number] KYA: 01/25/18-[address] [facility] [address]: Michael Benavidez MD REQ: [id number] RECD: 01/25/18 STATUS: YESSENIA CARMEN DR: Akin Sexton MD _ SOURCE: FOOT,RIGHT SPDESC: ORDERED: Culture Stain COMMENTS: SOURCE-DEEP TISSUE RIGHT FOOT QUERIES: Specimen Description DEEP TISSUE SWAB Procedure Result Reported Site Wound/Misc Gram Stain Final 01/25/18- 1220 ML 1+ Epithelial Cells 3+ Neutrophils 1+ Gram Positive Cocci Wound/Misc Culture Final 01/29/18- 0903 ML Organism 1 MRSA Quantity 1+ Organism [...] CONTINUED ON NEXT PAGE DEPARTMENT OF PATHOLOGY, [address] [place] [address] Harjit Clinton M.D. Director [facility] # [id number] Patient: MIKEL OLIVIA II [id number] (Continued) Specimen: [id number] Collected: 01/25/18-899 Received: 01/25/18-1055 (Continued) Procedure Result Reported Site [...] These antibiotics are not available in the [facility] Formulary Contact the Microbiology Department for any additional antibiotic reporting. Contact the Microbiology Department for any additional antibiotic reporting. * [facility] - Main Lab . END OF REPORT DEPARTMENT OF PATHOLOGY, [address] [place] [address] Harjit Clinton M.D. Director [facility] # [id number] 28 SEE RESULT BELOW Name: MIKEL OLIVIA II : [address]: Michael Benavidez MD Acct: [id number] Unit: [id number] AGE: 52 Location: [place] Re01/25/18 SEX: M Status: REG SDC SPEC: [id number] KYA: 01/25/[address] [facility] [address]: Michael Benavidez MD REQ: [id number] RECD: 01/25/189 STATUS: YESSENIA CARMEN DR: Akin Sexton MD _ SOURCE: TISSUE SPDESC:OTHER ORDERED: Tissue Cult/GS COMMENTS: CUBOID TISSUE R FOOT Procedure Result Reported Site Tissue Gram Stain Final 01/25/18- 1223 ML 3+ Neutrophils No Organisms Seen Preparation By Cytospin Smear Tissue Culture Final 01/29/18- 0908 ML No Growth Day 4 * ML - Main Lab . END OF REPORT DEPARTMENT OF PATHOLOGY, [address] [place] [address] Harjit Clinton M.D. Director [facility] # [id number] 29 SEE RESULT BELOW Name: MIKEL OLIVIA II : [address]: Michael Benavidez MD Acct: [id number] Unit: [id number] AGE: 52 Location: OR Re01/25/18 SEX: M Status: REG SDC SPEC: [id number] KYA: 01/25/18-[address] [facility] [address]: Michael Benavidez MD REQ: [id number] RECD: 01/25/18 STATUS: YESSENIA CARMEN DR: Akin Sexton MD _ SOURCE: TISSUE SPDESC: ORDERED: Anaerobic Cult COMMENTS: SOURCE-DEEP TISSUE RIGHT FOOT Procedure Result Reported Site Anaerobic Culture Final 01/29/18- 1015 ML Organism 1 FINEGOLDIA MAGNA Quantity 1+ Anaerobic sensitivities are not routinely performed. Positive isolates will be saved for one week. Please call the Microbiology Laboratory if susceptibility testing is needed. * [facility] . END OF REPORT DEPARTMENT OF PATHOLOGY, [address] [place] [address] Harjit Clinton M.D. Director [facility] # [id number] 30 Project Construction Assistant Manager: [id number] 31 Because ethnic data is not always readily [...] 15-29 5 Kidney failure <15 (or dialysis) 32 Acute inflammation: >10.00 33 Acute inflammation: >10.00 34 [id number] SEE RESULT BELOW Name: MIKEL OLIVIA II : [address]: Yo Pascual MD Acct: [id number] Unit: [id number] AGE: 52 Location: [facility] Re01/03/18 SEX: M Status: REG REF SPEC: [id number] KYA: 01/03/18-[address] [facility] [address]: Yo Pascual MD REQ: [id number] RECD: 01/03/18 STATUS: COMP _ SOURCE: FOOT,RIGHT SPDESC: ORDERED: Culture Stain COMMENTS: [id number] QUERIES: Specimen Description RIGHT FOOT Procedure Result Reported Site Wound/Misc Gram Stain Final 01/03/18- 1523 ML 1+ Neutrophils 1+ Gram Positive Cocci Wound/Misc Culture Final 01/05/18- 915 ML No Growth Day 2 * [facility] - Main Lab . END OF REPORT DEPARTMENT OF PATHOLOGY, [address] [place] [address] Harjit Clinton M.D. Director [facility] # [id number] 36 Acute inflammation: >10.00 37 Acute inflammation: >10.00 38 Because ethnic data is not always readily [...] 15-29 5 Kidney failure <15 (or dialysis) 39 Acute inflammation: >10.00 40 Because ethnic data is not always readily [...] 15-29 5 Kidney failure <15 (or dialysis) 41 Acute inflammation: >10.00 42 Because ethnic data is not always readily [...] 15-29 5 Kidney failure <15 (or dialysis) 43 Acute inflammation: >10.00 44 Because ethnic data is not always readily [...] 15-29 5 Kidney failure <15 (or dialysis) 45 Acute inflammation: >10.00 46 Acute inflammation: >10.00 47 Because ethnic data is not always readily [...] 15-29 5 Kidney failure <15 (or dialysis) 48 Acute inflammation: >10.00 49 Because ethnic data is not always readily [...] 15-29 5 Kidney failure <15 (or dialysis) 50 Acute inflammation: >10.00 51 Because ethnic data is not always readily [...] 15-29 5 Kidney failure <15 (or dialysis) 52 Acute inflammation: >10.00 53 Acute inflammation: >10.00 54 Because ethnic data is not always readily [...] 15-29 5 Kidney failure <15 (or dialysis) 55 [facility] Severe Sepsis and Septic Shock Management Bundle Measure requires all lactic acids initially measuring >2.0 mmol/L be repeated. 56 Because ethnic data is not always readily [...] 15-29 5 Kidney failure <15 (or dialysis) 57 Acute inflammation: >10.00 58 Because ethnic data is not always readily [...] 15-29 5 Kidney failure <15 (or dialysis) 59 Acute inflammation: >10.00 60 Acute inflammation: >10.00 61 Because ethnic data is not always readily [...] Date CPT Code Description Status Comment 02/08/2018 20694 Negative Pressure Wound Therapy Less Than 50 Completed Square CM 02/08/2018 47908 Negative Pressure Wound Therapy Less Than 50 Completed Square CM 02/08/2018 13231 I & D Foot Below Fascia, Single Bursal Space Completed 02/08/2018 35934 I & D Foot Below Fascia, Single Bursal Space Completed 01/25/2018 41634 Tenotomy Achilles Tendon General Anesthesia Completed 01/25/2018 04424 Transfer Tendon Leg Or Ankle Superficial Completed R 01/25/2018 48754 Transfer Tendon Leg Or Ankle Superficial Completed 01/25/2018 42706 Amputation Foot Midtarsal Completed 01/25/2018 72786 Amputation Foot Midtarsal Completed 11/13/2017 65162 Negative Pressure Wound Therapy Less Than 50 Completed Square CM 11/09/2017 73706 Negative Pressure Wound Therapy Less Than 50 Completed Square CM 11/09/2017 40753 Debridement Tissue/Muscle/Bone Completed 11/09/2017 52906 Debridement Tissue/Muscle/Bone Completed 09/25/2017 30073 Amputation Foot Midtarsal Completed 09/25/2017 86246 Amputation Foot Midtarsal Completed 09/21/2017 61355 Gastrocnemius Recession Completed 09/21/2017 08535 Gastrocnemius Recession Completed 09/21/2017 24867 Amputation Foot Transmetatarsal Completed 09/21/2017 90203 Amputation Foot Transmetatarsal Completed 09/21/2017 20343 Negative Pressure Wound Therapy Less Than 50 Completed Square CM 09/19/2017 96932 EKG, Interpretation Only Completed 03/20/2017 52974 EKG, Interpretation Only Completed 10/26/2015 27498 Amputation Toe MP JT Completed 10/26/2015 01460 Amputation Toe MP JT Completed 10/26/2015 34807 Amputation Toe MP JT Completed 10/26/2015 16176 Amputation Toe MP JT Completed 10/26/2015 09541 Amputation Toe MP JT Completed 10/25/2015 08378 EKG, Interpretation Only Completed 07/11/2014 16354 Amputation Toe MP JT Completed 07/11/2014 45067 Amputation Toe MP JT Completed Encounters Type Date Location Provider CPT E/M Dx Office Visit 03/08/2018 [facility] Sera Mcmanus [address] M86.671 4:20p Infectious Diseases Francesco Pascual E11.621 Z79.2 L97.419 E11.69 Office Visit 01/19/2018 2:30p [facility] [place] [address] M86.671 C.M.A. L03.115 L97.419 E11.621 Office Visit 01/12/2018 8:30a [place] Braden Mcmanus 51884 L97.419 Infectious Nessa Pascual M.D. L03.115 M86.671 E11.65 E11.69 E11.621 Office Visit 01/03/2018 9:30a [place] Braden Mcmanus [address]9420 L97.419 Infectious Nessa Pascual M.D. L03.115 E11.621 Office Visit 01/02/2018 11:00a [facility] [place] [address] L97.419 C.M.A. L03.115 M86.671 Office Visit 12/25/2017 1:45p [facility] [place] [address] L97.419 C.M.A. E11.69 L03.115 Office Visit 11/10/2017 10:10a [facility] Sera Pascual 36299 E11.65 Jenny Szymanski M.D. E11.69 L03.115 M60.073 Office Visit 11/09/2017 2:04p [facility], [place] [address] E11.621 Hospitalists L97.419 I10 N18.3 Office Visit 11/08/2017 2:04p [facility], [place] [address] E11.621 Hospitalists L97.419 I10 N18.3 Office Visit 11/08/2017 3:41p [facility] Jason RobertVijaya Aguilar, [address] I73.9 Of Public Service Director Francesco E11.69 Office Visit 11/07/2017 3:00p [facility] [place] [address] M86.671 C.M.A. L03.116 L97.419 E11.621 Office Visit 11/07/2017 9:34a [facility] Sera Pascual, 11464 E11.69 Infectious Diseases Francesco M86.671 L03.115 M60.073 S91.301A E11.22 N18.9 Office Visit 11/07/2017 2:01p [facility], [place] [address] E11.621 Hospitalists L97.419 I10 N18.3 Office Visit 10/26/2017 2:20p [facility] Sera Pascual, 78180 E11.69 Infectious Diseases Francesco Z86.19 Z89.421 Office Visit 10/10/2017 10:10a [facility] Sera Mcmanus 52133 M86.671 Infectious Diseases Francesco Pascual N18.3 E11.69 Office Visit 09/26/2017 12:31p [facility] Sera Pascual, 17577 E11.69 Infectious Diseases Francesco M86.671 Z89.421 Office Visit 09/26/2017 9:57a [facility] Deedee Dominguez, 20014 M86.9 Assoc,pc CHEMICAL ETCHING PROCESSOR Hospitalists N18.3 E11.8 Z79.4 Office Visit 09/25/2017 9:55a [facility] Deedee Dominguez, 36222 M86.9 Assoc,pc CHEMICAL ETCHING PROCESSOR Hospitalists N18.3 E11.8 Z79.4 Office Visit 09/24/2017 9:54a [facility], Mandeep Rosas, 37815 M86.9 Hospitalists MCong.,FACP N18.3 E11.8 Office Visit 09/23/2017 9:51a [facility],pc Mandeep Rosas, 57371 M86.9 Hospitalists M.Cas.,FACP Z79.4 E11.8 Office Visit 09/22/2017 9:50a [facility],pc Rita Dumas, N.P. 63252 M86.9 Hospitalists Z79.4 E11.8 N18.3 Office Visit 09/21/2017 9:47a [facility],pc Rita Dumas, N.P. 65985 M86.9 Hospitalists Z79.4 E11.8 N18.3 Office Visit 09/20/2017 9:45a [facility],pc Shellie Moore, 47725 M86.9 Hospitalists CHEMICAL ETCHING PROCESSOR Z79.4 E11.8 N18.3 Office Visit 09/20/2017 10:43a [facility] 74576 E11.621 C.M.A. Office Visit 09/19/2017 10:42a [facility] [place] [address] M86.171 C.M.A. E11.621 Office Visit 09/19/2017 9:43a [facility], Shellie Moore, 78839 M86.9 Hospitalists CHEMICAL ETCHING PROCESSOR Z79.4 E11.8 N18.3 Office Visit 09/19/2017 10:17a [facility] Yo Pascual, 17061 E11.69 Infectious Diseases M.Marietta M86.671 E11.621 L97.519 E11.22 N18.3 Z89.421 Office Visit 09/18/2017 9:39a [facility] Deedee Dominguez, 96989 M86.9 Assoc, CHEMICAL ETCHING PROCESSOR Hospitalists Z79.4 E11.8 N18.3 Office Visit 09/18/2017 10:40a [facility], 00206 E11.621 C.M.AVijaya Maya L03.115 L97.519 Office Visit 03/23/2017 2:52p [facility], Tee Easley, 17541 N17.0 Hospitalists M.DVijaya E87.5 E86.0 E87.2 Office Visit 03/22/2017 2:51p [facility], Tee Easley, 47554 N17.0 Hospitalists M.D. E86.0 E87.5 E87.2 Office Visit 03/21/2017 2:51p [facility], Tee Easley, 71628 N17.0 Hospitalists M.DVijaya E87.5 E86.0 E87.2 Office Visit 03/20/2017 2:51p [facility], Tee Easley, 21130 N17.0 Hospitalists M.DVijaya E87.5 E86.0 E87.2 Office Visit 03/19/2017 1:21p [facility], [place] [address] R51 Hospitalists E87.2 N17.8 E11.22 N18.2 I10 Office Visit 03/18/2017 1:19p [facility], [place] [address] E11.40 Hospitalists N17.8 N18.2 E11.22 E87.2 Office Visit 03/17/2017 2:50p [facility] Oralia Knutson, 67214 N17.0 Hospitalists M.DVijaya E86.0 E87.5 E87.2 Office Visit 11/17/2015 11:30a [facility] Sera Mcmanus 42688 M86.671 Infectious Diseases Francesco Pascual Office Visit 10/27/2015 10:31a [facility], 45282 L03.031 Assoc,pc Hospitalists CHEMICAL ETCHING PROCESSOR E11.51 E11.621 I10 Office Visit 10/26/2015 10:18a [facility] Sera Pascual, 81103 E11.69 Infectious Nessa Maya M86.671 L03.031 L03.115 E11.40 Office Visit 10/26/2015 10:29a [facility], 88965 L03.031 Assoc,pc Hospitalists CHEMICAL ETCHING PROCESSOR E11.51 E11.621 I10 Office Visit 10/25[facility]2015 [facility] 85898 L03.031 Assoc,pc Hospitalists CHEMICAL ETCHING PROCESSOR E11.51 E11.621 I10 Office Visit 10/24/2015 10:28a [facility] Marisa Casper, 38313 L03.031 Assoc,pc Hospitalists CHEMICAL ETCHING PROCESSOR E11.51 E11.621 I10 Office Visit 10/23/2015 7:00a [facility], 06704 M86.671 Conor Maya Office Visit 10/23/2015 10:15a [facility] Sera Mcmanus 60431 E11.621 Infectious Diseases Frnacesco Pascual L97.519 E11.69 M86.671 E11.628 L03.031 E11.40 M60.076 Office Visit 10/23/2015 10:28a [facility] Marisa Casper, 54270 L03.031 Assoc,pc Hospitalists CHEMICAL ETCHING PROCESSOR E11.51 E11.621 I10 Office Visit 10/22/2015 10:27a [facility] Marisa Ogdench, 99862 L03.031 Assoc,pc Hospitalists CHEMICAL ETCHING PROCESSOR E11.51 E11.621 I10 Office Visit 08/14/2014 3:00p [facility] Sera Mcmanus 38557 730.07 Infectious Diseases Francesco Pascual Office Visit 07/28/2014 3:00p [facility] Sera Mcmanus 02237 730.07 Infectious Diseases Francesco Pascual Office Visit 07/14/2014 8:33a [facility] Rita Dumas, N.P. 27337 730.20 Assoc,pc Hospitalists 711.00 Office Visit 07/13/2014 8:32a [facility] Assoc,emir Dumas N.Gabriele 93424 730.20 Hospitalists 711.00 Office Visit 07/12/2014 8:32a [facility] Genevieve Farias 52857 730.20 Assoc,pc N.P. Hospitalists 711.00 Office Visit 07/11/2014 8:26a [facility] Genevieve Farias 93055 730.20 Assoc,pc N.P. Hospitalists 711.00 Office Visit 07/10/2014 12:03p [facility] For Yo Pascual, 62159 730.07 Infectious Diseases M.DVijaay 711.07 250.60 357.2 Office Visit 07/10/2014 7:00a [facility], 17732 730.20 C.Mell Maya 730.17 250.70 Office Visit 07/10[facility]2014 [facility] 33184 730.20 Assoc,pc N.P. Hospitalists 711.00 Office Visit 07/09/2014 8:23a [facility] Assoc,pc Ashley Blackburn, 63628 730.20 Hospitalists N.P. 711.00 250.00 Office Visit 07/08/2014 8:22a [facility],pc Arnold Preciado M.D. 96398 730.20 Hospitalists 711.00 250.00 Office Visit 02/20/2009 12:45a [facility], Tee Easley, 43805 682.7 Hospitalists M.D. Office Visit 02/19/2009 12:45a [facility], Carlos Eduardo Oshea, 51495 682.7 Hospitalists M.D. Office Visit 02/18/2009 1:[facility]a [facility], Carlos Eduardo Oshea, 26656 682.7 Hospitalists M.D. Office Visit 02/17/2009 3:15a [facility], Eulalio Miles, 93651 300.9 Hospitalists M.DVijaya 292.0 311 Plan of Care Future Appointment(s):03/28/2018 3:30 pm - [facility]2018 - Yo Pascual M.D.M86.671 Other chronic osteomyelitis, right ankle and footE11.621 Type 2 diabetes mellitus with foot tczglZ27.2 [facility] (current) use of antibiotics
--- OUTSIDE RECORDS SUMMARY | 2018-04-04 10:49 | XMS REPORT ---
:1965 External Reference #:[id number] Author Organization [employer] Address [address] [place] [address] [place] [address] Phone [phone] Care Team Providers Name Role Phone Akin Sexton MD Primary Care Physician Unavailable Payers Type Date Identification Numbers Payment Provider Subscriber Commercial Effective: Policy Number: [id number] [employer] Uma Olivia 2013 PayID: [id number] [address] [place] [address] Problems Description No Information Family History Date Family Member(s) Problem(s) Comments General Diabetes Social History Type Date Description Comments ETOH Use Drinks 2 Alcoholic Beverages Per Week Smoking Patient is a former smoker smoked 10 cigarettes per day x 10 years Exercise Type/Frequency Exercises regularly Allergies, Adverse Reactions, Alerts Date Description Reaction Status Severity Comments 08/14/2014 Zyvox ithching active 07/28/2014 NKDA inactive Medications Medication Date Status Form Strength Qnty SIG Indications Ordering Provider Ciprofloxacin 03/09 Active Tablets 500mg 28tab 1 tab by Yo s mouth twice a D. day Francesco Pascual Daptomycin 01/30 Active Solution 600mg iv every 24 Yo Rec hours x 42 D. days through Daniel Pascual M.D. Infusion (end date 03/27/18) Zofran 01/26 Active Tablets 4mg 30tab take 1 by Cristine s mouth every 8 Ty, hours as M.D. needed for nausea Glipizide 00 Active Tablets 10mg 1 by mouth Unknown /0000 twice a day Amlodipine 00 Active Tablets 10mg 90tab 1 by mouth Unknown Besylate /0000 s every day Jardiance Active Tablets 10mg 30tab 1 by mouth Unknown /0000 s every night Simvastatin Active Tablets 20mg 1 by mouth Unknown [...] Active Tablets 10-325mg 1 tab by Unknown / mouth 3-4 x daily as needed for pain Fish Oil Active Capsules 1000mg 1 by mouth Unknown / twice a day Vitamin B-12 Active Tablets 1 by mouth Unknown /0000 every day Aspir-[address] 81mg 1 by mouth Unknown / every day Probiotic Active Capsules 1 by mouth Unknown / every day Zosyn 01/15 Hx Solution 3-0.375GM IV q 8 hrs x Yo /2017 /50ML 42 days D. - through [facility], 03/04 [facility] .D. infusion (end date 03/04/18) Augmentin 01/03 Hx Tablets 500-125mg 30tab 1 by mouth L03.115 Yo s twice daily - D. - On Hold While [facility], 03/08 On IV M.D. Antibiotics Cephalexin 12/22 Hx Capsules 500mg 28cap take one M86.671 Michael s capsule by Pramod, - mouth four MD 01/12 times a day Roxicodone 11/10 Hx Tablets 5mg 60tab 1-2 tablets s every 4-6 Ty, - hours as M.D. 01/02 needed for pain post-operativ gemini Aspirin 11/10 Hx Tablets 325mg 60tab 1 tablet Cristine s twice daily Ty, - after surgery M.D. 01/02 by mouth post-operativ gemini Cefepime HCL 11/10 Hx Solution 2gm 2 grams twice Rec daily per Id Ty, - M.D. 01/02 Cephalexin 10/10 Hx Capsules 500mg 30cap take one M86.671 s capsule by D. - pierre two Bert, 11/22 times a day Cubicin 08/06 Hx Solution 500mg iv every 24 Rec hours Marietta Pascual, 11/15 Cipro 08/05 Hx Tablets 500mg 60tab 1 by mouth s twice a day Marietta Pascual, 11/15. Zyvox 08/05 Hx Suspension 100mg/5ML 600 mg IV q Rec 24 hrs Marietta Pascual, 08/06D Oxycodone HCL 07/18 Hx Tablets 5mg 40tab 1-2 tabs po q s 6 hrs prn Oscar Buck M.D. 08/13 Tramadol HCL 07/18 Hx Tablets 50mg 40tab 1-2 tabs by s mouth q 6 hrs Oscar Buck.[place] 11/15 Vancomycin HCL Hx Solution 1000mg QS [...] x 28 - days through 10/24 [facility] Flagyl 00 Hx Tablets 500mg 1 po bid x 28 Unknown /0000 days - 10/24 Vital Signs Date Vital Result Comment 03/20/2018 Height 74 inches 6'2" Weight 214.00 [...] finding Sensitiv Anaerobic Culture SEE RESULT BELOW 26, 29 Laboratory test finding 01/25/2018 Point of [...] PLEASE FAX RESULTS TO DR YO PASCUAL [phone] FAX TO [facility] [phone] 2 Because ethnic data is not always [...] PLEASE FAX RESULTS TO DR YO PASCUAL [phone] FAX TO [facility] 4 PLEASE FAX RESULTS TO DR YO PASCUAL [phone] FAX TO [facility] 5 Because ethnic data is not always [...] (or dialysis) 8 PLEASE FAX RESULTS TO: [id number]; [phone] 9 Because ethnic data is not always [...] (or dialysis) 10 PLEASE FAX RESULTS TO: [id number]; [phone] 11 PLEASE FAX RESULTS TO: [id number]; [phone] 12 PLEASE FAX RESULTS TO: [id number]; [phone] 13 PLEASE FAX RESULTS TO DR MIRIAM PASCUAL [phone] AND [facility] [phone] 14 PLEASE FAX RESULTS TO DR MIRIAM PASCUAL [phone] AND [facility] [phone] 15 PLEASE FAX RESULTS TO DR MIRIAM PACSUAL [phone] AND [facility] [phone] 16 Because ethnic data is not always [...] 5 Kidney failure <15 (or dialysis) 17 [facility] Room: [id number] 18 [facility] Room: [id number] 19 Because ethnic data is not always [...] Acute inflammation: >10.00 21 [phone] 22 Acute inflammation: >10.00 23 [...] [address]: Michael Benavidez MD Acct: [id number] Unit: [id number] AGE: 52 Location: OR Re01/25/18 SEX: M Status: REG [facility] SPEC: [id number] KYA: 01/25/18- [facility] DR: Michael Benavidez MD REQ: [id number] RECD: 01/25/181013 STATUS: SOUT _ ORDERED: Decal, LEVEL 4 [...] with saunders-pink irregular rubbery fibrous tissue fragments. Novelty Twister Operator sections are submitted in cassettes A through C as follows: A- bone following decalcification, B-ulcer and C-separately received soft tissue. Signed by and Reported on: Harjit Clinton MD 01/12 1432 END OF REPORT DEPARTMENT OF PATHOLOGY, [address] [place] [address] Harjit Clinton M.D. Director [facility] # [id number] 25 [employer] Room: [id number] 26 SOURCE-CUBOID RIGHT FOOT 27 SEE RESULT BELOW Name: MIKEL OLIVIA II : [address]: Michael Benavidez MD Acct: [id number] Unit: [id number] AGE: 52 Location: OR Re01/25/18 SEX: M Status: REG SDC SPEC: [id number] KYA: 01/25/[address] [facility] [address]: Michael Benavidez MD REQ: [id number] RECD: 01/25/18 STATUS: YESSENIA CARMEN DR: Akin [...] CONTINUED ON NEXT PAGE DEPARTMENT OF PATHOLOGY, [address] [place] [address] Harjit Clinton M.D. Director [facility] # [id number] Patient: MIKEL OLIVIA II [id number] (Continued) Specimen: [id number] Collected: 01/25/18 Received: 01/25/18 (Continued) Procedure Result Reported Site Wound/Misc Culture Final (continued) 01/29/18902 1. MRSA (continued) M.I.C. RX --------- ------ [...] These antibiotics are not available in the [facility] Formulary Contact the Microbiology Department for any additional antibiotic reporting. Contact the Microbiology Department for any additional antibiotic reporting. * - Main Lab . END OF REPORT DEPARTMENT OF PATHOLOGY, [address] [place] [address] Harjit Clinton M.D. Director [facility] # [id number] 28 SEE RESULT BELOW Name: MIKEL OLIVIA II : [address]: Michael Benavidez MD Acct: [id number] Unit: [id number] AGE: 52 Location: OR Re01/25/18 SEX: M Status: [facility] SPEC: [id number] KYA: 01/25/18-[address] [facility] [address]: Michael Benaviedz MD REQ: [id number] RECD: 01/25/18 STATUS: YESSENIA CARMEN DR: Akin Sexton MD _ SOURCE: TISSUE SPDESC:OTHER ORDERED: Tissue Cult/GS COMMENTS: CUBOID TISSUE R FOOT Procedure Result Reported Site Tissue Gram Stain Final 01/25/18- 1223 ML 3+ Neutrophils No Organisms Seen Preparation By Cytospin Smear Tissue Culture Final 01/29/18- 0908 ML No Growth Day 4 * ML - Main Lab . END OF REPORT DEPARTMENT OF PATHOLOGY, [address] [place] [address] Harjit Clinton M.D. Director [facility] # [id number] 29 SEE RESULT BELOW Name: MIKEL OLIVIA II : [address]: Michael Benavidez MD Acct: [id number] Unit: [id number] AGE: 52 Location: OR Re01/25/18 SEX: M Status: REG SDC SPEC: [id number] KYA: 01/25/18-[address] [facility] [address]: iMchael Benavidez MD REQ: [id number] RECD: 01/25/18 STATUS: YESSENIA CARMEN DR: Akin [...] . END OF REPORT DEPARTMENT OF PATHOLOGY, [address] [place] [address] Harjit Clinton M.D. Director [facility] # [id number] 30 [employer] Room: [id number] 31 Because ethnic data is not always [...] inflammation: >10.00 33 Acute inflammation: >10.00 34 [id number] SEE RESULT BELOW Name: MIKEL OLIVIA II : [address]: Yo Pascual MD Acct: [id number] Unit: [id number] AGE: 52 Location: [facility] Re01/03/18 SEX: M Status: REG REF SPEC: [id number] YKA: 01/03/18-[address] [facility] [address]: Yo Pascual MD REQ: [id number] RECD: 01/03/18 STATUS: COMP _ SOURCE: FOOT,RIGHT SPDESC: ORDERED: Culture Stain COMMENTS: [id number] QUERIES: Specimen Description RIGHT FOOT Procedure Result Reported Site Wound/Misc Gram Stain Final 01/03/18- 1523 ML 1+ Neutrophils 1+ Gram Positive Cocci Wound/Misc Culture Final 01/05/18- 915 ML No Growth Day 2 * ML - Main Lab . END OF REPORT DEPARTMENT OF PATHOLOGY, [address] [place] [address] Harjit Clinton M.D. Director [facility] # [id number] 36 Acute inflammation: >10.00 37 Acute inflammation: [...] 5 Kidney failure <15 (or dialysis) 55 [facility] Severe Sepsis and Septic Shock Management Bundle [...] Date CPT Code Description Status Comment 02/08/2018 59065 Negative Pressure Wound Therapy Less Than 50 Completed Square CM 02/08/2018 20693 Negative Pressure Wound Therapy Less Than 50 Completed Square CM 02/08/2018 01025 I & D Foot Below Fascia, Single Bursal Space Completed 02/08/2018 83449 I & D Foot Below Fascia, Single Bursal Space Completed 01/25/2018 39315 Tenotomy Achilles Tendon General Anesthesia Completed 01/25/2018 08302 Transfer Tendon Leg Or Ankle Superficial Completed R 01/25/2018 11364 Transfer Tendon Leg Or Ankle Superficial Completed 01/25/2018 36043 Amputation Foot Midtarsal Completed 01/25/2018 34799 Amputation Foot Midtarsal Completed 11/13/2017 33707 Negative Pressure Wound Therapy Less Than 50 Completed Square CM 11/09/2017 26726 Negative Pressure Wound Therapy Less Than 50 Completed Square CM 11/09/2017 11549 Debridement Tissue/Muscle/Bone Completed 11/09/2017 91458 Debridement Tissue/Muscle/Bone Completed 09/25/2017 89143 Amputation Foot Midtarsal Completed 09/25/2017 53770 Amputation Foot Midtarsal Completed 09/21/2017 47290 Gastrocnemius Recession Completed 09/21/2017 45497 Gastrocnemius Recession Completed 09/21/2017 67186 Amputation Foot Transmetatarsal Completed 09/21/2017 57457 Amputation Foot Transmetatarsal Completed 09/21/2017 49759 Negative Pressure Wound Therapy Less Than 50 Completed Square CM 09/19/2017 73318 EKG, Interpretation Only Completed 03/20/2017 73017 EKG, Interpretation Only Completed 10/26/2015 27062 Amputation Toe MP JT Completed 10/26/2015 10857 Amputation Toe MP JT Completed 10/26/2015 18504 Amputation Toe MP JT Completed 10/26/2015 05203 Amputation Toe MP JT Completed 10/26/2015 62620 Amputation Toe MP JT Completed 10/25/2015 68214 EKG, Interpretation Only Completed 07/11/2014 66265 Amputation Toe MP JT Completed 07/11/2014 64026 Amputation Toe MP JT Completed Encounters Type Date Location Provider CPT E/M Dx Office Visit 03/08/2018 [facility] Sera Mcmanus 13093 M86.671 4:20p Infectious Diseases Francesco Pascual E11.621 Z79.2 L97.419 E11.69 Office Visit 01/19/2018 2:30p [facility] [place] [address] M86.671 C.M.A. L03.115 L97.419 E11.621 Office Visit 01/12/2018 8:30a [facility] Sera Mcmanus 72513 L97.419 Infectious Diseases Francesco Pascual L03.115 M86.671 E11.65 E11.69 E11.621 Office Visit 01/03/2018 9:30a [facility] Sera Mcmanus 55078 L97.419 Infectious Diseases Francesco Pascual L03.115 E11.621 Office Visit 01/02/2018 11:00a [facility] [place] [address] L97.419 C.M.A. L03.115 M86.671 Office Visit 12/25/2017 1:45p [facility] [place] [address] L97.419 C.M.A. E11.69 L03.115 Office Visit 11/10/2017 10:10a [facility] Sera Pascual 06257 E11.65 Infectious Nessa Maya E11.69 L03.115 M60.073 Office Visit 11/09/2017 2:04p [facility], [place] [address] E11.621 Hospitalists L97.419 I10 N18.3 Office Visit 11/08/2017 2:04p [facility], [place] [address] E11.621 Hospitalists L97.419 I10 N18.3 Office Visit 11/08/2017 3:41p [facility] Vascular Medicine Jason Aguilar, 75687 I73.9 Of Color Paste Mixer Francesco E11.69 Office Visit 11/07/2017 3:00p [facility] [place] [address] M86.671 C.M.A. L03.116 L97.419 E11.621 Office Visit 11/07/2017 9:34a [facility] Sera Pascual, 17381 E11.69 Infectious Diseases Francesco M86.671 L03.115 M60.073 S91.301A E11.22 N18.9 Office Visit 11/07/2017 2:01p [facility], [place] [address] E11.621 Hospitalists L97.419 I10 N18.3 Office Visit 10/26/2017 2:20p [facility] Sera Pascual, 09355 E11.69 Infectious Diseases Francesco Z86.19 Z89.421 Office Visit 10/10/2017 10:10a [facility] Sera Mcmanus 40954 M86.671 Infectious Diseases Francesco Pascual N18.3 E11.69 Office Visit 09/26/2017 12:31p [facility] Sera Pascual, 78009 E11.69 Infectious Diseases Francesco M86.671 Z89.421 Office Visit 09/26/2017 9:57a [facility] Deedee Dominguez, 57363 M86.9 Assoc, [place] Hospitalists N18.3 E11.8 Z79.4 Office Visit 09/25/2017 9:55a [facility] Deedee Dominguez, 55335 M86.9 Assoc, [place] Hospitalists N18.3 E11.8 Z79.4 Office Visit 09/24/2017 9:54a [facility], Mandeep Rosas, 62237 M86.9 Hospitalists Francesco,FACP N18.3 E11.8 Office Visit 09/23/2017 9:51a [facility], Mandeep Rosas, 19139 M86.9 Hospitalists Francesco,FACP Z79.4 E11.8 Office Visit 09/22/2017 9:50a [facility],pc Rita Dumas, N.P. 22750 M86.9 Hospitalists Z79.4 E11.8 N18.3 Office Visit 09/21/2017 9:47a [facility],pc Rita Dumas, N.P. 82182 M86.9 Hospitalists Z79.4 E11.8 N18.3 Office Visit 09/20/2017 9:45a [facility],pc Shellie Moore, 98441 M86.9 Hospitalists [place] Z79.4 E11.8 N18.3 Office Visit 09/20/2017 10:43a [facility] DHEERAJ Lewis 69473 E11.621 C.M.A. Office Visit 09/19/2017 10:42a [facility] [place] [address] M86.171 C.M.A. E11.621 Office Visit 09/19/2017 9:43a [facility], Shellie Moore, 54388 M86.9 Hospitalists [place] Z79.4 E11.8 N18.3 Office Visit 09/19/2017 10:17a [facility] Yo Pascual, 40913 E11.69 Infectious Diseases M.[place] M86.671 E11.621 L97.519 E11.22 N18.3 Z89.421 Office Visit 09/18/2017 9:39a [facility] Deedee Dominguez, 70926 M86.9 Assoc, [place] Hospitalists Z79.4 E11.8 N18.3 Office Visit 09/18/2017 10:40a [facility] Buck, 64513 E11.621 C.M.AVijaya Maya L03.115 L97.519 Office Visit 03/23/2017 2:52p [facility], Tee Easley, 06757 N17.0 Hospitalists Francesco E87.5 E86.0 E87.2 Office Visit 03/22/2017 2:[facility]p [facility] Tee Easley, 85558 N17.0 Hospitalists Francesco E86.0 E87.5 E87.2 Office Visit 03/21/2017 2:51p [facility], Tee Easley, 34569 N17.0 Hospitalists M.DVijaya E87.5 E86.0 E87.2 Office Visit 03/20/2017 2:51p [facility], Tee Easley, 06930 N17.0 Hospitalists M.DVijaya E87.5 E86.0 E87.2 Office Visit 03/19/2017 1:21p [facility], [place] [address] R51 Hospitalists E87.2 N17.8 E11.22 N18.2 I10 Office Visit 03/18/2017 1:19p [facility], [place] [address] E11.40 Hospitalists N17.8 N18.2 E11.22 E87.2 Office Visit 03/17/2017 2:50p [facility], Oralia Knutson, 65647 N17.0 Hospitalists MNeida E86.0 E87.5 E87.2 Office Visit 11/17/2015 11:30a [facility] Sera Mcmanus 06474 M86.671 Infectious Diseases Francesco Pascual Office Visit 10/27/2015 10:31a [facility], 11415 L03.031 Assoc,pc Hospitalists [place] E11.51 E11.621 I10 Office Visit 10/26/2015 10:18a [facility] Sera Pascual, 29099 E11.69 Infectious Diseases Francesco M86.671 L03.031 L03.115 E11.40 Office Visit 10/26/2015 10:29a [facility], 52691 L03.031 Assoc,pc Hospitalists [place] E11.51 E11.621 I10 Office Visit 10/25/2015 10:29a [facility], 85444 L03.031 Assoc,pc Hospitalists [place] E11.51 E11.621 I10 Office Visit 10/24/2015 10:28a [facility] [place], 22427 L03.031 Assoc,pc Hospitalists [place] E11.51 E11.621 I10 Office Visit 10/23/2015 7:00a [facility], 64089 M86.671 C.MLuis Antonio Maya Office Visit 10/23/2015 10:15a [facility] Sera Mcmanus 41823 E11.621 Infectious Diseases Francesco Pascual L97.519 E11.69 M86.671 E11.628 L03.031 E11.40 M60.076 Office Visit 10/23/2015 10:28a [facility], 72934 L03.031 Assoc, Hospitalists [place] E11.51 E11.621 I10 Office Visit 10/22/2015 10:27a [facility], 12441 L03.031 Assoc, Hospitalists [place] E11.51 E11.621 I10 Office Visit 08/14/2014 3:00p [facility] Sera Mcmanus 65515 730.07 Infectious Diseases Francesco Pascual Office Visit 07/28/2014 3:00p [facility] Sera Mcmanus 60530 730.07 Infectious Diseases Francesco Pascual Office Visit 07/14/2014 8:33a [facility] Rita Dumas, N.P. 09849 730.20 Assoc, Hospitalists 711.00 Office Visit 07/13/2014 8:32a [facility] Asswoo,emir Dumas N.P. 63761 730.20 Hospitalists 711.00 Office Visit 07/12/2014 8:32a [facility] Genevieve Farias, 16752 730.20 Assoc,pc N.P. Hospitalists 711.00 Office Visit 07/11/2014 8:26a [facility] Genevieve Farias 01370 730.20 Assoc,pc N.P. Hospitalists 711.00 Office Visit 07/10/2014 12:03p [facility] Sera Pascual, 96852 730.07 Infectious Nessa Maya 711.07 250.60 357.2 Office Visit 07/10/2014 7:00a [facility], 05876 730.20 C.MLuis Antonio Maya 730.17 250.70 Office Visit 07/10/2014 [facility] 48115 730.20 Assoc,pc N.P. Hospitalists 711.00 Office Visit 07/09/2014 8:23a [facility] Assoc,pc Ashley Blackburn, 92811 730.20 Hospitalists N.P. 711.00 250.00 Office Visit 07/08/2014 8:22a [facility] Ass[facility],pc Arnold Preciado M.D. 55155 730.20 Hospitalists 711.00 250.00 Office Visit 02/20/2009 12:45a [facility],pc Tee Easley, 85625 682.7 Hospitalists M.D. Office Visit 02/19/2009 12:45a [facility],pc Carlos Eduardo Oshea, 38564 682.7 Hospitalists M.D. Office Visit 02/18/2009 1:15a [facility], Carlos Eduardo Oshea, 20653 682.7 Hospitalists M.D. Office Visit 02/17/2009 3:15a [facility], Eulalio Miles, 39689 300.9 Hospitalists M.DVijaya 292.0 311 Plan of Care Future Appointment(s):03/28/2018 3:30 pm - Michael Benavidez MD at [facility]03/26/2018 3:20 pm - Yo Pascual M.D. at [facility]
--- OUTSIDE RECORDS SUMMARY | 2018-04-04 10:50 | XMS REPORT ---
:1965 External Reference #:[id number] Author Organization [facility] Address [address] [place] [address] Phone [phone] Care Team Providers Name Role Phone Akin Sexton MD Primary Care Physician Unavailable Payers Type Date Identification Numbers Payment Provider Subscriber Commercial Effective: Policy Number: [id number] [employer] Uma Olivia 2013 PayID: [id number] [address] [address] [place] [address] Problems Description No Information Family History Date [...] Qnty SIG Indications Ordering Provider Daptomycin 01/30 Active Solution 600mg iv every 24 Rec hours x [facility]end date 03/13/18) Zofran 01/26 Active Tablets 4mg 30tab take 1 by Cristine s mouth every 8 Ty, hours as M.D. needed for nausea Glipizide 00 Active Tablets 10mg 1 by mouth Unknown /0000 twice a day Amlodipine Active Tablets 10mg 90tab 1 by mouth Unknown Besylate /0000 s every day Jardiance 00 Active Tablets 10mg 30tab 1 by mouth Unknown /0000 s every night Simvastatin 00 Active Tablets 20mg 1 by mouth Unknown /0000 every day Nortriptyline Active Capsules 10mg 1 po qhs Unknown HCL 0000 Metoprolol Active Tablets ER 50mg 1 by [...] Tablets DR 81mg 1 by mouth Unknown every day Probiotic Active Capsules 1 by mouth Unknown /0000 every day Zosyn 01/15 Hx Solution 3-0.375GM IV q 8 hrs x Yonug /50ML 42 days D. - [facility] (end date 03/04/18) Augmentin 01/03 Hx Tablets 500-125mg 30tab 1 by mouth L03.115 s twice daily - D. - On Hold While [facility]ara 03/08 On IV .D. Antibiotics Cephalexin 12/22 [...] one M86.671 s capsule by D. - mouth two Samara 11/22 times a day Cubicin 08/06 Hx Solution 500mg iv every 24 Rec hours Marietta Pascual, 11/15 Cipro 08/05 Hx Tablets 500mg 60tab 1 by mouth s twice a day Marietta Pascual, 11/15 Zyvox 08/05 Hx Suspension 100mg/5ML 600 mg IV q Rec 24 hrs Marietta Pascual, 08/06 Oxycodone HCL 07/18 Hx Tablets 5mg 40tab [...] twice a day - 08/13 Metformin HCL 00/00 Hx Tablets Unsure Of 1 by mouth Unknown /0000 Dose twice a day - 10/09 Ceftriaxone 00/00 Hx Solution 2gm iv every 24 Unknown Sodium /0000 Rec hours x 28 - days through 10/24 [employer] /2017 Infusion Flagyl 0000 Hx Tablets 500mg 1 po bid x 28 Unknown /0000 days - 10/24 Vital Signs Date Vital Result Comment 03/08/2018 Height 74 inches 6'2" Weight 214.50 [...] Result H/L Range Note Comp Metabolic Panel 03/06/2018 Sodium 139 mmol/L [...] Egfr Non- 57.0 >60 Egfr 69.0 >60 1 Laboratory test finding 03/06/2018 Creatine Kinase(CK) 36 U/L 10-223 C Reactive Protein 2.74 mg/L <8.01 CBC Auto Diff 03/06/2018 White [...] Blood Cells % 0.1 Comp Metabolic Panel 02/27/2018 Sodium 139 mmol/L [...] Egfr Non- 56.0 >60 Egfr 67.8 >60 2 Laboratory test finding 02/27/2018 C Reactive Protein [...] Metabolic Panel 02/20/2018 Sodium 138 mmol/L 135-145 3 Potassium 4.4 mmol/L 3.5-5.0 3 Chloride 104 mmol/L 101-111 3 Co2 Carbon Dioxide 25 mmol/L 22-32 3 Anion Gap 9 mmol/L 2-11 3 Glucose 105 mg/dL High 70-100 3 Blood Urea Nitrogen 18 mg/dL 6-24 3 Creatinine 1.30 mg/dL High 0.67-1.17 3 BUN/Creatinine Ratio 13.8 8-20 3 Calcium 9.3 mg/dL 8.6-10.3 3 Total Protein 7.0 g/dL 6.4-8.9 3 Albumin 3.9 g/dL 3.2-5.2 3 Globulin 3.1 g/dL 2-4 3 Albumin/Globulin Ratio 1.3 1-3 3 Total Bilirubin 0.40 mg/dL 0.2-1.0 3 Alkaline Phosphatase 76 U/L 34-104 3 Alt 18 U/L 7-52 3 Ast 23 U/L 13-39 3 Egfr Non- 57.5 >60 3 Egfr 69.6 >60 3, 4 Laboratory test finding 02/20/2018 Creatine Kinase(CK) 29 U/L 10-223 3, 5 C Reactive Protein 5.62 mg/L <8.01 3, 6 CBC Auto Diff 02/20/2018 White Blood Count 5.7 10^3/uL 3.5-10.8 3 Red Blood Count 4.30 10^6/uL 4.00-5.40 3 Hemoglobin 11.2 g/dL Low 14.0-18.0 3 Hematocrit 33 % Low 42-52 3 Mean Corpuscular Volume 78 fL Low 80-94 3 Mean Corpuscular Hemoglobin 26 pg Low 27-31 3 Mean Corpuscular HGB Conc 34 g/dL 31-36 3 Red Cell Distribution Width 17 % High 10.5-15 3 Platelet Count 248 10^3/uL 150-450 3 Mean Platelet Volume 7.9 um3 7.4-10.4 3 Abs Neutrophils 3.6 10^3/uL 1.5-7.7 3 Abs Lymphocytes 1.5 10^3/uL 1.0-4.8 3 Abs Monocytes 0.4 10^3/uL 0-0.8 3 Abs Eosinophils 0.2 10^3/uL 0-0.6 3 Abs Basophils 0 10^3/uL 0-0.2 3 Abs Nucleated RBC 0 10^3/uL 3 Granulocyte % 62.5 % 38-83 3 Lymphocyte % 26.1 % 25-47 3 Monocyte % 7.5 % High 0-7 3 Eosinophil % 3.5 % 0-6 3 Basophil % 0.4 % 0-2 3 Nucleated Red Blood Cells % 0.1 3 Laboratory test 02/20/2018 Erythrocyte Sed Rate 51 mm/Hr High 0-20 3, 7 finding CBC Auto Diff 02/14/2018 White Blood Count 7.7 10^3/uL 3.5-10.8 8 Red Blood Count 3.89 10^6/uL Low 4.00-5.40 8 Hemoglobin 10.1 g/dL Low 14.0-18.0 8 Hematocrit 30 % Low 42-52 8 Mean Corpuscular Volume 77 fL Low 80-94 8 Mean Corpuscular Hemoglobin 26 pg Low 27-31 8 Mean Corpuscular HGB Conc 34 g/dL 31-36 8 Red Cell Distribution Width 17 % High 10.5-15 8 Platelet Count 386 10^3/uL 150-450 8 Mean Platelet Volume 7.2 um3 Low 7.4-10.4 8 Abs Neutrophils 5.3 10^3/uL 1.5-7.7 8 Abs Lymphocytes 1.5 10^3/uL 1.0-4.8 8 Abs Monocytes 0.5 10^3/uL 0-0.8 8 Abs Eosinophils 0.3 10^3/uL 0-0.6 8 Abs Basophils 0.1 10^3/uL 0-0.2 8 Abs Nucleated RBC 0 10^3/uL 8 Granulocyte % 68.7 % 38-83 8 Lymphocyte % 19.8 % Low 25-47 8 Monocyte % 7.1 % High 0-7 8 Eosinophil % 3.5 % 0-6 8 Basophil % 0.9 % 0-2 8 Nucleated Red Blood Cells % 0.1 8 Comp Metabolic Panel 02/14/2018 Sodium 136 mmol/L 135-145 8 Potassium 4.4 mmol/L 3.5-5.0 8 Chloride 101 mmol/L 101-111 8 Co2 Carbon Dioxide 26 mmol/L 22-32 8 Anion Gap 9 mmol/L 2-11 8 Glucose 248 mg/dL High 70-100 8 Blood Urea Nitrogen 21 mg/dL 6-24 8 Creatinine 1.33 mg/dL High 0.67-1.17 8 BUN/Creatinine Ratio 15.8 8-20 8 Calcium 9.3 mg/dL 8.6-10.3 8 Total Protein 6.7 g/dL 6.4-8.9 8 Albumin 3.7 g/dL 3.2-5.2 8 Globulin 3.0 g/dL 2-4 8 Albumin/Globulin Ratio 1.2 1-3 8 Total Bilirubin 0.40 mg/dL 0.2-1.0 8 Alkaline Phosphatase 82 U/L 34-104 8 Alt 11 U/L 7-52 8 Ast 13 U/L 13-39 8 Egfr Non- 56.0 >60 8 Egfr 72.1 >60 8, 9 Laboratory test finding 02/14/2018 Creatine Kinase(CK) 37 U/L 10-223 8, 10 C Reactive Protein 12.26 mg/L High <8.01 8, 11 Laboratory test finding 02/08/2018 Point of Care Glucose 100 mg/dL 70- 100 12 Laboratory test finding 02/08/2018 Point of Care Glucose 104 mg/dL High 70 -100 13 Laboratory test finding 02/06/2018 Creatine Kinase(CK) 19 U/L 10-223 C Reactive Protein 85.52 mg/L High < 5.00 14 Comp Metabolic Panel 02/06/2018 Sodium 138 mmol/L [...] Egfr Non- 54.1 >60 Egfr 69.6 >60 15 CBC Auto Diff 02/06/2018 White Blood Count [...] 0-2 Nucleated Red Blood Cells % 0 CBC Auto Diff 01/30/2018 White Blood Count 4.6 10^3/uL 3.5-10.8 16 Red Blood Count 3.52 10^6/uL Low 4.0-5.4 16 Hemoglobin 9.6 g/dL Low 14.0-18.0 16 Hematocrit 28 % Low 42-52 16 Mean Corpuscular Volume 79 fL Low 80-94 16 Mean Corpuscular Hemoglobin 27 pg 27-31 16 Mean Corpuscular HGB Conc 34 g/dL 31-36 16 Red Cell Distribution Width 16 % High 10.5-15 16 Platelet Count 235 10^3/uL 150-450 16 Mean Platelet Volume 7.7 um3 7.4-10.4 16 Abs Neutrophils 2.7 10^3/uL 1.5-7.7 16 Abs Lymphocytes 0.9 10^3/uL Low 1.0-4.8 16 Abs Monocytes 0.8 10^3/uL 0-0.8 16 Abs Eosinophils 0.2 10^3/uL 0-0.6 16 Abs Basophils 0 10^3/uL 0-0.2 16 Abs Nucleated RBC 0 10^3/uL 16 Granulocyte % 59.7 % 38-83 16 Lymphocyte % 19.4 % Low 25-47 16 Monocyte % 17.2 % High 0-7 16 Eosinophil % 3.3 % 0-6 16 Basophil % 0.4 % 0-2 16 Nucleated Red Blood Cells % 0.1 16 Comp Metabolic Panel 01/30/2018 Sodium 133 mmol/L Low 139-145 16 Potassium 4.2 mmol/L 3.5-5.0 16 Chloride 98 mmol/L Low 101-111 16 Co2 Carbon Dioxide 26 mmol/L 22-32 16 Anion Gap 9 mmol/L 2-11 16 Glucose 270 mg/dL High 70-100 16 Blood Urea Nitrogen 19 mg/dL 6-24 16 Creatinine 1.43 mg/dL High 0.67-1.17 16 BUN/Creatinine Ratio 13.3 8-20 16 Calcium 8.2 mg/dL Low 8.6-10.3 16 Total Protein 6.0 g/dL Low 6.4-8.9 16 Albumin 3.2 g/dL 3.2-5.2 16 Globulin 2.8 g/dL 2-4 16 Albumin/Globulin Ratio 1.1 1-3 16 Total Bilirubin 0.30 mg/dL 0.2-1.0 16 Alkaline Phosphatase 325 U/L High 34-104 16 Alt 29 U/L 7-52 16 Ast 40 U/L High 13-39 16 Egfr Non- 51.5 >60 16 Egfr 66.3 >60 16, 17 Laboratory test 01/30/2018 C Reactive Protein 187.45 mg/L High < 5.00 16 , 18 finding Laboratory test 01/25/2018 Surgical Pathology SEE RESULT BELOW 19 finding Laboratory test 01/25/2018 Point of Care 178 mg/dL High 70-100 20 finding Glucose Wound Culture/Sensi 01/25/2018 Wound/Misc SEE RESULT BELOW 21, 22 Culture-Gram Stain Laboratory test 01/25/2018 Tissue Culture & SEE RESULT BELOW 21, 23 finding Sensitiv Anaerobic Culture SEE RESULT BELOW 21, 24 Laboratory test finding 01/25/2018 Point of Care Glucose 200 mg/dL High 70 -100 25 CBC Auto Diff 01/23/2018 White Blood Count [...] Egfr Non- 58.0 >60 Egfr 74.6 >60 26 Laboratory test 01/23/2018 C Reactive Protein 17.45 mg/L High < 5.00 27 finding Laboratory test 01/11/2018 C Reactive Protein 50.00 mg/L High < 5.00 28 finding Wound Culture/Sensi 01/03/2018 Wound/Misc SEE RESULT 29, 30 Culture-Gram Stain BELOW Laboratory test 01/02/2018 C Reactive Protein 24.89 mg/L High < 5.00 31 finding CBC Auto Diff 12/22/2017 White Blood [...] Reactive Protein 31.47 mg/L High < 5.00 32 CBC Auto Diff 12/08/2017 White Blood Count [...] Egfr Non- 53.3 >60 Egfr 68.5 >60 33 Laboratory test finding 12/08/2017 C Reactive Protein 2.19 mg/L < 5.00 34 Comp Metabolic Panel 11/29/2017 Sodium 135 mmol/L [...] U/L High 7-52 Ast 50 U/L High 1339 Egfr Non- 52.8 >60 Egfr 67.9 >60 35 Laboratory test finding 11/29/2017 C Reactive Protein 1.29 mg/L < 5.00 36 CBC Auto Diff 11/22/2017 White Blood Count [...] Egfr Non- 54.1 >60 Egfr 69.6 >60 37 Laboratory test finding 11/22/2017 C Reactive Protein 2.26 mg/L < 5.00 38 CBC Auto Diff 11/15/2017 White Blood Count [...] Egfr Non- 59.6 >60 Egfr 76.7 >60 39 Laboratory test finding 11/15/2017 C Reactive Protein 5.12 mg/L High < 5.00 40 Laboratory test finding 11/06/2017 C Reactive Protein 65.13 mg/L High < 5.00 41 CBC Auto Diff 10/23/2017 White Blood Count [...] Egfr Non- 50.3 >60 Egfr 64.7 >60 42 Laboratory test finding 10/23/2017 C Reactive Protein 1.73 mg/L < 5.00 43 CBC Auto Diff 10/16/2017 White Blood Count [...] Egfr Non- 55.5 >60 Egfr 71.4 >60 44 Laboratory test finding 10/16/2017 C Reactive Protein < 1.00 mg/L < 5.00 45 Comp Metabolic Panel 10/12/2017 Sodium 128 mmol/L [...] Egfr Non- 54.6 >60 Egfr 70.2 >60 46 Laboratory test finding 10/12/2017 C Reactive Protein 1.16 mg/L < 5.00 47 CBC Auto Diff 10/12/2017 White Blood Count [...] C Reactive Protein 4.54 mg/L < 5.00 48 Comp Metabolic Panel 10/05/2017 Sodium 131 mmol/L [...] Egfr Non- 50.3 >60 Egfr 64.7 >60 49 CBC Auto Diff 10/05/2017 White Blood Count [...] finding 09/18/2017 Lactic Acid 0.6 mmol/L 0.5-2.0 50 CBC Auto Diff 11/19/2015 White Blood Count [...] Egfr Non- 59.0 >60 Egfr 75.9 >60 51 Laboratory test finding 11/19/2015 C Reactive Protein 1.02 mg/L < 5.00 52 CBC Auto Diff 11/11/2015 White Blood Count [...] Egfr Non- 66.8 >60 Egfr 85.9 >60 53 Laboratory test finding 11/11/2015 C Reactive Protein 1.19 mg/L < 5.00 54 CBC Auto Diff 11/04/2015 White Blood Count [...] C Reactive Protein 1.34 mg/L < 5.00 55 Comp Metabolic Panel 11/04/2015 Sodium 132 mmol/L [...] Egfr Non- 82.3 >60 Egfr 105.8 >60 56 1 Because ethnic data is not always [...] 5 Kidney failure <15 (or dialysis) 2 Because ethnic data is not always [...] <15 (or dialysis) 3 PLEASE FAX RESULTS TO: [id number]; [phone] 4 Because ethnic data is not always readily [...] 15-29 5 Kidney failure <15 (or dialysis) 5 PLEASE FAX RESULTS TO: [id number]; [phone] 6 PLEASE FAX RESULTS TO: [id number]; [phone] 7 PLEASE FAX RESULTS TO: [id number]; [phone] [address] RESULTS [address] MIRIAM PASCUAL [phone] AND MAYANK BONNER [phone] Because ethnic data is not always [...] <15 (or dialysis) 10 [address] FA[address] RESULTS TO DR MIRIAM PASCUAL [phone] AND [facility] [phone] [address] FAX RESULTS TO DR MIRIAM PASCUAL [phone] AND [facility] [phone] Electrical And Instrumentation Manager: [id number] Electrical And Instrumentation Manager: [id number] 14 Acute inflammation: >10.00 15 Because ethnic data is not always readily [...] 15-29 5 Kidney failure <15 (or dialysis) 16 FAX RESULTS TO [facility] [phone] AND RX 17 Because ethnic data is not always [...] 5 Kidney failure <15 (or dialysis) 18 Acute inflammation: >10.00 19 SEE RESULT BELOW Name: BRADLEY HUFFMIKEL : [address]: Michael Benavidez MD Acct: [id number] Unit: [id number] AGE: 52 Location: [place] Re01/25/18 SEX: M Status: REG [facility] SPEC: [id number] KYA: 01/25/18- SUBM DR: Michael Benavidez MD REQ: [id number] RECD: 01/25/18-1013 STATUS: SOUT _ ORDERED: Cain, LEVEL 4 FINAL DIAGNOSIS Mid right foot, [...] with saunders-pink irregular rubbery fibrous tissue fragments. Despatching And Receiving Clerk sections are submitted in cassettes A through C as follows: A- bone following decalcification, B-ulcer and C-separately received soft tissue. Signed by and Reported on: Harjit Clinton MD 01/12 1432 END OF REPORT DEPARTMENT OF PATHOLOGY, [address] [place] [address] Harjit Clinton M.D. Director [facility] # [id number] 20 Electrical And Instrumentation Manager: [id number] 21 SOURCE-CUBOID RIGHT FOOT 22 SEE RESULT BELOW Name: MIKEL OLIVIA II : [address]: Michael Benavidez MD Acct: [id number] Unit: [id number] AGE: 52 Location: [place] Re01/25/18 SEX: M Status: REG [facility] SPEC: [id number] KYA: 01/25/[address] [facility] [address]: Michael Benavidez MD REQ: [id number] RECD: 01/25/18 STATUS: YESSENIA CARMEN DR: Akin Sexton MD _ SOURCE: FOOT,RIGHT SPDESC: ORDERED: Culture Stain COMMENTS: SOURCE-DEEP TISSUE RIGHT FOOT QUERIES: Specimen Description DEEP TISSUE SWAB Procedure Result Reported Site Wound/Misc Gram Stain Final 01/25/18- 1220 ML 1+ Epithelial Cells 3+ Neutrophils 1+ Gram Positive Cocci Wound/Misc Culture Final 01/29/18- 902 ML Organism 1 MRSA Quantity 1+ Organism [...] CONTINUED ON NEXT PAGE DEPARTMENT OF PATHOLOGY, [address] [place] [address] Harjit Clinton M.D. Director [facility] # [id number] Patient: BRADLEY HUFFMIKEL [id number] (Continued) Specimen: [id number] Collected: 01/25/18 Received: 01/25/18-1055 (Continued) Procedure Result [...] These antibiotics are not available in the [facility] Formulary Contact the Microbiology Department for any additional antibiotic reporting. Contact the Microbiology Department for any additional antibiotic reporting. * ML - Main Lab . END OF REPORT DEPARTMENT OF PATHOLOGY, [address] [place] [address] Harjit Clinton M.D. Director [facility] # [id number] 23 SEE RESULT BELOW Name: MIKEL OLIVIA II : [address]: Michael Benavidez MD Acct: [id number] Unit: [id number] AGE: 52 Location: OR Re01/25/18 SEX: M Status: REG SDC SPEC: [id number] KYA: 01/25/[address]: Michael Benavidez MD REQ: [id number] RECD: 01/25/18 STATUS: YESSENIA CARMEN DR: Akin Sexton MD _ SOURCE: TISSUE SPDESC:OTHER ORDERED: Tissue Cult/GS COMMENTS: CUBOID TISSUE R FOOT Procedure Result Reported Site Tissue Gram Stain Final 01/25/18- 1223 ML 3+ Neutrophils No Organisms Seen Preparation By Cytospin Smear Tissue Culture Final 01/29/18- 907 ML No Growth Day 4 * - Main Lab . END OF REPORT DEPARTMENT OF PATHOLOGY, [address] [place] [address] Harjit Clinton M.D. Director [facility] # [id number] 24 SEE RESULT BELOW Name: MIKEL OLIVIA II : [address]: Michael Benavidez MD Acct: [id number] Unit: [id number] AGE: 52 Location: OR Re01/25/18 SEX: M Status: REG SDC SPEC: [id number] KYA: 01/25/[address] [facility] [address]: Michael Benavidez MD REQ: [id number] RECD: 01/25/18 STATUS: YESSENIA CARMEN DR: Akin [...] . END OF REPORT DEPARTMENT OF PATHOLOGY, [address] [place] [address] Harjit Clinton M.D. Director [facility] # [id number] 25 Electrical And Instrumentation Manager: [id number] 26 Because ethnic data is not always readily [...] 15-29 5 Kidney failure <15 (or dialysis) 27 Acute inflammation: >10.00 28 Acute inflammation: >10.00 29 [id number] 30 SEE RESULT BELOW Name: MIKEL OLIVIA II : [address]: Young Pascual MD Acct: [id number] Unit: [id number] AGE: 52 Location: [facility] Re01/03/18 SEX: M Status: REG REF SPEC: [id number] KYA: 01/03/18-[address] [facility] [address]: Young Pascual MD REQ: [id number] RECD: 01/03/18-1145 STATUS: COMP _ SOURCE: FOOT,RIGHT SPDESC: ORDERED: Culture Stain COMMENTS: [id number] QUERIES: Specimen Description RIGHT FOOT Procedure Result Reported Site Wound/Misc Gram Stain Final 01/03/18- 1523 ML 1+ Neutrophils 1+ Gram Positive Cocci Wound/Misc Culture Final 01/05/18- 0916 ML No Growth Day 2 * ML - Main Lab . END OF REPORT DEPARTMENT OF PATHOLOGY, [address] [place] [address] Harjit Clinton M.D. Director [facility] # [id number] 31 Acute inflammation: >10.00 32 Acute inflammation: >10.00 33 Because ethnic data is not always readily [...] 15-29 5 Kidney failure <15 (or dialysis) 34 Acute inflammation: >10.00 35 Because ethnic data is not always readily [...] 15-29 5 Kidney failure <15 (or dialysis) 36 Acute inflammation: >10.00 37 Because ethnic data is not always readily [...] 15-29 5 Kidney failure <15 (or dialysis) 38 Acute inflammation: >10.00 39 Because ethnic [...] (or dialysis) 40 Acute inflammation: >10.00 41 Acute inflammation: >10.00 42 Because ethnic [...] (or dialysis) 45 Acute inflammation: >10.00 46 Because ethnic data is not always readily [...] 15-29 5 Kidney failure <15 (or dialysis) 47 Acute inflammation: >10.00 48 Acute inflammation: >10.00 49 Because ethnic [...] 5 Kidney failure <15 (or dialysis) 50 [facility] Severe Sepsis and Septic Shock Management Bundle Measure requires all lactic acids initially measuring >2.0 mmol/L be repeated. 51 Because ethnic data is not always [...] (or dialysis) 52 Acute inflammation: >10.00 53 Because ethnic data is not always readily [...] 15-29 5 Kidney failure <15 (or dialysis) 54 Acute inflammation: >10.00 55 Acute inflammation: >10.00 56 Because ethnic data is not always [...] Date CPT Code Description Status Comment 02/08/2018 75498 Negative Pressure Wound Therapy Less Than 50 Completed Square CM 02/08/2018 46645 Negative Pressure Wound Therapy Less Than 50 Completed Square CM 02/08/2018 24610 I & D Foot Below Fascia, Single Bursal Space Completed 02/08/2018 53045 I & D Foot Below Fascia, Single Bursal Space Completed 01/25/2018 91241 Tenotomy Achilles Tendon General Anesthesia Completed 01/25/2018 31734 Transfer Tendon Leg Or Ankle Superficial Completed R 01/25/2018 47394 Transfer Tendon Leg Or Ankle Superficial Completed 01/25/2018 06389 Amputation Foot Midtarsal Completed 01/25/2018 14380 Amputation Foot Midtarsal Completed 11/13/2017 87752 Negative Pressure Wound Therapy Less Than 50 Completed Square CM 11/09/2017 06587 Negative Pressure Wound Therapy Less Than 50 Completed Square CM 11/09/2017 10574 Debridement Tissue/Muscle/Bone Completed 11/09/2017 23056 Debridement Tissue/Muscle/Bone Completed 09/25/2017 17859 Amputation Foot Midtarsal Completed 09/25/2017 85638 Amputation Foot Midtarsal Completed 09/21/2017 13532 Gastrocnemius Recession Completed 09/21/2017 51685 Gastrocnemius Recession Completed 09/21/2017 54313 Amputation Foot Transmetatarsal Completed 09/21/2017 65277 Amputation Foot Transmetatarsal Completed 09/21/2017 56463 Negative Pressure Wound Therapy Less Than 50 Completed Square CM 09/19/2017 73693 EKG, Interpretation Only Completed 03/20/2017 16332 EKG, Interpretation Only Completed 10/26/2015 17887 Amputation Toe MP JT Completed 10/26/2015 93627 Amputation Toe MP JT Completed 10/26/2015 28923 Amputation Toe MP JT Completed 10/26/2015 90943 Amputation Toe MP JT Completed 10/26/2015 37186 Amputation Toe MP JT Completed 10/25/2015 20014 EKG, Interpretation Only Completed 07/11/2014 32319 Amputation Toe MP JT Completed 07/11/2014 37864 Amputation Toe MP JT Completed Encounters Type Date Location Provider CPT E/M Dx Office Visit 01/19/2018 [facility] [place] [address] M86.671 2:30p C.M.AVijaya L03.115 L97.419 E11.621 Office Visit 01/12/2018 8:30a Ryan Mcmanus 85674 L97.419 Infectious Diseases Francesco Pascual L03.115 M86.671 E11.65 E11.69 E11.621 Office Visit 01/03/2018 9:30a Ryan Mcmanus 53661 L97.419 Infectious Nessa Pascual M.D. L03.115 E11.621 Office Visit 01/02/2018 11:00a [facility] [place] [address] L97.419 C.M.A. L03.115 M86.671 Office Visit 12/25/2017 1:45p [facility] [place] [address] L97.419 C.M.A. E11.69 L03.115 Office Visit 11/10/2017 10:10a [facility] Sera Pascual, 64482 E11.65 Infectious Diseases LollyDVijaya E11.69 L03.115 M60.073 Office Visit 11/09/2017 2:04p [facility], [place] [address] E11.621 Hospitalists L97.419 I10 N18.3 Office Visit 11/08/2017 2:04p [facility], [place] [address] E11.621 Hospitalists L97.419 I10 N18.3 Office Visit 11/08/2017 3:41p [facility] Vascular Medicine Jason Aguilar, 56038 I73.9 Of Conservation Worker Francesco E11.69 Office Visit 11/07/2017 2:01p [facility], [place] [address] E11.621 Hospitalists L97.419 I10 N18.3 Office Visit 11/07/2017 9:34a [facility] Sera Pascual, 10374 E11.69 Infectious Diseases Francesco M86.671 L03.115 M60.073 S91.301A E11.22 N18.9 Office Visit 11/07/2017 3:00p [facility] [place] [address] M86.671 C.M.A. L03.116 L97.419 E11.621 Office Visit 10/26/2017 2:20p [facility] Sera Pascual, 69361 E11.69 Infectious Nessa Maya Z86.19 Z89.421 Office Visit 10/10/2017 10:10a [facility] Sera Mcmanus 75003 M86.671 Infectious Nessa Pascual M.D. N18.3 E11.69 Office Visit 09/26/2017 9:57a [facility] Deedeepascale Dominguez, 93621 M86.9 Assoc,pc SENIOR SUPPORT ANALYST Hospitalists N18.3 E11.8 Z79.4 Office Visit 09/26/2017 12:31p [facility] Sera Pascual, 47597 E11.69 Jenny Diseases Francesco M86.671 Z89.421 Office Visit 09/25/2017 [facility] 43219 M86.9 Assoc,pc SENIOR SUPPORT ANALYST Hospitalists N18.3 E11.8 Z79.4 Office Visit 09/24/2017 9:54a [facility], Mandeep Rosas, 06674 M86.9 Hospitalists [facility] N[facility].3 E11.8 Office Visit 09/23/2017 9:[address]a [facility], Mandeep Rosas, 76230 M86.9 Hospitalists Francesco,FACP Z79.4 E11.8 Office Visit 09/22/2017 9:50a [facility],emir Dumas, N.P. 13389 M86.9 Hospitalists Z79.4 E11.8 N18.3 Office Visit 09/21/2017 9:47a [facility],emir Dumas N.P. 21325 M86.9 Hospitalists Z79.4 E11.8 N18.3 Office Visit 09/20/2017 [facility] 59120 M86.9 Hospitalists SENIOR SUPPORT ANALYST Z79.4 E11.8 N18.3 Office Visit 09/20/2017 10:43a [facility] Lewis 19569 E11.621 C.M.A. Office Visit 09/19/2017 10:17a [facility] Sera Mcmanus 25922 E11.69 Infectious Diseases Francesco Pascual M86.671 E11.621 L97.519 E11.22 N18.3 Z89.421 Office Visit 09/19/2017 9:43a [facility],emir Moore, 36246 M86.9 Hospitalists SENIOR SUPPORT ANALYST Z79.4 E11.8 N18.3 Office Visit 09/19/2017 10:42a [facility] [place] [address] M86.171 C.M.A. E11.621 Office Visit 09/18/2017 9:[address]a [facility] Deedee Dominguez, 79655 M86.9 Assoc, SENIOR SUPPORT ANALYST Hospitalists Z79.4 E11.8 N18.3 Office Visit 09/18/2017 10:40a [facility] Roger Buck, 54934 E11.621 C.M.A. M.[place] L03.115 L97.519 Office Visit 03/23/2017 2:52p [facility], Tee Easley, 28689 N17.0 Hospitalists M.D. E87.5 E86.0 E87.2 Office Visit 03/22/2017 2:51p [facility], Tee Easley, 25727 N17.0 Hospitalists M.D. E86.0 E87.5 E87.2 Office Visit 03/21/2017 2:51p [facility], Tee Easley, 85678 N17.0 Hospitalists M.D. E87.5 E86.0 E87.2 Office Visit 03/20/2017 2:51p [facility], Tee Easley, 86505 N17.0 Hospitalists M.D. E87.5 E86.0 E87.2 Office Visit 03/19/2017 1:21p [facility], [place] [address] R51 Hospitalists E87.2 N17.8 E11.22 N18.2 I10 Office Visit 03/18/2017 1:19p [facility], [place] [address] E11.40 Hospitalists N17.8 N18.2 E11.22 E87.2 Office Visit 03/17/2017 2:50p [facility], Oralia Knutson, 63390 N17.0 Hospitalists M.D. E86.0 E87.5 E87.2 Office Visit 11/17/2015 11:30a [facility] Young Mcmanus 21524 M86.671 Infectious Diseases Francesco Pascual Office Visit 10/27/2015 10:31a [facility], 29963 L03.031 Assoc,pc Hospitalists SENIOR SUPPORT ANALYST E11.51 E11.621 I10 Office Visit 10/26/2015 10:18a [facility] Sera Pascual, 65624 E11.69 Jenny Szymanski M.D. M86.671 L03.031 L03.115 E11.40 Office Visit 10/26/2015 10:29a [facility], 87475 L03.031 Assoc,pc Hospitalists SENIOR SUPPORT ANALYST E11.51 E11.621 I10 Office Visit 10/25/2015 10:29a [facility], 38605 L03.031 Assoc,pc Hospitalists SENIOR SUPPORT ANALYST E11.51 E11.621 I10 Office Visit 10/24/2015 10:28a [facility], 60333 L03.031 Assoc,pc Hospitalists SENIOR SUPPORT ANALYST E11.51 E11.621 I10 Office Visit 10/23/2015 7:00a [facility], 87663 M86.671 Conor Maya Office Visit 10/23/2015 10:15a [facility] Sera Mcmanus 70160 E11.621 Infectious Nessa Pascual M.D. L97.519 E11.69 M86.671 E11.628 L03.031 E11.40 M60.076 Office Visit 10/23/2015 10:28a [facility], 38223 L03.031 Assoc,pc Hospitalists SENIOR SUPPORT ANALYST E11.51 E11.621 I10 Office Visit 10/22/2015 10:27a [facility], 83536 L03.031 Assoc,pc Hospitalists SENIOR SUPPORT ANALYST E11.51 E11.621 I10 Office Visit 08/14/2014 3:00p [facility] Sera Mcmanus 02974 730.07 Infectious Nessa Pascual M.D. Office Visit 07/28/2014 3:00p [facility] Sera Mcmanus 86698 730.07 Infectious Nessa Pascual M.D. Office Visit 07/14/2014 8:33a [facility] Rita Dumas, N.P. 20126 730.20 Assoc,pc Hospitalists 711.00 Office Visit 07/13/2014 8:[address]a [facility] Assoc,pc Rita Dumas N.P. 10834 730.20 Hospitalists 711.00 Office Visit 07/12/2014 [facility] 33691 730.20 Assoc,pc N.P. Hospitalists 711.00 Office Visit 07/11/2014 8:26a [facility] Jarrett, 58742 730.20 Assoc,pc N.P. Hospitalists 711.00 Office Visit 07/10/2014 12:03p [facility] Young Pascual, 84065 730.07 Infectious Diseases M.DVijaya 711.07 250.60 357.2 Office Visit 07/10/2014 7:00a [facility], 42759 730.20 C.MLuis Antonio Maya 730.17 250.70 Office Visit 07/10/2014 8:24a [facility] Jarrett, 55656 730.20 Assoc,pc N.P. Hospitalists 711.00 Office Visit 07/09/2014 8:23a [facility] Ashley Blackburn, 08140 730.20 Hospitalists N.P. 711.00 250.00 Office Visit 07/08/2014 8:22a [facility], Arnold Preciado M.D. 22893 730.20 Hospitalists 711.00 250.00 Office Visit 02/20/2009 12:45a [facility] Assoc,pc Tee Easley, 85080 682.7 Hospitalists M.D. Office Visit 02/19/2009 12:45a [facility], Carlos Eduardo Oshea 41818 682.7 Hospitalists M.D. Office Visit 02/18/2009 1:15a [facility] Carlos Eduardo Oshea, 36383 682.7 Hospitalists M.D. Office Visit 02/17/2009 3:15a [facility], Eulalio Miles, 44659 300.9 Hospitalists Francesco 292.0 311 Plan of Care Future Appointment(s):03/26/2018 3:20 pm - Young Pascual M.D. 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
--- OUTSIDE RECORDS SUMMARY | 2018-04-04 10:51 | XMS REPORT ---
:1965 External Reference #:[id number] Author Organization [facility] Address [address] [place] [address] [place] [address] Phone [phone] Care Team Providers Name Role Phone Akin Sexton MD Primary Care Physician Unavailable Payers Type Date Identification Numbers Payment Provider Subscriber Commercial Effective: Policy Number: [id number] [employer] Uma Olivia 2013 PayID: [id number] [address] [address] [place] [address] Problems Description No Information Family History Date [...] x 42 D. days through [facility] M.D. Infusion (end date 03/13/18) Zofran 01/26 Active Tablets 4mg 30tab take 1 by Cristine s mouth every 8 Ty, hours as M.D. needed for nausea Augmentin 01/03 Active Tablets 500-125mg 30tab 1 by mouth L03.115 Young s twice daily - D. On Hold While Macquejoanne, On IV M.D. Antibiotics Glipizide Active Tablets 10mg 1 by mouth Unknown /0000 twice a day Amlodipine Active Tablets 10mg 90tab 1 by mouth Unknown Besylate 0000 s every day Jardiance Active Tablets 10mg [...] Solution 3-0.375GM IV q 8 hrs x Young /50ML 42 days D. - through Samara, 03/04 [facility] M.D. infusion (end date 03/04/18) Cephalexin 12/22 Hx Capsules 500mg 28cap take one M86. Michael s capsule by Pramod, - mouth [...] Hx Capsules 500mg 30cap take one M86.671 Young s capsule by D. - mouth two Samara 11/22 times a day Cubicin 08/06 Hx Solution 500mg iv every 24 Rec hours DVijaya - Samara, 11/15 Cipro 08/05 Hx Tablets 500mg 60tab 1 by mouth s twice a day Marietta Pascual, 11/15 Zyvox 08/05 Hx Suspension 100mg/5ML 600 mg IV q Rec 24 hrs Marietta Pascual, 08/06 Oxycodone HCL 07/18 Hx Tablets 5mg 40tab 1-2 tabs po q s 6 hrs prn [facility].Marietta 08/13 Tramadol HCL 07/18 Hx Tablets 50mg [...] hours x 28 - days through 10/24 [facility] /2017 Infusion Flagyl 00 Hx Tablets 500mg 1 po bid x 28 Unknown /0000 days - 10/24 Vital Signs Date Vital Result Comment 03/07/2018 Height 74 inches 6'2" Weight 215.00 [...] (or dialysis) 3 PLEASE FAX RESULTS TO: [id number]; [phone] 4 Because ethnic data is not always [...] (or dialysis) 5 PLEASE FAX RESULTS TO: [id number]; [phone] 6 PLEASE FAX RESULTS TO: [id number]; [phone] 7 PLEASE FAX RESULTS TO: [id number]; [phone] 8 P[address] FAX RESULTS TO DR MIRIAM PASCUAL [phone] AND DANIEL BONNER [phone] Because ethnic data is not always [...] PLEASE FAX RESULTS TO DR MIRIAM PASCUAL [phone] AND [facility] [phone] PLEASE FAX RESULTS TO DR MIRIAM PASCUAL [phone] AND [facility] [phone] [employer] Vendor: [id number] 13 [employer] Vendor: [id number] 14 Acute inflammation: >10.00 15 Because ethnic [...] (or dialysis) 16 FAX RESULTS TO SAMARA [phone] AND RX 17 Because ethnic data is [...] inflammation: >10.00 19 SEE RESULT BELOW Name: MIKEL OLIVIA II : [address]: Michael Benavidez MD Acct: [id number] Unit: [id number] AGE: 52 Location: [place] Re01/25/18 SEX: M Status: [facility] SPEC: [id number] KYA: 01/25/18- SUBM DR: Michael Benavidez MD REQ: [id number] RECD: 01/25/18-1013 STATUS: SOUT _ ORDERED: Cain, [...] with saunders-pink irregular rubbery fibrous tissue fragments. 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 Signed by and Reported on: Harjit Clinton MD 01/12 1432 END OF REPORT DEPARTMENT OF PATHOLOGY, [address] [place] [address] Harjit Clinton M.D. Director [facility] # [id number] 20 [employer] Vendor: [id number] 21 SOURCE-CUBOID RIGHT FOOT 22 SEE RESULT BELOW Name: MIKEL OLIVIA II : [address]: Michael Benavidez MD Acct: [id number] Unit: [id number] AGE: 52 Location: [place] Re01/25/18 SEX: M Status: [facility] SPEC: [id number] KYA: 01/25/18 [facility] [address]: Michael Benavidez MD REQ: [id number] RECD: 01/25/18 STATUS: YESSENIA CARMEN DR: Akin [...] CONTINUED ON NEXT PAGE DEPARTMENT OF PATHOLOGY, [address] [place] [address] Harjit Clinton M.D. Director [facility] # [id number] Patient: MIKEL OLIVIA II [id number] (Continued) Specimen: [id number] Collected: 01/25/18 Received: 01/25/18 (Continued) Procedure Result [...] These antibiotics are not available in the [facility] Formulary Contact the Microbiology Department for any additional antibiotic reporting. Contact the Microbiology Department for any additional antibiotic reporting. * ML - Main Lab . END OF REPORT DEPARTMENT OF PATHOLOGY, [address] [place] [address] Harjit Clinton M.D. Director [facility] # [id number] 23 SEE RESULT BELOW Name: MIKEL OLIVIA II : [address]: Michael Benavidez MD Acct: [id number] Unit: [id number] AGE: 52 Location: [place] Re01/25/18 SEX: M Status: [facility] SPEC: [id number] KYA: 01/25/18 [facility] [address]: Michael Benavidez MD REQ: [id number] RECD: 01/25/18 STATUS: YESSENIA CARMEN DR: Akin Sexton MD _ SOURCE: TISSUE SPDESC:OTHER ORDERED: Tissue Cult/GS COMMENTS: CUBOID TISSUE R FOOT Procedure Result Reported Site Tissue Gram Stain Final 01/25/18- 1223 ML 3+ Neutrophils No Organisms Seen Preparation By Cytospin Smear Tissue Culture Final 01/29/18- 907 ML No Growth Day 4 * ML - Main Lab . END OF REPORT DEPARTMENT OF PATHOLOGY, [address] [place] [id number] Harjit Clinton M.D. Director [facility] # [id number] 24 SEE RESULT BELOW Name: MIKEL OLIVIA II : [address]: Michael Benavidez MD Acct: [id number] Unit: [id number] AGE: 52 Location: OR Re01/25/18 SEX: M Status: REG SDC SPEC: [id number] KYA: 01/25/18-899 [facility] [address]: Michael Benavidez MD REQ: [id number] RECD: 01/25/18-1055 STATUS: YESSENIA CARMEN DR: Akin Sexton MD _ SOURCE: TISSUE [facility]: ORDERED: Anaerobic Cult COMMENTS: SOURCE-DEEP TISSUE RIGHT FOOT Procedure Result Reported Site Anaerobic Culture Final 01/29/18- 1015 ML Organism 1 SONA OMERA Quantity 1+ Anaerobic sensitivities are not routinely performed. Positive isolates will be saved for one week. Please call the Microbiology Laboratory if susceptibility testing is needed. * ML - Main Lab . END OF REPORT DEPARTMENT OF PATHOLOGY, [address] [place] [address] Harjit Clinton M.D. Director [facility] # [id number] 25 [employer] Vendor: [id number] 26 Because ethnic data is not always [...] inflammation: >10.00 28 Acute inflammation: >10.00 29 [id number] 30 SEE RESULT BELOW Name: MIKEL OLIVIA II : [address]: Young Pascual MD Acct: [id number] Unit: [id number] AGE: 52 Location: [facility] Re01/03/18 SEX: M Status: REG REF SPEC: [id number] KYA: 01/03/18-1020 [facility] [address]: Young Pascual MD REQ: [id number] RECD: 01/03/18-114 STATUS: COMP _ SOURCE: FOOT,RIGHT SPDESC: ORDERED: Culture Stain COMMENTS: [id number] QUERIES: Specimen Description RIGHT FOOT Procedure Result Reported Site Wound/Misc Gram Stain Final 01/03/18- 1523 ML 1+ Neutrophils 1+ Gram Positive Cocci Wound/Misc Culture Final 01/05/18- 0916 ML No Growth Day 2 * ML - Main Lab . END OF REPORT DEPARTMENT OF PATHOLOGY, [address] [place] [address] Harjit Clinton M.D. Director [facility] # [id number] 31 Acute inflammation: >10.00 32 Acute inflammation: [...] 5 Kidney failure <15 (or dialysis) 50 [facility] Severe Sepsis and Septic Shock Management [...] Date CPT Code Description Status Comment 02/08/2018 21534 Negative Pressure Wound Therapy Less Than 50 Completed Square CM 02/08/2018 92523 Negative Pressure Wound Therapy Less Than 50 Completed Square CM 02/08/2018 68093 I & D Foot Below Fascia, Single Bursal Space Completed 02/08/2018 84598 I & D Foot Below Fascia, Single Bursal Space Completed 01/25/2018 74848 Tenotomy Achilles Tendon General Anesthesia Completed 01/25/2018 57595 Transfer Tendon Leg Or Ankle Superficial Completed R 01/25/2018 48768 Transfer Tendon Leg Or Ankle Superficial Completed 01/25/2018 70552 Amputation Foot Midtarsal Completed 01/25/2018 39168 Amputation Foot Midtarsal Completed 11/13/2017 62067 Negative Pressure Wound Therapy Less Than 50 Completed Square CM 11/09/2017 39155 Negative Pressure Wound Therapy Less Than 50 Completed Square CM 11/09/2017 81328 Debridement Tissue/Muscle/Bone Completed 11/09/2017 29565 Debridement Tissue/Muscle/Bone Completed 09/25/2017 71818 Amputation Foot Midtarsal Completed 09/25/2017 88540 Amputation Foot Midtarsal Completed 09/21/2017 96231 Gastrocnemius Recession Completed 09/21/2017 03393 Gastrocnemius Recession Completed 09/21/2017 52937 Amputation Foot Transmetatarsal Completed 09/21/2017 53462 Amputation Foot Transmetatarsal Completed 09/21/2017 20642 Negative Pressure Wound Therapy Less Than 50 Completed Square CM 09/19/2017 78371 EKG, Interpretation Only Completed 03/20/2017 47244 EKG, Interpretation Only Completed 10/26/2015 39858 Amputation Toe MP JT Completed 10/26/2015 94169 Amputation Toe MP JT Completed 10/26/2015 17493 Amputation Toe MP JT Completed 10/26/2015 03356 Amputation Toe MP JT Completed 10/26/2015 73032 Amputation Toe MP JT Completed 10/25/2015 16699 EKG, Interpretation Only Completed 07/11/2014 52443 Amputation Toe MP JT Completed 07/11/2014 27872 Amputation Toe MP JT Completed Encounters Type Date Location Provider CPT E/M Dx Office Visit 01/19/2018 [facility] [place] [address] M86.671 2:30p C.M.A. L03.115 L97.419 E11.621 Office Visit 01/12/2018 8:30a Ryan Mcmanus 57277 L97.419 Infectious Diseases Francesco Pascual L03.115 M86.671 E11.65 E11.69 E11.621 Office Visit 01/03/2018 9:30a Ryan Mcmanus 29105 L97.419 Infectious Diseases Francesco Pascual L03.115 E11.621 Office Visit 01/02/2018 11:00a [facility] [place] [address] L97.419 C.M.A. L03.115 M86.671 Office Visit 12/25/2017 1:45p [facility] [place] [address] L97.419 C.M.A. 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 L03.116 L97.419 E11.621 Office Visit 10/26/2017 2:20p [facility] Sera Pascual, 21635 E11.69 Infectious Nessa Maya Z86.19 Z89.421 Office Visit 10/10/2017 10:10a [facility] Sera Mcmanus 50453 M86.671 Jenny Pascual M.D. N18.3 E11.69 Office Visit 09/26/2017 9:57a [facility] Deedee Dominguez, 34382 M86.9 Assoc,pc PEDIATRIC RADIOLOGIST Hospitalists N18.3 E11.8 Z79.4 Office Visit 09/26/2017 12:31p [facility] Sera Pascual, 46152 E11.69 Infectious Diseases Francesco M86.671 Z89.421 Office Visit 09/25/2017 9:55a [facility] Deedeepascale Dominguez, 84739 M86.9 Assoc,pc PEDIATRIC RADIOLOGIST Hospitalists N18.3 E11.8 Z79.4 Office Visit 09/24/2017 9:54a [facility] Assoc,pc Mandeep Rosas, 43377 M86.9 Hospitalists Francesco,FACP N18.3 E11.8 Office Visit 09/23/2017 9:51a [facility] Assoc,pc Mandeep Rosas, 13328 M86.9 Hospitalists Francesco,FACP Z79.4 E11.8 Office Visit 09/22/2017 9:50a [facility] Rita Dumas, N.P. 87510 M86.9 Hospitalists Z79.4 E11.8 N18.3 Office Visit 09/21/2017 9:47a [facility] Assoc,pc Rita Dumas, N.P. 61364 M86.9 Hospitalists Z79.4 E11.8 N18.3 Office Visit 09/20/2017 9:45a [facility],pc Shellie Moore, 92050 M86.9 Hospitalists PEDIATRIC RADIOLOGIST Z79.4 E11.8 N18.3 Office Visit 09/20/2017 10:43a [facility] 46473 E11.621 C.M.A. Office Visit 09/19/2017 10:17a [facility] Sera Mcmanus 08566 E11.69 Infectious Diseases Francesco Pascual M86.671 E11.621 L97.519 E11.22 N18.3 Z89.421 Office Visit 09/19/2017 9:43a [facility] Assoc,emir Moore, 53694 M86.9 Hospitalists PEDIATRIC RADIOLOGIST Z79.4 E11.8 N18.3 Office Visit 09/19/2017 10:42a [facility] [place] [address] M86.171 C.M.A. E11.621 Office Visit 09/18/2017 9:39a [facility] Deedee Dominguez, 70697 M86.9 Assoc,pc PEDIATRIC RADIOLOGIST Hospitalists Z79.4 E11.8 N18.3 Office Visit 09/18/2017 10:40a [facility], 44108 E11.621 C.MLuis Antonio Maya L03.115 L97.519 Office Visit 03/23/2017 2:52p [facility], Tee Easley, 37847 N17.0 Hospitalists M.DVijaya E87.5 E86.0 E87.2 Office Visit 03/22/2017 2:51p [facility], Tee Easley, 45196 N17.0 Hospitalists M.DVijaya E86.0 E87.5 E87.2 Office Visit 03/21/2017 2:51p [facility], Tee Easley, 65400 N17.0 Hospitalists M.DVijaya E87.5 E86.0 E87.2 Office Visit 03/20/2017 2:51p [facility], Tee Easley, 39649 N17.0 Hospitalists M.DVijaya E87.5 E86.0 E87.2 Office Visit 03/19/2017 1:21p [facility], [place] [address] R51 Hospitalists E87.2 N17.8 E11.22 N18.2 I10 Office Visit 03/18/2017 1:19p [facility], [place] [address] E11.40 Hospitalists N17.8 N18.2 E11.22 E87.2 Office Visit 03/17/2017 2:50p [facility], Oralia Knutson, 33554 N17.0 Hospitalists M.DVijaya E86.0 E87.5 E87.2 Office Visit 11/17/2015 11:30a [facility] Young Mcmanus 82153 M86.671 Infectious Diseases Francesco Pascual Office Visit 10/27/2015 10:31a [facility] Marisa Casper, 48034 L03.031 Assoc,pc Hospitalists PEDIATRIC RADIOLOGIST E11.51 E11.621 I10 Office Visit 10/26/2015 10:18a [facility] Sera Pascual, 30762 E11.69 Jenny Szymanski M.D. M86.671 L03.031 L03.115 E11.40 Office Visit 10/26/2015 10:29a [facility] Marisa Casper, 67697 L03.031 Assoc,pc Hospitalists PEDIATRIC RADIOLOGIST E11.51 E11.621 I10 Office Visit 10/25/2015 10:29a [facility] Marisa Casper, 45578 L03.031 Assoc,pc Hospitalists PEDIATRIC RADIOLOGIST E11.51 E11.621 I10 Office Visit 10/24/2015 10:28a [facility] Marisa Casper, 99198 L03.031 Assoc,pc Hospitalists PEDIATRIC RADIOLOGIST E11.51 E11.621 I10 Office Visit 10/23/2015 7:00a [facility], 24715 M86.671 CBelinda Maya Office Visit 10/23/2015 10:15a [facility] Sera Mcmanus 94235 E11.621 Infectious Diseases Francesco Pascual L97.519 E11.69 M86.671 E11.628 L03.031 E11.40 M60.076 Office Visit 10/23/2015 10:28a [facility] Marisa Ogdench, 73593 L03.031 Assoc,pc Hospitalists PEDIATRIC RADIOLOGIST E11.51 E11.621 I10 Office Visit 10/22/2015 10:27a [facility] Marisa Ogdench, 56818 L03.031 Assoc,pc Hospitalists PEDIATRIC RADIOLOGIST E11.51 E11.621 I10 Office Visit 08/14/2014 3:00p [facility] Sera Mcmanus 24082 730.07 Infectious Diseases Francesco Pascual Office Visit 07/28/2014 3:00p [facility] Sera Mcmanus 91767 730.07 Infectious Nessa Pascaul M.D. Office Visit 07/14/2014 8:33a [facility] Rita Dumas, N.P. 51188 730.20 Assoc,pc Hospitalists 711.00 Office Visit 07/13/2014 8:32a [facility] Assoc,emir Dumas N.P. 98769 730.20 Hospitalists 711.00 Office Visit [facility]/12[facility]2014 [facility] 46801 730.20 Assoc,pc N.P. Hospitalists 711.00 Office Visit 07/11/2014 [facility] 15159 730.20 Assoc,pc N.P. Hospitalists 711.00 Office Visit 07/10/2014 12:03p [facility] Young Pascual, 70286 730.07 Infectious Diseases M.DVijaya 711.07 250.60 357.2 Office Visit 07/10/2014 7:00a [facility], 94754 730.20 C.M.AVijaya Maya 730.17 250.70 Office Visit 07/10/2014 8[facility] 07503 730.20 Assoc,pc N.P. Hospitalists 711.00 Office Visit 07/09/2014 [facility] Ashley [facility]burn, 67428 730.20 Hospitalists N.P. 711.00 250.00 Office Visit 07/08/2014 8:22a [facility],pc Arnold Preciado M.D. 73520 730.20 Hospitalists 711.00 250.00 Office Visit 02/20/2009 12:45a [facility],pc Tee Easley, 92577 682.7 Hospitalists M.D. Office Visit 02/19/2009 12:45a [facility], Carlos Eduardo Oshea, 53128 682.7 Hospitalists M.D. Office Visit 02/18/2009 1:15a [facility],pc Carlos Eduardo Oshea 37762 682.7 Hospitalists M.D. Office Visit 02/17/2009 3:15a [facility], Eulalio Miles, 21327 300.9 Hospitalists M.D. 292.0 311 Plan of Care Future Appointment(s):03/08/2018 4:20 pm - Young Pascual M.D. at [facility]
[2018-04-04] MEDS ORDERED: Vancomycin per Pharmacy* NOTE FOLLOW UP SCH (11:00)
[2018-04-04 11:47] LABS: INR 0.97 (0.77-1.02)
[2018-04-04 11:52] LABS: ABS Basophils 0 10^3/ul (0-0.2); ABS Eosinophils 0 10^3/ul (0-0.6); ABS Lymphocytes 0.3 10^3/ul (1.0-4.8); ABS Monocytes 0.7 10^3/ul (0-0.8); ABS Neutrophils 4.7 10^3/ul (1.5-7.7); ABS Nucleated RBC 0 10^3/ul; Eosinophil % 0.4 % (0-6); Hematocrit 35 % (42-52); Hemoglobin 11.6 g/dl (14.0-18.0); Lymphocyte % 5.9 % (25-47); Mean Corpuscular HGB Conc 33 g/dl (31-36); Mean Corpuscular Hemoglobin 25 pg (27-31); Mean Corpuscular Volume 75 fL (80-94); Mean Platelet Volume 8.2 um3 (7.4-10.4); Nucleated Red Blood Cells % 0.1; Platelet Count 198 10^3/ul (150-450); Red Blood Count 4.71 10^6/ul (4.00-5.40); Red Cell Distribution Width 16 % (10.5-15); White Blood Count 5.8 10^3/ul (3.5-10.8)
--- NOTE | 2018-04-04 12:39 | CONSULT ---
Consult Consult: Full H&P dictated. Patient was a direct admit from our orthopedic office under the care of Dr. Michael Benavidez. His PICC line was removed 1 week ago and he was started on keflex two days ago. He has had a fever with TMAX of 103, his right foot is erythematous and edematous. An MRI has been ordered. Blood cultures were taken yesterday by order of Dr Noel and Dr Lagos office. Infectious disease and hospitalist service have been consulted.
[2018-04-04] MEDS ORDERED: Vancomycin 1500 MG IV - x ONCE IVPB ONE ×2 (13:00)
[2018-04-04] MEDS ORDERED: Dextrose 50% Syringe 50 ML* 25 GM/50 ML SYRINGE IV PUSH PRN (13:32)
[2018-04-04] MEDS ORDERED: Insulin LISPRO* 1 UNITS UNIT SUBCUT ONE (13:43)
[2018-04-04] MEDS: Insulin LISPRO* 1 UNITS UNIT SUBCUT SCH ×2 (13:44→17:42)
[2018-04-04] MEDS: NS 0.9% 1000 ML* 3,000 ML IV ONE ×3 (13:47→17:08)
[2018-04-04] MEDS: Acetaminophen TAB* 325 MG PO PRN ×2 (13:53→20:49)
--- NOTE | 2018-04-04 14:41 | RAD ---
Indication: Fever, cough. Single frontal view of the chest performed at 1420 hours was reviewed. Comparison is made with previous exam dated September 18, 2017. No mediastinal shift is noted. Heart is of normal size and configuration. Lung cadena appear clear. IMPRESSION: NO ACTIVE CARDIOPULMONARY DISEASE IS NOTED.
--- NOTE | 2018-04-04 17:52 | CONS ---
CC: Dr. Sexton; Dr. Pro; Dr. Lundberg * CONSULTATION REPORT: DATE OF CONSULT: 04/04/18. PRIMARY CARE PROVIDER: Dr. Sexton. ATTENDING PHYSICIAN WHILE IN THE HOSPITAL: Esther Cee DO (report dictated by Stuart Gordillo NP). REQUESTING PHYSICIAN IN CONSULT: Dr. Pro. CONSULTING ID SPECIALIST: Dr. Lundberg. CHIEF COMPLAINT: 1. Chills. 2. Fever. 3. Not feeling well. HISTORY OF PRESENT ILLNESS: Mr. Olivia is a 52-year-old male patient, who is diabetic, history of hypertension, hyperlipidemia, CKD, who has been on long- term antibiotics for an osteomyelitis and infection of a right transmetatarsal amputation site. He has been on long-term antibiotics, about a week ago, his PICC line was removed. However, since over the weekend he has not been feeling well. He has been feeling nauseated, dry heaves, no abdominal pain, just aching all over, feeling tired, feeling worn out. He touched base with Dr. Lundberg yesterday as he follows him outpatient. Blood cultures were sent in addition to this labs were checked as well. The patient was started on Keflex. He, however, despite this he had followup with Dr. Pro, who evaluated his foot today in his office. It was noted the foot was red, swollen, hot, the amputation site on the right side. There is no obvious purulent discharge. However, there was concern that he may developing a worsening in infection. PICC line, it was pulled about a week ago. The patient was then referred to the hospital for IV antibiotics or MRI with close followup with Dr. Pro and Dr. Lundberg. The patient says that he has had a dry cough, but it has not been productive. He denies chest pain or shortness of breath. He says he really is aching all over. He has been hot and cold for the last couple of days and he just has not been feeling well. Denies any rashes. Denies having any other skin openings. He said that the lateral aspect of his right foot was red and hot and that was concerning to him, but because of his medical complexity, we were asked to evaluate in consult. PAST MEDICAL HISTORY: Significant for: 1. Hyperlipidemia. 2. Diabetes. 3. History of osteomyelitis. 4. CKD. PAST SURGICAL HISTORY: 1. He has had left fourth and fifth toe amputations. 2. He has had on the right foot transmetatarsal amputation and prior to that several toe amputations of the right foot. HOME MEDICATIONS: I have a list from his last hospitalization, however, the bringing in the bottles because she says they have changed. I have him on: 1. Percocet 1 tablet every 8 hours as needed. 2. Glipizide 10 mg p.o. b.i.d. 3. Norvasc 10 mg p.o. at bedtime. 4. Januvia 25 mg p.o. q.a.m. 5. Zocor 20 mg p.o. q.p.m. 6. Zosyn outpatient infusion as directed. 7. [place]-3 fatty acids 1000 mg p.o. b.i.d. 8. Nortriptyline 10 mg p.o. at bedtime. 9. Metoprolol 25 mg at bedtime. 10. Insulin Lantus 22 units subcu q.a.m. 11. Jardiance 10 mg in the morning. 12. Cubicin IV at 1999. 13. Aspirin 81 mg daily. ALLERGIES TO MEDICATIONS: Include no known drug allergies. FAMILY HISTORY: His mother had history of cancer. Father had history of CVA and hypertension. SOCIAL HISTORY: He is a former smoker, he quit about 17 months ago. He does not drink alcohol. Surrogate decision maker is his . REVIEW OF SYSTEMS: There is a documented fever here of 100.3. He has been subjectively having chills. He denies having any abdominal pain. Denies having any chest pain. He did admit to having cough, but no shortness of breath. No ear discharge. No rhinorrhea. No sore throat. No thyroid enlargement. He did admit to dry heaves. He denies any loss of consciousness. No pruritus and no new skin ulcerations. Review of 14 systems was completed, all others negative. PHYSICAL EXAMINATION: GENERAL: At this time, Mr. Olivia is a 52-year-old male patient, appears to be well nourished, well developed. He is sitting in the hospital bed. He does not appear to be in any acute distress. VITAL SIGNS: Blood pressure 161/67, pulse of 114, respirations were 24, O2 sat 100%, temperature 100.3. HEENT: Head: Atraumatic, normocephalic. Eyes: EOMs are intact. Sclerae are anicteric and not pale. Throat: Oral mucosa appears to be dry. No oropharyngeal erythema. NECK: Supple. LUNGS: Clear to auscultation bilaterally. No wheezes, rales, or rhonchi. HEART: Sounds S1, S2. He is tachycardic. ABDOMEN: Soft, it was flat. It was nontender. Bowel sounds were present. EXTREMITIES: Pulses in the pedal area were 2+. His right extremity has a wound VAC intact. There is erythema along the lateral aspect of his foot. It is warm to touch. He does have a wound VAC again intact, was covered now with Kartik dressing. He has 5/5 strength. NEUROLOGICALLY: He is awake, alert, and oriented x3. Seed Cleaner Operator were equal. Tongue midline. No gross focal deficits. SKIN: His skin was grossly intact with the exception he has a wound VAC to the right foot. LABORATORY DATA: Labs, WBC of 5.8, RBC of 4.71, hemoglobin of 11.6, hematocrit of 35, platelet count of 198. ESR was 73. INR 0.97. His sodium was 127, potassium of 4.2, chloride of 93, bicarb of 22, BUN 22, creatinine 1.86, glucose 256. CRP 239. Old medical records were reviewed. ASSESSMENT AND PLAN: Mr. Olivia is a 52-year-old male patient with a complex medical history coming into the Orthopedic Services today for a direct admission due to possible right transmetatarsal wound infection, possible osteomyelitis. We were asked to evaluate in consult. He was admitted under Orthopedic Services. My recommendations at this point are: 1. Sepsis: As evidenced by he is tachycardic, mildly tachypneic. In addition to this, he does have fever. His white count is fortunately stable. He got blood cultures done outpatient yesterday with Dr. Lundberg. He is on vancomycin , which is being infused now. I am going to give him a 30 cc/kg bolus which amounts to 2900 cc, I am going to give him 3 L. In addition to this normal saline at 100 an hour. I checking his lactic now that is being drawn. We will get 2 IVs. We will follow him closely and I expect the source is probably his foot, but I am checking urine and a chest x-ray as well and Dr. Lundberg will be in to evaluate him. We will continue him on vanco and Orthopedics is following. I will get an MRI of the foot to look for osteomyelitis or any possible abscesses. 2. Chronic kidney disease with KIRSTEN: Again KIRSTEN could be prerenal, however, it could also be a component of ATN. I am going to hydrate him. I will send off a urinalysis. We will get a urine creatinine, bladder scan as well and we will get a urine sodium as well. Continue to monitor. We will avoid nephrotoxic agents. 3. Hypertension: According to the family, he is on lisinopril. This is not on the list, we will need to reconcile his meds more appropriately, but I am holding lisinopril, I will continue him on beta-kaiser. He is on metoprolol XL. According to the family , we will continue that. Question, if he is on Norvasc or not. Blood pressure is now 161 systolic, I rather let it run a little high than hypotensive, so we will just continue to monitor this and slowly add in medications as needed. 4. Hyperlipidemia: Continue statin therapy. 5. DVT prophylaxis: I will defer to the primary team. 6. Diabetes: I am going to cut his Lantus in half and put him on a sliding scale. I am going to avoid his oral agents in the setting of KIRSTEN for the time being. 7. Fluid, electrolytes, and nutrition: I would recommend a consistent carb diet. 8. Hyponatremia: It could be secondary to dehydration. He has not eaten in a couple of days. I will send of a urine osmol, serum osmol, urine sodium again and TSH, and cortisol. I am going to give him 3 L of fluids. I will repeat his BMP later today to evaluate. TIME SPENT: Time spent on the admission was 60 minutes, greater than half of the time was spent [id number] with the patient obtaining history and physical , the other half of the time was spent going over the plan of care with the patient and implementing the plan of care. I did discuss plan of care with my attending, Dr. Cee, she is in agreement. STUART GORDILLO, KALEB [id number]/[facility] #: [id number] [facility]ALTH SYSTEMCas
[2018-04-04] MEDS ORDERED: Atorvastatin* 10 MG TAB PO SCH (18:00)
[2018-04-04] MEDS ORDERED: Cyanocobalamin TAB* 500 MCG PO SCH (18:00)
[2018-04-04] MEDS ORDERED: Nortriptyline CAP* 25 MG PO SCH (18:00)
[2018-04-04 18:15] LABS: EGFR Non-African American 45.3 (>60)
[2018-04-04] MEDS: NS 0.9% 1000 ML* 1,000 ML IV SCH (18:28)
--- NOTE | 2018-04-04 18:43 | HP ---
CC: Dr. Benavidez; Dr. Lundberg; Dr. Berumen.* ADMISSION HISTORY AND PHYSICAL: DATE OF ADMISSION: 04/04/18. ATTENDING ORTHOPEDIC PROVIDER: Dr. Benavidez.* (DICTATED BY DHEERAJ AMARAL ) PRIMARY CARE PROVIDER: Dr. Akin Sexton. CARROT TIER: Dr. Edward Berumen. CHIEF COMPLAINT: Right foot swelling, fevers. HISTORY OF PRESENT ILLNESS: Mr. Olivia is a 52-year-old male with a past medical history significant for right foot osteomyelitis with previous amputation, diabetes, hypertension, chronic kidney disease, who presents to our outpatient office on 04/04/[address] Benavidez due to right foot pain, swelling, and redness. The patient had been on a PICC line and receiving IV antibiotics up until 1 week ago. One week ago, his PICC line was discontinued and the patient states that symptoms started on 03/30/18, with little appetite and then by 04/01/18 he had developed headache, flu-like symptoms, chills, and by 04/03/18, he had a fever of 103. Due to his symptoms 2 days ago, Dr. Lundberg started him on Keflex. Today, the patient states that his right foot is very tender. He was seen by Dr. Benavidez in the office today and the wound looked good, but the foot itself was very erythematous and edematous. Per the patient's , she changed the wound VAC yesterday and the wound itself did not appear to be grossly infected. The patient states that today he has a severe headache, chills, mild right foot tenderness and he is nauseous, which he attributes to the headache. He denies any feelings of confusion or dizziness. He states that the erythema he is experiencing in the right foot sometimes does affect the leg, but the erythema and edema waxes and wanes in the right foot and leg. Of note, the patient has had blood cultures taken yesterday by Dr. Lundberg's office, results are not yet back. PAST MEDICAL HISTORY: 1. Diabetes mellitus type 2. 2. Hypertension. 3. Chronic kidney disease, stage 3. PAST SURGICAL HISTORY: 1. Status post left first toe amputation. 2. Status post left fourth and fifth toe partial amputation. 3. Status post transmetatarsal right foot amputation. 4. Status post right [place] amputation. HOME MEDICATIONS: Medication reconciliation is underway. The patient does request not to be placed on any long-acting insulin while he is in-house. He is glad to use the Basaglar Kwikpen, which he uses 24 units subcu every morning. ALLERGIES: No known drug allergies. FAMILY HISTORY: Grandfather with diabetes. SOCIAL HISTORY: The patient is a former smoker. He has a 20 year smoking history, but he quit 1 year ago. Confirms occasional alcohol use. Denies recreational drug use. 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 The patient lives with his , Uma Olivia. She is his surrogate decision maker. REVIEW OF SYSTEMS: General: The patient confirms fever and chills. HEENT: Confirms headache. Denies change in vision. Cardiac: Denies any chest pain or irregular beats. Denies history of heart attack. Respiratory: Denies shortness of breath or cough. Denies history of asthma or COPD. GI: Denies any abdominal pain, no diarrhea. Does confirm nausea and vomiting x1. Musculoskeletal: Right lower extremity has been red and swollen with severity waxing and waning over the past several days. Neuro: The patient confirms sensation of his right lower extremity. Skin: Confirms erythema of the right lower extremity. No rash otherwise. Hematology: No history of blood clot. PHYSICAL EXAM: GENERAL: The patient appears uncomfortable. He is in no acute distress. He is alert and pleasant. VITAL SIGNS: Temperature 100.3, pulse rate 114, respiratory rate 24, blood pressure 161/67, oxygen saturation is 100. HEENT: Normocephalic, atraumatic. Pupils EOMI. Oral mucosa is moist. RESPIRATORY: Normal effort of breathing. Lungs are clear to auscultation bilaterally. CARDIOVASCULAR: S1 and S2. No identified murmurs. ABDOMEN: Bowel sounds normoactive, soft , nontender, nondistended. EXTREMITIES: Right lower extremity is with transmetatarsal amputation. The stump site is quite erythematous. The patient has a wound VAC on the plantar aspect of his foot. There is no purulence and there is no redness, no erythema surrounding the wound site. He is tender to palpation throughout this foot. There is no tracking erythema of the leg. Otherwise, he moves his left lower extremity and both upper extremities well. NEUROLOGIC: The patient is carrying on an appropriate conversation. Facial expression is symmetric. PSYCHOLOGICAL: Normal affect, cooperative. SKIN: The patient has moderate erythema of the right foot. No tracking of the leg. The erythema does not extend or past his ankle. DIAGNOSTIC STUDIES AND LAB DATA: White blood cell count 5.8, hemoglobin 11.6, hematocrit 35, platelet count 198, INR 0.97. Sodium 127, potassium 4.2, chloride 93, anion gap 12, carbon dioxide 22, BUN 22, creatinine 1.86, GFR 46.0 , CRP 239.44. ASSESSMENT: Right foot infection, worsening since stopping IV antibiotics. PLAN: Awaiting blood cultures. The patient is started on vancomycin, which was discussed with Infectious Disease. MRI of the right foot and ankle. The patient will remain on broad-spectrum antibiotics and MRI results will be evaluated to determine further treatment when results have returned. Infectious Disease and Hospitalist Service have also been consulted. DHEERAJ AMARAL [id number]/[facility] #: [id number] [facility]
[2018-04-04 20:00] LABS: Urine Appearance Clear; Urine Blood 2+ (Negative); Urine Color Straw; Urine Ketones Trace (Negative); Urine Protein 2+(100 mg/dL) (Negative); Urine Red Blood Cell 2+(6-10/hpf) (Absent); Urine Specific Gravity 1.007 (1.010-1.030); Urine Urobilinogen Negative (Negative); Urine White Blood Cell Absent (Absent)
[2018-04-04] MEDS ORDERED: Acetaminophen TAB* 325 MG ONE (20:47)
[2018-04-04] MEDS ORDERED: Heparin VIAL(*) 5000 UNITS/ML VIAL (FIVE THOUSAND) SUBCUT SCH (21:00)
[2018-04-04] MEDS: Aspirin 81 mg CHEW TAB* 81 MG TAB.CHEW PO SCH (21:29)
[2018-04-04] MEDS: Atorvastatin* 10 MG TAB PO SCH (21:30)
[2018-04-04] MEDS: Nortriptyline CAP* 25 MG PO SCH (21:30)
[2018-04-04] MEDS: Metoprolol Succinate XL TAB* 25 MG PO SCH (21:30)
[2018-04-05] MEDS: Vancomycin(*) 1,000 MG in NS 0.9% 250 ML* 250 ML IVPB SCH ×2 (01:58→13:42)
[2018-04-05 06:16] LABS: Hematocrit 32 % (42-52); Hemoglobin 10.5 g/dl (14.0-18.0); Mean Corpuscular HGB Conc 32 g/dl (31-36); Mean Corpuscular Hemoglobin 25 pg (27-31); Mean Corpuscular Volume 76 fL (80-94); Mean Platelet Volume 7.8 um3 (7.4-10.4); Platelet Count 171 10^3/ul (150-450); Red Blood Count 4.28 10^6/ul (4.00-5.40); Red Cell Distribution Width 16 % (10.5-15); White Blood Count 2.9 10^3/ul (3.5-10.8)
[2018-04-05 06:35] LABS: EGFR Non-African American 49.5 (>60)
[2018-04-05 06:36] LABS: INR 0.92 (0.77-1.02)
[2018-04-05 07:25] LABS: ABS Neutrophils 2.1 10^3/ul (1.5-7.7)
[2018-04-05] MEDS: NS 0.9% 1000 ML* 1,000 ML IV SCH ×2 (07:29→21:39)
[2018-04-05 08:00] LABS: ABS Basophils 0 10^3/ul (0-0.2); ABS Eosinophils 0 10^3/ul (0-0.6); ABS Lymphocytes 0.4 10^3/ul (1.0-4.8); ABS Monocytes 0.5 10^3/ul (0-0.8); ABS Nucleated RBC 0 10^3/ul
[2018-04-05 08:02] LABS: Monocytes % 14 % (0-7)
[2018-04-05 08:03] LABS: ABS Basophils 0 10^3/ul (0-0.2); ABS Neutrophils 1.85 10^3/ul (1.5-7.7)
[2018-04-05] MEDS ORDERED: Insulin GLARGINE(*) 1 UNITS UNIT SUBCUT SCH (09:00)
[2018-04-05] MEDS: Morphine VIAL* 4 MG/ML VIAL (1 ml vial) IV PRN ×4 (09:12→22:02)
[2018-04-05] MEDS: Insulin LISPRO* 1 UNITS UNIT SUBCUT SCH ×3 (10:13→20:54)
--- NOTE | 2018-04-05 10:54 | RAD ---
Indication: RIGHT foot swelling and redness. Fever. Previous partial RIGHT foot amputation. Most recent surgery January 2018. Comparison: January 17, 2018 MRI. January 02, 2018 radiographs. Technique: iovoxa 1.5 Lorna [id number] with GEM suite. Noncontrast MRI RIGHT ankle through the stump of the amputation at the level of the transverse tarsal joint. Report: There is bone marrow edema at the calcaneus primarily involving the body and anterior portion with extension of edema to the lateral aspect of the tuberosity. Corresponding loss of normal T1 marrow hyperintensity. Similar pattern of bone marrow signal change at the talus involving the head, neck, and medial aspect of the dome. Mild bone marrow edema at the medial and lateral malleoli as well as the superior portion of the tibial plafond without compelling corresponding loss of normal T1 marrow hyperintensity. Negative for fracture or specific stigmata of avascular necrosis. Mild anterior subluxation at the talocrural joint. Small talocrural, subtalar, and transverse tarsal joint effusions. Diffuse soft tissue edema throughout the [id number] including at the lower leg involving the pre-Achilles fat extending to the stump at the amputation site. Fluid within posterior tendon sheath both medially and laterally. Complete Achilles tendon rupture in the noninsertional portion with up to 1.4 cm cephalocaudal gap due to retraction. IMPRESSION: #. Marrow signal abnormalities at the calcaneus and talus new compared with the prior exam are consistent with presence of osteomyelitis given the clinical context. Less prominent bone marrow signal change at the distal tibia and fibula may represent reactive edema or early osteomyelitis. #. Presence of joint effusions strongly favors associated septic arthritis at the talocrural, subtalar, and residual transverse tarsal joints. #. Diffuse superficial and deep soft tissue infection/cellulitis myositis without a visualized loculated soft tissue plane abscess collection. #. Noninsertional Achilles tendon rupture.
--- NOTE | 2018-04-05 12:22 | PN ---
Progress Note - Progress Note Date of Service: 04/05/18 Note: I spoke with Mikel and Uma. The MRI does show soft tissue infection as well as osteomyelitis in the hindfoot. He still is having fevers and chills. Soft tissues look a little bit better since starting vancomycin. I had a long discussion with them about the problem and options today. We have tried extensively to salvage part of his foot, but this has failed. I think the only way to clear this infection would be to do a below the knee amputation. I also had Dr. Buck review the imaging and he was in agreement with this. Mikel and Uma understood and were in agreement as well. He would like to move forward with this as soon as possible. I spoke with Dr. Noel who concurred with moving forward with a BKA. He did not feel any further infectious workup is necessary preoperatively. We went over the risks of surgery. He would like to move forward with a right BKA today. I will coordinate this with the operating room. Michael Benavidez MD
[2018-04-05] MEDS ORDERED: Morphine VIAL* 10 MG/ML 1 ML VIAL ONE (15:27)
[2018-04-05] MEDS ORDERED: Bupivacaine 0.5% PF 10 ML VIAL INJ ONE (16:15)
--- NOTE | 2018-04-05 16:22 | PN ---
Subjective Date of Service: 04/05/18 Interval History: Patient prepped for surgery this afternoon as per Dr. Benavidez. Denies pain, no SOB, no vomiting, some nausea. Remains NPO for procedure. Objective Active Medications: Acetaminophen (Tylenol Tab*) 650 mg PO Q4H PRN PRN Reason: FEVER/PAIN Aspirin (Aspirin 81 Mg Chew Tab*) 81 mg PO BEDTIME [facility] Last Admin: 04/04/18 21:29 Dose: 81 mg Atorvastatin Calcium (Lipitor*) 10 mg PO BEDTIME [facility] Last Admin: 04/04/18 21:30 Dose: 10 mg Cyanocobalamin (Vitamin B12 Tab*) 500 mcg PO BEDTIME [facility] Dextrose (D50w Syringe 50 Ml*) 12.5 gm IV PUSH .FOR FS < 60 - SS PRN PRN Reason: FS < 60 Diphenhydramine HCl (Benadryl Iv*) 25 mg IV Q6H PRN PRN Reason: itching Diphenhydramine HCl (Benadryl Po*) 25 mg PO Q6H PRN PRN Reason: itching Docusate Sodium (Colace Cap*) 100 mg PO BID PRN PRN Reason: CONSTIPATION Sodium Chloride (Ns 0.9% 1000 Ml*) 1,000 mls @ 100 mls/hr IV PER RATE [facility] Last Admin: 04/05/18 07:29 Dose: 100 mls/hr Vancomycin HCl 1,000 mg/ (Sodium Chloride) 250 mls @ 166.667 mls/hr IVPB Q12H [facility] Last Admin: 04/05/18 13:42 Dose: 166.667 mls/hr Insulin Human Lispro (Humalog*) 0 units SUBCUT [facility]; Protocol Last Admin: 04/05/18 11:06 Dose: Not Given Metoprolol Succinate (Toprol Xl Tab*) 25 mg PO BEDTIME [facility] Last Admin: 04/04/18 21:30 Dose: 25 mg Morphine Sulfate (Morphine Vial*) 2 mg IV Q2H PRN PRN Reason: PAIN - BREAKTHROUGH Last Admin: 04/05/18 14:11 Dose: 2 mg Nortriptyline HCl (Pamelor Cap*) 25 mg PO BEDTIME [facility] Last Admin: 04/04/18 21:30 Dose: 25 mg Ondansetron HCl (Zofran Odt Tab*) 4 mg PO Q6H PRN PRN Reason: NAUSEA Oxycodone HCl (Roxycodone Tab*) 5 mg PO Q4H PRN PRN Reason: PAIN - SEVERE Pharmacy Consult (Vancomycin Per Pharmacy*) 1 note FOLLOW UP .VANC PER PHARMACY [facility] Pharmacy Profile Note (Vancomycin Trough Check) 1 note FOLLOW UP 1400 ONE Stop: 04/06/18 14:01 Tramadol HCl (Ultram*) 50 mg PO Q6H PRN PRN Reason: PAIN - MODERATE Vital Signs - 8 hr 04/05/18 04/05/18 04/05/18 09:12 10:26 11:19 Temperature 98.5 F Pulse Rate 93 Respiratory 18 18 18 Rate Blood Pressure 142/64 (mmHg) O2 Sat by Pulse 97 Oximetry 04/05/18 04/05/18 04/05/18 11:53 13:48 14:11 Temperature Pulse Rate Respiratory 18 16 20 Rate Blood Pressure (mmHg) O2 Sat by Pulse Oximetry Oxygen Devices in Use Now: None Appearance: alert, NAD Eyes: PERRLA Ears/Nose/Mouth/Throat: NL Teeth, Lips, Gums, Mucous Membranes Moist Neck: NL Appearance and Movements; NL JVP, Trachea Midline Respiratory: Symmetrical Chest Expansion and Respiratory Effort, Clear to Auscultation Cardiovascular: NL Sounds; No Murmurs; No JVD, RRR Abdominal: NL Sounds; No Tenderness; No Distention Extremities: No Clubbing, Cyanosis, - - RLE foot/stump dressed Neurological: Alert and Oriented x 3, NL Sensation, NL Muscle Strength and Tone Nutrition: - - NPO for procedure Result Diagrams: 04/06/18 05:48 04/06/18 05:48 Microbiology and Other Data: Microbiology 04/04/18 15:32 Aerobic Blood Culture - Preliminary Blood Venous No Growth Day 1 Anaerobic Blood Culture - Preliminary No Growth Day 1 Diagnostic Imaging: Patient Name: NAYELY HUERTA II Medical Record#: [id number] Ordering Physician: Sanjana ESQUEDA Acct.#: [id number] : 1965 Age: 52 Sex: M Location: SURGICAL STAY UNIT Exam Date: 04/04/18 1123 ADM Status: ADM IN Order Information: MRI LOWER EXTREMITY RIGHT W/O Accession Number: [id number] CPT: 49069 Indication: RIGHT foot swelling and redness. Fever. Previous partial RIGHT foot amputation. Most recent surgery January 2018. Comparison: January 17, 2018 MRI. January 02, 2018 radiographs. Technique: [employer] 1.5 Lorna [id number] with GEM suite. Noncontrast MRI RIGHT ankle through the stump of the amputation at the level of the transverse tarsal joint. Report: There is bone marrow edema at the calcaneus primarily involving the body and anterior portion with extension of edema to the lateral aspect of the tuberosity. Corresponding loss of normal T1 marrow hyperintensity. Similar pattern of bone marrow signal change at the talus involving the head, neck, and medial aspect of the dome. Mild bone marrow edema at the medial and lateral malleoli as well as the superior portion of the tibial plafond without compelling corresponding loss of normal T1 marrow hyperintensity. Negative for fracture or specific stigmata of avascular necrosis. Mild anterior subluxation at the talocrural joint. Small talocrural, subtalar, and transverse tarsal joint effusions. Diffuse soft tissue edema throughout the [id number] including at the lower leg involving the pre-Achilles fat extending to the stump at the amputation site. Fluid within posterior tendon sheath both medially and laterally. Complete Achilles tendon rupture in the noninsertional portion with up to 1.4 cm cephalocaudal gap due to retraction. IMPRESSION: #. Marrow signal abnormalities at the calcaneus and talus new compared with the prior exam are consistent with presence of osteomyelitis given the clinical context. Less prominent bone marrow signal change at the distal tibia and fibula may represent reactive edema or early osteomyelitis. #. Presence of joint effusions strongly favors associated septic arthritis at the talocrural, subtalar, and residual transverse tarsal joints. #. Diffuse superficial and deep soft tissue infection/cellulitis myositis without a visualized loculated soft tissue plane abscess collection. #. Noninsertional Achilles tendon rupture. <Electronically signed by Christiano Carrillo MD in OV> 04/05/18 1050 Dictated By: Christiano Carrillo MD Dictated Date/Time: 04/05/18 1050 Transcribed Date/Time: 04/05/18 1034 Copy to: This report is only to be considered final once signed by the Provider(s) as displayed in the "<Electronically Signed by >" field (s). Absence of a signature indicates the report is in a draft status and still needs to be finalized. In the event this document was created by someone other than the signing Provider, the individual initiating the document will be listed in the "Entered by:" or "Dictated by:" cadena. 1 of 2 Assess/Plan/Problems-Billing Assessment: This is a 52 year old male with complicated history of foot and wound infection , osteomyelitis, KIRSTEN on CKD, that presented with sepsis and failure of outpatient treatment now requiring BKA. - Patient Problems (1) Osteomyelitis of ankle or foot, right, acute Code(s): M86.171 - OTHER ACUTE OSTEOMYELITIS, RIGHT ANKLE AND FOOT SNOMED Code (s): 246576947 Comment: - Multiple procedures and atbx this since August this year - Not responding to treatment, only option per Dr Benavidez is a BKA which he is undergoing today - Supportive care, pain control, atbx as per ID (2) Sepsis Comment: - Resolved, mild, no hypotension or end organ dysfunction, tachycardia likley more related to fever - Responded well to IVF and restarted on vancomycin (3) Cellulitis Code(s): L03.90 - CELLULITIS, UNSPECIFIED SNOMED Code(s): 468065405 Comment: - Continue vanco (4) HTN (hypertension) Current Visit: No Status: Chronic Code(s): I10 - ESSENTIAL (PRIMARY) HYPERTENSION SNOMED Code(s): 32715812 Comment: - SBP 130-150's. - Continue metoprolol and amlodipine. (5) T2DM (type 2 diabetes mellitus) Comment: - Uncontrolled in the past - Keep tight glycemic control during post-operative period - Continue lispro SS and restart lantus post-op (6) CKD (chronic kidney disease) Code(s): N18.9 - CHRONIC KIDNEY DISEASE, UNSPECIFIED SNOMED Code(s): 539632709 Comment: - With KIRSTEN 2/2 infection - Creat at baseline, continue to monitor (7) DVT prophylaxis Code(s): TGW5687 - SNOMED Code(s): 909082952 Comment: - Will defer to ortho post-operatively for DVT prophy (8) Full code status Current Visit: No Status: Acute Code(s): Z78.9 - OTHER SPECIFIED HEALTH STATUS SNOMED Code(s): 716116862 Comment: Status and Disposition: Remain inpatient.
[2018-04-05] MEDS ORDERED: fentaNYL* 50 MCG/ML 2 ML VIAL (100 MCG VIAL) ONE ×2 (16:25→18:57)
[2018-04-05] MEDS ORDERED: Midazolam* 1 MG/ML 5 ML VIAL (5 MG) ONE (16:25)
[2018-04-05] MEDS ORDERED: Propofol* 10 MG/ML 20 ML BTL IV PUSH ONE (16:25)
[2018-04-05] MEDS ORDERED: Naloxone* 0.4 MG/ML 1 ML VIAL IV PRN (17:31)
[2018-04-05] MEDS ORDERED: Ondansetron INJ* 2 MG/ML VIAL IV PRN (17:31)
[2018-04-05] MEDS ORDERED: Ondansetron INJ* 2 MG/ML VIAL ONE (18:47)
[2018-04-05] MEDS: fentaNYL* 50 MCG/ML 2 ML VIAL (100 MCG VIAL) IV PRN ×4 (18:58→19:40)
--- NOTE | 2018-04-05 19:16 | OP ---
Operative Report - Blank - Operative Report Date of Operation: 04/05/18 Note: PATIENT: Mikel Olivia DATE OF : 1965 DATE OF SURGERY: 04/05/2018 SURGEON: Michael Benavidez MD IN PROCESS INSPECTOR: DHEERAJ Lewis, whos assistance was necessary for positioning, retraction, help with instrumentation, and closure. ANESTHESIOLOGIST: Dr. Holcomb PREOPERATIVE DIAGNOSIS: Right foot stump infection with osteomyelitis POSTOPERATIVE DIAGNOSIS: Right foot stump infection with osteomyelitis OPERATION: Right below the knee amputation ANESTHESIA: GETA IMPLANTS: none TOURNIQUET TIME: Less than 2 hours with a well-padded thigh tourniquet at 250mmHg. SPECIMENS: Foot sent to pathology. Culture swabs from foot sent to micro. ESTIMATED BLOOD LOSS: minimal COMPLICATIONS: none STATUS: Stable from the operating room to the recovery room and then back to the hospital floor. INDICATIONS FOR PROCEDURE: Mikel has been dealing with persistent and recurrent right foot infections and osteomyelitis. He has had multiple prior amputations and I&D's. Both operative and non operative treatment alternatives were reviewed. Further, the nature and risks of surgery were reviewed in careful detail. Our discussions regarding the risks of surgery included, but were not limited to, infection, wound problems, nerve injury, neuroma, RSD, persistent symptoms, blood clot, persistent or worsening infection, phantom limb pain, failure of the surgery, need for further amputation, and even the remote chance of catastrophic complication, including . DESCRIPTION OF PROCEDURE: The patient was seen in the preoperative holding unit and informed written consent was obtained. The appropriate extremity was marked. The patient was then brought to the operating room and carefully positioned on the operating room table. Anesthesia was induced. All bony prominences were padded with great care. A well-padded thigh tourniquet was placed. A chlorhexidine based pre- scrub was performed followed by a chloraprep prep and drape in standard sterile fashion. A surgical safety pause was then conducted in which we confirmed the appropriate patient, extremity, planned procedure, availability of equipment, indication and administration of antibiotics, and DVT prophylaxis in the form of a compression boot on the non-surgical extremity. We began with Esmarch exsanguination of the limb, avoiding the involved foot, and inflated the tourniquet. I utilized a posterior flap-based incision. The tibial osteotomy was measured to be about 18cm below the level of the knee joint. I carefully planned out the incision and then began the incision anteriorly. I dissected down through the anterior compartment musculature and identified the peroneal nerves and anterior tibial neurovascular bundle. The bundle was carefully tied off with 0 silk hand ties and the nerves were transected proximally in the soft tissue. The dissection was carried down to the intermuscular septum. I then dissected medially from the tibial crest. The saphenous nerve and vein were identified and transected proximally and ligated, respectively. I then continued the incision distally both medially and laterally with great care taken to maintain hemostasis. At this point, a malleable retractor was placed posterior to the tibia. I performed a tibial and then fibular osteotomy with an oscillating saw. The fibular osteotomy was made a couple of centimeters proximal to the tibial osteotomy. The leg was then flexed through the osteotomy site and I dissected down the posterior aspect of the tibia and fibula and removed the specimen after completing the posterior incision and coming across the posterior flap distally. I sent off culture swabs from the abscess in the foot. The posterior flap was maintained at approximately 15cm in length. Hemostasis was obtained after the leg was passed off to be sent to pathology. I then dissected out the posterior neurovascular bundle. The tibial artery and vein were ligated with 0 silk hand ties. The tibial nerve was then transected proximal to the stump of the remnant tibia. I debulked the posterior flap and removed excess skin and soft tissue from the posterior flap. I beveled the anterior tibia with a small oscillating saw and used a rasp to smooth the stump. There were no longer any sharp edges. The wound was copiously irrigated. I then used a 2.5 mm drill to drill 2 holes into the distal tibia through which #2 Ethibond was passed and then also passed into the Achilles to perform a myodesis, bringing the gastroc-soleus complex and Achilles tendon up to the remnant tibia. This nicely covered the tibial stump. I then passed a 10-K[place] Ty drain through the wound and out of the lateral leg. The wound was again copiously irrigated and then meticulously closed in layers utilizing #1 Vicryl, 0 Vicryl, 3-0 Monocryl, and 3-0 Prolene on the skin. Xeroform and a sterile dressing were then applied followed by a posterior splint with the knee fully extended. The patient was then awakened from anesthesia and transferred to the recovery room in stable condition. There were no complications. All needle and sponge counts were correct at the end of the case. ATTESTATION: I attest I was present and scrubbed and performed the critical portions of the procedure myself. POSTOPERATIVE PLAN: The patient will be readmitted to the hospital postoperatively. We will monitor the drain output and pull it out when there is minimal to no output. The sutures will be left in the stump for a likely duration of 2-3 weeks.
[2018-04-05] MEDS ORDERED: HYDROmorphone INJ* 0.5 MG/0.5 ML SYRINGE ONE (19:32)
[2018-04-05] MEDS: HYDROmorphone INJ* 0.5 MG/0.5 ML SYRINGE IV PRN ×5 (19:33→20:20)
[2018-04-05] MEDS: traMADol TAB* 50 MG PO PRN (21:02)
[2018-04-05] MEDS: oxyCODONE TAB* 5 MG TAB PO PRN (21:03)
[2018-04-05] MEDS: Atorvastatin* 10 MG TAB PO SCH (21:40)
[2018-04-05] MEDS: Cyanocobalamin TAB* 500 MCG PO SCH (21:40)
[2018-04-05] MEDS: Nortriptyline CAP* 25 MG PO SCH (21:40)
[2018-04-05] MEDS: Aspirin 81 mg CHEW TAB* 81 MG TAB.CHEW PO SCH (21:40)
[2018-04-05] MEDS: Metoprolol Succinate XL TAB* 25 MG PO SCH (22:02)
[2018-04-05] MEDS ORDERED: Morphine INJ* 2 MG/ML 1 ML SYRINGE (TWO MG - NEW SYRINGE VERSION) IV ONE (22:29)
[2018-04-06] MEDS: Morphine VIAL* 4 MG/ML VIAL (1 ml vial) IV PRN ×7 (00:30→20:34)
[2018-04-06] MEDS: Vancomycin(*) 1,000 MG in NS 0.9% 250 ML* 250 ML IVPB SCH ×2 (02:36→14:50)
[2018-04-06] MEDS: oxyCODONE TAB* 5 MG TAB PO PRN ×3 (03:31→14:01)
[2018-04-06] MEDS: Acetaminophen TAB* 325 MG PO PRN ×3 (03:31→12:01)
[2018-04-06 06:33] LABS: Hematocrit 29 % (42-52); Hemoglobin 9.5 g/dl (14.0-18.0); Mean Corpuscular HGB Conc 33 g/dl (31-36); Mean Corpuscular Hemoglobin 25 pg (27-31); Mean Corpuscular Volume 75 fL (80-94); Mean Platelet Volume 7.8 um3 (7.4-10.4); Platelet Count 172 10^3/ul (150-450); Red Blood Count 3.82 10^6/ul (4.00-5.40); Red Cell Distribution Width 16 % (10.5-15); White Blood Count 4.8 10^3/ul (3.5-10.8)
[2018-04-06 06:35] LABS: ABS Basophils 0 10^3/ul (0-0.2); ABS Eosinophils 0 10^3/ul (0-0.6); ABS Lymphocytes 0.7 10^3/ul (1.0-4.8); ABS Nucleated RBC 0 10^3/ul
[2018-04-06 06:56] LABS: ABS Basophils 0 10^3/ul (0-0.2); ABS Neutrophils 2.5 10^3/ul (1.5-7.7); Monocytes % 15 % (0-7)
[2018-04-06 07:00] LABS: EGFR Non-African American 49.5 (>60)
[2018-04-06] MEDS: traMADol TAB* 50 MG PO PRN ×2 (07:36→20:32)
[2018-04-06] MEDS: Insulin LISPRO* 1 UNITS UNIT SUBCUT SCH ×4 (09:04→22:09)
[2018-04-06] MEDS: Insulin GLARGINE(*) 1 UNITS UNIT SUBCUT SCH (12:02)
[2018-04-06] MEDS ORDERED: Vancomycin Trough Check NOTE FOLLOW UP ONE (14:00)
[2018-04-06] MEDS: Heparin VIAL(*) 5000 UNITS/ML VIAL (FIVE THOUSAND) SUBCUT SCH ×2 (14:06→20:31)
--- NOTE | 2018-04-06 14:47 | PN ---
Progress Note - Progress Note Date of Service: 04/06/18 SOAP: Subjective: [Pt was seen lying in bed. States that he is doing very well. Pain is a 4/10 at the worst. denies any nausea, vomiting, chest pain, SOB. ] Objective: [General: A&O, NAD MSK, RLE: Dressing is clean/ dry and intact. Drain is present and shows minimal output. contralateral calf is soft and non tender. ] Assessment: [POD 1 Right below the knee amputation] Plan: [- continue with current pain medication - continue current PT/OT - continue with vancomycin ]
[2018-04-06] MEDS: cefTRIAXone* 1 GM in NS 0.9% 50 ML BAG IVPB SCH (17:23)
[2018-04-06] MEDS: Aspirin 81 mg CHEW TAB* 81 MG TAB.CHEW PO SCH (20:31)
[2018-04-06] MEDS: Nortriptyline CAP* 25 MG PO SCH (20:33)
[2018-04-06] MEDS: Cyanocobalamin TAB* 500 MCG PO SCH (20:33)
[2018-04-06] MEDS: Atorvastatin* 10 MG TAB PO SCH (20:33)
[2018-04-06] MEDS: Metoprolol Succinate XL TAB* 25 MG PO SCH (20:34)
[2018-04-07] MEDS: oxyCODONE TAB* 5 MG TAB PO PRN ×4 (00:08→18:42)
[2018-04-07] MEDS: Morphine VIAL* 4 MG/ML VIAL (1 ml vial) IV PRN ×2 (00:24→08:54)
[2018-04-07] MEDS: traMADol TAB* 50 MG PO PRN ×3 (03:44→21:50)
[2018-04-07] MEDS: Heparin VIAL(*) 5000 UNITS/ML VIAL (FIVE THOUSAND) SUBCUT SCH ×3 (03:44→20:54)
[2018-04-07 06:21] LABS: Hematocrit 27 % (42-52); Hemoglobin 8.8 g/dl (14.0-18.0); Mean Platelet Volume 7.8 um3 (7.4-10.4); Platelet Count 162 10^3/ul (150-450)
[2018-04-07] MEDS: Insulin GLARGINE(*) 1 UNITS UNIT SUBCUT SCH (09:15)
[2018-04-07] MEDS: Insulin LISPRO* 1 UNITS UNIT SUBCUT SCH ×4 (09:15→21:51)
--- NOTE | 2018-04-07 11:10 | PN ---
Progress Note - Progress Note Date of Service: 04/07/18 Note: I saw and examined Mikel this morning. Overall, he feels much better. The headache, neck ache, and generalized pain and malaise have improved. He reports achy pain at the right amputation stump. This is well controlled on his current pain regimen. We discussed gabapentin, but he has had bad reactions in the past, so we will not start this. He continues on IV Antibiotics per infectious diseases. The splint is clean, dry, and intact. I pulled his drain this morning as there was little to no output. he will remain nonweightbearing in the right lower extremity in the splint. He'll stay through the weekend for IV antibiotics, and then we can likely switch him to orals and let him go home on Monday. Temp Pulse Resp BP Pulse Ox 99.9 F 87 18 148/60 94 04/07/18 08:06 04/07/18 08:06 04/07/18 10:53 04/07/18 08:06 04/07/18 08:06 Michael Benavidez MD
--- NOTE | 2018-04-07 12:36 | PN ---
Subjective Date of Service: 04/07/18 Interval History: feels well. Walked with crutches today. Pain "tolerable" on current pain meds, not interested in increase in narcotic dose Objective Active Medications: Acetaminophen (Tylenol Tab*) 650 mg PO Q4H PRN PRN Reason: FEVER/PAIN Last Admin: 04/06/18 12:01 Dose: 650 mg Aspirin (Aspirin 81 Mg Chew Tab*) 81 mg PO BEDTIME [facility] Last Admin: 04/06/18 20:31 Dose: 81 mg Atorvastatin Calcium (Lipitor*) 10 mg PO BEDTIME [facility] Last Admin: 04/06/18 20:33 Dose: 10 mg Cyanocobalamin (Vitamin B12 Tab*) 500 mcg PO BEDTIME [facility] Last Admin: 04/06/18 20:33 Dose: 500 mcg Dextrose (D50w Syringe 50 Ml*) 12.5 gm IV PUSH .FOR FS < 60 - SS PRN PRN Reason: FS < 60 Diphenhydramine HCl (Benadryl Iv*) 25 mg IV Q6H PRN PRN Reason: itching Diphenhydramine HCl (Benadryl Po*) 25 mg PO Q6H PRN PRN Reason: itching Docusate Sodium (Colace Cap*) 100 mg PO BID PRN PRN Reason: CONSTIPATION Last Admin: 04/06/18 07:36 Dose: 100 mg Heparin Sodium (Porcine) (Heparin Vial(*)) 5,000 units SUBCUT Q8H [facility] Last Admin: 04/07/18 03:44 Dose: 5,000 units Ceftriaxone Sodium 1 gm/ (Sodium Chloride) 50 mls @ 200 mls/hr IVPB Q24H [facility] Last Admin: 04/06/18 17:23 Dose: 200 mls/hr Insulin Glargine (Lantus(*)) 24 units SUBCUT Q24H [facility] Last Admin: 04/07/18 09:15 Dose: 24 unit Insulin Human Lispro (Humalog*) 0 units SUBCUT [facility]; Protocol Last Admin: 04/07/18 09:15 Dose: 1 units Metoprolol Succinate (Toprol Xl Tab*) 25 mg PO BEDTIME [facility] Last Admin: 04/06/18 20:34 Dose: 25 mg Morphine Sulfate (Morphine Vial*) 4 mg IV Q2H PRN PRN Reason: PAIN - BREAKTHROUGH Last Admin: 04/07/18 08:54 Dose: 4 mg Nortriptyline HCl (Pamelor Cap*) 25 mg PO BEDTIME [facility] Last Admin: 04/06/18 20:33 Dose: 25 mg Ondansetron HCl (Zofran Odt Tab*) 4 mg PO Q6H PRN PRN Reason: NAUSEA Oxycodone HCl (Roxycodone Tab*) 5 mg PO Q4H PRN PRN Reason: PAIN - SEVERE Last Admin: 04/07/18 06:53 Dose: 5 mg Tramadol HCl (Ultram*) 50 mg PO Q6H PRN PRN Reason: PAIN - MODERATE Last Admin: 04/07/18 10:53 Dose: 50 mg Vital Signs - 8 hr 04/07/18 04/07/18 04/07/18 04:42 06:48 06:53 Temperature Pulse Rate Respiratory 16 16 Rate Blood Pressure (mmHg) O2 Sat by Pulse 95 Oximetry 04/07/18 04/07/18 04/07/18 08:06 08:54 09:03 Temperature 99.9 F Pulse Rate 87 Respiratory 16 18 18 Rate Blood Pressure 148/60 (mmHg) O2 Sat by Pulse 94 Oximetry 04/07/18 10:53 Temperature Pulse Rate Respiratory 18 Rate Blood Pressure (mmHg) O2 Sat by Pulse Oximetry Oxygen Devices in Use Now: None Appearance: 52 yo M in nAD, AAox3 Eyes: No Scleral Icterus, PERRLA Ears/Nose/Mouth/Throat: NL Teeth, Lips, Gums, Mucous Membranes Moist Neck: NL Appearance and Movements; NL JVP, Trachea Midline Respiratory: Symmetrical Chest Expansion and Respiratory Effort, Clear to Auscultation Cardiovascular: NL Sounds; No Murmurs; No JVD, RRR Abdominal: NL Sounds; No Tenderness; No Distention Lymphatic: No Cervical Adenopathy Extremities: No Edema, No Clubbing, Cyanosis, - - R leg in post op dressings s/ p BKA Skin: No Rash or Ulcers, No Nodules or Sclerosis Neurological: Alert and Oriented x 3, NL Muscle Strength and Tone Result Diagrams: 04/07/18 05:49 04/06/18 05:48 Microbiology and Other Data: Microbiology 04/04/18 15:32 Aerobic Blood Culture - Preliminary Blood Venous No Growth Day 1 Anaerobic Blood Culture - Preliminary No Growth Day 1 Assess/Plan/Problems-Billing Assessment: This is a 52 year old male with complicated history of foot and wound infection , osteomyelitis, KIRSTEN on CKD, that presented with sepsis and failure of outpatient treatment now requiring BKA. - Patient Problems (1) Osteomyelitis of ankle or foot, right, acute Comment: - Multiple procedures and atbx this since August this year - s/p BKA 04/06/18 - Supportive care, pain control, atbx as per ID (Ceftriaxone IV till Monday) (2) Sepsis Comment: Resolved, mild, no hypotension or end organ dysfunction, tachycardia likely more related to fever (3) CKD (chronic kidney disease) Comment: - With KIRSTEN 2/2 infection - Creat at baseline, continue to monitor (4) Cellulitis Comment: - Continue Ceftriaxone, -treated surgically by BKA 04/06/18 (5) HTN (hypertension) Comment: - SBP 130-150's. - Continue metoprolol and amlodipine. (6) T2DM (type 2 diabetes mellitus) Comment: - Uncontrolled in the past - Keep tight glycemic control during post-operative period - Continue lispro SS and lantus (7) DVT prophylaxis Comment: HSQ Status and Disposition: inpatient
[2018-04-07] MEDS: cefTRIAXone* 1 GM in NS 0.9% 50 ML BAG IVPB SCH (17:33)
[2018-04-07] MEDS: Aspirin 81 mg CHEW TAB* 81 MG TAB.CHEW PO SCH (20:57)
[2018-04-07] MEDS: Cyanocobalamin TAB* 500 MCG PO SCH (20:57)
[2018-04-07] MEDS: Atorvastatin* 10 MG TAB PO SCH (20:57)
[2018-04-07] MEDS: Nortriptyline CAP* 25 MG PO SCH (20:58)
[2018-04-07] MEDS: Metoprolol Succinate XL TAB* 25 MG PO SCH (20:58)
[2018-04-08] MEDS: oxyCODONE TAB* 5 MG TAB PO PRN ×2 (04:18→15:02)
[2018-04-08] MEDS: Heparin VIAL(*) 5000 UNITS/ML VIAL (FIVE THOUSAND) SUBCUT SCH ×3 (04:21→21:00)
[2018-04-08 05:38] LABS: ABS Basophils 0 10^3/ul (0-0.2); ABS Eosinophils 0.1 10^3/ul (0-0.6); ABS Lymphocytes 0.7 10^3/ul (1.0-4.8); ABS Monocytes 0.8 10^3/ul (0-0.8); ABS Neutrophils 2.8 10^3/ul (1.5-7.7); ABS Nucleated RBC 0 10^3/ul; Eosinophil % 3.2 % (0-6); Hematocrit 27 % (42-52); Hemoglobin 9.1 g/dl (14.0-18.0); Lymphocyte % 15.6 % (25-47); Mean Corpuscular HGB Conc 33 g/dl (31-36); Mean Corpuscular Hemoglobin 25 pg (27-31); Mean Corpuscular Volume 74 fL (80-94); Mean Platelet Volume 7.4 um3 (7.4-10.4); Nucleated Red Blood Cells % 0; Platelet Count 196 10^3/ul (150-450); Red Cell Distribution Width 16 % (10.5-15); White Blood Count 4.5 10^3/ul (3.5-10.8)
[2018-04-08 05:49] LABS: EGFR Non-African American 64.3 (>60)
[2018-04-08 06:00] LABS: ABS Basophils 0 10^3/ul (0-0.2); Monocytes % 10 % (0-7)
[2018-04-08] MEDS: amLODIPine TAB* 5 MG PO SCH (08:01)
[2018-04-08] MEDS: Insulin GLARGINE(*) 1 UNITS UNIT SUBCUT SCH (08:02)
[2018-04-08] MEDS: Insulin LISPRO* 1 UNITS UNIT SUBCUT SCH ×4 (08:02→21:09)
--- NOTE | 2018-04-08 09:18 | PN ---
Subjective Date of Service: 04/08/18 Interval History: Pt c/o pain whenever he moves the post op leg, but declines changes in pain meds Objective Active Medications: Acetaminophen (Tylenol Tab*) 650 mg PO Q4H PRN PRN Reason: FEVER/PAIN Last Admin: 04/06/18 12:01 Dose: 650 mg Amlodipine Besylate (Norvasc Tab*) 10 mg PO DAILY [facility] Last Admin: 04/08/18 08:01 Dose: 10 mg Aspirin (Aspirin 81 Mg Chew Tab*) 81 mg PO BEDTIME [facility] Last Admin: 04/07/18 20:57 Dose: 81 mg Atorvastatin Calcium (Lipitor*) 10 mg PO BEDTIME [facility] Last Admin: 04/07/18 20:57 Dose: 10 mg Cyanocobalamin (Vitamin B12 Tab*) 500 mcg PO BEDTIME [facility] Last Admin: 04/07/18 20:57 Dose: 500 mcg Dextrose (D50w Syringe 50 Ml*) 12.5 gm IV PUSH .FOR FS < 60 - SS PRN PRN Reason: FS < 60 Diphenhydramine HCl (Benadryl Iv*) 25 mg IV Q6H PRN PRN Reason: itching Diphenhydramine HCl (Benadryl Po*) 25 mg PO Q6H PRN PRN Reason: itching Docusate Sodium (Colace Cap*) 100 mg PO BID PRN PRN Reason: CONSTIPATION Last Admin: 04/06/18 07:36 Dose: 100 mg Heparin Sodium (Porcine) (Heparin Vial(*)) 5,000 units SUBCUT Q8H [facility] Last Admin: 04/08/18 04:21 Dose: 5,000 units Ceftriaxone Sodium 1 gm/ (Sodium Chloride) 50 mls @ 200 mls/hr IVPB Q24H [facility] Last Admin: 04/07/18 17:33 Dose: 200 mls/hr Insulin Glargine (Lantus(*)) 24 units SUBCUT Q24H [facility] Last Admin: 04/08/18 08:02 Dose: 24 unit Insulin Human Lispro (Humalog*) 0 units SUBCUT ACHS [facility]; Protocol Last Admin: 04/08/18 08:02 Dose: Not Given Metoprolol Succinate (Toprol Xl Tab*) 25 mg PO BEDTIME [facility] Last Admin: 04/07/18 20:58 Dose: 25 mg Morphine Sulfate (Morphine Vial*) 4 mg IV Q2H PRN PRN Reason: PAIN - BREAKTHROUGH Last Admin: 04/07/18 08:54 Dose: 4 mg Nortriptyline HCl (Pamelor Cap*) 25 mg PO BEDTIME [facility] Last Admin: 04/07/18 20:58 Dose: 25 mg Ondansetron HCl (Zofran Odt Tab*) 4 mg PO Q6H PRN PRN Reason: NAUSEA Oxycodone HCl (Roxycodone Tab*) 5 mg PO Q4H PRN PRN Reason: PAIN - SEVERE Last Admin: 04/08/18 04:18 Dose: 5 mg Tramadol HCl (Ultram*) 50 mg PO Q6H PRN PRN Reason: PAIN - MODERATE Last Admin: 04/07/18 21:50 Dose: 50 mg Vital Signs - 8 hr 04/08/18 04/08/18 04/08/18 04:15 04:18 07:46 Temperature 98.1 F Pulse Rate 91 Respiratory 16 16 15 Rate Blood Pressure 142/58 (mmHg) O2 Sat by Pulse 96 Oximetry 04/08/18 04/08/18 07:47 08:00 Temperature 98.2 F Pulse Rate 83 Respiratory 16 16 Rate Blood Pressure 137/70 (mmHg) O2 Sat by Pulse 99 99 Oximetry Oxygen Devices in Use Now: None Appearance: 52 yo M in nAD, aAOx3 Eyes: No Scleral Icterus, PERRLA Ears/Nose/Mouth/Throat: NL Teeth, Lips, Gums, Mucous Membranes Moist Neck: NL Appearance and Movements; NL JVP, Trachea Midline Respiratory: Symmetrical Chest Expansion and Respiratory Effort, Clear to Auscultation Cardiovascular: NL Sounds; No Murmurs; No JVD, RRR Abdominal: NL Sounds; No Tenderness; No Distention Lymphatic: No Cervical Adenopathy Extremities: No Edema, No Clubbing, Cyanosis Skin: No Rash or Ulcers, No Nodules or Sclerosis, - - R post op BKA wound not inspected Neurological: Alert and Oriented x 3, NL Muscle Strength and Tone Result Diagrams: 04/08/18 05:10 04/08/18 05:10 Microbiology and Other Data: Microbiology 04/04/18 15:32 Aerobic Blood Culture - Preliminary Blood Venous No Growth Day 1 Anaerobic Blood Culture - Preliminary No Growth Day 1 Diagnostic Imaging: Patient Name: NAYELY HUERTA II Medical Record#: [id number] Ordering Physician: Sanjana ESQUEDA Acct.#: [id number] : 1965 Age: 52 Sex: M Location: SURGICAL STAY UNIT Exam Date: 04/04/181122 ADM Status: ADM IN Order Information: MRI LOWER EXTREMITY RIGHT W/O Accession Number: [id number] CPT: 94057 Indication: RIGHT foot swelling and redness. Fever. Previous partial RIGHT foot amputation. Most recent surgery January 2018. Comparison: January 17, 2018 MRI. January 02, 2018 radiographs. Technique: [employer] 1.5 Lorna [id number] with GEM suite. Noncontrast MRI RIGHT ankle through the stump of the amputation at the level of the transverse tarsal joint. Report: There is bone marrow edema at the calcaneus primarily involving the body and anterior portion with extension of edema to the lateral aspect of the tuberosity. Corresponding loss of normal T1 marrow hyperintensity. Similar pattern of bone marrow signal change at the talus involving the head, neck, and medial aspect of the dome. Mild bone marrow edema at the medial and lateral malleoli as well as the superior portion of the tibial plafond without compelling corresponding loss of normal T1 marrow hyperintensity. Negative for fracture or specific stigmata of avascular necrosis. Mild anterior subluxation at the talocrural joint. Small talocrural, subtalar, and transverse tarsal joint effusions. Diffuse soft tissue edema throughout the [id number] including at the lower leg involving the pre-Achilles fat extending to the stump at the amputation site. Fluid within posterior tendon sheath both medially and laterally. Complete Achilles tendon rupture in the noninsertional portion with up to 1.4 cm cephalocaudal gap due to retraction. IMPRESSION: #. Marrow signal abnormalities at the calcaneus and talus new compared with the prior exam are consistent with presence of osteomyelitis given the clinical context. Less prominent bone marrow signal change at the distal tibia and fibula may represent reactive edema or early osteomyelitis. #. Presence of joint effusions strongly favors associated septic arthritis at the talocrural, subtalar, and residual transverse tarsal joints. #. Diffuse superficial and deep soft tissue infection/cellulitis myositis without a visualized loculated soft tissue plane abscess collection. #. Noninsertional Achilles tendon rupture. <Electronically signed by Christiano Carrillo MD in OV> 04/05/18 1050 Dictated By: Christiano Carrillo MD Dictated Date/Time: 04/05/18 1050 Transcribed Date/Time: 04/05/18 1034 Copy to: This report is only to be considered final once signed by the Provider(s) as displayed in the "<Electronically Signed by >" field (s). Absence of a signature indicates the report is in a draft status and still needs to be finalized. In the event this document was created by someone other than the signing Provider, the individual initiating the document will be listed in the "Entered by:" or "Dictated by:" cadena. 1 of 2 Assess/Plan/Problems-Billing Assessment: This is a 52 year old male with complicated history of foot and wound infection , osteomyelitis, KIRSTEN on CKD, that presented with sepsis and failure of outpatient treatment now requiring BKA. - Patient Problems (1) Osteomyelitis of ankle or foot, right, acute Comment: - Multiple procedures and atbx this since August this year - s/p BKA 04/06/18 - Supportive care, pain control, atbx as per ID (Ceftriaxone IV till Monday) (2) Sepsis Comment: Resolved, mild, no hypotension or end organ dysfunction, tachycardia likely more related to fever (3) CKD (chronic kidney disease) Comment: - With KIRSTEN 2/2 infection - Creat at baseline, continue to monitor (4) Cellulitis Comment: - Continue Ceftriaxone, -treated surgically by BKA 04/06/18 (5) HTN (hypertension) Comment: - SBP 130-150's. - Continue metoprolol and amlodipine. (6) T2DM (type 2 diabetes mellitus) Comment: - Uncontrolled in the past - Keep tight glycemic control during post-operative period - Continue lispro SS and lantus (7) DVT prophylaxis Comment: HSQ Status and Disposition: inpatient, medicine consult. Plan to be discharged by orthopedic service on Monday. Medicine will follow
--- NOTE | 2018-04-08 11:47 | PN ---
Progress Note - Progress Note Date of Service: 04/08/18 SOAP: Subjective: Pt is doing well. Pain controlled, Generalized aches have gone away. Denies F/C , CP/SOB. Objective: 52 y/o WDWN NAD A&Ox3 RLE- dressing c/d/i, mild tenderness to palpation of knee, NVI Vital Signs Temp Pulse Resp BP Pulse Ox 98.2 F 83 16 137/70 99 04/08/18 07:47 04/08/18 07:47 04/08/18 08:00 04/08/18 07:47 04/08/18 08:00 Laboratory Results - last 24 hr 04/07/18 04/07/18 04/07/18 12:56 16:37 20:50 WBC RBC Hgb Hct MCV MCH MCHC RDW Plt Count MPV Neut % (Auto) Lymph % (Auto) [place] % (Auto) Eos % (Auto) Baso % (Auto) Absolute Neuts (auto) Absolute Lymphs (auto) Absolute Monos (auto) Absolute Eos (auto) Absolute Basos (auto) Absolute Nucleated RBC Immature Gran % Neutrophils % Band Neutrophils % Lymphocytes % Monocytes % Eosinophils % Basophils % Nucleated RBC % Abs Neuts (Manual) Abs Lymphs (Manual) Abs Monocytes (Manual) Absolute Eos (Manual) Abs Basophils (Manual) Normal RBC Morphology Hypochromasia Anisocytosis Microcytosis Sodium Potassium Chloride Carbon Dioxide Anion Gap BUN Creatinine Est GFR ( Amer) Est GFR (Non-Af Amer) BUN/Creatinine Ratio Glucose POC Glucose (mg/dL) 127 H 112 H 233 H Calcium 04/08/18 04/08/18 05:10 05:10 WBC 4.5 RBC 3.70 L Hgb 9.1 L Hct 27 L MCV 74 L MCH 25 L MCHC 33 RDW 16 H Plt Count 196 MPV 7.4 Neut % (Auto) 63.4 Lymph % (Auto) 15.6 L [place] % (Auto) 17.6 H Eos % (Auto) 3.2 Baso % (Auto) 0.2 Absolute Neuts (auto) 2.8 Absolute Lymphs (auto) 0.7 L Absolute Monos (auto) 0.8 Absolute Eos (auto) 0.1 Absolute Basos (auto) 0 Absolute Nucleated RBC 0 Immature Gran % 2 Neutrophils % 67 Band Neutrophils % 2 Lymphocytes % 20 L Monocytes % 10 H Eosinophils % 1 Basophils % 0 Nucleated RBC % 0 Abs Neuts (Manual) 3.0 Abs Lymphs (Manual) 0.9 L Abs Monocytes (Manual) 0.5 Absolute Eos (Manual) 0 Abs Basophils (Manual) 0 Normal RBC Morphology Not Reportable Hypochromasia 1+ Anisocytosis 1+ Microcytosis 1+ Sodium 133 L Potassium 3.8 Chloride 102 Carbon Dioxide 25 Anion Gap 6 BUN 14 Creatinine 1.18 H Est GFR ( Amer) 77.8 Est GFR (Non-Af Amer) 64.3 BUN/Creatinine Ratio 11.9 Glucose 130 H POC Glucose (mg/dL) Calcium 8.8 Assessment: [POD 3 Right below the knee amputation] Plan: [- continue with current pain medication - continue current PT/OT -NWB RLE - continue IV abx over weekend, possible switch to oral and DC Monday
[2018-04-08] MEDS: cefTRIAXone* 1 GM in NS 0.9% 50 ML BAG IVPB SCH (17:07)
[2018-04-08] MEDS: Metoprolol Succinate XL TAB* 25 MG PO SCH (21:02)
[2018-04-08] MEDS: Cyanocobalamin TAB* 500 MCG PO SCH (21:03)
[2018-04-08] MEDS: Nortriptyline CAP* 25 MG PO SCH (21:03)
[2018-04-08] MEDS: Aspirin 81 mg CHEW TAB* 81 MG TAB.CHEW PO SCH (21:03)
[2018-04-08] MEDS: Atorvastatin* 10 MG TAB PO SCH (21:03)
[2018-04-09] MEDS: Heparin VIAL(*) 5000 UNITS/ML VIAL (FIVE THOUSAND) SUBCUT SCH ×2 (04:10→12:53)
[2018-04-09 06:05] LABS: Hematocrit 29 % (42-52); Hemoglobin 9.6 g/dl (14.0-18.0); Mean Platelet Volume 7.7 um3 (7.4-10.4); Platelet Count 265 10^3/ul (150-450)
[2018-04-09] MEDS: amLODIPine TAB* 5 MG PO SCH (09:48)
[2018-04-09] MEDS: Insulin GLARGINE(*) 1 UNITS UNIT SUBCUT SCH (09:48)
[2018-04-09] MEDS: Insulin LISPRO* 1 UNITS UNIT SUBCUT SCH ×2 (09:48→12:53)
[2018-04-09 11:43] VITALS: BP 137/66
[2018-04-09] MEDS: oxyCODONE TAB* 5 MG TAB PO PRN (12:48)
--- NOTE | 2018-04-09 17:59 | PN ---
Progress Note - Progress Note Date of Service: 04/09/18 SOAP: Subjective: []Patient seen at bedside. He is ready for discharge. He denies chest pain, shortness of breath, dizziness, chills, right lower extremity pain. Objective: []General: well appearing, NAD RLE: Dressing CDI. thigh soft. LLE calf supple and nontender without erythema or edema Assessment: []POD 4 R BKA Plan: [] DC to home Fu Dr Benavidez Monday Augmentin 875 mg BID x 2 weeks ASA 325 qd x 30 days Vital Signs Temp 98.7 F 04/09/18 11:22 Pulse 72 04/09/18 11:22 Resp 16 04/09/18 12:48 BP 137/66 04/09/18 11:22 Pulse Ox 98 04/09/18 11:22 Intake & Output 04/08/18 04/09/18 04/09/18 18:59 06:59 18:59 Intake Total 980 1340 560 Output Total 1825 700 750 Balance -845 640 -190 Intake: Oral 980 1340 560 Output: Urine 1825 700 750 Laboratory Last Values WBC 4.5 10^3/ul (3.5-10.8) 04/08/18 05:10 RBC 3.70 10^6/ul (4.00-5.40) L 04/08/18 05:10 Hgb 9.6 g/dl (14.0-18.0) L 04/09/18 05:36 Hct 29 % (42-52) L 04/09/18 05:36 MCV 74 fL (80-94) L 04/08/18 05:10 MCH 25 pg (27-31) L 04/08/18 05:10 MCHC 33 g/dl (31-36) 04/08/18 05:10 RDW 16 % (10.5-15) H 04/08/18 05:10 Plt Count 265 10^3/ul (150-450) 04/09/18 05:36 MPV 7.7 um3 (7.4-10.4) 04/09/18 05:36 Neut % (Auto) 63.4 % (38-83) 04/08/18 05:10 Lymph % (Auto) 15.6 % (25-47) L 04/08/18 05:10 [place] % (Auto) 17.6 % (0-7) H 04/08/18 05:10 Eos % (Auto) 3.2 % (0-6) 04/08/18 05:10 Baso % (Auto) 0.2 % (0-2) 04/08/18 05:10 Absolute Neuts (auto) 2.8 10^3/ul (1.5-7.7) 04/08/18 05:10 Absolute Lymphs (auto) 0.7 10^3/ul (1.0-4.8) L 04/08/18 05:10 Absolute Monos (auto) 0.8 10^3/ul (0-0.8) 04/08/18 05:10 Absolute Eos (auto) 0.1 10^3/ul (0-0.6) 04/08/18 05:10 Absolute Basos (auto) 0 10^3/ul (0-0.2) 04/08/18 05:10 Absolute Nucleated RBC 0 10^3/ul 04/08/18 05:10 Immature Gran % 2 % (0-9) 04/08/18 05:10 Neutrophils % 67 % (38-83) 04/08/18 05:10 Band Neutrophils % 2 % (0-8) 04/08/18 05:10 Lymphocytes % 20 % (25-47) L 04/08/18 05:10 Reactive Lymphs % 3 % (0-6) 04/05/18 05:49 Monocytes % 10 % (0-7) H 04/08/18 05:10 Eosinophils % 1 % (0-6) 04/08/18 05:10 Basophils % 0 % (0-2) 04/08/18 05:10 Nucleated RBC % 0 04/08/18 05:10 Abs Neuts (Manual) 3.0 10^3/ul (1.5-7.7) 04/08/18 05:10 Abs Lymphs (Manual) 0.9 10^3/ul (1.0-4.8) L 04/08/18 05:10 Abs Monocytes (Manual) 0.5 10^3/ul (0-0.8) 04/08/18 05:10 Absolute Eos (Manual) 0 10^3/ul (0-0.6) 04/08/18 05:10 Abs Basophils (Manual) 0 10^3/ul (0-0.2) 04/08/18 05:10 Normal RBC Morphology Not Reportable 04/08/18 05:10 Hypochromasia 1+ 04/08/18 05:10 Anisocytosis 1+ 04/08/18 05:10 Microcytosis 1+ 04/08/18 05:10 ESR 73 mm/Hr (0-20) H 04/04/18 11:34 Hem Pathologist Commnt 04/06/18 05:48 INR (Anticoag Therapy) 0.92 (0.77-1.02) 04/05/18 05:49 Sodium 133 mmol/L (135-145) L 04/08/18 05:10 Potassium 3.8 mmol/L (3.5-5.0) 04/08/18 05:10 Chloride 102 mmol/L (101-111) 04/08/18 05:10 Carbon Dioxide 25 mmol/L (22-32) 04/08/18 05:10 Anion Gap 6 mmol/L (2-11) 04/08/18 05:10 BUN 14 mg/dL (6-24) 04/08/18 05:10 Creatinine 1.18 mg/dL (0.67-1.17) H 04/08/18 05:10 Est GFR ( Amer) 77.8 (>60) 04/08/18 05:10 Est GFR (Non-Af Amer) 64.3 (>60) 04/08/18 05:10 BUN/Creatinine Ratio 11.9 (8-20) 04/08/18 05:10 Glucose 130 mg/dL (70-100) H 04/08/18 05:10 POC Glucose (mg/dL) 283 mg/dL (70-100) H 04/09/18 12:23 Serum Osmolality 279 mOsm/kg (275-295) 04/04/18 17:52 Lactic Acid 0.6 mmol/L (0.5-2.0) 04/04/18 13:48 Calcium 8.8 mg/dL (8.6-10.3) 04/08/18 05:10 C-Reactive Protein 239.44 mg/L (<8.01) H 04/04/18 11:34 TSH 0.93 mcIU/mL (0.34-5.60) 04/04/18 17:52 Cortisol 21.98 mcg/dL 04/04/18 11:34 Urine Color Straw 04/04/18 19:45 Urine Appearance Clear 04/04/18 19:45 Urine pH 5.0 (5-9) 04/04/18 19:45 Ur Specific [place] 1.007 (1.010-1.030) L 04/04/18 19:45 Urine Protein 2+(100 mg/dl) (Negative) A 04/04/18 19:45 Urine Ketones Trace (Negative) A 04/04/18 19:45 Urine Blood 2+ (Negative) A 04/04/18 19:45 Urine Nitrate Negative (Negative) 04/04/18 19:45 Urine Bilirubin Negative (Negative) 04/04/18 19:45 Urine Urobilinogen Negative (Negative) 04/04/18 19:45 Ur Leukocyte Esterase Negative (Negative) 04/04/18 19:45 Urine WBC (Auto) Absent (Absent) 04/04/18 19:45 Urine RBC (Auto) 2+(6-10/hpf) (Absent) A 04/04/18 19:45 Urine Bacteria 1+ (Absent) A 04/04/18 19:45 Urine Osmolality 282 mOsm/kg (150-1150) 04/04/18 19:45 Ur Random Creatinine 48.45 mg/dL 04/04/18 19:45 Ur Random Sodium 45 mmol/L 04/04/18 19:45 Urine Glucose 3+(>=500 mg/dl) (Negative) A 04/04/18 19:45 Vancomycin Trough 13.4 mcg/mL 04/06/18 13:35
--- NOTE | 2018-04-10 01:04 | DS ---
DISCHARGE SUMMARY: DATE OF ADMISSION: 04/04/2018. DATE OF DISCHARGE: 04/09/2018. ATTENDING PROVIDER: Dr. Michael Benavidez* (dictated by DHEERAJ Lewis). PRIMARY CARE PROVIDER: Dr. Akin Sexton. CHIEF COMPLAINT: Right foot swelling and fevers. HISTORY: Mr. Olivia is a 52-year-old male with history of right foot osteomyelitis with previous amputation, diabetes, hypertension, chronic kidney disease. He presented to [facility] emergency room on 04/04/18. He was diagnosed with osteomyelitis of the right foot in addition to sepsis. Due to an MRI demonstrating bone marrow signal abnormalities of the calcaneus and talus, new compared to prior exam consistent with osteomyelitis; presence of joint effusion strongly associated with septic arthritis at the talocrural, subtalar, and residual transverse talotarsal joints; diffuse superficial and deep soft tissue infection; cellulitis; myositis without a localized loculated soft tissue; abscess collection; and worsening infection despite prolonged antibiotics, the patient was deemed candidate for right [id number] amputation. HOSPITAL COURSE: The patient was admitted to [facility] on 04/04/18 with right foot osteomyelitis as well as sepsis. He underwent a right below- knee amputation on 04/05/18 without complication. He recovered briefly in the PACU and was transferred to the short-stay surgical unit. On postop day 1, dressing was clean, dry, and intact. Drain was present with minimal output. His drain was pulled on 04/07/18. On 04/08/18, the patient was well appearing, in no acute distress. His dressing was clean, dry, and intact. On 04/09/18, the patient was well appearing, in no acute distress. Dressing was clean, dry and intact. He was able to demonstrate safely ambulating with his crutches up and down the hallway as well as side stepping with his crutches. His thigh on the right side was soft. On left, his calf was supple and nontender without erythema or edema. He was deemed to be medically and orthopedically stable for discharge home. Discussed discharge medications with Infectious Disease. DISCHARGE MEDICATIONS: Included: 1. Glipizide 10 mg p.o. b.i.d. 2. Simvastatin 20 mg p.o. q.p.m. 3. Jardiance 10 mg p.o. q.a.m. 4. Fish oil. 5. Sitagliptin 25 mg p.o. q.a.m. 6. Amlodipine 10 mg p.o. q.p.m. 7. Percocet 10/325 one tab p.o. q.8 hours p.r.n. 8. Metoprolol succinate 25 mg p.o. at bedtime. 9. Insulin glargine KwikPen 24 units subcu a.m. 10. Nortriptyline 25 mg p.o. q.p.m. 11. Vitamin B12 of 500 mg p.o. q.p.m. 12. Acetaminophen 650 mg p.o. q.4 hours. p.r.n., max daily dose 4000 units from all sources. 13. Docusate 100 mg p.o. b.i.d. p.r.n. 14. Oxycodone 5 mg p.o. q.6 hours p.r.n., max daily dose of 6. 15. Augmentin 875 p.o. b.i.d. for 2 weeks. DISCHARGE PLAN: The patient will be nonweightbearing on his right lower extremity. He will keep his dressing clean, dry, and intact. He will mobilize with crutches. Pain control with oxycodone 5 mg tabs 1 tablet every 6 hours as needed for pain, max of 6 per day. He may use Tylenol jepw-rwe-[id number]. Antibiotic Augmentin 875/125 one tab every 12 hours for 14 days, start tonight. DVT prophylaxis with aspirin 325 mg 1 tab daily for 30 days. Hold your aspirin 81 mg while you are on the 325 mg dose, after 30 days you may restart the 81 mg tab daily. Call orthopedic office for increased drainage, redness, increased pain, or fever. Go to the emergency room for chest pain or shortness of breath. Follow up with Dr. Benavidez on 04/10/18. Please call us for an appointment. DHEERAJ AMARAL [id number]/[facility] #: [id number] [facility]
== END 2018-04-09 13:30 | disposition home or self-care (01) | DRG 710 ==
LOC: SSU 10:40
PROVIDERS: ADMIT Orthopaedic Surgery; ATTEND Orthopaedic Surgery
PROC: 0Y6H0Z2 Detachment at Right Lower Leg, Mid, Open Approach (ICD-10-PCS; principal; 2018-04-05 17:15)
DX: A41.9 Sepsis, unspecified organism (principal); N17.9 Acute kidney failure, unspecified; M86.171 Other acute osteomyelitis, right ankle and foot; L03.115 Cellulitis of right lower limb; E87.1 Hypo-osmolality and hyponatremia; E11.69 Type 2 diabetes mellitus with other specified complication; E11.22 Type 2 diabetes mellitus with diabetic chronic kidney disease; N18.3 Chronic kidney disease, stage 3 (moderate); B96.20 Unspecified Escherichia coli [E. coli] as the cause of diseases classified elsewhere; I12.9 Hypertensive chronic kidney disease with stage 1 through stage 4 chronic kidney disease, or unspecified chronic kidney disease; M66.871 Spontaneous rupture of other tendons, right ankle and foot; E78.5 Hyperlipidemia, unspecified; E86.0 Dehydration; Z89.422 Acquired absence of other left toe(s); Z89.431 Acquired absence of right foot; Z79.4 Long term (current) use of insulin; Z83.3 Family history of diabetes mellitus; Z87.891 Personal history of nicotine dependence; Z79.2 Long term (current) use of antibiotics; Z79.82 Long term (current) use of aspirin; Z79.899 Other long term (current) drug therapy; Z80.9 Family history of malignant neoplasm, unspecified; Z82.49 Family history of ischemic heart disease and other diseases of the circulatory system
CPT/HCPCS: 36415; 71045; 80048; 80202; 81003; 81015; 82533; 82570; 83605; 83930; 83935; 84300; 84443; 85014; 85018; 85025; 85049; 85060; 85610; 85652; 86140; 87040; 87070; 87073; 87077; 87086; 87186; 87205; 93005; A9270-GY; G8978-GP-CI; G8979-GP-CI; G8980-GP-CI; G8987-GO-CJ; G8988-GO-CI; J0696; J1170; J1644; J2250; J2270; J2405; J2704; J3010; J3370

== ENCOUNTER 2018-05-11 16:10 | Day surgery (SDC) | payer BC ==
[2018-05-11] MEDS ORDERED: fentaNYL* 50 MCG/ML 2 ML VIAL (100 MCG VIAL) ONE ×3 (17:03→19:40)
[2018-05-11] MEDS ORDERED: ceFAZolin 2 GM in NS PREMIX(*) 2 GM/100 ML BAG IVPB ONE (17:03)
[2018-05-11] MEDS ORDERED: Midazolam* 1 MG/ML 5 ML VIAL (5 MG) ONE (17:04)
[2018-05-11] MEDS ORDERED: KETAMINE HCL* 50 MG/ML 10 ML VIAL ONE (17:04)
--- NOTE | 2018-05-11 17:08 | HP ---
PREOPERATIVE HISTORY AND PHYSICAL: DATE OF ADMISSION: 05/11/18 PROVIDER: Dr. Michael Benavidez.* (DICTATED BY DHEERAJ GREGORIO) CHIEF COMPLAINT: Right leg wound. HISTORY OF PRESENT ILLNESS: Mr. Olivia is a 52-year-old gentleman, who has been followed by Dr. Benavidez for right leg below-knee amputation. He had been healing well and was seen in the office earlier today; however, after he left the office, he did have a slip and fall and landed directly on the right leg stump. He sustained a large wound dehiscence and has had quite a bit of bleeding since the injury. He returned to the office for further evaluation and was found to have a large wound dehiscence. It was recommended that he undergo irrigation, debridement, and wound closure. PAST MEDICAL HISTORY: Type 2 diabetes, hypertension, and chronic kidney disease , stage 3. PAST SURGICAL HISTORY: Left first toe amputation, left fourth and fifth toe partial amputation, right foot transmetatarsal amputation, right foot [place] amputation, right leg below-knee amputation. CURRENT MEDICATIONS: 1. Aspirin 325 mg daily. 2. Zofran 4 mg every 8 hours as needed for nausea. 3. Glipizide 10 mg b.i.d. 4. Amlodipine besylate 10 mg daily. 5. Jardiance 10 mg every night. 6. Simvastatin 20 mg daily. 7. Nortriptyline 10 mg p.o. q.h.s. 8. Metoprolol succinate 50 mg daily. 9. Januvia 25 mg daily. 10. Lantus 24 units subcutaneous every morning. 11. Fish oil 1000 mg twice daily. 12. Vitamin B12 daily. 13. Probiotic supplement as needed. ALLERGIES: ZYVOX. FAMILY HISTORY: Positive for diabetes in his grandfather. SOCIAL HISTORY: He is a former smoker. He has a 20-year smoking history, but quit a year ago. He consumes alcohol occasionally. He denies recreational drug use. 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 REVIEW OF SYSTEMS: A 14-point review of systems was discussed with the patient. All systems were negative except discussed in the HPI. PHYSICAL EXAMINATION GENERAL: He is a well-developed, well-nourished male, in no acute distress at rest. He is alert and oriented x3 with appropriate mood and affect. VITAL SIGNS: The patient is 6 feet 2 inches, 203 pounds. Pulse 88, temperature 96.9, respirations 16. HEENT: Normocephalic, atraumatic. His hearing and vision are grossly intact. NECK: His trachea is midline. RESPIRATORY: Lungs are clear to auscultation bilaterally. No wheezes, rales, or rhonchi. CARDIOVASCULAR: Regular rate and rhythm. No murmurs, rubs, or gallops. Normal S1, S2. ABDOMEN: Soft, nondistended, nontender. Normal bowel sounds. EXTREMITIES: Exam of the right lower extremity: Dressing was taken down. Incision over the distal aspect of the below-knee amputation stump has dehisced with approximately two-thirds of the incision opening. This is actively bleeding. There is no erythema. He is tender to palpation over the area. He is able to flex and extend his knee. His sensation to light touch is intact. He has normal vascular exam. IMPRESSION: Right leg below-knee amputation wound dehiscence status post fall. PLAN: The patient will be taken to the operating room for right leg wound irrigation and debridement with secondary closure by Dr. Benavidez as soon as possible. The risks, benefits, and postoperative course were discussed with the patient and he is willing to proceed. All of his questions were answered to his full satisfaction. DHEERAJ GREGORIO [id number]/[facility] #: [id number] [facility]
[2018-05-11] MEDS ORDERED: Bupivacaine 0.25% SDV PF* 10 ML VIAL INJ ONE (17:24)
[2018-05-11] MEDS ORDERED: Succinylcholine* 20 MG/ML 10 ML VIAL ONE (17:44)
[2018-05-11] MEDS ORDERED: Lidocaine 2% PF * 5 ML VIAL ONE (17:44)
[2018-05-11] MEDS ORDERED: Ondansetron INJ* 2 MG/ML VIAL ONE (17:44)
[2018-05-11] MEDS ORDERED: Propofol* 10 MG/ML 20 ML BTL IV PUSH ONE (17:44)
[2018-05-11] MEDS ORDERED: hydrALAZINE IV* 20 MG/ML VIAL ONE (17:44)
[2018-05-11] MEDS ORDERED: Famotidine IV* 10 MG/ML 2 ML (20 mg) ONE (17:44)
[2018-05-11] MEDS ORDERED: Metoclopramide IV* 5 MG/ML 2 ML VIAL ONE (17:44)
[2018-05-11] MEDS ORDERED: Metoprolol Tartrate IV* 1 MG/ML 5 ML VIAL ONE (17:44)
[2018-05-11] MEDS ORDERED: PROCHLORPERAZINE INJ 5 MG/ML 2 ML VIAL IV PRN (17:47)
[2018-05-11] MEDS ORDERED: DiMENhydriNATE IV* 50 MG/ML VIAL IV PUSH PRN (17:47)
[2018-05-11] MEDS ORDERED: Naloxone* 0.4 MG/ML 1 ML VIAL IV PRN (17:47)
[2018-05-11] MEDS ORDERED: oxyCODONE/Acetamin 5/325 MG* TAB PO PRN (17:47)
[2018-05-11] MEDS ORDERED: Morphine INJ* 2 MG/ML 1 ML SYRINGE (TWO MG - NEW SYRINGE VERSION) IV PRN (17:47)
[2018-05-11] MEDS: fentaNYL* 50 MCG/ML 2 ML VIAL (100 MCG VIAL) IV PRN ×3 (19:40→20:13)
[2018-05-11] MEDS ORDERED: oxyCODONE/Acetamin 5/325 MG* TAB ONE (19:40)
[2018-05-11 20:21] VITALS: BP 156/90
--- NOTE | 2018-05-13 08:45 | OP ---
Operative Report - Blank - Operative Report Date of Operation: 05/11/18 Note: PATIENT: Mikel Olivia II DATE OF : 1965 DATE OF SURGERY: 05/11/2018 SURGEON: Michael Benavidez MD LINE PREP COOK: none ANESTHESIOLOGIST: Dr. Garcia PREOPERATIVE DIAGNOSIS: Right amputation stump traumatic wound dehiscence POSTOPERATIVE DIAGNOSIS: Right amputation stump traumatic wound dehiscence OPERATION: Right amputation stump dehisced wound irrigation and debridement and wound closure. ANESTHESIA: GETA IMPLANTS: none TOURNIQUET TIME: none SPECIMENS: none ESTIMATED BLOOD LOSS: 50cc COMPLICATIONS: none STATUS: Stable from the operating room to the recovery room and then home INDICATIONS FOR PROCEDURE: Mikel had been healing well from his right below knee amputation when he sustained a fall earlier today and a traumatic surgical wound dehiscence. Both operative and non-operative treatment alternatives were reviewed. Further, the nature and risks of surgery were reviewed in careful detail, in the office as well as the pre-operative holding area. Our discussions regarding the risks of surgery included, but were not limited to, infection, wound problems, nerve injury, neuroma, RSD, persistent symptoms, blood clot, failure of the surgery, and even the remote chance of catastrophic complication, including further loss of limb. DESCRIPTION OF PROCEDURE: The patient was seen in the preoperative holding unit and informed written consent was obtained. The appropriate extremity was marked. The patient was then brought to the operating room and carefully positioned on the operating room table. Anesthesia was induced. All bony prominences were padded with great care. A well-padded thigh tourniquet was placed. A chlorhexidine based pre- scrub was performed followed by a betadine prep and drape in standard sterile fashion. A surgical safety pause was then conducted in which we confirmed the appropriate patient, extremity, planned procedure, availability of equipment, indication and administration of prophylactic antibiotics, and DVT prophylaxis in the form of a compression boot on the non-surgical extremity. I began by exploring the wound. It measured 20cm in length, 5cm in width and 6cm in depth. The wound was dehisced all the way down to the layer of bone. Overall, the tissue appeared to be of good quality. There was no gross contamination. There was some venous bleeding, which was coagulated. This achieved good hemostasis. I then thoroughly irrigated the wound with sterile saline. I debrided torn tissue from the trauma at the subcutaneous, muscular, and fascial layers. This was performed sharply with a 15 blade scalpel. I trimmed back the skin in a few places with a 15 blade scalpel to get a healthy bleeding skin edge. At this point all the remaining tissue looked of good quality. I then copiously irrigated the wound again with sterile saline. I was able to gently approximate the skin edges, so I decided not to trim back the bone any further. I then meticulously closed the wound in layers utilizing #1 Vicryl for the deep muscular and fascial layers, 0 Vicryl for the deep layer , 3-0 Monocryl for the dermal layer, and 3-0 nylon on the skin. A sterile dressing was then applied. The patient was then awakened from anesthesia and transferred to the recovery room in stable condition. There were no complications. All needle and sponge counts were correct at the end of the case. ATTESTATION: I attest I was present and scrubbed and performed the entire procedure myself. POSTOPERATIVE PLAN: Mikel will remain nonweightbearing on the right lower extremity. He will followup in one week for a wound check. He was placed on oral Bactrim as a precaution.
== END 2018-05-11 20:25 | disposition home or self-care (01) ==
LOC: OR 16:10
PROVIDERS: ATTEND Orthopaedic Surgery
DX: T87.81 Dehiscence of amputation stump (principal); Z89.511 Acquired absence of right leg below knee; E11.22 Type 2 diabetes mellitus with diabetic chronic kidney disease; I12.9 Hypertensive chronic kidney disease with stage 1 through stage 4 chronic kidney disease, or unspecified chronic kidney disease; N18.3 Chronic kidney disease, stage 3 (moderate); Z87.891 Personal history of nicotine dependence; Z79.4 Long term (current) use of insulin; Z79.84 Long term (current) use of oral hypoglycemic drugs
CPT/HCPCS: A9270-GY; J0330; J0360; J0690; J2250; J2405; J2704; J2765; J3010; J3490

== ENCOUNTER 2018-06-21 10:36 | Day surgery (SDC) | payer BC ==
[2018-06-21] MEDS ORDERED: fentaNYL* 50 MCG/ML 2 ML VIAL (100 MCG VIAL) ONE (11:42)
[2018-06-21] MEDS ORDERED: Midazolam* 1 MG/ML 5 ML VIAL (5 MG) ONE (11:42)
[2018-06-21] MEDS ORDERED: Bupivacaine 0.5% SDV PF* 30ML VIAL ONE (12:17)
[2018-06-21] MEDS ORDERED: Lidocaine 2% PF* 10 ML AMP ONE (12:17)
[2018-06-21] MEDS ORDERED: DiMENhydriNATE IV* 50 MG/ML VIAL ONE (12:37)
[2018-06-21] MEDS ORDERED: Dexamethasone IV* 4 MG/ML 1 ML (4 MG) ONE (12:37)
[2018-06-21] MEDS ORDERED: Ondansetron INJ* 2 MG/ML VIAL ONE (12:37)
[2018-06-21] MEDS ORDERED: Propofol* 10 MG/ML 20 ML BTL IV PUSH ONE (12:37)
[2018-06-21] MEDS ORDERED: Lidocaine 2% PF * 5 ML VIAL ONE (12:37)
[2018-06-21] MEDS ORDERED: Ketorolac INJ* 30 MG/ML 1 ML VIAL ONE (12:37)
[2018-06-21] MEDS ORDERED: ceFAZolin 2 GM PREMIX in ORs 2 GM/50 ML BAG IVPB ONE (12:58)
[2018-06-21] MEDS ORDERED: Vancomycin 1500 MG IV - x ONCE IVPB ONE ×2 (13:00)
[2018-06-21] MEDS ORDERED: DiMENhydriNATE IV* 50 MG/ML VIAL IV PUSH PRN (13:28)
[2018-06-21] MEDS ORDERED: Naloxone* 0.4 MG/ML 1 ML VIAL IV PRN (13:28)
[2018-06-21] MEDS ORDERED: HYDROmorphone INJ1* 1 MG/ML SYRINGE ONE (14:01)
[2018-06-21] MEDS: HYDROmorphone INJ1* 1 MG/ML SYRINGE IV PRN ×2 (14:02→14:10)
[2018-06-21] MEDS ORDERED: oxyCODONE/Acetamin 5/325 MG* TAB ONE (14:18)
[2018-06-21] MEDS: oxyCODONE/Acetamin 5/325 MG* TAB PO PRN ×2 (14:19→14:20)
--- NOTE | 2018-06-21 15:01 | OP ---
Operative Report - Blank - Operative Report Date of Operation: 06/21/18 Note: PATIENT: Mikel Olivia II DATE OF : 1965 DATE OF SURGERY: 06/21/2018 SURGEON: Michael Benavidez MD DOUGHNUT MACHINE OPERATOR: DHEERAJ Valadez, whos assistance was necessary for positioning, retraction, help with instrumentation, and closure. ANESTHESIOLOGIST: Dr. Gant PREOPERATIVE DIAGNOSIS: Right amputation stump wound dehiscence POSTOPERATIVE DIAGNOSIS: Right amputation stump wound dehiscence OPERATION: Right amputation stump irrigation and debridement and secondary closure of wound dehiscence. ANESTHESIA: LMA IMPLANTS: none TOURNIQUET TIME: none SPECIMENS: Cultures to microbiology ESTIMATED BLOOD LOSS: minimal COMPLICATIONS: none STATUS: Stable from the operating room to the recovery room and then home INDICATIONS FOR PROCEDURE: Mikel has a prior BKA and traumatic wound dehiscence. Most of the wound has healed well except for the anterolateral aspect which dehisced. Both operative and non-operative treatment alternatives were reviewed. Further, the nature and risks of surgery were reviewed in careful detail. Our discussions regarding the risks of surgery included, but were not limited to, infection, wound problems, nerve injury, neuroma, RSD, persistent symptoms, blood clot, need for further surgery, failure of the surgery. DESCRIPTION OF PROCEDURE: The patient was seen in the preoperative holding unit and informed written consent was obtained. The appropriate extremity was marked. The patient was then brought to the operating room and carefully positioned on the operating room table. Anesthesia was induced. All bony prominences were padded with great care. A chlorhexidine based pre-scrub was performed followed by a chloraprep prep and drape in standard sterile fashion. A surgical safety pause was then conducted in which we confirmed the appropriate patient, extremity, planned procedure, availability of equipment, indication and administration of prophylactic antibiotics, and DVT prophylaxis in the form of a compression boot on the non-surgical extremity. The open area of the wound measured 3cm in length. I extended the wound about 1cm on both sides. There was undermining of the wound. Wound cultures were taken and sent to microbiology. I then sharply debrided all nonviable- appearing tissue with a 15 blade scalpel. I debrided back to bleeding tissue. I then copiously irrigated the wound with sterile saline. I excised the skin edges where the wound had been dehisced, back to healthier bleeding skin. I then closed the wound in layers utilizing #1 Vicryl for the deep layers, 3-0 Monocryl for the dermal layer, and 2-0 Prolene and 3-0 nylon on the skin. A sterile dressing was then applied followed by a splint. The patient was then awakened from anesthesia and transferred to the recovery room in stable condition. There were no complications. All needle and sponge counts were correct at the end of the case. ATTESTATION: I attest I was present and scrubbed and performed the critical portions of the procedure myself. POSTOPERATIVE PLAN: He will remain NWB. Follow-up in 1 week for a wound check.
[2018-06-21 15:39] VITALS: BP 158/82
== END 2018-06-21 16:00 | disposition home or self-care (01) ==
LOC: OR 10:36
PROVIDERS: ATTEND Orthopaedic Surgery
DX: T87.81 Dehiscence of amputation stump (principal); E11.9 Type 2 diabetes mellitus without complications; Z79.4 Long term (current) use of insulin; Z79.84 Long term (current) use of oral hypoglycemic drugs; I10 Essential (primary) hypertension; E78.5 Hyperlipidemia, unspecified; Z87.891 Personal history of nicotine dependence; Z89.511 Acquired absence of right leg below knee
CPT/HCPCS: 87070; 87073; 87076; 87077; 87186; 87205; A9270-GY; J0690; J1100; J1170; J1240; J1885; J2001; J2250; J2405; J2704; J3010; J3370

== ENCOUNTER 2019-03-23 19:32 | Emergency (ER) | payer BC ==
--- NOTE | 2019-03-23 19:59 | ED ---
HPI Diabetic - HPI Summary HPI Summary: A 53 y/o male with a Hx of DM brought in by [facility] presents to [facility] with a chief complaint of low blood glucose today. The patient and his report that the patient was lying down on his couch at 14:45, his came home at 15:30 and he seemed fatigued (and the patient currently does not remember his checking on him at this time). Then his took a nap and at around 18:15 when she checked on him his eyes were wide open but he was not responding, only grunting. The patient notes that today he was mainly working in his garage and driveway and only ate tomatoes and drank iced coffee with milk and sweeteners and an angry orchard. He denies having any full meal today. He says that he took all of his morning medications, taking 20ccs of Lantus this morning. His called an ambulance and his blood glucose level was 41. He was then given Dextrose IV from EMS, and his most recent blood glucose level was 150. 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 Severity Initially: Mild Severity Currently: None Aggravating: Alcohol Alleviating: Nothing Associated Signs & Symptoms: Negative - Allergies/Home Medications Allergies/Adverse Reactions: Allergies Allergy/AdvReac Type Severity Reaction Status Date / Time adhesive tape AdvReac Mild PEALS SKIN Verified 12/06/18 15:11 OFF Home Medications: Home Medications Insulin GLARGINE(*) [Lantus(*)] 20 units SUBCUT Q24H 03/23/19 [History Confirmed 03/23/19] PMH/Surg Hx/FS Hx/Imm Hx Endocrine/Hematology History: Reports: Hx Diabetes - MEDICATED Denies: Hx Anticoagulant Therapy, Hx Blood Disorders, Hx Blood Transfusions, Hx Bone Marrow Disease, Hx Systemic Lupus Erythematosus, Hx Sickle Cell Disease , Hx Thyroid Disease, Hx Anemia, Hx Unexplained Bleeding, Other Endocrine/ Hematological Disorders Cardiovascular History: Reports: Hx Hypertension - MEDICATED Denies: Hx Aneurysm, Hx Angina, Hx Angioplasty, Hx Auto Implanted Cardiovert Defib, Hx Cardiac Arrest, Hx Cardiomegaly, Hx Congenital Heart Disease, Hx Congestive Heart Failure, Hx Coronary Artery Disease, Hx Deep Vein Thrombosis, Hx Embolism, Hx Hypercholesterolemia, Hx Hypotension, Hx Pacemaker/ICD, Hx Peripheral Vascular Disease, Hx Rheumatic Fever, Hx Syncope, Hx Valvular Heart Disease, Other Cardiovascular Problems/Disorders Respiratory History: Denies: Hx Chronic Obstructive Pulmonary Disease (COPD) History: Reports: Hx Chronic Renal Failure - CKD stage III, Other Problems /Disorders - F/U WITH DR GARAY ABN LAB RESULTS Denies: Hx Renal Disease Musculoskeletal History: Reports: Hx Arthritis - OSTEOARTHRITIS, Other Musculoskeletal History - osteomyelitis Denies: Hx Back Problems, Hx Bursitis, Hx Congenital Bone Abnormalities, Hx Fibromyalgia, Hx Gout, Hx Orthopedic Injury, Hx Osteoporosis, Hx Scoliosis, Hx Tendonitis Sensory History: Reports: Hx Contacts or Glasses Denies: Hx Cataracts, Hx Eye Injury, Hx Eye Prosthesis, Hx Glaucoma, Hx Legally Blind, Hx Macular Degeneration, Hx Vision Problem, Hx Deafness, Hx Hearing Aid, Hx Hearing Problem, Other Sensory Impairments Opthamlomology History: Reports: Hx Contacts or Glasses Denies: Hx Cataracts, Hx Eye Injury, Hx Eye Prosthesis, Hx Glaucoma, Hx Legally Blind, Hx Macular Degeneration, Hx Vision Problem, Other Sensory Impairments Neurological History: Reports: Other Neuro Impairments/Disorders - Bilat lower extremity neuropathy Denies: Hx Dementia, Hx Developmental Delay, Hx Headaches, Hx Migraine, Hx Nerve Disease, Hx Seizures, Hx Spinal Cord Injury, Hx Transient Ischemic Attacks (TIA) Psychiatric History: Reports: Hx Depression Denies: Hx Panic Disorder - Cancer History Hx Chemotherapy: No - Surgical History Surgery Procedure, Year, and Place: 9 AMPUTATIONS (MOST RECENTLY 01/2018);Rt LEG. TONSILECTOMY. Lt FOOT - 2 SMALL AMPUTATIONS ON TOES Hx Anesthesia Reactions: No Infectious Disease History: No Infectious Disease History: Reports: Hx of Known/Suspected MRSA Denies: Hx Clostridium Difficile, Hx Hepatitis, Hx Human Immunodeficiency Virus (HIV), Hx Shingles, Hx Tuberculosis, History Other Infectious Disease, Traveled Outside the [place] in Last 30 Days - Family History Known Family History: Positive: None, Cardiac Disease - [place] - grandfather, Diabetes - Grandfather, Other - Mother of [place] - Social History Alcohol Use: Weekly Alcohol Amount: "2/3 drinks a night one week and none another week" Substance Use Type: Reports: None Hx Tobacco Use: Yes - Has not had nicotine replacement since admission Smoking Status (MU): Former Smoker Type: Cigarettes Amount Used/How Often: SMOKED FOR 16-18 YEARS APPROX, 1PPD Have You Smoked in the Last Year: No Review of Systems Positive: Other - positive: 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 Negative: Fever Positive: Other - positive: did not eat much today All Other Systems Reviewed And Are Negative: Yes Physical Exam - Summary Physical Exam Summary: Appearance: Well-appearing, Well-nourished, lying in bed comfortably Skin: Warm, dry, no obvious rash Eyes: sclera anicteric, no conjunctival pallor ENT: mucous membranes moist, pharynx appears normal Neck: Supple, nontender Respiratory: Clear to auscultation, no signs of respiratory distress Cardiovascular: Normal S1, S2. No murmurs. Normal distal pulses in tibial and radial bilaterally. Abdomen: Soft, nontender, normal active bowel sounds present Musculoskeletal: Normal, Strength/ROM Intact Neurological: A&Ox3, awake and alert, mentation is normal, speech is fluent and appropriate Psychiatric: affect is normal, does not appear anxious or depressed Triage Information Reviewed: Yes Vital Signs On Initial Exam: Initial Vitals Temp Pulse Resp BP Pulse Ox 96.4 F 75 16 174/96 97 03/23/19 19:33 03/23/19 19:33 03/23/19 19:33 03/23/19 19:33 03/23/19 19:33 Vital Signs Reviewed: Yes Diagnostics - Vital Signs Vital Signs Temp Pulse Resp BP Pulse Ox 03/23/19 19:33 96.4 F 75 16 174/96 97 - Laboratory Result Diagrams: 03/23/19 19:56 03/23/19 19:56 Lab Statement: Any lab studies that have been ordered have been reviewed, and results considered in the medical decision making process. Diabetic Course/Dx - Course Course Of Treatment: A 53 y/o male with a Hx of DM brought in by [facility] presents to [facility] with a chief complaint of low blood glucose today. His blood glucose level upon EMS arrival was reportedly 41. The physical exam was unremarkable. Blood work and chemistries obtained. His latest POC glucose was 159. The patient will be discharged home and follow up with his PCP. The patient is agreeable with this plan. - Diagnoses Provider Diagnoses: Hypoglycemia Discharge - Sign-Out/Discharge Documenting (check all that apply): Patient Departure - DC Patient Received Moderate/Deep Sedation with Procedure: No - Discharge Plan Condition: Good Disposition: HOME Patient Education Materials: Hypoglycemia in a Person with Diabetes (ED) Referrals: Akin Sexton MD [Primary Care Provider] - Additional Instructions: I am not recommending any changes in your medications for your diabetes, but you always have to be aware of needing to eat regularly when you have these medications in your system, especially when you are physically active. - Billing Disposition and Condition Condition: GOOD Disposition: Home - Attestation Statements Document Initiated by Trevon: Yes Documenting Scribe: Ernesto Phan Provider For Whom Trevon is Documenting (Include Credential): Jaquan Pierce MD Scribe Attestation: I, Ernesto Phan, scribed for Jaquan Pierce MD on 03/24/19 at 0512. Scribe Documentation Reviewed: Yes Provider Attestation: The documentation as recorded by the Ernesto goodman accurately reflects the service I personally performed and the decisions made by me, Jaquan Pierce MD Status of Scribe Document: Viewed
[2019-03-23 20:03] LABS: ABS Lymphocytes 0.8 10^3/ul (1.0-4.8); ABS Monocytes 0.5 10^3/ul (0-0.8); ABS Neutrophils 5.5 10^3/ul (1.5-7.7); Eosinophil % 0.5 %; Hematocrit 45 % (42-52); Hemoglobin 15.6 g/dL (14.0-18.0); Lymphocyte % 11.9 %; Mean Corpuscular HGB Conc 34 g/dL (31-36); Mean Corpuscular Hemoglobin 29 pg (27-31); Mean Corpuscular Volume 85 fL (80-94); Mean Platelet Volume 7.9 fL (7.4-10.4); Nucleated Red Blood Cells % 0.1; Platelet Count 147 10^3/uL (150-450); Red Blood Count 5.34 10^6 /uL (4.18-5.48); Red Cell Distribution Width 15 % (10-15); White Blood Count 6.9 10^3/uL (3.5-10.8)
[2019-03-23 20:20] LABS: BUN/Creatinine Ratio 10.7 (8-20); Calcium 9.5 mg/dL (8.6-10.3); EGFR African American 68.7 (>60); EGFR Non-African American 56.8 (>60); Potassium 3.7 mmol/L (3.5-5.0)
[2019-03-24 00:08] VITALS: BP 147/88
== END 2019-03-24 00:07 | disposition home or self-care (01) ==
LOC: ED 19:32
DX: E11.649 Type 2 diabetes mellitus with hypoglycemia without coma (principal); Z79.4 Long term (current) use of insulin; E11.22 Type 2 diabetes mellitus with diabetic chronic kidney disease; I12.9 Hypertensive chronic kidney disease with stage 1 through stage 4 chronic kidney disease, or unspecified chronic kidney disease; N18.3 Chronic kidney disease, stage 3 (moderate); Z79.899 Other long term (current) drug therapy; Z87.891 Personal history of nicotine dependence
CPT/HCPCS: 36415; 80048; 85025; 99284